=== PATIENT | female | born 1945 | race Caucasian/White ===

== ENCOUNTER 2019-07-14 08:00 | Outpatient (RCR) | payer BC, SELFPAY | END 2019-07-22 10:00 | disposition home or self-care (01) | LOC: PT.CARL 08:00 | PROVIDERS: Visit Provider Orthopaedic Surgery | DX: M25.561 Pain in right knee (principal); Z96.651 Presence of right artificial knee joint | CPT/HCPCS: 97010; 97014; 97110; 97112; 97116; 97140; 97163; G0283 ==

== ENCOUNTER → 2022-04-26 23:41 | Outpatient (CLI) | payer BC, SELFPAY ==
[2022-04-26 23:58] LABS: Hemoglobin A1C 5.6 % (4.0-6.0)
== END ==
PROVIDERS: PCP Family Medicine; Visit Provider Family Medicine
DX: R73.9 Hyperglycemia, unspecified (principal)
CPT/HCPCS: 83036

== ENCOUNTER 2023-01-21 17:55 | Emergency (ER) | payer OTHER, BC, SELFPAY ==
[2023-01-21] VITALS (7 sets, daily range): BP systolic 158–172; BP diastolic 74–108; PULSE 70–82; RESP 14–20; TEMP 36.7–36.8; O2SAT 94–98; BMI 24.2
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
--- NOTE | 2023-01-21 18:06 | PC.NURSE ---
Pt necklace given to pt daughter in law. Daughter in law placed necklace in the back of wallet in zipper pocket.
--- NOTE | 2023-01-21 18:07 | PC.NURSE ---
Dr. Oviedo at [facility] for pt eval
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
[2023-01-21 18:33] LABS: Chloride 92 mmol/L (98-107)
[2023-01-21 18:34] LABS: Sodium 129 mmol/L (136-145)
[2023-01-21 18:36] LABS: Alanine Aminotransferase 34 U/L (12-78); Aspartate Amino Transferase 47 U/L (14-36); Blood Urea Nitrogen 22 mg/dl (7-17); Creatinine Clearance Estimated 38 mL/min (50-200); Estimated Glomerular Filt Rate 40 ml/min (>60); GFR (African American) 48 ML/MIN (>60)
[2023-01-21 18:37] LABS: Albumin Level 4.5 g/dl (3.5-5.0); Albumin/Globulin Ratio 1.6 (1.1-1.8); Alkaline Phosphatase 49 U/L (38-126); Bilirubin,Total 0.4 mg/dl (0.2-1.3); Calcium 8.9 mg/dl (8.4-10.2); Carbon Dioxide 29 mmol/L (22.0-30.0); Globulin 2.8 g/dL (1.3-3.2); Glucose 136 mg/dl (74-100); Total Protein,Serum 7.3 g/dl (6.3-8.2)
[2023-01-21 18:42] LABS: Activated Partial Thrombo Time 27.2 seconds (22.8-30.6); INR 0.93 (0.9-1.1); Prothrombin Time 10.1 seconds (10.1-12.5)
--- NOTE | 2023-01-21 19:50 | PC.NURSE ---
Assisted to bedside commode.
[2023-01-21 20:15] LABS: Troponin I < 0.01 ng/ml (0.00-0.034)
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
[2023-01-21 20:43] LABS: Basophils % 0.3 % (0.1-2.0); Eosinophils # 0.3 K/mm3 (0.0-0.4); Eosinophils % 3.4 % (0.1-12.0); Hematocrit 40.2 % (37.0-47.0); Hemoglobin 14.2 g/dL (12.2-16.2); Lymphocytes # 3.1 K/mm3 (0.7-4.5); Lymphocytes % 31.9 % (10-50); Mean Corpuscular HGB Conc 35.4 g/dL (31.8-35.4); Mean Corpuscular Hemoglobin 31.3 pg (27.0-31.2); Mean Corpuscular Volume 88.5 fl (81-99); Mean Platelet Volume 8.8 fl (7.4-10.4); Monocytes # 0.7 K/mm3 (0.1-1.0); Monocytes % 7.2 % (1.7-9.3); Neutrophils # 5.5 K/mm3 (1.8-7.8); Neutrophils % 57.4 % (37.0-80.0); Platelet Count 274 K/mm3 (142-424); Red Blood Count 4.54 M/mm3 (4.20-5.40); Red Cell Distribution Width 13.5 % (11.5-17.5); White Blood Count 9.6 K/mm3 (4.8-10.8)
== END 2023-01-21 21:11 | disposition home or self-care (01) ==
PROVIDERS: Emergency Provider Emergency Medicine; PCP Family Medicine
DX: S22.080A Wedge compression fracture of T11-T12 vertebra, initial encounter for closed fracture (principal); E87.6 Hypokalemia; E87.1 Hypo-osmolality and hyponatremia; S16.1XXA Strain of muscle, fascia and tendon at neck level, initial encounter; I10 Essential (primary) hypertension; E78.5 Hyperlipidemia, unspecified; M19.09 Primary osteoarthritis, other specified site; V49.40XA Driver injured in collision with unspecified motor vehicles in traffic accident, initial encounter; Y92.410 Unspecified street and highway as the place of occurrence of the external cause
CPT/HCPCS: 70450; 70496; 70498; 71275; 72125; 72128; 72131; 74174; 80053; 84484; 85025; 85610; 85730; 99285; Q9967

== ENCOUNTER → 2023-01-30 08:01 | Outpatient (CLI) | payer BC, SELFPAY ==
[2023-01-30 16:35] LABS: Basophils % 0.2 % (0.1-2.0); Eosinophils # 0.1 K/mm3 (0.0-0.4); Eosinophils % 1.3 % (0.1-12.0); Hematocrit 39.5 % (37.0-47.0); Hemoglobin 13.7 g/dL (12.2-16.2); Lymphocytes # 1.4 K/mm3 (0.7-4.5); Lymphocytes % 15.8 % (10-50); Mean Corpuscular HGB Conc 34.7 g/dL (31.8-35.4); Mean Corpuscular Hemoglobin 30.2 pg (27.0-31.2); Mean Platelet Volume 8.6 fl (7.4-10.4); Monocytes # 0.5 K/mm3 (0.1-1.0); Monocytes % 5.5 % (1.7-9.3); Neutrophils # 6.7 K/mm3 (1.8-7.8); Neutrophils % 77.3 % (37.0-80.0); Platelet Count 362 K/mm3 (142-424); Red Blood Count 4.55 M/mm3 (4.20-5.40); Red Cell Distribution Width 13.2 % (11.5-17.5); White Blood Count 8.7 K/mm3 (4.8-10.8)
[2023-01-30 16:38] LABS: Alanine Aminotransferase 31 U/L (12-78); Albumin Level 4.1 g/dl (3.5-5.0); Albumin/Globulin Ratio 1.6 (1.1-1.8); Alkaline Phosphatase 62 U/L (38-126); Anion Gap 12.5 mEq/L (5-15); Aspartate Amino Transferase 35 U/L (14-36); Bilirubin,Total 0.5 mg/dl (0.2-1.3); Blood Urea Nitrogen 10 mg/dl (7-17); Calcium 9.3 mg/dl (8.4-10.2); Carbon Dioxide 30 mmol/L (22.0-30.0); Chloride 87 mmol/L (98-107); Estimated Glomerular Filt Rate 81 ml/min (>60); GFR (African American) 98 ML/MIN (>60); Globulin 2.6 g/dL (1.3-3.2); Glucose 143 mg/dl (74-100); Potassium 3.5 mmoL/L (3.5-5.1); Sodium 126 mmol/L (136-145); Total Protein,Serum 6.7 g/dl (6.3-8.2)
== END ==
PROVIDERS: PCP Nurse Practitioner Family; Visit Provider Nurse Practitioner Family
DX: R94.4 Abnormal results of kidney function studies (principal)
CPT/HCPCS: 80053; 85025

== ENCOUNTER 2023-08-20 10:27 | Outpatient (CLI) | payer BC, SELFPAY ==
[2023-08-20 16:42] LABS: Basophils % 0.4 % (0.1-2.0); Eosinophils # 0.1 K/mm3 (0.0-0.4); Eosinophils % 2.1 % (0.1-12.0); Hematocrit 41.1 % (37.0-47.0); Hemoglobin 13.5 g/dL (12.2-16.2); Lymphocytes # 1.5 K/mm3 (0.7-4.5); Lymphocytes % 25.8 % (10-50); Mean Corpuscular HGB Conc 32.8 g/dL (31.8-35.4); Mean Corpuscular Hemoglobin 29.7 pg (27.0-31.2); Mean Corpuscular Volume 90.8 fl (81-99); Mean Platelet Volume 9.3 fl (7.4-10.4); Monocytes # 0.5 K/mm3 (0.1-1.0); Monocytes % 7.9 % (1.7-9.3); Neutrophils # 3.8 K/mm3 (1.8-7.8); Neutrophils % 63.7 % (37.0-80.0); Platelet Count 264 K/mm3 (142-424); Red Blood Count 4.53 M/mm3 (4.20-5.40); Red Cell Distribution Width 13.6 % (11.5-17.5); White Blood Count 5.9 K/mm3 (4.8-10.8)
[2023-08-20 16:53] LABS: Alanine Aminotransferase 25 U/L (12-78); Albumin Level 3.9 g/dl (3.5-5.0); Albumin/Globulin Ratio 1.4 (1.1-1.8); Alkaline Phosphatase 59 U/L (38-126); Anion Gap 12.2 mEq/L (5-15); Aspartate Amino Transferase 31 U/L (14-36); Bilirubin,Total 0.9 mg/dl (0.2-1.3); Blood Urea Nitrogen 13 mg/dl (7-17); Calcium 9.2 mg/dl (8.4-10.2); Carbon Dioxide 30 mmol/L (22.0-30.0); Chloride 92 mmol/L (98-107); Chol/HDL Ratio 3.3 (1-3.5); Cholesterol 170 mg/dl (140-200); Estimated Glomerular Filt Rate 69 ml/min (>60); GFR (African American) 84 ML/MIN (>60); Globulin 2.7 g/dL (1.3-3.2); Glucose 93 mg/dl (74-100); HDL Cholesterol 52 mg/dl (40-60); Potassium 3.2 mmoL/L (3.5-5.1); Sodium 131 mmol/L (136-145); Total Protein,Serum 6.6 g/dl (6.3-8.2); Triglycerides 91 mg/dl (30-150); VLDL Cholesterol 18 mg/dL (0-40)
[2023-08-20 17:03] LABS: Direct LDL Cholesterol 85.37 mg/dL (100-129)
[2023-08-20 17:21] LABS: Thyroid Stimulating Hormone 0.18 uIU/mL (0.465-4.68)
[2023-08-20 17:40] LABS: Vitamin B12 730 pg/mL (239-931)
[2023-08-20 19:23] LABS: Hemoglobin A1C 5.5 % (4.0-6.0)
[2023-08-21 12:14] LABS: Free Thyroxine Index 3.2 ug/dL (5.93-13.13); T4 (Thyroxine) 8.6 ug/dl (5.53-11.0); Triiodothryronine (T3) Uptake 37 % (23.5-40.5)
[2023-08-21 12:28] LABS: Thyroid Stimulating Hormone 0.18 uIU/mL (0.465-4.68)
== END 2023-08-20 23:59 | disposition home or self-care (01) ==
LOC: LAB.DROPOF 08-22 10:28
PROVIDERS: PCP Nurse Practitioner Family; Visit Provider Nurse Practitioner Family
DX: I10 Essential (primary) hypertension (principal); E78.5 Hyperlipidemia, unspecified; E53.8 Deficiency of other specified B group vitamins; E04.1 Nontoxic single thyroid nodule; Z68.24 Body mass index [BMI] 24.0-24.9, adult
CPT/HCPCS: 80053; 80061; 82607; 83036; 84436; 84443; 84479; 85025

== ENCOUNTER 2024-03-05 09:20 | Outpatient (CLI) | payer BC, SELFPAY ==
[2024-03-05 17:08] LABS: Mean Corpuscular HGB Conc 33.3 g/dL (31.8-35.4); Mean Corpuscular Hemoglobin 29.7 pg (27.0-31.2); Red Blood Count 4.72 M/mm3 (4.20-5.40); Red Cell Distribution Width 12.8 % (11.5-17.5); White Blood Count 7.3 K/mm3 (4.8-10.8)
[2024-03-05 17:09] LABS: Basophils % 0.3 % (0.1-2.0); Eosinophils # 0.2 K/mm3 (0.0-0.4); Eosinophils % 2.6 % (0.1-12.0); Lymphocytes # 2.5 K/mm3 (0.7-4.5); Lymphocytes % 33.7 % (10-50); Monocytes # 0.8 K/mm3 (0.1-1.0); Monocytes % 10.5 % (1.7-9.3); Neutrophils # 3.9 K/mm3 (1.8-7.8); Neutrophils % 52.6 % (37.0-80.0); Platelet Count 286 K/mm3 (142-424)
[2024-03-05 17:35] LABS: Alanine Aminotransferase 23 U/L (12-78); Alkaline Phosphatase 44 U/L (38-126); Aspartate Amino Transferase 31 U/L (14-36); Bilirubin,Total 0.7 mg/dl (0.2-1.3); Blood Urea Nitrogen 16 mg/dl (7-17); Calcium 9.2 mg/dl (8.4-10.2); Chloride 97 mmol/L (98-107); Chol/HDL Ratio 3.2 (1-3.5); Cholesterol 158 mg/dl (140-200); Estimated Glomerular Filt Rate 69 ml/min (>60); GFR (African American) 84 ML/MIN (>60); Glucose 100 mg/dl (74-100); HDL Cholesterol 50 mg/dl (40-60); Potassium 3.8 mmoL/L (3.5-5.1); Sodium 135 mmol/L (136-145); Total Protein,Serum 6.5 g/dl (6.3-8.2); Triglycerides 78 mg/dl (30-150); VLDL Cholesterol 16 mg/dL (0-40)
[2024-03-05 17:45] LABS: Direct LDL Cholesterol 93.64 mg/dL (100-129)
[2024-03-05 18:01] LABS: Albumin Level 4.1 g/dl (3.5-5.0); Albumin/Globulin Ratio 1.7 (1.1-1.8); Anion Gap 11.8 mEq/L (5-15); Carbon Dioxide 30 mmol/L (22.0-30.0); Globulin 2.4 g/dL (1.3-3.2)
[2024-03-05 22:12] LABS: HIV Combo NEGATIVE (Negative)
[2024-03-07 08:15] LABS: HCV Ab Non Reactive (Non Reactive)
== END 2024-03-05 23:59 | disposition home or self-care (01) ==
LOC: LAB.DROPOF 03-06 12:09
PROVIDERS: PCP Family Medicine; Visit Provider Family Medicine
DX: E78.5 Hyperlipidemia, unspecified (principal); I10 Essential (primary) hypertension; Z11.59 Encounter for screening for other viral diseases; Z11.4 Encounter for screening for human immunodeficiency virus [HIV]
CPT/HCPCS: 80053; 80061; 85025; 86803; 87389

== ENCOUNTER 2024-07-23 12:40 | Inpatient (IN) | payer MEDICARE, BC, SELFPAY ==
[2024-07-23] VITALS (15 sets, daily range): BP systolic 106–168; BP diastolic 58–88; PULSE 68–81; RESP 12–20; TEMP 36.7–36.8; O2SAT 93–98; BMI 24.2
--- OUTSIDE RECORDS SUMMARY | 2024-07-23 12:50 | XMS_ITS | Data Portability ---
Author Organization [facility] Address [address] [place] [address] Assessment No assessment recorded. Plan of Treatment Reminders Order Date Submit Date Provider Last Modified By Organization Details Last Modified Time Details Appointments None recorded. Lab CBC w/ auto diff 2021 [facility]AN[facility], [address], [place], [address], 07:07:48 CMP, serum or plasma 2021 [email or web address] [facility], [address], [place], [address], 10:17:20 TSH, ultra-sens itive, serum 2021 jkiskaden [facility], [address], [place], [address], 10:16:59 HbA1c (hemoglobi n A1c), blood 2021 [email or web address] [facility], [address], [place], [address], 2 10:16:36 lipid panel, serum 2021 [facility]AN[facility], [address], [place], [address], 07:07:50 vitamin D, 25-hydroxy , total, serum 2021 [facility], [address], [address], [place], [address], 10:16:16 urinalysis , dipstick 2021 julia Not available 14:09:38 culture, urine 2021 [facility], [address], [address], [place], [address], 07:07:53 Referral None recorded. Procedures None recorded. Surgeries None recorded. Imaging None recorded. Medication Orders lansoprazo le 30 mg capsule,de layed release 2021 [employer], [address] [place] [address], [id number], 09:31:08 pravastati n 80 mg tablet 2021 [employer], [address] [place] [address], [id number], 09:31:09 lisinopril 20 mg-hydroch lorothiazi de 25 mg tablet 2021 [employer], [address] [place] [address], [id number], 09:31:08 tolterodin e ER 4 mg capsule,ex tended release 24 hr 2021 [employer], [address] [place] [address], [id number], 09:31:08 Patient TargetsNo targets recorded. Patient InstructionsNo instructions recorded. Reason for Referral None Reported. Results Created Date Observation Date Name Description Value Unit Range Abnormal Flag Note LastModifiedBy Organization Detail LastModifiedTime 02/09/20 22 02/09/2022 CBC WITH DIFFE RENTI AL/PL ATELE T WBC 6.3 x10e3 /uL 3.4-10 .8 Not Available [facility] ([facility]) [address] [facility], [place], [address], 02/10/2022 07:07:47 02/09/20 22 02/09/2022 CBC WITH DIFFE RENTI AL/PL ATELE T RBC 4.81 x10e6 /uL 3.77-5 .28 Not Available [facility] ([facility]) [address] [facility], [place], [address], 02/10/2022 07:07:47 02/09/20 22 02/09/2022 CBC WITH DIFFE RENTI AL/PL ATELE T hemoglobin 14.1 g/dL 11.1-1 5.9 Not Available [facility] ([facility]) [address] [place], [address], 02/10/2022 07:07:47 02/09/20 22 02/09/2022 CBC WITH DIFFE RENTI AL/PL ATELE T hematocrit 42.0 % 34.0-4 6.6 Not Available [facility] ([facility]) [address] [place], [address], 02/10/2022 07:07:47 02/09/20 22 02/09/2022 CBC WITH DIFFE RENTI AL/PL ATELE T MCV 87 fL 79-97 Not Available [facility] ([facility]) [address] [place], [address], 02/10/2022 07:07:47 02/09/20 22 02/09/2022 CBC WITH DIFFE RENTI AL/PL ATELE T MCH 29.3 pg 26.6-3 3.0 Not Available [facility] ([facility]) [address] [place], [address], 02/10/2022 07:07:47 02/09/20 22 02/09/2022 CBC WITH DIFFE RENTI AL/PL ATELE T MCHC 33.6 g/dL 31.5-3 5.7 Not Available [facility] ([facility]) [address] [facility], [place], [address], 02/10/2022 07:07:47 02/09/20 22 02/09/2022 CBC WITH DIFFE RENTI AL/PL ATELE T RDW 12.2 % 11.7-1 5.4 Not Available [facility] ([facility]) [address] [facility], [place], [address], 02/10/2022 07:07:47 02/09/20 22 02/09/2022 CBC WITH DIFFE RENTI AL/PL ATELE T platelets 269 x10e3 /uL 150-45 0 Not Available [facility] ([facility]) [address] [facility], [place], [address], 02/10/2022 07:07:47 02/09/20 22 02/09/2022 CBC WITH DIFFE RENTI AL/PL ATELE T neutrophils 54 % not estab. Not Available [facility] ([facility]) [address] [facility], [place], [address], 02/10/2022 07:07:47 02/09/20 22 02/09/2022 CBC WITH DIFFE RENTI AL/PL ATELE T lymphs 33 % not estab. Not Available [facility] ([facility]) [address] [facility], [place], [address], 02/10/2022 07:07:47 02/09/20 22 02/09/2022 CBC WITH DIFFE RENTI AL/PL ATELE T monocytes 11 % not estab. Not Available [facility] ([facility]) [address] [facility], [place], [address], 02/10/2022 07:07:47 02/09/20 22 02/09/2022 CBC WITH DIFFE RENTI AL/PL ATELE T eos 2 % not estab. Not Available [facility] ([facility]) [address] [place], [address], 02/10/2022 07:07:47 02/09/20 22 02/09/2022 CBC WITH DIFFE RENTI AL/PL ATELE T basos 0 % not estab. Not Available [facility] ([facility]) [address] [place], [address], 02/10/2022 07:07:47 02/09/20 22 02/09/2022 CBC WITH DIFFE RENTI AL/PL ATELE T immature cells [employer] Not Available [facility] ([facility]) [address] [place], [address], 02/10/2022 07:07:47 02/09/20 22 02/09/2022 CBC WITH DIFFE RENTI AL/PL ATELE T neutrophils (absolute) 3.4 x10e3 /uL 1.4-7. 0 Not Available [facility] ([facility]) [address] [place], [address], 02/10/2022 07:07:47 02/09/20 22 02/09/2022 CBC WITH DIFFE RENTI AL/PL ATELE T lymphs (absolute) 2.1 x10e3 /uL 0.7-3. 1 Not Available [facility] ([facility]) [address] [place], [address], 02/10/2022 07:07:47 02/09/20 22 02/09/2022 CBC WITH DIFFE RENTI AL/PL ATELE T monocytes(ab solute) 0.7 x10e3 /uL 0.1-0. 9 Not Available [facility] ([facility]) [address] [place], [address], 02/10/2022 07:07:47 02/09/20 22 02/09/2022 CBC WITH DIFFE RENTI AL/PL ATELE T eos (absolute) 0.1 x10e3 /uL 0.0-0. 4 Not Available [facility] ([facility]) [address] [facility], [place], [address], 02/10/2022 07:07:47 02/09/20 22 02/09/2022 CBC WITH DIFFE RENTI AL/PL ATELE T baso (absolute) 0.0 x10e3 /uL 0.0-0. 2 Not Available [facility] ([facility]) [address] [facility], [place], [address], 02/10/2022 07:07:47 02/09/20 22 02/09/2022 CBC WITH DIFFE RENTI AL/PL ATELE T immature granulocytes 0 % not estab. Not Available [facility] ([facility]) [address] [facility], [place], [address], 02/10/2022 07:07:47 02/09/20 22 02/09/2022 CBC WITH DIFFE RENTI AL/PL ATELE T immature grans (abs) 0.0 x10e3 /uL 0.0-0. 1 Not Available [facility] ([facility]) [address] [facility], [place], [address], 02/10/2022 07:07:47 02/09/20 22 02/09/2022 CBC WITH DIFFE RENTI AL/PL ATELE T NRBC [employer] Not Available [facility] ([facility]) [address] [facility], [place], [address], 02/10/2022 07:07:47 02/09/20 22 02/09/2022 CBC WITH DIFFE RENTI AL/PL ATELE T hematology comments: [employer] Not Available [facility] ([facility]) [address] [facility], [place], [address], 02/10/2022 07:07:47 02/09/20 22 02/09/2022 COMP. METAB OLIC PANEL (14) glucose 89 mg/dL 70-99 Not Available [facility] ([facility]) [address] [facility] [place], [address], 02/10/2022 07:07:49 02/09/20 22 02/09/2022 COMP. METAB OLIC PANEL (14) BUN 15 mg/dL 8-27 Not Available [facility] ([facility]) [address] [facility] [place], [address], 02/10/2022 07:07:49 02/09/20 22 02/09/2022 COMP. METAB OLIC PANEL (14) creatinine 0.94 mg/dL 0.57-1 .00 Not Available [facility] ([facility]) [address] [facility] [place], [address], 02/10/2022 07:07:49 02/09/20 22 02/09/2022 COMP. METAB OLIC PANEL (14) eGFR 62 mL/mi n/1.7 3 >59 Not Available [facility] ([facility]) [address] [facility], [place], [address], 02/10/2022 07:07:49 02/09/20 22 02/09/2022 COMP. METAB OLIC PANEL (14) BUN/creatini ne ratio 16 12-28 Not Available [facility] ([facility]) [address] [facility] [place], [address], 02/10/2022 07:07:49 02/09/20 22 02/09/2022 COMP. METAB OLIC PANEL (14) sodium 133 mmol/ L 134-14 4 below low normal Not Available [facility] ([facility]) [address] [facility] [place], [address], 02/10/2022 07:07:49 02/09/20 22 02/09/2022 COMP. METAB OLIC PANEL (14) potassium 3.4 mmol/ L 3.5-5. 2 below low normal Not Available [facility] ([facility]) [address] [facility] [place], [address], 02/10/2022 07:07:49 02/09/20 22 02/09/2022 COMP. METAB OLIC PANEL (14) chloride 95 mmol/ L 96-106 below low normal Not Available [facility] ([facility]) [address] [facility], [place], [address], 02/10/2022 07:07:49 02/09/20 22 02/09/2022 COMP. METAB OLIC PANEL (14) carbon dioxide, total 27 mmol/ L 20-29 Not Available [facility] ([facility]) [address] [facility] [place], [address], 02/10/2022 07:07:49 02/09/20 22 02/09/2022 COMP. METAB OLIC PANEL (14) calcium 9.2 mg/dL 8.7-10 .3 Not Available [facility] ([facility]) [address] [facility] [place], [address], 02/10/2022 07:07:49 02/09/20 22 02/09/2022 COMP. METAB OLIC PANEL (14) protein, total 6.7 g/dL 6.0-8. 5 Not Available [facility] ([facility]) [address] [facility] [place], [address], 02/10/2022 07:07:49 02/09/20 22 02/09/2022 COMP. METAB OLIC PANEL (14) albumin 4.3 g/dL 3.7-4. 7 Not Available [facility] ([facility]) [address] [facility] [place], [address], 02/10/2022 07:07:49 02/09/20 22 02/09/2022 COMP. METAB OLIC PANEL (14) globulin, total 2.4 g/dL 1.5-4. 5 Not Available [facility] ([facility]) [address] [facility] [place], [address], 02/10/2022 07:07:49 02/09/20 02/09/2022 COMP. METAB OLIC PANEL (14) A/G ratio 1.8 1.2-2. 2 Not Available [facility] ([facility]) [address] [place], [address], 02/10/2022 07:07:49 02/09/20 22 02/09/2022 COMP. METAB OLIC PANEL (14) bilirubin, total 0.9 mg/dL 0.0-1. 2 Not Available [facility] ([facility]) [address] [place], [address], 02/10/2022 07:07:49 02/09/20 22 02/09/2022 COMP. METAB OLIC PANEL (14) alkaline phosphatase 41 IU/L 44-121 below low normal Not Available [facility] ([facility]) [address] [place], [address], 02/10/2022 07:07:49 02/09/20 22 02/09/2022 COMP. METAB OLIC PANEL (14) AST (SGOT) 17 IU/L 0-40 Not Available [facility] ([facility]) [address] [place], [address], 02/10/2022 07:07:49 02/09/20 22 02/09/2022 COMP. METAB OLIC PANEL (14) ALT (SGPT) 17 IU/L 0-32 Not Available [facility] ([facility]) [address] [place], [address], 02/10/2022 07:07:49 02/09/20 22 02/09/2022 LIPID PANEL WITH LDL/H DL RATIO cholesterol, total 169 mg/dL 100-19 9 Not Available [facility] ([facility]) [address] [place], [address], 02/10/2022 07:07:50 02/09/20 22 02/09/2022 LIPID PANEL WITH LDL/H DL RATIO triglyceride s 133 mg/dL 0-149 Not Available [facility] ([facility]) [address] [facility], [place], [address], 02/10/2022 07:07:50 02/09/20 22 02/09/2022 LIPID PANEL WITH LDL/H DL RATIO HDL cholesterol 46 mg/dL >39 Not Available [facility]) [address] [facility], [place], [address], 02/10/2022 07:07:50 02/09/20 22 02/09/2022 LIPID PANEL WITH LDL/H DL RATIO VLDL cholesterol michelle 24 mg/dL 5-40 Not Available [facility] ([facility]) [address] [facility], [place], [address], 02/10/2022 07:07:50 02/09/20 22 02/09/2022 LIPID PANEL WITH LDL/H DL RATIO LDL chol calc (nih) 99 mg/dL 0-99 Not Available [facility] ([facility]) [address] [facility], [place], [address], 02/10/2022 07:07:50 02/09/20 22 02/09/2022 LIPID PANEL WITH LDL/H DL RATIO comment: [employer] Not Available [facility] ([facility]) [address] [place], [address], 02/10/2022 07:07:50 02/09/20 22 02/09/2022 LIPID PANEL WITH LDL/H DL RATIO LDL/HDL ratio 2.2 ratio 0.0-3. 2 LDL/H DL Ratio Men Women 1/2 Avg.R isk 1.0 1.5 Avg.R isk 3.6 3.2 2X Avg.R isk 6.2 5.0 3X Avg.R isk 8.0 6.1 Not Available [facility] ([facility]) [address] [facility], [place], [address], 02/10/2022 07:07:50 02/09/20 22 02/09/2022 HEMOG LOBIN A1C hemoglobin A1C 5.7 % 4.8-5. 6 above high normal Predi abete s: 5.7 - 6.4 Diabe eliana: >6.4 Glyce joyce contr ol for adult s with diabe eliana: <7.0 Not Available [facility] ([facility]) [address] [facility], [place], [address], 02/10/2022 07:07:51 02/09/20 22 02/09/2022 TSH TSH 0.314 uIU/m L 0.450- 4.500 below low normal Not Available [facility] ([facility]) [address] [facility], [place], [address], 02/10/2022 07:07:51 02/09/20 22 02/09/2022 VITAM IN D, 25-HY DROXY vitamin D, 25-hydroxy 49.9 NG/mL 30.0-1 00.0 Vitam in D defic iency has been defin ed by the Insti tute of Medic ine and an Endoc rine Socie ty pract ice guide line as a level of serum 25-OH vitam in D less than 20 ng/mL (1,2) . The Endoc rine Socie ty went on to furth er defin e vitam in D insuf ficie ncy as a level betwe en 21 and 29 ng/mL (2). 1. IOM (Inst itute of Medic ine). 2009. Dieta ry refer ence cathy es for calci um and D. Sarah butler [place]: [facility] . 2. Marianna meng MF, Tu morales [place], [place] off-F errar i ROBIN, et al. Evalu ation , treat ment, and preve ntion of vitam in D defic iency : an Endoc rine Socie ty clini michelle pract ice guide line. JCEM. 2010; 96(7) :1911 -30. Not Available [facility] ([facility]) [address] [facility], [place], [address], 02/10/2022 07:07:52 02/09/20 22 02/10/2022 URINE CULTU RE,CO MPREH ENSIV E urine culture,comp rehensive FINAL REPORT Not Available [facility] ([facility]) [address] [facility], [place], [address], 02/10/2022 07:07:53 02/09/20 22 02/10/2022 URINE CULTU RE,CO MPREH ENSIV E result 1 COMMEN T Mixed uroge nital je 25,00 0-50, 000 colon y formi ng units per mL Not Available [facility] ([facility]) [address] [facility], [place], [address], 02/10/2022 07:07:53 02/09/20 22 02/08/2022 urina lysis , dipst ick Leukocytes (reference range) modera te Not Available [address], [address], 02/08/2022 09:50:49 02/09/20 22 02/08/2022 urina lysis , dipst ick Nitrite (reference range:) negati ve Not Available [address], [address], 02/08/2022 09:50:49 02/09/20 22 02/08/2022 urina lysis , dipst ick Urobilinogen (reference range) 0.2 Not Available [address], [address], 02/08/2022 09:50:49 02/09/20 22 02/08/2022 urina lysis , dipst ick Protein (reference range) negati ve Not Available [address], [address], 02/08/2022 09:50:49 02/09/20 22 02/08/2022 urina lysis , dipst ick pH (reference range 5-8.5) 6.0 Not Available [address], [address], 02/08/2022 09:50:49 02/09/20 22 02/08/2022 urina lysis , dipst ick Blood (reference range:) non-He molyze d: Trace Not Available [address], [address], 02/08/2022 09:50:49 02/09/20 22 02/08/2022 urina lysis , dipst ick Specific [place] (reference range) 1.020 Not Available [address], [address], 02/08/2022 09:50:49 02/09/20 22 02/08/2022 urina lysis , dipst ick Ketone (reference range) negati ve Not Available [address], [address], 02/08/2022 09:50:49 02/09/20 22 02/08/2022 urina lysis , dipst ick Bilirubin (reference range) negati ve Not Available [address], [address], 02/08/2022 09:50:49 02/09/20 22 02/08/2022 urina lysis , dipst ick Glucose (reference range) negati ve Not Available [address], [address], 02/08/2022 09:50:49 02/09/20 22 02/08/2022 urina lysis , dipst ick Color (reference range: yellow-brown ) Yellow Not Available [address], [address], 02/08/2022 09:50:49 Result Notes None recorded. Problems Name Problem SNOMED Code Status Onset Date Resolution Date Notes Provider Name and Address Organization Details Recorded Time Hyperlipidemia 24298436 Active 2021 Amna wang, [place] - [facility] [place] & [place] 2 07:38:53 Essential hypertension 63852367 Active 2021 Amna Giljaya null, [place] - [facility] [place] [facility] [place] 2 07:39:00 Gastroesophage al reflux disease 314777172 Active 2021 Amna Giljaya null, [place] - [facility] [place] [facility] [place] 2 07:39:07 Osteoarthritis 481559234 Active 2021 Amna Bundy null, [place] - [facility] [place] 2 07:39:29 Osteopenia 191991451 Active 2021 Amna Giljaya null, [place] - [facility] [place] [facility] [place] 2 07:39:38 Anxiety 23131136 Active 2021 Amna Bundy null, [place] - [facility] [place] [facility] [place] 2 07:39:47 Depressive disorder 19838053 Active 2021 Amna Bundy null, [place] - [facility] [place] [facility] [place] 2 07:39:56 Problem Notes None recorded. Procedures Surgical History Date Name Laterality Status Provider Name and Address Organization Details Recorded Time 05/18/19 20 arthroplasty of knee completed Amna Giljaya [place] - [facility] [place] [facility] [place] 02/08/2022 07:42:58 05/18/19 13 Carpal tunnel surgery completed Amna Gregor [place] - [facility] [place] [facility] [place] 02/08/2022 07:42:16 Cataract Surgery completed Amna Giljaya [place] - [facility] [place] [facility] [place] 02/08/2022 07:41:47 Tubal Ligation completed Amna Gregor [place] - [facility] [place] [facility] [place] 02/08/2022 07:41:59 Imaging Results None recorded. Procedure Notes None recorded. Medical Equipment None Reported. Allergies Allergen ID Allergen Name Allergen Category Reaction Reaction Severity Criticality Documentation Date Start Date Code Code System Note Provider Name and Address Organization Details Recorded Time 81939 lidocaine medicatio n Not available Not available Not available 02/08/2022 6387 RxNorm [place] Molina [facility] & [place] 2 07:38:29 42200 procaine hydrochlo ride medicatio n Not available Not available Not available 02/08/2022 84293 8 RxNorm [place] Molina [facility] & [place] 2 07:38:38 Medications Name Sig Start Date Stop Date Status Note LastModified by Organization Details LastModified Time tolterodine ER 4 mg capsule,extend ed release 24 hr TAKE 1 CAPSULE 1 TIME EACH DAY active Not Available Not Available No t Available pravastatin 80 mg tablet TAKE 1 TABLET 1 TIME EACH DAY AT BEDTIME active Not Available Not Available No t Available Arlene 180 mg tablet Take 1 tablet every day by oral route. active Not Available Not Available No t Available lansoprazole 30 mg capsule,delaye d release TAKE 1 CAPSULE 1 TIME EACH DAY active Not Available Not Available No t Available vitamin E 400 unit tablet Take 1 tablet every day by oral route. active Not Available Not Available No t Available lisinopril 20 mg-hydrochloro thiazide 25 mg tablet TAKE 1 TABLET 1 TIME EACH DAY active Not Available Not Available No t Available fluticasone propionate 50 mcg/actuation nasal spray,suspensi on SPRAY 1-2 TIMES IN EACH NOSTRIL AT BEDTIME active Not Available Not Available No t Available Calcium 600 one tablet everyday active Not Available Not Available No t Available Glucosamine-Ch ondroitin 3X Triple Strength 750 mg-600 mg tablet Take 1 tablet every day by oral route. active Not Available Not Available No t Available Vitals Date Recorded Body height Body mass index (BMI) Body weight Body temperature Oxygen saturation Oxygen saturation in Arterial blood by Pulse oximetry Heart rate Systolic blood pressure Diastolic blood pressure Provider Name and Address Organization Details Last Updated DateTime 2 165.1 cm 26.6 kg/m2 40230.7 8 g 97.5 [degF] 98 % 98 % 75 /min 167 mm[Hg] 83 mm[Hg] Amna SOLIS [facility] & [place] 09:03:53 Social History Question Answer Notes LastModified by Organizat ion Details LastModified Time Tobacco Smoking Status Never Smoker Amna Bundy kathleen, [place] - [facility] & [place] 02/08/2022 09:06:11 What Is Your Level Of Alcohol Consumption? None Information not available 02/08/2022 What Is Your Level Of Caffeine Consumption? Occasional Information not available 02/08/2022 What Was The Date Of Your Most Recent Tobacco Screening? 02/08/2022 Information not available 02/08/2022 Do You Use Any Illicit Or Recreational Drugs? No Information not available 02/08/2022 Do You Or Have You Ever Used Any Other Forms Of Tobacco Or Nicotine? No Information not available 02/08/2022 Sex: Unknown Functional Status None recorded. Mental Status None recorded. Family History Relationship Description Onset Age of this Age Resolved Age Notes LastModified by Organization Details LastModified Time Mother Dementia deceas ed [email or web address] Not available 02/08/2022 07:40:27 Father of unknown cause [email or web address] Not available 2021 07:40:40 Sister Malignant tumor of pancreas deceas ed [email or web address] Not available 02/08/2022 07:41:06 Son Essential hypertension [email or web address] Not available 07:41:26 Medical History Condition Response Anxiety Disorder Y Arthritis Y Reflux/GERD Y Hypertension Y High Cholesterol Y Gynecological HistoryNo gynecological history recorded. Obstetrics History GPAL:G 0 P 0 0 0 0 Immunizations Vaccine Type Date Status Note Provider Nam e and Address Organization Details Recorded Time Pneumococcal conjugate PCV 13 6 completed MELITON GARCIA NP [address] [place], [address], [facility] - [facility] & [place] 02/08/2022 09:12:29 pneumococcal polysaccharide PPV23 0 yuliya GARCIA NP [address] [place], [address], [place] - [facility] & [place] 02/08/2022 09:12:29 pneumococcal polysaccharide PPV23 5 completed MELITON GARCIA NP [address] [place] [address], [address], [place] - [facility] [place] [facility] [place] 02/08/2022 09:12:29 Td (adult) 4 completed MELITON GARCIA NP [address] [place] [address], [place], [address], [place] - [facility] [place] [facility] [place] 02/08/2022 09:12:29 COVID-19, mRNA, LNP-S, PF, 100 mcg/0.5mL dose or 50 mcg/0.25mL dose 1 completed MELITON GARCIA NP [address] [place] [address], [address] [place] [address], [place] - [facility] - [place] [facility] [place] 02/08/2022 09:12:29 Influenza, split virus, quadrivalent, preservative 0 completed MELITON GARCIA NP [address] [place] [address], [address] [place] [address], [place] - [facility] - [place] [facility] [place] 02/08/2022 09:12:29 Influenza, adjuvanted, trivalent, PF 9 completed MELITON GARCIA NP [address] [place] [address], [address] [place] [address], [place] - [facility] & [place] 02/08/2022 09:12:29 COVID-19, mRNA, LNP-S, PF, 100 mcg/0.5mL dose or 50 mcg/0.25mL dose 1 completed MELITON GARCIA NP [address] [place] [address], [address] [place] [address], [place] - [facility] - [place] [facility] [place] 02/08/2022 09:12:29 Influenza, high-dose, trivalent, PF 1 completed MELITON GARCIA NP [address] [place] [address], [address] [place] [address], [place] - [facility] - [place] [facility] [place] 02/08/2022 09:12:29 pneumococcal polysaccharide PPV23 2 completed MELITON GARCIA NP [address] [place] [address], [place] - [facility] & [place] 02/08/2022 13:02:58 Influenza, high-dose, quadrivalent, PF 2 completed MELITON GARCIA NP [address], [place], [address], [facility] & [place] 02/08/2022 13:02:58 Past Encounters Encounter ID Performer Location Encounter Start Date Encounter Closed Date Diagnosis/Indication Diagnosis SNOMED-CT Code Diagnosis ICD10 Code Diagnosis Note [id number] MELITON GARCIA NP [id number] [address] [place] [address] 02/08/2022 08:43:35 02/08/2022 09:33:10 Adult health examination [id number] Z00.00 declines any preventati ve screenings discussed preventati ve caredental and vision screenings healthy lifestyle including diet and exercise Acute cystitis [id number] N30.00 asymptomat icsend for culture Essential hypertension [id number] I10 educated on goal of less than 130/90advi sed low sodium diet, healthy lifestyle including exercise as ablecontin ue current medication regimenER if any symptoms such as chest pain, shortness of breath Gastroesop hageal reflux disease [id number] K21.9 Avoid spicy foods, carbonated beverages, lying down 30 minutes to 1 hour after eatingEat smaller portion sizesTake medication s as prescribed Weight management Hyperlipidemia [id number] E78.5 Patient with known hyperlipid emia. Patient continues on {{statin* fibrate ni acin bile acid sequestran t}}. Lifestyle modificati ons discussed including weight loss, aerobic exercise at least 30 min/day at least 5 days per week, and a diet rich in fruit and vegetables . Goal LDL: {{<100mg/d L, <70mg/dL*} }. Will continue to follow lipid panel q6-12 months. Vitamin D deficiency [id number] E55.9 Overactive urinary bladder [id number] N32.81 Administra tion of pneumococcal vaccine [id number] Z23 Administra tion of influenza vaccine [id number] Z23 Health Concerns Section Related Observation LastModified by Organization Detai ls LastModified Time None Recorded Concern Status LastModified by Organization Details LastModified Time None Recorded Advance Directives Directive None Recorded Payers Insurance Date Sequence Insurance Name Policy Number Policy Chiu Covered Member ID Chiu Member ID Guarantor Name 05/13/2022 1 [id number] [employer] - [employer] [id number] Imani Mcdonald [id number] Imani Mcdonald Notes Date Note Type Note Provider Name and Address Organization Details Recorded Time 02/08/2022 text/html Vision screening : glasses, UTDDental screening: denturesAny falls, fractures surgeries: deniesSpecialist: [facility] SterlingColonoscopy: declinesFamily hx of colon, prostate cancer?: deniesAnxiety/Depres nia screening: deniesMammogram: denies/declines Taking all medications as prescribed but didnt take her blood pressure medication this AMOveractive bladder controlled MELITON GARCIA NP [address] [place] [address], [phone] [place] 02/08/2022 13:04:16 OBGyn Episode No OBEpisode recorded.
--- OUTSIDE RECORDS SUMMARY | 2024-07-23 12:50 | XMS_ITS | Continuity of Care Document ---
Author Name [facility] Organization [facility] Care Team Providers Care [employer] Name Role Phone [facility] Unavailable Unavailable Social History Combined list of available smoking, tobacco, and other social history from Department of Defense and Veterans Affairs facilities. Social History Type Response Date Comment Sourc e This section is an empty social history section. DoD
--- NOTE | 2024-07-23 13:06 | ECG_ITS ---
APPROVED REPORT Exam: Resting ECG HR:69 bpm ECG Measurements Heart Rate 69 AXES DC 145 P -9 QRSd 114 QRS 40 QT 411 T 40 QTc 431 Conclusion SINUS RHYTHM PROBABLE ANTEROLATERAL MYOCARDIAL INFARCTION , PROBABLY OLD [35 ms Q WAVE IN I/aVL/V3-V6] No STEMI Electronically signed by : ASHLEY BLACKBURN, 07/23/2024 14:53:54
[2024-07-23] MEDS: PROMETHAZINE HCL 25MG/ML 1ML VIAL 12.5 MG IV (13:07)
[2024-07-23] MEDS: SODIUM CHLORIDE 0.9% 25ML BAG 25 ML IV (13:07)
[2024-07-23] MEDS: LACTATED RINGERS 1000ML 1,000 ML 999 ML IV ×2 (13:08→13:54)
--- NOTE | 2024-07-23 13:09 | HMH.EDGENADL ---
Discharge Plan Disposition Patient Disposition: Admitted Condition: Fair Clinical Impressions Clinical Impression: Hypokalemia, Hyponatremia, Hypocalcemia, Malnutrition, Nausea & vomiting, Hypophosphatemia Discharge ED Provider: Joanne Muhammad General Adult HPI General Chief complaint: Nausea/Vomiting/Diarrhea Stated complaint: dehydration Time Seen by Provider: 07/23/24 12:41 Mode of Arrival: EMS Source of Information: Patient and EMS Description of Symptoms (Recalled from ER Triage Doc. by RN): pt was recently dx with uti and given batrim 3-4 days ago then began getting nauseated, was switched to macrobid one day ago and has taken one dose, began vomiting yesterday and is still vomting today, denies any abd pain, fever or dizziness History of Present Illness HPI narrative: This patient is an 79-year-old female with a history of hypertension, hyperlipidemia presenting to the emergency department for evaluation with concern for nausea and vomiting. Patient states that she was seen recently for preop clearance for a knee surgery, and was incidentally found to have a urinary tract infection on lab evaluation. She notes that 3 to 4 days ago, she started on Bactrim and started having issues with severe nausea and vomiting. She states that she was then changed to Macrobid yesterday, but the nausea and vomiting have been persistent. She is not been able to tolerate oral intake of even water. She denies any abdominal pain. No fevers, cough, congestion, chest pain, shortness of breath, changes bowel movements, dysuria, urinary frequency. She states that she was asymptomatic until starting the antibiotics. Related Data Home Medications ?Medication ?Instructions ?Recorded ?Confirmed antiarthritic combination no.2 900 900 mg PO DAILY 04/26/22 06/30/24 mg tablet (glucosamine-chondroitin) calcium carbonate (Calcium 600) 600 mg PO DAILY 04/26/22 06/30/24 cyanocobalamin (vitamin B-12) 500 500 mcg PO DAILY 04/26/22 06/30/24 mcg tablet fexofenadine 180 mg tablet 180 mg PO DAILY 04/26/22 06/30/24 (Arlene Allergy) vitamin E (dl, acetate) 180 mg 180 mg PO DAILY 04/26/22 06/30/24 (400 unit) capsule Previous Rx's ?Medication ?Instructions ?Recorded fluticasone propionate 50 1 spray intranasal DAILY 30 days 03/05/24 mcg/actuation nasal #16 grams spray,suspension (Flonase Allergy Relief) lansoprazole 30 mg capsule,delayed 30 mg PO DAILY 90 days #90 caps 03/05/24 release lisinopril 20 1 tab PO DAILY HTN 90 days #90 tabs 03/05/24 mg-hydrochlorothiazide 25 mg tablet pravastatin 80 mg tablet 80 mg PO DAILY HLD 90 days #90 tabs 03/05/24 sertraline 25 mg tablet (Zoloft) 25 mg PO DAILY 90 days #90 tabs 03/05/24 tolterodine 4 mg capsule,extended 4 mg PO DAILY 90 days #90 caps 03/05/24 release 24 hr potassium chloride 15 mEq 15 meq PO DAILY low potassium #20 06/30/24 tablet,extended release tabs amoxicillin 500 mg tablet 500 mg PO TID #12 tabs 07/15/24 sulfamethoxazole 800 1 tab PO BID 10 days #20 tabs 07/18/24 mg-trimethoprim 160 mg tablet (Bactrim DS) nitrofurantoin 100 mg PO Q12H 10 days #20 caps 07/22/24 monohydrate/macrocrystals 100 mg capsule (Macrobid) ondansetron 4 mg disintegrating 4 mg PO Q8H PRN nausea and 07/22/24 tablet vomiting #20 tabs Allergies Allergy/AdvReac Type Severity Reaction Status Date / Time No Known Allergies Allergy Verified 06/30/24 08:46 [facility] Disclaimer: The information contained in this section may have been updated after the patient was seen, as this information can be updated by other users. Medical History Hyperglycemia Arthritis Hyperlipidemia Hypertension Surgical History History of surgical removal of lesion H/O tubal ligation Family History Mother Coronary artery disease Heart attack Grandmother Diabetes Social History Smoking Status: Never smoker alcohol intake: never substance use type: denies use current occupational status: retired Travel in the last 8 weeks?: None household members: none housing: house Have you lived/traveled outside [place] in past 30 days?: No Contact w/someone who lives/traveled outside US past 30 days?: No Exposure to someone with infectious disease in past 14 days?: No Do you have a fever (greater than 100.4 F or 38 C)?: No Have you tested positive for COVID-19?: No Exposed to someone with COVID-19 in past 14 days?: No Do you have a sore throat?: No Do you have a cough?: No Do you have any weakness?: No Do you have any diarrhea?: No Are you experiencing any unusual bleeding?: No Do you have any muscle aches/pain?: No Do you have any abdominal pain?: No Are you experiencing loss of taste or smell?: No Other Medical History Have you received the Pneumonia Vaccine: Yes ROS Obtained: Yes All systems reviewed & no additional complaints except as documented Physical Exam General General appearance: alert and in no apparent distress Head Head exam: atraumatic and normocephalic Eye Eye exam: Present normal appearance, PERRL and EOMI ENT ENT exam: Present normal exam, normal oropharynx, mucous membranes moist and normal external ear exam Neck Neck exam: Present normal inspection, full ROM and trachea midline; Absent tenderness Chest Chest inspection: Present normal inspection and symmetric chest wall rise; Absent tenderness Respiratory Respiratory exam: Present normal lung sounds bilaterally; Absent respiratory distress, wheezes, stridor or accessory muscle use Cardiovascular Cardiovascular exam: Present regular rate and normal rhythm Abdominal Exam Abdominal exam: Present soft; Absent distention, tenderness or guarding Extremities Exam Extremities exam: Present normal inspection, full ROM and normal capillary refill; Absent tenderness or edema Back Exam Back exam: Present normal inspection and full ROM; Absent tenderness Neurological Exam Neurological exam: Present alert, oriented X3, CN II-XII intact and normal gait; Absent motor sensory deficit Psychiatric Psychiatric exam: Present normal affect and normal mood Skin Skin exam: Present warm and dry Medical Decision Making Medical Records Medical records reviewed: Yes I reviewed the patient's medical records. Screening: Per USPSTF and CDC recommendations, given the prevalence of disease in our region, it is our hospital?s policy to screen for HIV and viral Hepatitis for all patients aged 18 and over and those with ongoing risk factors. Wali Inquiry Pt receiving controlled substance: No Vital Signs: 07/23/24 12:44 07/23/24 12:51 05/07/25 13:30 Temperature 98.2 F Temperature Source Oral Pulse Rate 71 73 Pulse Rate [Left Radial] 71 Respiratory Rate 14 14 16 Blood Pressure 163/82 H 168/86 H Blood Pressure [Right Arm] 163/82 H Blood Pressure Mean Blood Pressure Mean [Right Arm] 109 02 Sat by Pulse Oximetry 95 93 L 95 Oxygen Delivery Method Room Air Room Air Room Air 07/23/24 14:00 07/23/24 14:30 Temperature Temperature Source Pulse Rate 68 68 Pulse Rate [Left Radial] Respiratory Rate 15 14 Blood Pressure 144/80 H 157/86 H Blood Pressure [Right Arm] Blood Pressure Mean 101 Blood Pressure Mean [Right Arm] 02 Sat by Pulse Oximetry 97 97 Oxygen Delivery Method Room Air Lab Data Lab results reviewed: Yes I reviewed the patient's lab results. Lab Results 07/23/24 13:05: WBC 6.3, RBC 3.75 L, Hgb 11.2 L, Hct 31.4 L, MCV 83.7, MCH 29.9, MCHC 35.7 H, RDW 12.2, Plt Count 197, MPV 9.0, Neut % (Auto) 79.8, Lymph % (Auto) 13.3, [place] % (Auto) 6.3, Eos % (Auto) 0.2, Baso % (Auto) 0.2, Neut # (Auto) 5.1, Lymph # (Auto) 0.8, [place] # (Auto) 0.4, Eos # (Auto) 0.0, Baso # (Auto) 0.0, VBG pH 7.34, VBG pCO2 34.7 L, VBG pO2 43.5 H, VBG HCO3 18.3 L, VBG Total CO2 19.4 L, VBG O2 Saturation 78.5 H, VBG Base Excess -7.4 L, VBG Lactic Acid 1.1, Sodium 124 L, Potassium 2.7 L*, Chloride 101, Carbon Dioxide 19 L, Anion Gap 6.7, BUN 11, Creatinine 0.60, Estimated Creat Clear 48, Estimated GFR 96, Est GFR ( Amer) 116, Glucose 99, Calcium 6.3 L, Phosphorus 2.3 L, Magnesium 1.0 L, Total Bilirubin 0.9, AST 21, ALT 19, Alkaline Phosphatase 41, Troponin I < 0.01, Total Protein 5.0 L, Albumin 2.8 L, Globulin 2.2, Albumin/Globulin Ratio 1.3, Lipase 39 07/23/24 13:05 07/23/24 13:05 Orders (Tests/Meds): ED MEDICATIONS Generic Name Dose Route Start Last Admin Trade Name Freq PRN Reason Stop Dose Admin Potassium Chloride/Water 100 mls @ 100 mls/hr 07/23/24 13:45 07/23/24 13:44 Potassium Chloride 10meq/100ml Ivpb IV 07/23/24 16:44 100 mls/hr Q1H DARELL Administration Lactated Ringer's 1,000 mls @ 999 mls/hr 07/23/24 13:52 07/23/24 13:54 Lactated Ringer's 1000 Ml Bag IV 07/23/24 14:52 999 mls/hr .Q1H1M ONE Administration Calcium Gluconate/Sodium Chloride 1 gm in 50 mls @ 50 mls/hr 07/23/24 13:53 07/23/24 14:07 Calcium Gluconate 1,000mg/50ml Nacl Premix IV 07/23/24 14:52 50 mls/hr ONCE ONE Administration Discontinued Medications Generic Name Dose Route Start Last Admin Trade Name Freq PRN Reason Stop Dose Admin Lactated Ringer's 1,000 mls @ 999 mls/hr 07/23/24 12:55 07/23/24 13:08 Lactated Ringer's 1000 Ml Bag IV 07/23/24 13:55 999 mls/hr .Q1H1M ONE Administration Magnesium Sulfate 2 gm in 50 mls @ 50 mls/hr 07/23/24 13:39 07/23/24 13:43 Magnesium Sulfate 2gm/50ml Premix IV 07/23/24 14:38 50 mls/hr ONCE ONE Administration Promethazine HCl 12.5 mg 07/23/24 12:55 07/23/24 13:07 Promethazine Hcl 25mg/Ml 1ml Vial IV 07/23/24 12:56 12.5 mg ONCE ONE Administration Sodium Chloride 25 ml 07/23/24 12:55 07/23/24 13:07 Sodium Chloride 0.9% 25ml Bag IV 07/23/24 12:56 25 ml ONCE ONE Administration ORDERS Category Date Time Status Complete Blood Count Auto Diff Stat Lab 07/23/24 13:05 Completed Comprehensive Metabolic Panel Stat Lab 07/23/24 13:05 Completed Lipase Stat Lab 07/23/24 13:05 Completed MAG [Magnesium] Stat Lab 07/23/24 13:05 Completed PHOS [Phosphorous] Stat Lab 07/23/24 13:05 Completed Trop I [Troponin I] Stat Lab 07/23/24 13:05 Completed Troponin I Q3H Lab 07/23/24 16:15 Ordered Troponin I Q3H Lab 07/23/24 19:15 Ordered UA [Urinalysis and Microscopic] Stat Lab 07/23/24 12:48 Ordered VBG [Venous Blood Gas] Stat RT 07/23/24 13:05 Completed ECG Data Tracing #1: I reviewed this ECG and interpreted as documented below: Normal sinus rhythm with a ventricular rate of 69 bpm. Q waves present in leads II, III, and aVF. No acute ST changes concerning for STEMI. Normal intervals ECG initial impression date: 07/23/24 ECG initial impression time: 13:08 Medical Decision Narrative: In summary, this patient is a 79-year-old female presenting to the Emergency Department for evaluation of nausea, vomiting. Differential diagnoses considered include but are not limited to gastroenteritis, colitis, cystitis, pyelonephritis, medication adverse reaction, electrolyte derangements, YESICA. Ruling out the most morbid conditions drove assessment. It should be noted patient's history includes hypertension, hyperlipidemia which may or may not be at goal therapy. This complicates all aspects of care by increasing patient's risk for morbidity. On exam, the patient is lying in bed in no acute distress. Abdominal exam is benign. Vitals reassuring cardiac telemetry. workup included CBC, CMP, lipase, magnesium, phosphorus, VBG, urinalysis, troponin, EKG. She was given a bolus of IV fluids as well as IV Phenergan. On reassessment, the patient is resting comfortably with improvement in symptoms and reassuring vital signs and cardiac telemetry. CBC is reassuring with no significant leukocytosis or anemia, chemistry demonstrates hyponatremia with a sodium of 124, hypokalemia, hypocalcemia, hypophosphatemia, hypomagnesemia. She has not yet been able to provide urinalysis. IV potassium, magnesium, and calcium repletion were ordered as well as IV fluids. Patient was monitored on cardiac telemetry while receiving electrolyte repletion and developed no significant cardiac dysrhythmias. Given her significant electrolyte derangements as well as her protein malnutrition in the setting of hypoalbuminemia, I feel that she would benefit from admission for continued monitoring and repletion. I had an interactive discussion with the hospitalist who admitted the patient in stable condition. Critical Care Critical Care Time Critical Care Time: Yes Attestation: On 07/23/24, the high probability of a clinically significant, sudden or life threatening deterioration of the following system(s) required my full and direct attention, intervention and personal management. The time I documented below is in addition to time spent performing reported procedures but includes the following listed in this critical care notation. Total Time Total Critical Care Time: 35
[2024-07-23 13:14] LABS: Basophils % 0.2 % (0.1-2.0); Eosinophils % 0.2 % (0.1-12.0); Hematocrit 31.4 % (37.0-47.0); Hemoglobin 11.2 g/dL (12.2-16.2); Immature Granulocytes # 0.01 10^3uL; Immature Granulocytes % 0.2 %; Lymphocytes # 0.8 K/mm3 (0.7-4.5); Lymphocytes % 13.3 % (10-50); Mean Corpuscular HGB Conc 35.7 g/dL (31.8-35.4); Mean Corpuscular Hemoglobin 29.9 pg (27.0-31.2); Mean Corpuscular Volume 83.7 fl (81-99); Monocytes # 0.4 K/mm3 (0.1-1.0); Monocytes % 6.3 % (1.7-9.3); Neutrophils # 5.1 K/mm3 (1.8-7.8); Neutrophils % 79.8 % (37.0-80.0); Nucleated Red Blood Cells # 0 10^3/uL; Nucleated Red Blood Cells % 0 %; Platelet Count 197 K/mm3 (142-424); Red Blood Count 3.75 M/mm3 (4.20-5.40); Red Cell Distribution Width 12.2 % (11.5-17.5); Red Cell Distribution Width-SD 37.6 fL; White Blood Count 6.3 K/mm3 (4.8-10.8)
[2024-07-23 13:19] LABS: Lactate Venous 1.1 mmol/L (0.4-2.0); VBG Base Excess -7.4 mmol/L (-2.4-2.3); VBG HCO3 18.3 mmol/L (23-30); VBG Oxygen Saturation 78.5 % (50-70); VBG PCO2 34.7 mmol/L (35-51); VBG PH 7.34 mmol/L (7.31-7.41); VBG PO2 43.5 mmol/L (28-40); VBG Total CO2 19.4 mmol/L (23-27)
[2024-07-23 13:20] LABS: Albumin Level 2.8 g/dl (3.5-5.0); Chloride 101 mmol/L (98-107); Sodium 124 mmol/L (136-145)
[2024-07-23 13:22] LABS: Blood Urea Nitrogen 11 mg/dl (7-17); Creatinine Clearance Estimated 48 mL/min (50-200); Estimated Glomerular Filt Rate 96 ml/min (>60); GFR (African American) 116 ML/MIN (>60)
[2024-07-23 13:23] LABS: Alanine Aminotransferase 19 U/L (12-78); Albumin/Globulin Ratio 1.3 (1.1-1.8); Alkaline Phosphatase 41 U/L (38-126); Anion Gap 6.7 mEq/L (5-15); Aspartate Amino Transferase 21 U/L (14-36); Bilirubin,Total 0.9 mg/dl (0.2-1.3); Calcium 6.3 mg/dl (8.4-10.2); Carbon Dioxide 19 mmol/L (22.0-30.0); Globulin 2.2 g/dL (1.3-3.2); Glucose 99 mg/dl (74-100); Lipase 39 U/L (23-300)
[2024-07-23 13:36] LABS: Potassium 2.7 mmoL/L (3.5-5.1)
--- NOTE | 2024-07-23 13:36 | PC.NURSE ---
CRITICAL K+ 2.7 AND MAG 1.0. PT NAME AND R/V. DR BLACKBURN NOTIFIED
[2024-07-23] MEDS: MAGNESIUM SULFATE IN WATER 2 GM/50 ML PIGGYBACK IV ×2 (13:43→18:45)
[2024-07-23] MEDS: KCl 10mEq/100ml 100 ML 100 MEQ IV ×3 (13:44→16:19)
[2024-07-23 13:52] LABS: Phosphorous 2.3 mg/dl (2.5-4.5)
[2024-07-23] MEDS: CALCIUM GLUC IN NACL, ISO-OSM 1 GM/50 ML BAG IV (14:07)
[2024-07-23 14:10] LABS: Troponin I < 0.01 ng/ml (0.00-0.034)
--- NOTE | 2024-07-23 14:34 | PC.NURSE ---
spoke with [place] sup for bed assignment
--- NOTE | 2024-07-23 14:35 | PC.NURSE ---
FLIGHT KITCHEN MANAGER NOTIFIED OF ADMISSION
--- NOTE | 2024-07-23 15:17 | PC.NURSE ---
pt voided 500 out
[2024-07-23 15:20] LABS: Microscopic, Urine URINE MICROSCOPIC (MICROSCOPIC)
[2024-07-23 15:22] LABS: Appearance,Urine CLEAR (Clear); Bilirubin,Urine Negative (Negative); Blood, Urine Negative (Negative); Color,Urine YELLOW (Yellow); Glucose,Urine (UA) Negative (Negative); Ketones,Urine 1+ (Negative); Leukocyte Esterase,Urine Negative (Negative); Nitrate,Urine POSITIVE (Negative); PH,Urine 6.5 (5.0-8.5); Protein,Urine Negative (Negative); Urobilinogen,Urine 0.2 EU/dl (0.2)
[2024-07-23 15:55] LABS: Bacteria,Urine 4+ /lpf
[2024-07-23 17:02] LABS: Troponin I < 0.01 ng/ml (0.00-0.034)
--- NOTE | 2024-07-23 17:57 | EXP.HP ---
History of Present Illness *Admission Date: 07/23/24 *Reason for visit:: Nausea/vomiting *History of present illness: Imani Mcdonald is a 79-year-old female with a medical history significant for osteoarthritis, hypertension, GERD who presents with intractable nausea/vomiting after being started on Bactrim on 07/18/2024 for UTI. Patient states she was going for a preoperative appointment for left TKR and was incidentally found to have a abnormal UA. Patient states she was asymptomatic at that time. A day after starting Bactrim, patient began experiencing nausea with vomiting that has been intractable until today. Workup in the ED significant for potassium 2.7, calcium 6.3, phosphorus 2.3, magnesium 1.0. UA also suggestive of UTI. Case discussed with ED provider decision was made to admit patient from for severe electrolyte abnormalities, and/vomiting. [facility] Disclaimer: The information contained in this section may have been updated after the patient was seen, as this information can be updated by other users. Medical History (Updated 07/23/24 @ 16:02 by Christen Morin RN) GERD (gastroesophageal reflux disease) Hyperglycemia Arthritis Hyperlipidemia Hypertension Surgical History (Updated 07/23/24 @ 16:02 by Christen Morin RN) History of knee replacement History of surgical removal of lesion H/O tubal ligation Family History Mother Coronary artery disease Heart attack Grandmother Diabetes Social History (Updated 07/23/24 @ 16:02 by Christen Morin RN) Smoking Status: Never smoker alcohol intake: never substance use type: denies use current occupational status: retired Travel in the last 8 weeks?: None household members: none housing: house Have you lived/traveled outside [place] in past 30 days?: No Contact w/someone who lives/traveled outside US past 30 days?: No Exposure to someone with infectious disease in past 14 days?: No Do you have a fever (greater than 100.4 F or 38 C)?: No Have you tested positive for COVID-19?: No Exposed to someone with COVID-19 in past 14 days?: No Do you have a sore throat?: No Do you have a cough?: No Do you have any weakness?: No Are you experiencing any nausea/vomitting?: Yes Do you have any diarrhea?: No Are you experiencing any unusual bleeding?: No Do you have any muscle aches/pain?: No Do you have any abdominal pain?: No Are you experiencing loss of taste or smell?: No Other Medical History Have you received the Flu Vaccine for this season: Yes Have you received the Pneumonia Vaccine: Yes Meds Home Medications and Allergies Home Medications ?Medication ?Instructions ?Recorded ?Confirmed ?Type antiarthritic combination no.2 900 900 mg PO DAILY 04/26/22 06/30/24 History mg tablet (glucosamine-chondroitin) calcium carbonate (Calcium 600) 600 mg PO DAILY 04/26/22 06/30/24 History cyanocobalamin (vitamin B-12) 500 500 mcg PO DAILY 04/26/22 06/30/24 History mcg tablet fexofenadine 180 mg tablet 180 mg PO DAILY 04/26/22 06/30/24 History (Arlene Allergy) vitamin E (dl, acetate) 180 mg 180 mg PO DAILY 04/26/22 06/30/24 History (400 unit) capsule fluticasone propionate 50 1 spray intranasal DAILY 30 days 03/05/24 07/23/24 Rx mcg/actuation nasal #16 grams spray,suspension (Flonase Allergy Relief) lansoprazole 30 mg capsule,delayed 30 mg PO DAILY 90 days #90 caps 03/05/24 07/23/24 Rx release lisinopril 20 1 tab PO DAILY HTN 90 days #90 tabs 03/05/24 07/23/24 Rx mg-hydrochlorothiazide 25 mg tablet pravastatin 80 mg tablet 80 mg PO DAILY HLD 90 days #90 tabs 03/05/24 07/23/24 Rx sertraline 25 mg tablet (Zoloft) 25 mg PO DAILY 90 days #90 tabs 03/05/24 07/23/24 Rx tolterodine 4 mg capsule,extended 4 mg PO DAILY 90 days #90 caps 03/05/24 07/23/24 Rx release 24 hr potassium chloride 15 mEq 15 meq PO DAILY low potassium #20 06/30/24 07/23/24 Rx tablet,extended release tabs amoxicillin 500 mg tablet 500 mg PO TID #12 tabs 07/15/24 Rx nitrofurantoin 100 mg PO Q12H 10 days #20 caps 07/22/24 07/23/24 Rx monohydrate/macrocrystals 100 mg capsule (Macrobid) ondansetron 4 mg disintegrating 4 mg PO Q8H PRN nausea and 07/22/24 07/23/24 Rx tablet vomiting #20 tabs New Prescriptions to Start Prescriptions: Allergies Allergy/AdvReac Type Severity Reaction Status Date / Time sulfamethoxazole (From AdvReac Mild Vomiting Verified 07/23/24 15:56 Bactrim) trimethoprim (From Bactrim) AdvReac Mild Vomiting Verified 07/23/24 15:56 Exam Data for Last 24 hours Vital signs and Labs for Last 24 Hours: Temp Pulse Resp BP Pulse Ox O2 Del Method 98.2 F 74 15 106/88 L 96 Room Air 07/23/24 15:02 07/23/24 15:50 07/23/24 15:50 07/23/24 15:50 07/23/24 15:50 07/23/24 15:50 Laboratory Results - last 24 hr 07/23/24 13:05: WBC 6.3, RBC 3.75 L, Hgb 11.2 L, Hct 31.4 L, MCV 83.7, MCH 29.9, MCHC 35.7 H, RDW 12.2, Plt Count 197, MPV 9.0, Neut % (Auto) 79.8, Lymph % (Auto) 13.3, [place] % (Auto) 6.3, Eos % (Auto) 0.2, Baso % (Auto) 0.2, Neut # (Auto) 5.1, Lymph # (Auto) 0.8, [place] # (Auto) 0.4, Eos # (Auto) 0.0, Baso # (Auto) 0.0, VBG pH 7.34, VBG pCO2 34.7 L, VBG pO2 43.5 H, VBG HCO3 18.3 L, VBG Total CO2 19.4 L, VBG O2 Saturation 78.5 H, VBG Base Excess -7.4 L, VBG Lactic Acid 1.1, Sodium 124 L, Potassium 2.7 L*, Chloride 101, Carbon Dioxide 19 L, Anion Gap 6.7, BUN 11, Creatinine 0.60, Estimated Creat Clear 48, Estimated GFR 96, Est GFR ( Amer) 116, Glucose 99, Calcium 6.3 L, Phosphorus 2.3 L, Magnesium 1.0 L, Total Bilirubin 0.9, AST 21, ALT 19, Alkaline Phosphatase 41, Troponin I < 0.01, Total Protein 5.0 L, Albumin 2.8 L, Globulin 2.2, Albumin/Globulin Ratio 1.3, Lipase 39 07/23/24 15:15: Urine Color Yellow, Urine Appearance Clear, Urine pH 6.5, Ur Specific [place] 1.010, Urine Protein Negative, Urine Glucose (UA) Negative, Urine Ketones 1+, Urine Blood Negative, Urine Nitrate Positive A, Urine Bilirubin Negative, Urine Urobilinogen 0.2, Ur Leukocyte Esterase Negative, Urine RBC 5-10, Urine WBC 5-10, Ur Squamous Epith Cells 5-10, Urine Bacteria 4+ 07/23/24 16:10: Troponin I < 0.01 I & O for Last 24 hours: Intake & Output 07/20/24 07/21/24 07/22/24 07/23/24 23:59 23:59 23:59 23:59 Weight 68.039 kg Constitutional Constitutional: no acute distress *Routine HEENT Exam Head: Present normocephalic Eye: Present EOMI and PERRL ENT: Present mucous membranes moist *Routine Neck Exam Neck: Present supple; Absent lymphadenopathy *Routine Respiratory Exam Respiratory: Present CTA bilaterally *Routine Cardiovascular Exam Cardiovascular: Present RRR *Routine Abdominal Exam Abdominal: Present soft and normoactive bowel sounds; Absent tenderness *Routine Rectal Exam Rectal:: deferred *Routine Genitalia Exam Genitalia:: deferred *Routine Extremities Exam Extremities: Absent cyanosis, clubbing or edema *Routine Skin Exam Skin: Present warm; Absent rash *Routine Neurological Exam Neurological: Present alert and oriented X3 Assessment and Plan *Assessment and plan (1) Hyponatremia: Status: Acute Category: Medical Code(s): E87.1 - Hypo-osmolality and hyponatremia Plan Imani Mcdonald is a 79-year-old female with a medical history significant for osteoarthritis, hypertension, GERD who presents with intractable nausea/vomiting after being started on Bactrim on 07/18/2024 for UTI. Patient states she was going for a preoperative appointment for left TKR and was incidentally found to have a abnormal UA. Patient states she was asymptomatic at that time. A day after starting Bactrim, patient began experiencing nausea with vomiting that has been intractable until today. Workup in the ED significant for potassium 2.7, calcium 6.3, phosphorus 2.3, magnesium 1.0. UA also suggestive of UTI. Case discussed with ED provider decision was made to admit patient from for severe electrolyte abnormalities, and/vomiting. #Nausea/vomiting #Hyponatremia #Hypokalemia #Hypomagnesemia #Hypophosphatemia #Hypocalcemia ? Initial potassium 2.7, calcium 6.3, phosphorus 2.3, magnesium 1.0, sodium 124. ? Will continue replating with IV. ? Follow-up BMP at 6 PM. ? Max sodium correction 6 to 8 mEq/day. ? Renal function normal, creatinine 0.6, GFR 96. ? Continuous cardiac telemetry. ? Follow-up morning CMP. ? Zofran as needed for nausea/vomiting. ? Will avoid Bactrim. #UTI ? UA grossly abnormal. Given hematuria, will treat for UTI though asymptomatic. ? IV ceftriaxone day 03/23. #Hypertension ? Blood pressure normal at this time. Reconcile once appropriate. #GERD ? Continue home PPI. #Anxiety/depression ? Continue home sertraline once reconciled. Full code DVT prophylaxis: Lovenox 40 mg
[2024-07-23 18:11] LABS: Albumin Level 4.4 g/dl (3.5-5.0); Chloride 89 mmol/L (98-107); Potassium 4.4 mmoL/L (3.5-5.1); Sodium 119 mmol/L (136-145)
[2024-07-23 18:14] LABS: Alanine Aminotransferase 34 U/L (12-78); Albumin/Globulin Ratio 1.8 (1.1-1.8); Alkaline Phosphatase 54 U/L (38-126); Anion Gap 11.4 mEq/L (5-15); Aspartate Amino Transferase 38 U/L (14-36); Bilirubin,Total 1.2 mg/dl (0.2-1.3); Blood Urea Nitrogen 11 mg/dl (7-17); Calcium 9.1 mg/dl (8.4-10.2); Carbon Dioxide 23 mmol/L (22.0-30.0); Creatinine Clearance Estimated 48 mL/min (50-200); Estimated Glomerular Filt Rate 81 ml/min (>60); GFR (African American) 97 ML/MIN (>60); Globulin 2.4 g/dL (1.3-3.2); Glucose 105 mg/dl (74-100); Total Protein,Serum 6.8 g/dl (6.3-8.2)
[2024-07-23 20:15] LABS: Troponin I < 0.01 ng/ml (0.00-0.034)
[2024-07-23] MEDS: CEFTRIAXONE 1 GM 1 GM in 0.9 % SODIUM CHLORIDE 50 ML IV (20:23)
[2024-07-23] MEDS: SODIUM CHLORIDE 3 % 500 ML 50 ML IV (20:55)
[2024-07-23] MEDS: PANTOPRAZOLE 40MG TABLET 40 MG PO (22:04)
[2024-07-24] VITALS: BP 147/59; PULSE 65; PULSE 70; RESP 20; TEMP 36.6; O2SAT 95
[2024-07-24 00:30] VITALS: BP 136/73; PULSE 65; RESP 20; O2SAT 95
[2024-07-24 01:00] VITALS: BP 131/62; PULSE 62; RESP 20; O2SAT 96
[2024-07-24] MEDS: POTASSIUM PHOS IN 0.9 % NACL 15 MMOL/250 ML PIGGYBACK 62.5 MMOL IV (01:01)
[2024-07-24 01:48] LABS: Blood Urea Nitrogen 13 mg/dl (7-17); Carbon Dioxide 24 mmol/L (22.0-30.0); Chloride 99 mmol/L (98-107); Creatinine Clearance Estimated 48 mL/min (50-200); Estimated Glomerular Filt Rate 69 ml/min (>60); GFR (African American) 84 ML/MIN (>60); Glucose 76 mg/dl (74-100); Sodium 126 mmol/L (136-145)
[2024-07-24] MEDS: DEXTROSE 5% IN WATER 250ML 250 ML IV (02:39)
[2024-07-24 04:00] VITALS: BP 132/71; PULSE 60; PULSE 71; RESP 14; TEMP 36.7; O2SAT 96; BMI 26.2
--- NOTE | 2024-07-24 05:40 | PC.NURSE ---
Pt. was admitted yesterday with hypokalemia and hyponatremia. Pt. is alert and orientated x 4. Pt. is on room air. overnight, Pt. recieved 3% NS via IV, cardiac monitors in place and BP was monitored. Pt. monitored frequently for any mental status changes or any changes in condition. . Pt. tolerated the 3% well. Pt. received Potassium Phosphate IV and tolerated well. Pt's sodium corrected but was higher than expected. Pt. recieved a D5W bolus of 250 ml. Tolerated that well. Pt. did not sleep much this shift. vital monitored frequently. @nd IV was started for the D5W bolus. Pt. up to bathroom several times with assist x 1 due to IV pole. No c/o pain . Personal items and call horne in reach.
[2024-07-24 06:12] LABS: Basophils % 0.1 % (0.1-2.0); Eosinophils % 0.3 % (0.1-12.0); Hematocrit 36.7 % (37.0-47.0); Immature Granulocytes # 0.02 10^3uL; Immature Granulocytes % 0.3 %; Lymphocytes # 1.8 K/mm3 (0.7-4.5); Lymphocytes % 23.8 % (10-50); Mean Corpuscular HGB Conc 34.9 g/dL (31.8-35.4); Mean Corpuscular Hemoglobin 29.7 pg (27.0-31.2); Mean Corpuscular Volume 85.2 fl (81-99); Monocytes % 12.7 % (1.7-9.3); Neutrophils # 4.8 K/mm3 (1.8-7.8); Neutrophils % 62.8 % (37.0-80.0); Nucleated Red Blood Cells # 0 10^3/uL; Nucleated Red Blood Cells % 0 %; Platelet Count 234 K/mm3 (142-424); Red Blood Count 4.31 M/mm3 (4.20-5.40); Red Cell Distribution Width 12.4 % (11.5-17.5); Red Cell Distribution Width-SD 38.7 fL; White Blood Count 7.6 K/mm3 (4.8-10.8)
[2024-07-24 06:22] LABS: Hemoglobin 12.6 g/dL (12.2-16.2)
[2024-07-24 06:29] LABS: Alanine Aminotransferase 28 U/L (12-78); Albumin Level 3.8 g/dl (3.5-5.0); Anion Gap 8.2 mEq/L (5-15); Aspartate Amino Transferase 45 U/L (14-36); Blood Urea Nitrogen 11 mg/dl (7-17); Calcium 8.8 mg/dl (8.4-10.2); Carbon Dioxide 21 mmol/L (22.0-30.0); Chloride 101 mmol/L (98-107); Creatinine Clearance Estimated 52 mL/min (50-200); Estimated Glomerular Filt Rate 81 ml/min (>60); GFR (African American) 97 ML/MIN (>60); Globulin 2.3 g/dL (1.3-3.2); Glucose 90 mg/dl (74-100); Magnesium 2.2 mg/dl (1.6-2.3); Potassium 4.2 mmoL/L (3.5-5.1); Sodium 126 mmol/L (136-145); Total Protein,Serum 6.1 g/dl (6.3-8.2)
[2024-07-24 06:30] LABS: Albumin/Globulin Ratio 1.7 (1.1-1.8); Alkaline Phosphatase 51 U/L (38-126)
[2024-07-24 08:00] VITALS: BP 128/62; PULSE 73; PULSE 81; RESP 17; TEMP 36.4; O2SAT 96
[2024-07-24] MEDS: ENOXAPARIN 40MG/0.4ML SYRINGE 40 MG SUBCUT (08:06)
[2024-07-24] MEDS: SODIUM CHLORIDE 1,000MG TABLET 1000 MG PO ×2 (09:53→11:56)
[2024-07-24 12:00] VITALS: BP 140/60; PULSE 80; RESP 16; TEMP 36.6; O2SAT 96
[2024-07-24 13:14] LABS: Thyroid Stimulating Hormone 0.13 uIU/mL (0.465-4.68)
--- NOTE | 2024-07-24 13:49 | P.DS_ITS ---
General Admission date:: 07/23/24 HPI HPI HPI: Imani Mcdonald is a 79-year-old female with a medical history significant for osteoarthritis, hypertension, GERD who presents with intractable nausea/vomiting after being started on Bactrim on 07/18/2024 for UTI. Patient states she was going for a preoperative appointment for left TKR and was incidentally found to have a abnormal UA. Patient states she was asymptomatic at that time. A day after starting Bactrim, patient began experiencing nausea with vomiting that has been intractable until today. Workup in the ED significant for potassium 2.7, calcium 6.3, phosphorus 2.3, magnesium 1.0. UA also suggestive of UTI. Case discussed with ED provider decision was made to admit patient from for severe electrolyte abnormalities, and/vomiting. Hospital Course Hospital Course Hospital Course: Imani Mcdonald is a 79-year-old female with a medical history significant for osteoarthritis, hypertension, GERD who presents with intractable nausea/vomiting after being started on Bactrim on 07/18/2024 for UTI. Patient states she was going for a preoperative appointment for left TKR and was incidentally found to have a abnormal UA. Patient states she was asymptomatic at that time. A day after starting Bactrim, patient began experiencing nausea with vomiting that has been intractable until today. Workup in the ED significant for potassium 2.7, calcium 6.3, phosphorus 2.3, magnesium 1.0. UA also suggestive of UTI. Case discussed with ED provider decision was made to admit patient from for severe electrolyte abnormalities, and/vomiting. #Nausea/vomiting #Hyponatremia #Hypokalemia #Hypomagnesemia #Hypophosphatemia #Hypocalcemia ? Initial potassium 2.7, calcium 6.3, phosphorus 2.3, magnesium 1.0, sodium 124. Repleted with IV and antiemetics for nausea/vomiting. ? Patient currently tolerating p.o. intake without any issues. Ambulating independently. Sodium corrected to 129. #UTI ? UA grossly abnormal. Given hematuria, will treat for UTI though asymptomatic. ? Treated with IV ceftriaxone, discharged with cefdinir for 3 more days. #Hypertension ? Discontinued home hydrochlorothiazide due to hyponatremia, continue home lisinopril. #GERD ? Continue home PPI. #Anxiety/depression ? Continue home sertraline. Total time spent on discharge: 32 minutes on chart review, counseling, documentation, and direct care with patient. Exam Data for Last 24 hours Vital signs and Labs for Last 24 Hours: Temp Pulse Resp BP Pulse Ox O2 Del Method 97.9 F 80 16 140/60 96 Room Air 07/24/24 12:00 07/24/24 12:00 07/24/24 12:00 07/24/24 12:00 07/24/24 12:00 07/24/24 12:12 Laboratory Results - last 24 hr 07/23/24 13:05: Phosphorus 2.3 L, Troponin I < 0.01 07/23/24 15:15: Urine Color Yellow, Urine Appearance Clear, Urine pH 6.5, Ur Specific [place] 1.010, Urine Protein Negative, Urine Glucose (UA) Negative, Urine Ketones 1+, Urine Blood Negative, Urine Nitrate Positive A, Urine Bilirubin Negative, Urine Urobilinogen 0.2, Ur Leukocyte Esterase Negative, Urine RBC 5-10, Urine WBC 5-10, Ur Squamous Epith Cells 5-10, Urine Bacteria 4+ 07/23/24 16:10: Troponin I < 0.01 07/23/24 17:58: Sodium 119 L, Potassium 4.4 D, Chloride 89 L, Carbon Dioxide 23, Anion Gap 11.4, BUN 11, Creatinine 0.70, Estimated Creat Clear 48, Estimated GFR 81, Est GFR ( Amer) 97, Glucose 105 H, Calcium 9.1, Total Bilirubin 1.2, AST 38 H D, ALT 34 D, Alkaline Phosphatase 54, Total Protein 6.8 D, Albumin 4.4 D, Globulin 2.4, Albumin/Globulin Ratio 1.8 07/23/24 19:40: Troponin I < 0.01 07/23/24 21:00: Urine Sodium 25.0 L 07/24/24 01:14: Sodium 126 L, Potassium 4.0, Chloride 99, Carbon Dioxide 24, Anion Gap 7.0, BUN 13, Creatinine 0.80, Estimated Creat Clear 48, Estimated GFR 69, Est GFR ( Amer) 84, Glucose 76 D, Calcium 8.0 L 07/24/24 05:51: WBC 7.6, RBC 4.31, Hgb 12.6 D, Hct 36.7 L, MCV 85.2, MCH 29.7, MCHC 34.9, RDW 12.4, Plt Count 234, MPV 9.0, Neut % (Auto) 62.8, Lymph % (Auto) 23.8, [place] % (Auto) 12.7 H, Eos % (Auto) 0.3, Baso % (Auto) 0.1, Neut # (Auto) 4.8, Lymph # (Auto) 1.8, [place] # (Auto) 1.0, Eos # (Auto) 0.0, Baso # (Auto) 0.0, Sodium 126 L, Potassium 4.2, Chloride 101, Carbon Dioxide 21 L, Anion Gap 8.2, BUN 11, Creatinine 0.70, Estimated Creat Clear 52, Estimated GFR 81, Est GFR ( Amer) 97, Glucose 90, Calcium 8.8, Magnesium 2.2 D, Total Bilirubin 1.0, AST 45 H, ALT 28, Alkaline Phosphatase 51, Total Protein 6.1 L, Albumin 3.8 D, Globulin 2.3, Albumin/Globulin Ratio 1.7 07/24/24 05:57: TSH 0.13 L, Free T4 1.30 I & O for Last 24 hours: Intake & Output 07/21/24 07/22/24 07/23/24 07/24/24 23:59 23:59 23:59 23:59 Intake Total 570 / 2220 2280 / 2280 Output Total 300 / 300 500 / 500 Balance 270 / 1920 1780 / 1780 Weight 68.039 kg 73.89 kg Constitutional Constitutional: no acute distress *Routine HEENT Exam Head: Present normocephalic Eye: Present EOMI and PERRL ENT: Present mucous membranes moist *Routine Neck Exam Neck: Present supple; Absent lymphadenopathy *Routine Respiratory Exam Respiratory: Present CTA bilaterally *Routine Cardiovascular Exam Cardiovascular: Present RRR *Routine Abdominal Exam Abdominal: Present soft and normoactive bowel sounds; Absent tenderness *Routine Extremities Exam Extremities: Absent cyanosis, clubbing or edema *Routine Skin Exam Skin: Present warm; Absent rash *Routine Neurological Exam Neurological: Present alert and oriented X3 Results Data Completed and Pending Labs on day of discharge: Labs from last 24 hours 07/24/24 07/24/24 07/24/24 05:57 05:51 01:14 WBC 7.6 RBC 4.31 Hgb 12.6 D Hct 36.7 L MCV 85.2 MCH 29.7 MCHC 34.9 RDW 12.4 Plt Count 234 MPV 9.0 Neut % (Auto) 62.8 Lymph % (Auto) 23.8 [place] % (Auto) 12.7 H Eos % (Auto) 0.3 Baso % (Auto) 0.1 Neut # (Auto) 4.8 Lymph # (Auto) 1.8 [place] # (Auto) 1.0 Eos # (Auto) 0.0 Baso # (Auto) 0.0 Sodium 126 L 126 L Potassium 4.2 4.0 Chloride 101 99 Carbon Dioxide 21 L 24 Anion Gap 8.2 7.0 BUN 11 13 Creatinine 0.70 0.80 Estimated Creat Clear 52 48 Estimated GFR 81 69 Est GFR ( Amer) 97 84 Glucose 90 76 D Calcium 8.8 8.0 L Phosphorus Magnesium 2.2 D Total Bilirubin 1.0 AST 45 H ALT 28 Alkaline Phosphatase 51 Troponin I Total Protein 6.1 L Albumin 3.8 D Globulin 2.3 Albumin/Globulin Ratio 1.7 TSH 0.13 L Free T4 1.30 Urine Color Urine Appearance Urine pH Ur Specific [place] Urine Protein Urine Glucose (UA) Urine Ketones Urine Blood Urine Nitrate Urine Bilirubin Urine Urobilinogen Ur Leukocyte Esterase Urine RBC Urine WBC Ur Squamous Epith Cells Urine Bacteria Urine Sodium 07/23/24 07/23/24 07/23/24 21:00 19:40 17:58 WBC RBC Hgb Hct MCV MCH MCHC RDW Plt Count MPV Neut % (Auto) Lymph % (Auto) [place] % (Auto) Eos % (Auto) Baso % (Auto) Neut # (Auto) Lymph # (Auto) [place] # (Auto) Eos # (Auto) Baso # (Auto) Sodium 119 L Potassium 4.4 D Chloride 89 L Carbon Dioxide 23 Anion Gap 11.4 BUN 11 Creatinine 0.70 Estimated Creat Clear 48 Estimated GFR 81 Est GFR ( Amer) 97 Glucose 105 H Calcium 9.1 Phosphorus Magnesium Total Bilirubin 1.2 AST 38 H D ALT 34 D Alkaline Phosphatase 54 Troponin I < 0.01 Total Protein 6.8 D Albumin 4.4 D Globulin 2.4 Albumin/Globulin Ratio 1.8 TSH Free T4 Urine Color Urine Appearance Urine pH Ur Specific [place] Urine Protein Urine Glucose (UA) Urine Ketones Urine Blood Urine Nitrate Urine Bilirubin Urine Urobilinogen Ur Leukocyte Esterase Urine RBC Urine WBC Ur Squamous Epith Cells Urine Bacteria Urine Sodium 25.0 L 07/23/24 07/23/24 07/23/24 16:10 15:15 13:05 WBC RBC Hgb Hct MCV MCH MCHC RDW Plt Count MPV Neut % (Auto) Lymph % (Auto) [place] % (Auto) Eos % (Auto) Baso % (Auto) Neut # (Auto) Lymph # (Auto) [place] # (Auto) Eos # (Auto) Baso # (Auto) Sodium Potassium Chloride Carbon Dioxide Anion Gap BUN Creatinine Estimated Creat Clear Estimated GFR Est GFR ( Amer) Glucose Calcium Phosphorus 2.3 L Magnesium Total Bilirubin AST ALT Alkaline Phosphatase Troponin I < 0.01 < 0.01 Total Protein Albumin Globulin Albumin/Globulin Ratio TSH Free T4 Urine Color Yellow Urine Appearance Clear Urine pH 6.5 Ur Specific [place] 1.010 Urine Protein Negative Urine Glucose (UA) Negative Urine Ketones 1+ Urine Blood Negative Urine Nitrate Positive A Urine Bilirubin Negative Urine Urobilinogen 0.2 Ur Leukocyte Esterase Negative Urine RBC 5-10 Urine WBC 5-10 Ur Squamous Epith Cells 5-10 Urine Bacteria 4+ Urine Sodium DS: Diagnosis Discharge Diagnosis (1) Hyponatremia: Status: Acute Code(s): E87.1 - Hypo-osmolality and hyponatremia Meds Home Medications and Allergies Home Medications ?Medication ?Instructions ?Recorded ?Confirmed ?Type antiarthritic combination no.2 900 900 mg PO DAILY 04/26/22 07/23/24 History mg tablet (glucosamine-chondroitin) calcium carbonate (Calcium 600) 600 mg PO DAILY 04/26/22 07/23/24 History fexofenadine 180 mg tablet 180 mg PO DAILY 04/26/22 07/23/24 History (Arlene Allergy) vitamin E (dl, acetate) 180 mg 180 mg PO DAILY 04/26/22 07/23/24 History (400 unit) capsule lansoprazole 30 mg capsule,delayed 30 mg PO DAILY 90 days #90 caps 03/05/24 07/23/24 Rx release sertraline 25 mg tablet (Zoloft) 25 mg PO DAILY 90 days #90 tabs 03/05/24 07/23/24 Rx tolterodine 4 mg capsule,extended 4 mg PO DAILY 90 days #90 caps 03/05/24 07/23/24 Rx release 24 hr potassium chloride 15 mEq 15 meq PO DAILY low potassium #20 06/30/24 06/30/24 Rx tablet,extended release tabs ondansetron 4 mg disintegrating 4 mg PO Q8H PRN nausea and 07/22/24 07/23/24 Rx tablet vomiting #20 tabs cefdinir 300 mg capsule 300 mg PO BID 3 days #6 caps 07/24/24 Rx fluticasone propionate 50 1 spray intranasal DAILYP PRN 07/24/24 07/24/24 History mcg/actuation nasal Allergy Symptoms spray,suspension (Flonase Allergy Relief) lisinopril 30 mg tablet 30 mg PO DAILY #30 tabs 07/24/24 Rx nitrofurantoin 100 mg PO BID 07/24/24 07/24/24 History monohydrate/macrocrystals 100 mg capsule (Macrobid) pravastatin 80 mg tablet 80 mg PO DAILY 07/24/24 07/23/24 History New Prescriptions to Start Prescriptions: August Torresinopril August White Allergies Allergy/AdvReac Type Severity Reaction Status Date / Time sulfamethoxazole (From AdvReac Mild Vomiting Verified 07/23/24 15:56 Bactrim) trimethoprim (From Bactrim) AdvReac Mild Vomiting Verified 07/23/24 15:56 Discharge Plan Disposition Patient Disposition: Home, Self-Care Condition: Fair Discharge Order Discharge Orders: Discharge Order (Routine); Ordered 07/24/24 Ordered By: August White Follow up Plan Follow up with: Provider,Referral, [Primary Care Provider] - 07/28/24 Prescriptions/Medication Reconciliation: New lisinopril 30 mg tablet 30 mg PO DAILY Qty: 30 0RF cefdinir 300 mg capsule 300 mg PO BID 3 Days Qty: 6 0RF Continued fexofenadine [Arlene Allergy] 180 mg tablet 180 mg PO DAILY glucosamine-chondroitin 900 mg tablet 900 mg PO DAILY vitamin E (dl, acetate) 180 mg (400 unit) capsule 180 mg PO DAILY calcium carbonate [Calcium 600] 600 mg calcium (1,500 mg) tablet 600 mg PO DAILY potassium chloride 15 mEq tablet extended release 15 meq PO DAILY Qty: 20 0RF tolterodine 4 mg capsule,extended release 24hr 4 mg PO DAILY 90 Days Qty: 90 0RF sertraline [Zoloft] 25 mg tablet 25 mg PO DAILY 90 Days Qty: 90 0RF lansoprazole 30 mg capsule,delayed release(DR/EC) 30 mg PO DAILY 90 Days Qty: 90 0RF ondansetron 4 mg tablet,disintegrating 4 mg PO Q8H PRN (Reason: nausea and vomiting) Qty: 20 0RF pravastatin 80 mg tablet 80 mg PO DAILY fluticasone propionate [Flonase Allergy Relief] 50 mcg/actuation spray,suspension 1 spray intranasal DAILYP PRN (Reason: Allergy Symptoms) Rx Instructions: administer into each nostril nitrofurantoin monohyd/m-cryst [Macrobid] 100 mg capsule 100 mg PO BID Rx Instructions: must administer with a meal/food Discontinued lisinopril-hydrochlorothiazide 20-25 mg tablet 1 tab PO DAILY Problem Reconciliation Problems Reviewed?: Yes Patient Discharge Instructions Additional Instructions: I discontinued your hydrochlorothiazide as it can cause low sodium in your blood. Please follow-up with your PCP within 1 week for repeat blood work to check your sodium levels. Patient Instructions: DI for Hypokalemia, DI for Hyponatremia, DI for Nausea -- Adult, DI for Vomiting -- Adult Print Language: [place] Providers Primary Care Provider: Provider,Referral Admit Provider: August White Attending Provider: August White
[2024-07-24 14:28] LABS: Anion Gap 8.4 mEq/L (5-15); Blood Urea Nitrogen 12 mg/dl (7-17); Calcium 8.8 mg/dl (8.4-10.2); Carbon Dioxide 24 mmol/L (22.0-30.0); Chloride 101 mmol/L (98-107); Creatinine Clearance Estimated 52 mL/min (50-200); Estimated Glomerular Filt Rate 69 ml/min (>60); GFR (African American) 84 ML/MIN (>60); Glucose 116 mg/dl (74-100); Potassium 4.4 mmoL/L (3.5-5.1); Sodium 129 mmol/L (136-145)
--- NOTE | 2024-07-25 10:28 | SW/DCPLANNER ---
Spoke with patient on the phone. Patient stated that she is doing well. Patient stated that she is aware of her upcoming appointments. Patient stated that she was able to get her medicine picked up. Patient statedt that she has no concerns or questions at this time. Christos España
== END 2024-07-24 15:55 | disposition home or self-care (01) | DRG 641 ==
LOC: ER 14:04 → 2ND 14:41
PROVIDERS: Nurse Practitioner Family; Admitting Provider Student in an Organized Health Care Education/Training Program; Emergency Provider Emergency Medicine; Visit Provider Student in an Organized Health Care Education/Training Program
DX: E87.1 Hypo-osmolality and hyponatremia (principal); N39.0 Urinary tract infection, site not specified; K21.9 Gastro-esophageal reflux disease without esophagitis; I10 Essential (primary) hypertension; E78.5 Hyperlipidemia, unspecified; E87.6 Hypokalemia; Z96.651 Presence of right artificial knee joint; E83.42 Hypomagnesemia; E83.51 Hypocalcemia; E83.39 Other disorders of phosphorus metabolism; Z88.1 Allergy status to other antibiotic agents; Z88.2 Allergy status to sulfonamides; M19.90 Unspecified osteoarthritis, unspecified site; F41.8 Other specified anxiety disorders
CPT/HCPCS: 36415; 80048; 80053; 81001; 82803; 83690; 83735; 84100; 84439; 84443; 84484; 84540; 85025; 87086; 87088; 87186; 93005; 99291; J0696; J1650; J2550; J3475; J3480; J7060; J7120

== ENCOUNTER 2024-07-30 09:25 | Outpatient (CLI) | payer BC, SELFPAY ==
[2024-07-30 16:44] LABS: Basophils % 0.3 % (0.1-2.0); Eosinophils # 0.1 Kmm3 (0.0-0.4); Eosinophils % 2.3 % (0.1-12.0); Hemoglobin 12.9 g/dL (12.2-16.2); Immature Granulocytes # 0.02 10^3uL; Immature Granulocytes % 0.3 %; Lymphocytes # 1.7 K/mm3 (0.7-4.5); Lymphocytes % 28.6 % (10-50); Mean Corpuscular HGB Conc 33.1 g/dL (31.8-35.4); Mean Corpuscular Hemoglobin 29.2 pg (27.0-31.2); Mean Corpuscular Volume 88.2 fl (81-99); Mean Platelet Volume 8.9 fl (7.4-10.4); Monocytes # 0.5 K/mm3 (0.1-1.0); Monocytes % 8.5 % (1.7-9.3); Neutrophils # 3.6 K/mm3 (1.8-7.8); Nucleated Red Blood Cells # 0 10^3/uL; Nucleated Red Blood Cells % 0 %; Platelet Count 291 K/mm3 (142-424); Red Blood Count 4.42 M/mm3 (4.20-5.40); Red Cell Distribution Width 12.9 % (11.5-17.5); Red Cell Distribution Width-SD 41.9 fL
[2024-07-30 19:51] LABS: Chloride 103 mmol/L (98-107); Potassium 4.4 mmoL/L (3.5-5.1); Sodium 133 mmol/L (136-145)
[2024-07-30 19:54] LABS: Anion Gap 10.4 mEq/L (5-15); Blood Urea Nitrogen 11 mg/dl (7-17); Calcium 9.1 mg/dl (8.4-10.2); Carbon Dioxide 24 mmol/L (22.0-30.0); Estimated Glomerular Filt Rate 81 ml/min (>60); GFR (African American) 97 ML/MIN (>60); Glucose 87 mg/dl (74-100)
--- OUTSIDE RECORDS SUMMARY | 2024-08-01 11:47 | XMS_ITS | Data Portability ---
Author Organization [facility] Address [address] [place] [address] Assessment No assessment recorded. Plan of Treatment Reminders Order Date Submit Date Provider Last Modified By Organization Details Last Modified Time Details Appointments None recorded. Lab CBC w/ auto diff 2021 [facility]ANDRO [facility], [address], [place], [address], 07:07:48 CMP, serum or plasma 2021 [email or web address] [facility], [address], [place], [address], 10:17:20 TSH, ultra-sens itive, serum 2021 [email or web address] [facility], [address], [place], [address], 10:16:59 HbA1c (hemoglobi n A1c), blood 2021 [email or web address] [facility], [address], [place], [address], 2 10:16:36 lipid panel, serum 2021 [facility]ANDR[facility], [address], [place], [address], 07:07:50 vitamin D, 25-hydroxy , total, serum 2021 [facility], [address], [address], [place], [address], 10:16:16 urinalysis , dipstick 2021 julia Not available 14:09:38 culture, urine 2021 [facility]ANDRO [facility], [address], [address], [place], [address], 07:07:53 Referral None recorded. Procedures None recorded. Surgeries None recorded. Imaging None recorded. Medication Orders lansoprazo le 30 mg capsule,de layed release 2021 [facility], [address] [place] [address], [id number], 09:31:08 pravastati n 80 mg tablet 2021 [facility], [address] [place] [address], [id number], 09:31:09 lisinopril 20 mg-hydroch lorothiazi de 25 mg tablet 2021 [facility], [address] [place] [address], [id number], 09:31:08 tolterodin e ER 4 mg capsule,ex tended release 24 hr 2021 [facility], [address] [place] [address], [id number], 09:31:08 Patient TargetsNo targets recorded. Patient InstructionsNo instructions recorded. Reason for Referral None Reported. Results Created Date Observation Date Name Description Value Unit Range Abnormal Flag Note LastModifiedBy Organization Detail LastModifiedTime 02/09/20 22 02/09/2022 CBC WITH DIFFE RENTI AL/PL ATELE T WBC 6.3 x10e3 /uL 3.4-10 .8 Not Available [facility] ([facility]) [address] [facility], [place], [address], 02/10/2022 07:07:47 02/09/20 22 02/09/2022 CBC WITH DIFFE RENTI AL/PL ATELE T RBC 4.81 x10e6 /uL 3.77-5 .28 Not Available [facility] ([facility]) [address] [facility], [place], [address], 02/10/2022 07:07:47 02/09/20 22 02/09/2022 CBC WITH DIFFE RENTI AL/PL ATELE T hemoglobin 14.1 g/dL 11.1-1 5.9 Not Available [facility] ([facility]) [address] [place], [address], 02/10/2022 07:07:47 02/09/20 22 02/09/2022 CBC WITH DIFFE RENTI AL/PL ATELE T hematocrit 42.0 % 34.0-4 6.6 Not Available [facility] ([facility]) [address] [place], [address], 02/10/2022 07:07:47 02/09/20 22 02/09/2022 CBC WITH DIFFE RENTI AL/PL ATELE T MCV 87 fL 79-97 Not Available [facility] ([facility]) [address] [place], [address], 02/10/2022 07:07:47 02/09/20 22 02/09/2022 CBC WITH DIFFE RENTI AL/PL ATELE T MCH 29.3 pg 26.6-3 3.0 Not Available [facility] ([facility]) [address] [place], [address], 02/10/2022 07:07:47 02/09/20 22 02/09/2022 CBC WITH DIFFE RENTI AL/PL ATELE T MCHC 33.6 g/dL 31.5-3 5.7 Not Available [facility] ([facility]) [address] [facility], [place], [address], 02/10/2022 07:07:47 02/09/20 22 02/09/2022 CBC WITH DIFFE RENTI AL/PL ATELE T RDW 12.2 % 11.7-1 5.4 Not Available [facility] ([facility]) [address] [facility], [place], [address], 02/10/2022 07:07:47 02/09/20 22 02/09/2022 CBC WITH DIFFE RENTI AL/PL ATELE T platelets 269 x10e3 /uL 150-45 0 Not Available [facility] ([facility]) [address] [facility], [place], [address], 02/10/2022 07:07:47 02/09/20 22 02/09/2022 CBC WITH DIFFE RENTI AL/PL ATELE T neutrophils 54 % not estab. Not Available [facility] ([facility]) [address] [facility], [place], [address], 02/10/2022 07:07:47 02/09/20 22 02/09/2022 CBC WITH DIFFE RENTI AL/PL ATELE T lymphs 33 % not estab. Not Available [facility] ([facility]) [address] [facility], [place], [address], 02/10/2022 07:07:47 02/09/20 22 02/09/2022 CBC WITH DIFFE RENTI AL/PL ATELE T monocytes 11 % not estab. Not Available [facility] ([facility]) [address] [facility], [place], [address], 02/10/2022 07:07:47 02/09/20 22 02/09/2022 CBC WITH DIFFE RENTI AL/PL ATELE T eos 2 % not estab. Not Available [facility] ([facility]) [address] [place], [address], 02/10/2022 07:07:47 02/09/20 22 02/09/2022 CBC WITH DIFFE RENTI AL/PL ATELE T basos 0 % not estab. Not Available [facility] ([facility]) [address] [place], [address], 02/10/2022 07:07:47 02/09/20 22 02/09/2022 CBC WITH DIFFE RENTI AL/PL ATELE T immature cells [employer] Not Available [facility] ([facility]) [address] [place], [address], 02/10/2022 07:07:47 02/09/20 22 02/09/2022 CBC WITH DIFFE RENTI AL/PL ATELE T neutrophils (absolute) 3.4 x10e3 /uL 1.4-7. 0 Not Available [facility] ([facility]) [address] [place], [address], 02/10/2022 07:07:47 02/09/20 22 02/09/2022 CBC WITH DIFFE RENTI AL/PL ATELE T lymphs (absolute) 2.1 x10e3 /uL 0.7-3. 1 Not Available [facility] ([facility]) [address] [place], [address], 02/10/2022 07:07:47 02/09/20 22 02/09/2022 CBC WITH DIFFE RENTI AL/PL ATELE T monocytes(ab solute) 0.7 x10e3 /uL 0.1-0. 9 Not Available [facility] ([facility]) [address] [place], [address], 02/10/2022 07:07:47 02/09/20 22 02/09/2022 CBC WITH DIFFE RENTI AL/PL ATELE T eos (absolute) 0.1 x10e3 /uL 0.0-0. 4 Not Available [facility] ([facility]) [address] [facility], [place], [address], 02/10/2022 07:07:47 02/09/20 22 02/09/2022 CBC WITH DIFFE RENTI AL/PL ATELE T baso (absolute) 0.0 x10e3 /uL 0.0-0. 2 Not Available [facility] ([facility]) [address] [facility], [place], [address], 02/10/2022 07:07:47 02/09/20 22 02/09/2022 CBC WITH DIFFE RENTI AL/PL ATELE T immature granulocytes 0 % not estab. Not Available [facility] ([facility]) [address] [facility], [place], [address], 02/10/2022 07:07:47 02/09/20 22 02/09/2022 CBC WITH DIFFE RENTI AL/PL ATELE T immature grans (abs) 0.0 x10e3 /uL 0.0-0. 1 Not Available [facility] ([facility]) [address] [facility], [place], [address], 02/10/2022 07:07:47 02/09/20 22 02/09/2022 CBC WITH DIFFE RENTI AL/PL ATELE T NRBC [employer] Not Available [facility] ([facility]) [address] [facility], [place], [address], 02/10/2022 07:07:47 02/09/20 22 02/09/2022 CBC WITH DIFFE RENTI AL/PL ATELE T hematology comments: [employer] Not Available [facility] ([facility]) [address] [facility], [place], [address], 02/10/2022 07:07:47 02/09/20 22 02/09/2022 COMP. METAB OLIC PANEL (14) glucose 89 mg/dL 70-99 Not Available [facility] ([facility]) [address] [facility] [place], [address], 02/10/2022 07:07:49 02/09/20 22 02/09/2022 COMP. METAB OLIC PANEL (14) BUN 15 mg/dL 8-27 Not Available [facility] ([facility]) [address] [facility] [place], [address], 02/10/2022 07:07:49 02/09/20 22 02/09/2022 COMP. METAB OLIC PANEL (14) creatinine 0.94 mg/dL 0.57-1 .00 Not Available [facility] ([facility]) [address] [facility] [place], [address], 02/10/2022 07:07:49 02/09/20 22 02/09/2022 COMP. METAB OLIC PANEL (14) eGFR 62 mL/mi n/1.7 3 >59 Not Available [facility] ([facility]) [address] [facility], [place], [address], 02/10/2022 07:07:49 02/09/20 22 02/09/2022 COMP. METAB OLIC PANEL (14) BUN/creatini ne ratio 16 12-28 Not Available [facility] ([facility]) [address] [facility] [place], [address], 02/10/2022 07:07:49 02/09/20 22 02/09/2022 COMP. METAB OLIC PANEL (14) sodium 133 mmol/ L 134-14 4 below low normal Not Available [facility] ([facility]) [address] [facility] [place], [address], 02/10/2022 07:07:49 02/09/20 22 02/09/2022 COMP. METAB OLIC PANEL (14) potassium 3.4 mmol/ L 3.5-5. 2 below low normal Not Available [facility] ([facility]) [address] [facility] [place], [address], 02/10/2022 07:07:49 02/09/20 22 02/09/2022 COMP. METAB OLIC PANEL (14) chloride 95 mmol/ L 96-106 below low normal Not Available [facility] ([facility]) [address] [facility], [place], [address], 02/10/2022 07:07:49 02/09/20 22 02/09/2022 COMP. METAB OLIC PANEL (14) carbon dioxide, total 27 mmol/ L 20-29 Not Available [facility] ([facility]) [address] [facility] [place], [address], 02/10/2022 07:07:49 02/09/20 22 02/09/2022 COMP. METAB OLIC PANEL (14) calcium 9.2 mg/dL 8.7-10 .3 Not Available [facility] ([facility]) [address] [facility] [place], [address], 02/10/2022 07:07:49 02/09/20 22 02/09/2022 COMP. METAB OLIC PANEL (14) protein, total 6.7 g/dL 6.0-8. 5 Not Available [facility] ([facility]) [address] [facility] [place], [address], 02/10/2022 07:07:49 02/09/20 22 02/09/2022 COMP. METAB OLIC PANEL (14) albumin 4.3 g/dL 3.7-4. 7 Not Available [facility] ([facility]) [address] [facility] [place], [address], 02/10/2022 07:07:49 02/09/20 22 02/09/2022 COMP. METAB OLIC PANEL (14) globulin, total 2.4 g/dL 1.5-4. 5 Not Available [facility] ([facility]) [address] [facility] [place], [address], 02/10/2022 07:07:49 02/09/20 02/09/2022 COMP. METAB OLIC PANEL (14) A/G ratio 1.8 1.2-2. 2 Not Available [facility] ([facility]) [address] [place], [address], 02/10/2022 07:07:49 02/09/20 22 02/09/2022 COMP. METAB OLIC PANEL (14) bilirubin, total 0.9 mg/dL 0.0-1. 2 Not Available [facility] ([facility]) [address] [place], [address], 02/10/2022 07:07:49 02/09/20 22 02/09/2022 COMP. METAB OLIC PANEL (14) alkaline phosphatase 41 IU/L 44-121 below low normal Not Available [facility] ([facility]) [address] [place], [address], 02/10/2022 07:07:49 02/09/20 22 02/09/2022 COMP. METAB OLIC PANEL (14) AST (SGOT) 17 IU/L 0-40 Not Available [facility] ([facility]) [address] [place], [address], 02/10/2022 07:07:49 02/09/20 22 02/09/2022 COMP. METAB OLIC PANEL (14) ALT (SGPT) 17 IU/L 0-32 Not Available [facility] ([facility]) [address] [place], [address], 02/10/2022 07:07:49 02/09/20 22 02/09/2022 LIPID PANEL WITH LDL/H DL RATIO cholesterol, total 169 mg/dL 100-19 9 Not Available [facility] ([facility]) [address] [place], [address], 02/10/2022 07:07:50 02/09/20 22 02/09/2022 LIPID PANEL WITH LDL/H DL RATIO triglyceride s 133 mg/dL 0-149 Not Available [facility] ([facility]) [address] [facility], [place], [address], 02/10/2022 07:07:50 02/09/20 22 02/09/2022 LIPID PANEL WITH LDL/H DL RATIO HDL cholesterol 46 mg/dL >39 Not Available [facility] ([facility]) [address] [facility], [place], [address], 02/10/2022 07:07:50 02/09/20 22 02/09/2022 LIPID PANEL WITH LDL/H DL RATIO VLDL cholesterol michelle 24 mg/dL 5-40 Not Available [facility] ([facility]) [address] [facility], [place], [address], 02/10/2022 07:07:50 02/09/20 22 02/09/2022 LIPID PANEL WITH LDL/H DL RATIO LDL chol calc (nih) 99 mg/dL 0-99 Not Available [facility] ([facility]) [address] [facility], [place], [address], 02/10/2022 07:07:50 02/09/20 22 02/09/2022 LIPID PANEL WITH LDL/H DL RATIO comment: [employer] Not Available [facility] ([facility]) [address] [place], [address], 02/10/2022 07:07:50 02/09/20 22 02/09/2022 LIPID PANEL WITH LDL/H DL RATIO LDL/HDL ratio 2.2 ratio 0.0-3. 2 LDL/H DL Ratio Men Women 1/2 Avg.R isk 1.0 1.5 Avg.R isk 3.6 3.2 2X Avg.R isk 6.2 5.0 3X Avg.R isk 8.0 6.1 Not Available [facility] ([facility]) [address] [facility], [place], [address], 02/10/2022 07:07:50 02/09/20 22 02/09/2022 HEMOG LOBIN A1C hemoglobin A1C 5.7 % 4.8-5. 6 above high normal Predi abete s: 5.7 - 6.4 Diabe eliana: >6.4 Glyce joyce contr ol for adult s with diabe eliana: <7.0 Not Available [facility] ([facility]) [address] [facility], [place], [address], 02/10/2022 07:07:51 02/09/20 22 02/09/2022 TSH TSH 0.314 uIU/m L 0.450- 4.500 below low normal Not Available [facility] ([facility]) [address] [facility], [place], [address], 02/10/2022 07:07:51 02/09/20 22 02/09/2022 VITAM IN [...] um and D. Sarah butler [place]: [facility] Press . 2. Marianna meng MF, Tu morales [place], Paloma off-F errar i ROBIN, et al. Evalu ation , treat ment, and preve ntion of vitam in D defic iency : an Endoc rine Socie ty clini michelle pract ice guide line. JCEM. 2010; 96(7) :1911 -30. Not Available [facility] ([facility]) [address] [facility], [place], [address], 02/10/2022 07:07:52 02/09/20 22 02/10/2022 URINE CULTU RE,CO MPREH ENSIV E urine culture,comp rehensive FINAL REPORT Not Available [facility] ([facility]) [address] [facility], [place], [address], 02/10/2022 07:07:53 02/09/20 22 02/10/2022 URINE CULTU RE,CO MPREH ENSIV E result 1 COMMEN T Mixed uroge nital je 25,00 0-50, 000 colon y formi ng units per mL Not Available [facility] ([facility]) [address] [facility], [place], [address], 02/10/2022 07:07:53 02/09/20 22 02/08/2022 urina lysis , dipst ick Leukocytes (reference range) modera te Not Available [address], [address], 02/08/2022 09:50:49 02/09/20 22 02/08/2022 urina lysis , dipst ick Nitrite (reference range:) negati ve Not Available [address], [address], 02/08/2022 09:50:49 02/09/20 22 02/08/2022 urina lysis , dipst ick Urobilinogen (reference range) 0.2 Not Available [address], [address], 02/08/2022 09:50:49 02/09/20 22 02/08/2022 urina lysis , dipst ick Protein (reference range) negati ve Not Available [address], [address], 02/08/2022 09:50:49 02/09/20 22 02/08/2022 urina lysis , dipst ick pH (reference range 5-8.5) 6.0 Not Available [address], [address], 02/08/2022 09:50:49 02/09/20 22 02/08/2022 urina lysis , dipst ick Blood (reference range:) non-He molyze d: Trace Not Available [address], [address], 02/08/2022 09:50:49 02/09/20 22 02/08/2022 urina lysis , dipst ick Specific [place] (reference range) 1.020 Not Available [address], [address], 02/08/2022 09:50:49 02/09/20 22 02/08/2022 urina lysis , dipst ick Ketone (reference range) negati ve Not Available [address], [address], 02/08/2022 09:50:49 02/09/20 22 02/08/2022 urina lysis , dipst ick Bilirubin (reference range) negati ve Not Available [address], [address], 02/08/2022 09:50:49 02/09/20 22 02/08/2022 urina lysis , dipst ick Glucose (reference range) negati ve Not Available [address], [address], 02/08/2022 09:50:49 02/09/20 22 02/08/2022 urina lysis , dipst ick Color (reference range: yellow-brown ) Yellow Not Available [address], [address], 02/08/2022 09:50:49 Result Notes None recorded. Problems Name Problem SNOMED Code Status Onset Date Resolution Date Notes Provider Name and Address Organization Details Recorded Time Hyperlipidemia 77569354 Active 2021 Amna wang, [place] [facility] [place] & [place] 2 07:38:53 Essential hypertension 66606626 Active 2021 Amna Giljaya null, [place] - [facility] [place] [facility] [place] 2 07:39:00 Gastroesophage al reflux disease 161922998 Active 2021 Amna Giljaya null, [place] [facility] [place] 2 07:39:07 Osteoarthritis 586689078 Active 2021 Amna Bundy null, [place] [facility] [place] 2 07:39:29 Osteopenia 957933615 Active 2021 Amna Giljaya null, [place] - [facility] [place] & [place] 2 07:39:38 Anxiety 58013108 Active 2021 Amna Bundy null, [place] - [facility] [place] [facility] [place] 2 07:39:47 Depressive disorder 64612617 Active 2021 Amna Bundy null, [place] - [facility] [place] [facility] [place] 2 07:39:56 Problem Notes None recorded. Procedures Surgical History Date Name Laterality Status Provider Name and Address Organization Details Recorded Time 05/18/19 20 arthroplasty of knee completed Amna Giljaya [place] [facility] [place] [facility] [place] 02/08/2022 07:42:58 05/18/19 13 Carpal tunnel surgery completed Amna Gregor [place] [facility] [place] [facility] [place] 02/08/2022 07:42:16 Cataract Surgery completed Amna Giljaya [place] [facility] [place] & [place] 02/08/2022 07:41:47 Tubal Ligation completed Amna Gregor [place] [facility] [place] [facility] [place] 02/08/2022 07:41:59 Imaging Results None recorded. Procedure Notes None recorded. Medical Equipment None Reported. Allergies Allergen ID Allergen Name Allergen Category Reaction Reaction Severity Criticality Documentation Date Start Date Code Code System Note Provider Name and Address Organization Details Recorded Time 55787 lidocaine medicatio n Not available Not available Not available 02/08/2022 6387 RxNorm [place] Molina [facility] & [place] 2 07:38:29 71215 procaine hydrochlo ride medicatio n Not available Not available Not available 02/08/2022 41891 8 RxNorm [place] Molina [facility] & [place] 2 07:38:38 Medications Name Sig Start Date [...] Updated DateTime 2 165.1 cm 26.6 kg/m2 79105.7 8 g 97.5 [degF] 98 % 98 % 75 /min 167 mm[Hg] 83 mm[Hg] Amna SOLIS [facility] & [place] 09:03:53 Social History Question Answer Notes LastModified by Organizat ion Details LastModified Time Tobacco Smoking Status Never Smoker Amna Bundy kathleen, [place] - [facility] & [place] 02/08/2022 09:06:11 What Is Your Level Of Caffeine Consumption? Occasional Information not available 02/08/2022 What Was The Date Of Your Most Recent Tobacco Screening? 02/08/2022 Information not available 02/08/2022 Sex: Unknown Functional Status Question Answer Note LastModified by Organizat ion Details LastModified Time Do you use any illicit or recreational drugs? No Information not available 02/08/2022 Do you or have you ever used any other forms of tobacco or nicotine? No Information not available 02/08/2022 What is your level of alcohol consumption? None Information not available 02/08/2022 Mental Status None recorded. Family History Relationship [...] Condition Response Anxiety Disorder Y Arthritis Y High Cholesterol Y Reflux/GERD Y Hypertension Y Gynecological HistoryNo gynecological history recorded. Obstetrics History GPAL:G 0 P 0 0 0 0 Immunizations Vaccine Type Date Status Note Provider Nam e and Address Organization Details Recorded Time Pneumococcal conjugate PCV 13 6 completed MELITON GARCIA NP [address] [place], [address], [place] [facility] & [place] 02/08/2022 09:12:29 pneumococcal polysaccharide PPV23 0 completed MELITON GARCIA NP [address] [place], [address], [place] [facility] & [place] 02/08/2022 09:12:29 pneumococcal polysaccharide PPV23 5 completed MELITON GARCIA NP [address] [facility], [place], [place], [address] [place] [address], [place] [facility] & [place] 02/08/2022 09:12:29 Td (adult) 4 completed MELITON GARCIA NP [address] [place] [address], [place], [place], [address] [place] [address], [place] [facility] & [place] 02/08/2022 09:12:29 COVID-19, mRNA, LNP-S, PF, 100 mcg/0.5mL dose or 50 mcg/0.25mL dose 1 completed MELITON GARCIA NP [address] [place] [address], [address] [place] [address], [place] [facility] & [place] 02/08/2022 09:12:29 Influenza, split virus, quadrivalent, preservative 0 completed MELITON GARCIA NP [address] [place] [address], [address] [place] [address], [place] [facility] & [place] 02/08/2022 09:12:29 Influenza, adjuvanted, trivalent, PF 9 completed MELITON GARCIA NP [address] [place] [address], [address] [place] [address], [place] [facility] & [place] 02/08/2022 09:12:29 COVID-19, mRNA, LNP-S, PF, 100 mcg/0.5mL dose or 50 mcg/0.25mL dose 1 completed MELITON GARCIA NP [address] [place] [address], [address] [place] [address], [place] [facility] & [place] 02/08/2022 09:12:29 Influenza, high-dose, trivalent, PF 1 completed MELITON GARCIA NP [address] [place] [address], [place] [facility] & [place] 02/08/2022 09:12:29 pneumococcal polysaccharide PPV23 2 completed MELITON GARCIA NP [address] [place] [address], [place] [facility] & [place] 02/08/2022 13:02:58 Influenza, high-dose, quadrivalent, PF 2 completed MELITON GARCIA NP [address] [facility], [place], [address], [place] [facility] [place] & [place] 02/08/2022 13:02:58 Past Encounters Encounter ID Performer Location Encounter Start Date Encounter Closed Date Diagnosis/Indication Diagnosis SNOMED-CT Code Diagnosis ICD10 Code Diagnosis Note [id number] MELITON GARCIA NP [email or web address] [address] [address] 02/08/2022 08:43:35 02/08/2022 09:33:10 Adult health examination 547015244 Z00.00 declines any preventati ve screenings discussed preventati ve caredental and vision screenings healthy lifestyle including diet and exercise Acute cystitis 52528927 N30.00 asymptomat icsend for culture Essential hypertension 30369311 I10 educated on goal of less than 130/90advi sed low sodium diet, healthy lifestyle including exercise as ablecontin ue current medication regimenER if any symptoms such as chest pain, shortness of breath Gastroesop hageal reflux disease 336428788 K21.9 Avoid spicy foods, carbonated beverages, lying down 30 minutes to 1 hour after eatingEat smaller portion sizesTake medication s as prescribed Weight management Hyperlipidemia 99276775 E78.5 Patient with known hyperlipid emia. Patient continues on {{statin* fibrate ni acin bile acid sequestran t}}. Lifestyle modificati ons discussed including weight loss, aerobic exercise at least 30 min/day at least 5 days per week, and a diet rich in fruit and vegetables . Goal LDL: {{<100mg/d L, <70mg/dL*} }. Will continue to follow lipid panel q6-12 months. Vitamin D deficiency 347 80944 E55.9 Overactive urinary bladder 129921916 N32.81 Administra tion of pneumococcal vaccine 77828596 Z23 Administra tion of influenza vaccine 78261474 Z23 Health Concerns Section Related Observation LastModified by Organization Detai ls LastModified Time None Recorded Concern Status LastModified by Organization Details LastModified Time None Recorded Advance Directives Directive None Recorded Payers Insurance Date Sequence Insurance Name Policy Number Policy Chiu Covered Member ID Chiu Member ID Guarantor Name 05/13/2022 1 [place] PROGRAM [address] Imani Mcdonald [id number] Imani Mcdonald Notes Date Note Type Note Provider Name and Address Organization Details Recorded Time 02/08/2022 text/html Vision screening : glasses, UTDDental screening: denturesAny falls, fractures surgeries: deniesSpecialist: [facility] littleColonoscopy: declinesFamily hx of colon, prostate cancer?: deniesAnxiety/Depres nia screening: deniesMammogram: denies/declines Taking all medications as prescribed but didnt take her blood pressure medication this AMOveractive bladder controlled MELITON GARCIA NP [address] [place] [address], [id number] & [place] 02/08/2022 13:04:16 OBGyn Episode No OBEpisode recorded.
--- OUTSIDE RECORDS SUMMARY | 2024-08-01 11:47 | XMS_ITS | Continuity of Care Document ---
Author Name [facility] Organization [facility] Care Team Providers Care Parliamentary Counsel Name Role Phone [facility] Unavailable Unavailable Social History Combined list of available smoking, tobacco, and other social history from [facility] and [facility] facilities. Social History Type Response Date Comment Sourc e This section is an empty social history section. [facility]
== END 2024-07-30 23:59 | disposition home or self-care (01) ==
LOC: LAB.DROPOF 08-01 11:46
PROVIDERS: PCP Family Medicine; Visit Provider Family Medicine
DX: N39.0 Urinary tract infection, site not specified (principal); B96.20 Unspecified Escherichia coli [E. coli] as the cause of diseases classified elsewhere
CPT/HCPCS: 80048; 85025; 87086; 87088; 87186

== ENCOUNTER 2024-08-06 13:30 | Outpatient (CLI) | payer BC, SELFPAY ==
--- OUTSIDE RECORDS SUMMARY | 2024-08-06 23:07 | XMS_ITS | Data Portability ---
Author Organization [facility] Address [address] [place] [address] Assessment No assessment recorded. Plan of Treatment Reminders Order Date Submit Date Provider Last Modified By Organization Details Last Modified Time Details Appointments None recorded. Lab CBC w/ auto diff 2021 LEANDRO [facility], [address], [place], [address], 07:07:48 CMP, serum or plasma 2021 [email or web address] [facility], [address], [place], [address], 10:17:20 TSH, ultra-sens itive, serum 2021 jkiskaden [facility], [address], [place], [address], 10:16:59 HbA1c (hemoglobi n A1c), blood 2021 [email or web address] [facility], [address], [place], [address], 2 10:16:36 lipid panel, serum 2021 LEANDRO [facility], [address], [place], [address], 07:07:50 vitamin D, 25-hydroxy , total, serum 2021 [facility], [address], [address], [place], [address], 10:16:16 urinalysis , dipstick 2021 julia Not available 14:09:38 culture, urine 2021 LEANDRO [facility], [address], [address], [place], [address], 07:07:53 Referral None recorded. Procedures None recorded. Surgeries None recorded. Imaging None recorded. Medication Orders lansoprazo le 30 mg capsule,de layed release 2021 [facility], [address] [place] [address], [id number], 09:31:08 pravastati n 80 mg tablet 2021 [facility], [address] [place] [address], [id number], 09:31:09 lisinopril 20 mg-hydroch lorothiazi de 25 mg tablet 2021 [facility], [address] [place] [address], [id number], 09:31:08 tolterodin e ER 4 mg capsule,ex tended release 24 hr 2021 [facility], [address] [place] [address], [id number], 09:31:08 Patient TargetsNo targets recorded. Patient InstructionsNo instructions recorded. Reason for Referral None Reported. Results Created Date Observation Date Name Description Value Unit Range Abnormal Flag Note LastModifiedBy Organization Detail LastModifiedTime 02/09/20 22 02/09/2022 CBC WITH DIFFE RENTI AL/PL ATELE T WBC 6.3 x10e3 /uL 3.4-10 .8 Not Available [facility] ([facility]) [address] [facility], [place], [address], 02/10/2022 07:07:47 02/09/20 22 02/09/2022 CBC WITH DIFFE RENTI AL/PL ATELE T RBC 4.81 x10e6 /uL 3.77-5 .28 Not Available [facility] ([facility]) [address] [facility], [place], [address], 02/10/2022 07:07:47 02/09/20 22 02/09/2022 CBC WITH DIFFE RENTI AL/PL ATELE T hemoglobin 14.1 g/dL 11.1-1 5.9 Not Available [facility] ([facility]) [address] [place], [address], 02/10/2022 07:07:47 02/09/20 22 02/09/2022 CBC WITH DIFFE RENTI AL/PL ATELE T hematocrit 42.0 % 34.0-4 6.6 Not Available [facility] ([facility]) [address] [place], [address], 02/10/2022 07:07:47 02/09/20 22 02/09/2022 CBC WITH DIFFE RENTI AL/PL ATELE T MCV 87 fL 79-97 Not Available [facility] ([facility]) [address] [place], [address], 02/10/2022 07:07:47 02/09/20 22 02/09/2022 CBC WITH DIFFE RENTI AL/PL ATELE T MCH 29.3 pg 26.6-3 3.0 Not Available [facility] ([facility]) [address] [place], [address], 02/10/2022 07:07:47 02/09/20 22 02/09/2022 CBC WITH DIFFE RENTI AL/PL ATELE T MCHC 33.6 g/dL 31.5-3 5.7 Not Available [facility] ([facility]) [address] [facility], [place], [address], 02/10/2022 07:07:47 02/09/20 22 02/09/2022 CBC WITH DIFFE RENTI AL/PL ATELE T RDW 12.2 % 11.7-1 5.4 Not Available [facility] ([facility]) [address] [facility], [place], [address], 02/10/2022 07:07:47 02/09/20 22 02/09/2022 CBC WITH DIFFE RENTI AL/PL ATELE T platelets 269 x10e3 /uL 150-45 0 Not Available [facility] ([facility]) [address] [facility], [place], [address], 02/10/2022 07:07:47 02/09/20 22 02/09/2022 CBC WITH DIFFE RENTI AL/PL ATELE T neutrophils 54 % not estab. Not Available [facility] ([facility]) [address] [facility], [place], [address], 02/10/2022 07:07:47 02/09/20 22 02/09/2022 CBC WITH DIFFE RENTI AL/PL ATELE T lymphs 33 % not estab. Not Available [facility] ([facility]) [address] [facility], [place], [address], 02/10/2022 07:07:47 02/09/20 22 02/09/2022 CBC WITH DIFFE RENTI AL/PL ATELE T monocytes 11 % not estab. Not Available [facility] ([facility]) [address] [facility], [place], [address], 02/10/2022 07:07:47 02/09/20 22 02/09/2022 CBC WITH DIFFE RENTI AL/PL ATELE T eos 2 % not estab. Not Available [facility] ([facility]) [address] [place], [address], 02/10/2022 07:07:47 02/09/20 22 02/09/2022 CBC WITH DIFFE RENTI AL/PL ATELE T basos 0 % not estab. Not Available [facility] ([facility]) [address] [place], [address], 02/10/2022 07:07:47 02/09/20 22 02/09/2022 CBC WITH DIFFE RENTI AL/PL ATELE T immature cells SHIPPER AND RECEIVING Not Available [facility] ([facility]) [address] [place], [address], 02/10/2022 07:07:47 02/09/20 22 02/09/2022 CBC WITH DIFFE RENTI AL/PL ATELE T neutrophils (absolute) 3.4 x10e3 /uL 1.4-7. 0 Not Available [facility] ([facility]) [address] [place], [address], 02/10/2022 07:07:47 02/09/20 22 02/09/2022 CBC WITH DIFFE RENTI AL/PL ATELE T lymphs (absolute) 2.1 x10e3 /uL 0.7-3. 1 Not Available [facility] ([facility]) [address] [place], [address], 02/10/2022 07:07:47 02/09/20 22 02/09/2022 CBC WITH DIFFE RENTI AL/PL ATELE T monocytes(ab solute) 0.7 x10e3 /uL 0.1-0. 9 Not Available [facility] ([facility]) [address] [place], [address], 02/10/2022 07:07:47 02/09/20 22 02/09/2022 CBC WITH DIFFE RENTI AL/PL ATELE T eos (absolute) 0.1 x10e3 /uL 0.0-0. 4 Not Available [facility] ([facility]) [address] [facility], [place], [address], 02/10/2022 07:07:47 02/09/20 22 02/09/2022 CBC WITH DIFFE RENTI AL/PL ATELE T baso (absolute) 0.0 x10e3 /uL 0.0-0. 2 Not Available [facility] ([facility]) [address] [facility], [place], [address], 02/10/2022 07:07:47 02/09/20 22 02/09/2022 CBC WITH DIFFE RENTI AL/PL ATELE T immature granulocytes 0 % not estab. Not Available [facility] ([facility]) [address] [facility], [place], [address], 02/10/2022 07:07:47 02/09/20 22 02/09/2022 CBC WITH DIFFE RENTI AL/PL ATELE T immature grans (abs) 0.0 x10e3 /uL 0.0-0. 1 Not Available [facility] ([facility]) [address] [facility], [place], [address], 02/10/2022 07:07:47 02/09/20 22 02/09/2022 CBC WITH DIFFE RENTI AL/PL ATELE T NRBC SHIPPER AND RECEIVING Not Available [facility] ([facility]) [address] [facility], [place], [address], 02/10/2022 07:07:47 02/09/20 22 02/09/2022 CBC WITH DIFFE RENTI AL/PL ATELE T hematology comments: SHIPPER AND RECEIVING Not Available [facility] ([facility]) [address] [facility], [place], [address], 02/10/2022 07:07:47 02/09/20 22 02/09/2022 COMP. METAB OLIC PANEL (14) glucose 89 mg/dL 70-99 Not Available [facility] ([facility]) [address] [facility] [place], [address], 02/10/2022 07:07:49 02/09/20 22 02/09/2022 COMP. METAB OLIC PANEL (14) BUN 15 mg/dL 8-27 Not Available [facility] ([facility]) [address] [facility] [place], [address], 02/10/2022 07:07:49 02/09/20 22 02/09/2022 COMP. METAB OLIC PANEL (14) creatinine 0.94 mg/dL 0.57-1 .00 Not Available [facility] ([facility]) [address] [facility] [place], [address], 02/10/2022 07:07:49 02/09/20 22 02/09/2022 COMP. METAB OLIC PANEL (14) eGFR 62 mL/mi n/1.7 3 >59 Not Available [facility] ([facility]) [address] [facility], [place], [address], 02/10/2022 07:07:49 02/09/20 22 02/09/2022 COMP. METAB OLIC PANEL (14) BUN/creatini ne ratio 16 12-28 Not Available [facility] ([facility]) [address] [facility] [place], [address], 02/10/2022 07:07:49 02/09/20 22 02/09/2022 COMP. METAB OLIC PANEL (14) sodium 133 mmol/ L 134-14 4 below low normal Not Available [facility] ([facility]) [address] [facility] [place], [address], 02/10/2022 07:07:49 02/09/20 22 02/09/2022 COMP. METAB OLIC PANEL (14) potassium 3.4 mmol/ L 3.5-5. 2 below low normal Not Available [facility] ([facility]) [address] [facility] [place], [address], 02/10/2022 07:07:49 02/09/20 22 02/09/2022 COMP. METAB OLIC PANEL (14) chloride 95 mmol/ L 96-106 below low normal Not Available [facility] ([facility]) [address] [facility], [place], [address], 02/10/2022 07:07:49 02/09/20 22 02/09/2022 COMP. METAB OLIC PANEL (14) carbon dioxide, total 27 mmol/ L 20-29 Not Available [facility] ([facility]) [address] [facility] [place], [address], 02/10/2022 07:07:49 02/09/20 22 02/09/2022 COMP. METAB OLIC PANEL (14) calcium 9.2 mg/dL 8.7-10 .3 Not Available [facility] ([facility]) [address] [facility] [place], [address], 02/10/2022 07:07:49 02/09/20 22 02/09/2022 COMP. METAB OLIC PANEL (14) protein, total 6.7 g/dL 6.0-8. 5 Not Available [facility] ([facility]) [address] [facility] [place], [address], 02/10/2022 07:07:49 02/09/20 22 02/09/2022 COMP. METAB OLIC PANEL (14) albumin 4.3 g/dL 3.7-4. 7 Not Available [facility] ([facility]) [address] [facility] [place], [address], 02/10/2022 07:07:49 02/09/20 22 02/09/2022 COMP. METAB OLIC PANEL (14) globulin, total 2.4 g/dL 1.5-4. 5 Not Available [facility] ([facility]) [address] [facility] [place], [address], 02/10/2022 07:07:49 02/09/20 02/09/2022 COMP. METAB OLIC PANEL (14) A/G ratio 1.8 1.2-2. 2 Not Available [facility] ([facility]) [address] [place], [address], 02/10/2022 07:07:49 02/09/20 22 02/09/2022 COMP. METAB OLIC PANEL (14) bilirubin, total 0.9 mg/dL 0.0-1. 2 Not Available [facility] ([facility]) [address] [place], [address], 02/10/2022 07:07:49 02/09/20 22 02/09/2022 COMP. METAB OLIC PANEL (14) alkaline phosphatase 41 IU/L 44-121 below low normal Not Available [facility] ([facility]) [address] [place], [address], 02/10/2022 07:07:49 02/09/20 22 02/09/2022 COMP. METAB OLIC PANEL (14) AST (SGOT) 17 IU/L 0-40 Not Available [facility] ([facility]) [address] [place], [address], 02/10/2022 07:07:49 02/09/20 22 02/09/2022 COMP. METAB OLIC PANEL (14) ALT (SGPT) 17 IU/L 0-32 Not Available [facility] ([facility]) [address] [place], [address], 02/10/2022 07:07:49 02/09/20 22 02/09/2022 LIPID PANEL WITH LDL/H DL RATIO cholesterol, total 169 mg/dL 100-19 9 Not Available [facility] ([facility]) [address] [place], [address], 02/10/2022 07:07:50 02/09/20 22 02/09/2022 LIPID PANEL WITH LDL/H DL RATIO triglyceride s 133 mg/dL 0-149 Not Available [facility] ([facility]) [address] [facility], [place], [address], 02/10/2022 07:07:50 02/09/20 22 02/09/2022 LIPID PANEL WITH LDL/H DL RATIO HDL cholesterol 46 mg/dL >39 Not Available [facility] ([facility]) [address] [facility], [place], [address], 02/10/2022 07:07:50 02/09/20 22 02/09/2022 LIPID PANEL WITH LDL/H DL RATIO VLDL cholesterol michelle 24 mg/dL 5-40 Not Available [facility] ([facility]) [address] [facility], [place], [address], 02/10/2022 07:07:50 02/09/20 22 02/09/2022 LIPID PANEL WITH LDL/H DL RATIO LDL chol calc (nih) 99 mg/dL 0-99 Not Available [facility] ([facility]) [address] [facility], [place], [address], 02/10/2022 07:07:50 02/09/20 22 02/09/2022 LIPID PANEL WITH LDL/H DL RATIO comment: SHIPPER AND RECEIVING Not Available [facility] ([facility]) [address] [place], [address], 02/10/2022 07:07:50 02/09/20 22 02/09/2022 LIPID PANEL WITH LDL/H DL RATIO LDL/HDL ratio 2.2 ratio 0.0-3. 2 LDL/H DL Ratio Men Women 1/2 Avg.R isk 1.0 1.5 Avg.R isk 3.6 3.2 2X Avg.R isk 6.2 5.0 3X Avg.R isk 8.0 6.1 Not Available [facility] ([facility]) [address] [facility], [place], [address], 02/10/2022 07:07:50 02/09/20 22 02/09/2022 HEMOG LOBIN A1C hemoglobin A1C 5.7 % 4.8-5. 6 above high normal Predi abete s: 5.7 - 6.4 Diabe eliana: >6.4 Glyce joyce contr ol for adult s with diabe eliana: <7.0 Not Available [facility] ([facility]) [address] [facility], [place], [address], 02/10/2022 07:07:51 02/09/20 22 02/09/2022 TSH TSH 0.314 uIU/m L 0.450- 4.500 below low normal Not Available [facility] ([facility]) [address] [facility], [place], [address], 02/10/2022 07:07:51 02/09/20 22 02/09/2022 VITAM IN [...] um and D. Sarah butler [place]: The [facility] Press . 2. Marianna meng MF, Tu morales [place], Paloma off-F errar i ROBIN, et al. Evalu ation , treat ment, and preve ntion of vitam in D defic iency : an Endoc rine Socie ty clini michelle pract ice guide line. JCEM. 2010; 96(7) :1911 -30. Not Available [facility] ([facility]) [address] [facility], [place], [address], 02/10/2022 07:07:52 02/09/20 22 02/10/2022 URINE CULTU RE,CO MPREH ENSIV E urine culture,comp rehensive FINAL REPORT Not Available [facility] ([facility]) [address] [facility], [place], [address], 02/10/2022 07:07:53 02/09/20 22 02/10/2022 URINE CULTU RE,CO MPREH ENSIV E result 1 COMMEN T Mixed uroge nital je 25,00 0-50, 000 colon y formi ng units per mL Not Available [facility] ([facility]) [address] [facility], [place], [address], 02/10/2022 07:07:53 02/09/20 22 02/08/2022 urina lysis , dipst ick Leukocytes (reference range) modera te Not Available [address], [address], 02/08/2022 09:50:49 02/09/20 22 02/08/2022 urina lysis , dipst ick Nitrite (reference range:) negati ve Not Available [address], [address], 02/08/2022 09:50:49 02/09/20 22 02/08/2022 urina lysis , dipst ick Urobilinogen (reference range) 0.2 Not Available [address], [address], 02/08/2022 09:50:49 02/09/20 22 02/08/2022 urina lysis , dipst ick Protein (reference range) negati ve Not Available [address], [address], 02/08/2022 09:50:49 02/09/20 22 02/08/2022 urina lysis , dipst ick pH (reference range 5-8.5) 6.0 Not Available [address], [address], 02/08/2022 09:50:49 02/09/20 22 02/08/2022 urina lysis , dipst ick Blood (reference range:) non-He molyze d: Trace Not Available [address], [address], 02/08/2022 09:50:49 02/09/20 22 02/08/2022 urina lysis , dipst ick Specific Irwin (reference range) 1.020 Not Available [address], [address], 02/08/2022 09:50:49 02/09/20 22 02/08/2022 urina lysis , dipst ick Ketone (reference range) negati ve Not Available [address], [address], 02/08/2022 09:50:49 02/09/20 22 02/08/2022 urina lysis , dipst ick Bilirubin (reference range) negati ve Not Available [address], [address], 02/08/2022 09:50:49 02/09/20 22 02/08/2022 urina lysis , dipst ick Glucose (reference range) negati ve Not Available [address], [address], 02/08/2022 09:50:49 02/09/20 22 02/08/2022 urina lysis , dipst ick Color (reference range: yellow-brown ) Yellow Not Available [address], [address], 02/08/2022 09:50:49 Result Notes None recorded. Problems Name Problem SNOMED Code Status Onset Date Resolution Date Notes Provider Name and Address Organization Details Recorded Time Hyperlipidemia 59856311 Active 2021 Amna wang, [place] [facility] [place] [facility] [place] 2 07:38:53 Essential hypertension 02372289 Active 2021 Amna Giljaya null, [place] - [facility] [place] [facility] [place] 2 07:39:00 Gastroesophage al reflux disease 903465331 Active 2021 Amna Giljaya null, [place] [facility] [place] [facility] [place] 2 07:39:07 Osteoarthritis 036835586 Active 2021 Amna Bundy null, [place] [facility] [place] 2 07:39:29 Osteopenia 002343879 Active 2021 Amna Giljaya null, [place] - [facility] [place] & [place] 2 07:39:38 Anxiety 95519241 Active 2021 Amna Bundy null, [place] - [facility] [place] [facility] [place] 2 07:39:47 Depressive disorder 47619054 Active 2021 Amna Bundy null, [place] - [facility] [place] [facility] [place] 2 07:39:56 Problem Notes None recorded. Procedures Surgical History Date Name Laterality Status Provider Name and Address Organization Details Recorded Time 05/18/19 20 arthroplasty of knee completed Amna Giljaya [place] [facility] [place] [facility] [place] 02/08/2022 07:42:58 05/18/19 13 Carpal tunnel surgery completed Amna Gregor [place] - [facility] [place] [facility] [place] 02/08/2022 07:42:16 Cataract Surgery completed Amna Giljaya [place] [facility] [place] [facility] [place] 02/08/2022 07:41:47 Tubal Ligation completed Amna Gregor [place] - [facility] [place] [facility] [place] 02/08/2022 07:41:59 Imaging Results None recorded. Procedure Notes None recorded. Medical Equipment None Reported. Allergies Allergen ID Allergen Name Allergen Category Reaction Reaction Severity Criticality Documentation Date Start Date Code Code System Note Provider Name and Address Organization Details Recorded Time 18892 lidocaine medicatio n Not available Not available Not available 02/08/2022 6387 RxNorm [place] Molina [facility] [place] 2 07:38:29 32871 procaine hydrochlo ride medicatio n Not available Not available Not available 02/08/2022 60894 8 RxNorm [place] Molina [facility] [place] 2 07:38:38 Medications Name Sig Start Date [...] Updated DateTime 2 165.1 cm 26.6 kg/m2 33204.7 8 g 97.5 [degF] 98 % 98 % 75 /min 167 mm[Hg] 83 mm[Hg] Amna SOLIS [facility] [place] 09:03:53 Social History Question Answer Notes LastModified by Organizat ion Details LastModified Time Tobacco Smoking Status Never Smoker Amna Bundy kathleen, [place] - [place] [facility] [place] 02/08/2022 09:06:11 What Is Your Level Of [...] Anxiety Disorder Y Arthritis Y Reflux/GERD Y High Cholesterol Y Hypertension Y Gynecological HistoryNo gynecological history recorded. Obstetrics History GPAL:G 0 P 0 0 0 0 Immunizations Vaccine Type Date Status Note Provider Nam e and Address Organization Details Recorded Time Pneumococcal conjugate PCV 13 6 completed MELITON GARCIA NP [address] [place], [address], [place] [facility] [place] 02/08/2022 09:12:29 pneumococcal polysaccharide PPV23 0 completed MELITON GARCIA NP [address] [place], [address], [place] [facility] [place] 02/08/2022 09:12:29 pneumococcal polysaccharide PPV23 5 completed MELITON GARCIA NP [address] [facility], [place], [place], [address] [place] [address], [place] [facility] [place] 02/08/2022 09:12:29 Td (adult) 4 completed MELITON GARCIA NP [address] [place] [address], [place], [place], [address] [place] [address], [place] [facility] [place] 02/08/2022 09:12:29 COVID-19, mRNA, LNP-S, PF, 100 mcg/0.5mL dose or 50 mcg/0.25mL dose 1 completed MELITON GARCIA NP [address] [place] [address], [address] [place] [address], [place] [facility] [place] 02/08/2022 09:12:29 Influenza, split virus, quadrivalent, preservative 0 completed MELITON GARCIA NP [address] [place] [address], [address] [place] [address], [place] [facility] [place] 02/08/2022 09:12:29 Influenza, adjuvanted, trivalent, PF 9 completed MELITON GARCIA NP [address] [place] [address], [address] [place] [address], [place] [facility] [place] 02/08/2022 09:12:29 COVID-19, mRNA, LNP-S, PF, 100 mcg/0.5mL dose or 50 mcg/0.25mL dose 1 completed MELITON GARCIA NP [address] [place] [address], [address] [place] [address], [place] [facility] [place] 02/08/2022 09:12:29 Influenza, high-dose, trivalent, PF 1 completed MELITON GARCIA NP [address] [place] [address], [place] [facility] [place] 02/08/2022 09:12:29 pneumococcal polysaccharide PPV23 2 completed MELITON GARCIA NP [address] [place] [address], [place] [facility] [place] 02/08/2022 13:02:58 Influenza, high-dose, quadrivalent, PF 2 completed MELITON GARCIA NP [address] [facility] [place], [place], [address], [place] [facility] [place] [facility] [place] 02/08/2022 13:02:58 Past Encounters Encounter ID Performer Location Encounter Start Date Encounter Closed Date Diagnosis/Indication Diagnosis SNOMED-CT Code Diagnosis ICD10 Code Diagnosis Note [id number] MELITON GARCIA NP [id number] [address] [address] 02/08/2022 08:43:35 02/08/2022 09:33:10 Adult health examination 448786537 Z00.00 declines any preventati ve screenings discussed preventati ve caredental and vision screenings healthy lifestyle including diet and exercise Acute cystitis 15691478 N30.00 asymptomat icsend for culture Essential hypertension 67262888 I10 educated on goal of less than 130/90advi sed low sodium diet, healthy lifestyle including exercise as ablecontin ue current medication regimenER if any symptoms such as chest pain, shortness of breath Gastroesop hageal reflux disease 830249047 K21.9 Avoid spicy foods, carbonated beverages, lying down 30 minutes to 1 hour after eatingEat smaller portion sizesTake medication s as prescribed Weight management Hyperlipidemia 29689560 E78.5 Patient with known hyperlipid emia. Patient continues on {{statin* fibrate ni acin bile acid sequestran t}}. Lifestyle modificati ons discussed including weight loss, aerobic exercise at least 30 min/day at least 5 days per week, and a diet rich in fruit and vegetables . Goal LDL: {{<100mg/d L, <70mg/dL*} }. Will continue to follow lipid panel q6-12 months. Vitamin D deficiency 347 08758 E55.9 Overactive urinary bladder 687838283 N32.81 Administra tion of pneumococcal vaccine 95546448 Z23 Administra tion of influenza vaccine 07708620 Z23 Health Concerns Section Related Observation LastModified by Organization Detai ls LastModified Time None Recorded Concern Status LastModified by Organization Details LastModified Time None Recorded Advance Directives Directive None Recorded Payers Insurance Date Sequence Insurance Name Policy Number Policy Chiu Covered Member ID Chiu Member ID Guarantor Name 05/13/2022 1 [place] [place] [employer] [id number] Imani Mcdonald [id number] Imani Mcdonald Notes Date Note Type Note Provider Name and Address Organization Details Recorded Time 02/08/2022 text/html Vision screening : glasses, UTDDental screening: denturesAny falls, fractures surgeries: deniesSpecialist: [facility] littleColonoscopy: declinesFamily hx of colon, prostate cancer?: deniesAnxiety/Depres nia screening: deniesMammogram: denies/declines Taking all medications as prescribed but didnt take her blood pressure medication this AMOveractive bladder controlled MELITON GARCIA NP [address] [place] [address], [id number] [place] 02/08/2022 13:04:16 OBGyn Episode No OBEpisode recorded.
--- OUTSIDE RECORDS SUMMARY | 2024-08-06 23:07 | XMS_ITS | Continuity of Care Document ---
Author Name [facility] Organization [facility] Care Team Providers Care Marketing Information Coordinator Name Role Phone [facility] Unavailable Unavailable Social History Combined list of available smoking, tobacco, and other social history from Department of Defense and Veterans Affairs facilities. Social History Type Response Date Comment Sourc e This section is an empty social history section. [facility]
== END 2024-08-06 23:59 | disposition home or self-care (01) ==
LOC: LAB.DROPOF 23:04
PROVIDERS: PCP Family Medicine; Visit Provider Family Medicine
DX: N39.0 Urinary tract infection, site not specified (principal)
CPT/HCPCS: 87086

== ENCOUNTER 2024-08-29 17:22 | Outpatient (CLI) | payer BC, SELFPAY ==
--- OUTSIDE RECORDS SUMMARY | 2024-07-07 09:51 | XMS_ITS | Encounter Summary ---
Author Organization [employer] Address [address] [place] [address] Care Team Providers Care Cook Camp Name Role Phone Kyrie Li Primary Care Provider [phone] Reason for Referral * CAT Scan (Routine) - Closed Specialty Diagnoses / Procedures Referred By Lisha ribeiro Referred To Contact Radiology Diagnoses Primary osteoarthritis of left knee Procedures CT lower extremity without IV contrast left Jose F Yao MD [address] [place] [address] Phone: tel: fax: [facility] [address] [place] [phone] Phone: tel: fax: Referral ID Status Reason Start Date Expiration Date V isits Requested Visits Authorized [id number] Closed Continuity of Care 05/27/2024 05/27/2025 1 1 Reason for Visit * CAT Scan (Routine) - Closed Specialty Diagnoses / Procedures Referred By Lisha ribeiro Referred To Contact Radiology Diagnoses Primary osteoarthritis of left knee Procedures CT lower extremity without IV contrast left Jose F Yao MD [address] [place] [address] Phone: tel: fax: [facility] [address] [place] [phone] Phone: tel: fax: Referral ID Status Reason Start Date Expiration Date V isits Requested Visits Authorized [id number] Closed Continuity of Care 05/27/2024 05/27/2025 1 1 Encounter Details Date Type Department Care Team (Late st Contact Info) Description 07/07/2024 9:51 AM EDT - 07/07/2024 11:59 PM EDT Hospital Encounter [facility] [address] [place] [phone] Jose F Yao MD [address] [place] [address] Primary osteoarthritis of left knee Discharge Disposition: Home or Self Care Social History Tobacco Use Types Packs/Day Years Used Date Smoking Tobacco: Never Smokeless Tobacco: Never Alcohol Use Standard Drinks/Week Comments Never 0 (1 standard drink = 0.6 oz pur e alcohol) Comments Unknown Sex and Gender Information Value Date Recorded Sex Assigned at Not on file Legal Sex Female 5:16 PM CDT Gender Identity Not on file Sexual Orientation Not on file documented as of this encounter Medications at Time of Discharge calcium carbonate-vitamin D3 (Calcium 600 + D,3,) 600 mg-10 mcg (400 unit) tab one tablet everyday fexofenadine (Arlene Allergy) 180 MG tablet Take 1 tablet every day by oral route. fluticasone propionate (FLONASE) 50 mcg/actuation nasal spray SPRAY 1-2 TIMES IN EACH NOSTRIL AT BEDTIME glucosamine storm 2KCl-chondroit 750-600 mg tab Take 1 tablet every day by oral route. lansoprazole (PREVACID) 30 MG capsule TAKE 1 CAPSULE 1 TIME EACH DAY lisinopriL-hydroC HLOROthiazide (ZESTORETIC, PRINZIDE) 20-25 mg per tablet TAKE 1 TABLET 1 TIME EACH DAY potassium chloride (KLOR-CON) 10 MEQ tablet Take 1 tablet (10 mEq total) by mouth daily 1.5 TABS. pravastatin (PRAVACHOL) 80 MG tablet Take by mouth. sertraline (ZOLOFT) 25 MG tablet Take 1 tablet (25 mg total) by mouth daily. 06/10/2024 tolterodine (Detrol LA) 4 MG 24 hr capsule Take by mouth. vitamin E acid succinate (vitamin E succinate) 268 mg (400 unit) tab Take 1 tablet every day by oral route. documented as of this encounter Plan of Treatment Upcoming Encounters Date Type Department Care Team (Late st Contact Info) Description 09/11/2024 11:45 AM EDT Hospital Encounter [facility] [address] [place] [phone] Jose F Yao MD [address] [place] [address] 09/11/2024 11:45 AM EDT - 09/11/2024 2:10 PM EDT Surgery [facility] [address] [place] [phone] Jose F Yao MD [address] [place] [address] ARTHROPLASTY, KNEE, ROBOT-ASSISTED 09/23/2024 10:00 AM EDT Office Visit [facility] Orthopedics - [address] [phone] Jose F Yao MD [address] [place] [address] Scheduled Procedures Name Priority Associated Diagnoses Date/Ti me ARTHROPLASTY, KNEE, ROBOT-ASSISTED Primary osteoarthritis of left knee 09/11/2024 11:45 AM EDT documented as of this encounter Procedures Procedure Name Priority Date/Time Associated Diagnosis Comments CT LOWER EXTREMITY WITHOUT IV CONTRAST LEFT Routine 07/07/2024 9:55 AM EDT Primary osteoarthritis of left knee documented in this encounter Results * CT lower extremity without IV contrast left (07/07/2024 9:55 AM EDT) Anatomical Region Laterality Modality Lower Extremity, Hip, Femur, Leg, Knee, Ankle, Foot Computed Tomography (CT) 07/07/2024 10:1 3 AM EDT Impressions 07/07/2024 10:20 AM EDT Degenerative joint disease. Images reviewed, interpreted, and dictated by Mirela Osorio MD Narrative 07/07/2024 10:[address] SCAN LEFT LOWER EXTREMITY 07/07/2024 9:51 AM HISTORY: Knee osteoarthritis. Abundio protocol. COMPARISON: None. PROCEDURE: Axial images were obtained through the lower extremity by computed tomography. Sagittal and coronal reconstruction images were performed. This study was performed with techniques to keep radiation doses as low as reasonably achievable, (ALARA). Individualized dose reduction techniques using automated exposure control or adjustment of mA and/or kV according to the patient size were employed. FINDINGS: There is no fracture. There is a joint effusion. There is significant degenerative change. A Og's cyst is noted. Loose bodies are noted in the Og's cyst, large in size. Procedure Note Marjorie Osorio MD - 07/07/2024 CT SCAN LEFT LOWER EXTREMITY 07/07/2024 9:51 AM HISTORY: Knee osteoarthritis. Abundio protocol. COMPARISON: None. PROCEDURE: Axial images were obtained through the lower extremity by computed tomography. Sagittal and coronal reconstruction images were performed. This study was performed with techniques to keep radiation doses as low as reasonably achievable, (ALARA). Individualized dose reduction techniques using automated exposure control or adjustment of mA and/or kV according to the patient size were employed. FINDINGS: There is no fracture. There is a joint effusion. There is significant degenerative change. A Og's cyst is noted. Loose bodies are noted in the Og's cyst, large in size. IMPRESSION: Degenerative joint disease. Images reviewed, interpreted, and dictated by Mirela Osorio MD Jose F Yao MD IMG CT ORDERABLES Final Result documented in this encounter Visit Diagnoses Diagnosis Primary osteoarthritis of left knee Primary osteoarthritis of left knee documented in this encounter Care Teams Cook Camp Relationship Specialty Start Date End Date Kyrie Li [address] [place] [phone] PCP - General 06/23/24 documented as of this encounter
--- OUTSIDE RECORDS SUMMARY | 2024-07-18 16:00 | XMS_ITS | Encounter Summary ---
Author Organization [employer] Address [address] [place] [address] Care Team Providers Care Cat Cracker Operator Name Role Phone Kyrie Li Primary Care Provider [phone] Encounter Details Date Type Department Care Team (Late Contact Info) Description 07/18/2024 4:00 PM EDT Lab Patient Walk-In [facility] [address] [place] [phone] Jose F Yao MD [address] [place] [phone] Degenerative arthritis of left knee Social History [...] Department Care Team (Late Contact Info) Description 09/11/2024 11:45 AM EDT Hospital Encounter [facility] Operating Room [address] [place] [phone] Jose F Yao MD [address] [place] [phone] 09/11/2024 11:45 AM EDT - 09/11/2024 2:10 PM EDT Surgery [facility] Operating Room [address] [place] [phone] Jose F Yao MD [address] [place] [address] ARTHROPLASTY, KNEE, ROBOT-ASSISTED 09/23/2024 10:00 AM EDT Office Visit [facility] Orthopedics - [address] [phone] Jose F Yao MD [address] [place] [address] Scheduled Procedures Name Priority Associated Diagnoses Date/Ti [...] Color, UA Straw 07/18/2024 2:13 PM EDT [facility] Clarity, UA Hazy 07/18/2024 2:13 PM EDT [facility] Specific [place], UA 1.015 1.002 - 1.030 07/18/2024 2:13 PM EDT [facility] pH, UA 6.5 5.0 - 9.0 07/18/2024 2:13 PM EDT [facility] Leukocytes, UA Trace(A) Negative 07/18/2024 2:13 PM EDT [facility] Nitrite, UA Positive(A) Negative 07/18/2024 2:13 PM EDT [facility] Protein, UA Negative Negative 07/18/2024 2:13 PM EDT [facility] Glucose, UA Negative Negative 07/18/2024 2:13 PM EDT [facility] Ketones, UA Negative Negative 07/18/2024 2:13 PM EDT [facility] Urobilinogen, UA 0.2 mg/dL Normal 07/18/2024 2:13 PM EDT [facility] Bilirubin, UA Negative Negative 07/18/2024 2:13 PM EDT [facility] Blood, UA Negative Negative 07/18/2024 2:13 PM EDT [facility] WBC, UA 5-10(A) None Seen, Occasional , 0-5 /HPF 07/18/2024 2:13 PM EDT [facility] Bacteria, UA 4+(A) None Seen 07/18/2024 2:13 PM EDT [facility] Epithelial Cells, UA 5-10(A) None Seen, Rare /HPF 07/18/2024 2:13 PM EDT [facility] Specimen Source Urine, Straight Catheter 07/18/2024 2:13 PM EDT [facility] Urine URINE SPECIMEN OBTAINED VIA STRAIGHT CATHETER / Unknown 07/18/2024 1:45 PM EDT 07/18/2024 1:56 PM EDT us Jose F Tex Yao MD URINE ORDERABLES Final Result [facility] [address] [place] [address] documented in this encounter Visit Diagnoses Diagnosis Degenerative arthritis of left knee Osteoarthrosis, unspecified whether generalized or localized, lower leg Primary osteoarthritis of left knee documented in this encounter Care Teams Cat Cracker Operator Relationship Specialty Start [place] [phone] PCP - General 06/23/24 documented as of this encounter
--- OUTSIDE RECORDS SUMMARY | 2024-07-25 11:18 | XMS_ITS | Encounter Summary ---
Author Organization [employer] Address [address] [place] [address] Care Team Providers Care Truck Car And Bus Cleaner Name Role Phone Kyrie Li Primary Care Provider [phone] Encounter Details Date Type Department Care Team (Latest Contact Info) Description 07/25/2024 11:18 AM EDT - 07/25/2024 11:59 PM EDT Hospital Encounter [facility] Preadmissions Testing [address] [place] [phone] Discharge Disposition: Home or Self Care Social [...] Description 09/11/2024 11:45 AM EDT Hospital Encounter [facility] Operating Room [address] [place] [phone] Jose F Yao MD [address] [place] [phone] 09/11/2024 11:45 AM EDT - 09/11/2024 2:10 PM EDT Surgery [facility] Operating Room [address] [place] [phone] Jose F Yao MD [address] [place] [phone] ARTHROPLASTY, KNEE, ROBOT-ASSISTED 09/23/2024 10:00 AM EDT Office Visit [facility] Orthopedics - [address] [phone] Jose F Yao MD [address] [place] [phone] Scheduled Procedures Name Priority Associated Diagnoses Date/Ti id ARTHROPLASTY, KNEE, ROBOT-ASSISTED Primary osteoarthritis of left knee 09/11/2024 11:45 AM EDT documented as of this encounter Procedures Procedure Name Priority Date/Time Associated Diagnosis Comments URINALYSIS W/ MICROSCOPIC Routine 07/25/2024 11:41 AM EDT documented in this encounter Results * (ABNORMAL) Urinalysis w/Microscopic (07/25/2024 11:41 AM EDT) Color, UA Light Yellow 07/25/2024 12:05 PM EDT [facility] Clarity, UA Clear 07/25/2024 12:05 PM EDT [facility] Specific [place] Way, UA 1.015 1.002 - 1.030 07/25/2024 12:05 PM EDT [facility] pH, UA 6.0 5.0 - 9.0 07/25/2024 12:05 PM EDT [facility] Leukocytes, UA Negative Negative 07/25/2024 12:05 PM EDT [facility] Nitrite, UA Negative Negative 07/25[facility]24 [facility] Protein, UA Negative Negative 07/25/2024 12:05 PM EDT [facility] Glucose, UA Negative Negative 07/25/2024 12:05 PM EDT [facility] Ketones, UA Negative Negative 07/25/2024 12:05 PM EDT [facility] Urobilinogen, UA 0.2 mg/dL Normal 07/25/2024 12:[facility] Bilirubin, UA Negative Negative 07/25/2024 12:[facility] Blood, UA Negative Negative 07/25/2024 12:05 PM EDT [facility] RBC, UA Occasional(A) None Seen, Rare /HPF 07/25/2024 12:05 PM EDT [facility] WBC, UA Occasional None Seen, Occasional , 0-5 /HPF 07/25/2024 12:[facility] Bacteria, UA Trace(A) None Seen 07/25/2024 12:05 PM EDT [facility] Mucus Trace Trace 07/25/2024 12:05 PM EDT [facility] Epithelial Cells, UA 0-5(A) None Seen, Rare /HPF 07/25/2024 12:05 PM EDT [facility] Specimen Source Urine, Straight Catheter 07/25/2024 12:05 PM EDT [facility] Urine URINE SPECIMEN OBTAINED VIA STRAIGHT CATHETER / Unknown 07/25/2024 11:41 AM EDT 07/25/2024 11:46 AM EDT us Jose F Tex Yao MD URINE ORDERABLES Final Result [facility] [address] [phone] documented in this encounter Visit Diagnoses Not on filedocumented in this encounter Care Teams Truck Car And Bus Cleaner Relationship Specialty [place] [phone] PCP - General 06/23/24 documented as of this encounter
--- OUTSIDE RECORDS SUMMARY | 2024-08-29 08:30 | XMS_ITS | Continuity of Care Document ---
Author Name [facility] Organization [facility] Care Team Providers Care Supervisor Steffen House Name Role Phone [facility] Unavailable Unavailable Social History Combined list of available smoking, tobacco, and other social history from Department of Defense and Veterans Affairs facilities. Social History Type Response Date Comment Sourc e This section is an empty social history section. DoD
[2024-08-29 17:24] LABS: Microscopic, Urine URINE MICROSCOPIC (MICROSCOPIC)
--- OUTSIDE RECORDS SUMMARY | 2024-08-29 17:24 | XMS_ITS | Encounter Summary ---
Author Organization [employer] Address [address] [place] [address] Care Team Providers Care Solar Photovoltaic Installer Name Role Phone Kyrie Li Primary Care Provider [phone] Reason for Referral * Diagnostic Lab (Routine) - New Request Specialty Diagnoses / Procedures Referred By Lisha t Referred To Contact Diagnoses Pre-op exam Procedures Urinalysis, Reflex Microscopic and Culture If Indicated Jose F Yao MD [address] [place] [address] Phone: tel: fax: Referral ID Status Reason Start Date Expiration Date V isits Requested Visits Authorized [id number] New Request 08/28/2024 08/28/2025 1 1 Encounter Details Date Type Department Care Team (Late st Contact Info) Description 08/19/2024 Orders Only [facility] Orthopedics - [address] [phone] Jose F Yao MD [address] [place] [id number] Pre-op exam (Primary Dx) Social History Tobacco Use Types Packs/Day Years [...] on file documented as of this encounter Progress Notes * Krystle Molina - 08/19/2024 11:08 AM EDT Pre-op documented in this encounter Plan of Treatment Upcoming Encounters Date Type Department Care Team (Late st Contact Info) Description 09/11/2024 11:45 AM EDT Hospital Encounter [facility] Operating Room [address] [place] [phone] Jose F Yao MD [address] [place] [address] 09/11/2024 11:45 AM EDT - 09/11/2024 2:10 PM EDT Surgery [facility] Operating Room [address] [place] [phone] Jose F Yao MD [address] [place] [address] ARTHROPLASTY, KNEE, ROBOT-ASSISTED 09/23/2024 10:00 AM EDT Office Visit [facility] Orthopedics - [address] [phone] Jose F Yao MD [address] [place] [address] Scheduled Orders Name Type Priority Associated Diagnoses Orde r Schedule Urinalysis, Reflex Microscopic and Culture If Indicated Lab Routine Pre-op exam Expected: 08/28/2024, Expires: 08/19/2025 Scheduled Procedures Name Priority Associated Diagnoses Date/Ti me ARTHROPLASTY, KNEE, ROBOT-ASSISTED Primary osteoarthritis of left knee 09/11/2024 11:45 AM EDT documented as of this encounter Visit Diagnoses Diagnosis Pre-op exam- Primary Primary osteoarthritis of left knee documented in this encounter Care Teams Solar Photovoltaic Installer Relationship Specialty Start Date End Date Kyrie Li [address] [place] [phone] PCP - General 06/23/24 documented as of this encounter
--- OUTSIDE RECORDS SUMMARY | 2024-08-29 17:24 | XMS_ITS | Referral Summary ---
Author Organization [employer] Address [address] [place] [address] Care Team Providers Care Visual Associate Name Role Phone Kyrie Li Primary Care Provider [phone] Encounters Date Type Department Care Team Description 08/19/2024 Orders Only [facility] Orthopedics [address] [phone] Jose F Yao MD Pre-op exam (Primary Dx) 07/25/2024 Travel 07/25/2024 11:18 AM EDT - 07/25/2024 11:59 PM EDT Hospital Encounter [facility] Preadmissions Testing [address] [place] [address] Discharge Disposition: Home or Self Care 07/23/2024 Surgery Prep [facility] Orthopedics - [address] [place] [phone] Katelynn Jacinto PA-C Primary osteoarthritis of left knee (Primary Dx) 07/21/2024 Orders Only [facility] Orthopedics [address] [phone] Jose F Yao MD Pre-op testing (Primary Dx) 07/18/2024 Travel 07/18/2024 4:00 PM EDT Lab Patient Walk-In [facility] Lab [address] [place] [phone] Joes F Yao MD Degenerative arthritis of left knee 07/18/2024 Outside Orders [facility] Admitting [address] [phone] Jose F Yao MD Degenerative arthritis of left knee (Primary Dx) 07/17/2024 Surgery Prep [facility] Orthopedics - [address] [place] [address] Katelynn Jacinto PA-C Primary osteoarthritis of left knee (Primary Dx) 07/11/2024 Travel 07/07/2024 9:51 AM EDT - 07/07/2024 11:59 PM EDT Hospital Encounter [facility] CT Imaging [address] [phone] Jose F Yao MD Primary osteoarthritis of left knee Discharge Disposition: Home or Self Care 06/23/2024 Travel 06/23/2024 9:56 AM EDT Hospital Encounter [facility] Respiratory Care [address] [place] [address] Jose F Yao MD Pre-op testing Discharge Disposition: Home or Self Care 06/23/2024 9:57 AM EDT - 06/23/2024 11:59 PM EDT Hospital Encounter [facility] Diagnostic Imaging [address] [phone] Jose F Yao MD Pre-op testing Discharge Disposition: Home or Self Care 06/23/2024 11:30 AM EDT Lab Patient Walk-In [facility] Lab [address] [phone] Jose F Yao MD Pre-op testing from Last 3 Months Allergies No known active allergies Medications tolterodine (Detrol LA) 4 MG 24 hr capsule Take by mouth. Active lansoprazole (PREVACID) 30 MG capsule TAKE 1 CAPSULE 1 TIME EACH DAY Active lisinopriL-hydr oCHLOROthiazide (ZESTORETIC, PRINZIDE) 20-25 mg per tablet TAKE 1 TABLET 1 TIME EACH DAY Active pravastatin (PRAVACHOL) 80 MG tablet Take by mouth. Active fexofenadine (Arlene Allergy) 180 MG tablet Take 1 tablet every day by oral route. Active fluticasone propionate (FLONASE) 50 mcg/actuation nasal spray SPRAY 1-2 TIMES IN EACH NOSTRIL AT BEDTIME Active glucosamine storm 2KCl-chondroit 750-600 mg tab Take 1 tablet every day by oral route. Active vitamin E acid succinate (vitamin E succinate) 268 mg (400 unit) tab Take 1 tablet every day by oral route. Active calcium carbonate-vitam in D3 (Calcium 600 + D,3,) 600 mg-10 mcg (400 unit) tab one tablet everyday Active sertraline (ZOLOFT) 25 MG tablet Take 1 tablet (25 mg total) by mouth daily. 06/10/2024 Active potassium chloride (KLOR-CON) 10 MEQ tablet Take 1 tablet (10 mEq total) by mouth daily 1.5 TABS. Active Active Problems Problem Noted Date Diagnosed Date Osteoarthritis of left knee 05/27/2024 Social History Tobacco Use Types Packs/Day Years Used Date Smoking Tobacco: Never Smokeless Tobacco: Never Tobacco Cessation:Counseling Given: Not Answered Alcohol Use Standard Drinks/Week Comments Never 0 (1 standard drink = 0.6 oz pur e alcohol) Comments Unknown Sex and Gender Information Value Date Recorded Sex Assigned at Not on file Legal Sex Female 5:16 PM CDT Gender Identity Not on file Sexual Orientation Not on file Last Filed Vital Signs Vital Sign Reading Time Taken Comments Blood Pressure 169/91 05/27/2024 9:13 AM EDT Pulse 72 05/27/2024 9:13 AM EDT Temperature - - Respiratory Rate - - Oxygen Saturation - - Inhaled Oxygen Concentration - - Weight 68.9 kg (152 lb) 07/02/2024 11:00 AM EDT Height 167.6 cm (5' 6 ) 05/27/2024 9:12 AM EDT Body Mass Index 24.53 05/27/2024 9:12 AM EDT Plan of Treatment Upcoming Encounters Date Type Department Care Team (Late st Contact Info) Description 09/11/2024 11:45 AM EDT Hospital Encounter [facility] Operating Room [address] [place] [address] Jose F Yao MD [address] [place] [address] 09/11/2024 11:45 AM EDT - 09/11/2024 2:10 PM EDT Surgery [facility] Operating Room [address] [place] [phone] Jose F Yao MD [address] [place] [address] ARTHROPLASTY, KNEE, ROBOT-ASSISTED 09/23/2024 10:00 AM EDT Office Visit [facility] Orthopedics - [address] [phone] Jose F Yao MD [address] [place] [address] Scheduled Procedures Name Priority Associated Diagnoses Date/Ti me ARTHROPLASTY, KNEE, ROBOT-ASSISTED Primary osteoarthritis of left knee 09/11/2024 11:45 AM EDT Procedures Procedure Name Priority Date/Time Associated Diagnosis Comments URINALYSIS W/ MICROSCOPIC Routine 07/25/2024 11:41 AM EDT URINALYSIS W/ MICROSCOPIC Routine 07/18/2024 1:45 PM EDT Degenerative arthritis of left knee URINALYSIS MICROSCOPIC Routine 07/11/2024 10:00 AM EDT Pre-op testing URINALYSIS, REFLEX MICROSCOPIC AND CULTURE IF INDICATED Routine 07/11/2024 10:00 AM EDT Pre-op testing URINE CULTURE Routine 07/11/2024 10:00 AM EDT Pre-op testing CT LOWER EXTREMITY WITHOUT IV CONTRAST LEFT Routine 07/07/2024 9:55 AM EDT Primary osteoarthritis of left knee [id number] 12-LEAD Routine 06/23/2024 10:25 AM EDT Pre-op testing XR CHEST PA AND LATERAL Routine 06/23/2024 10:11 AM EDT Pre-op testing COMPREHENSIVE METABOLIC PANEL Routine 06/23/2024 10:05 AM EDT Pre-op testing CBC W/ AUTO DIFF Routine 06/23/2024 10:0 5 AM EDT Pre-op testing MRSA SCREEN Routine 06/23/2024 10:05 AM EDT Pre-op testing from Last 3 Months Results * (ABNORMAL) Urinalysis w/Microscopic (07/25/2024 11:41 AM EDT) Only the most recent of2 resultswithin the time period is included. Color, UA Light Yellow 07/25/2024 12:05 PM EDT [facility] Clarity, UA Clear 07/25/2024 12:05 PM EDT [facility] Specific [place], UA 1.015 1.002 - 1.030 07/25/2024 12:05 PM EDT [facility] pH, UA 6.0 5.0 - 9.0 07/25/2024 12:05 PM EDT [facility] Leukocytes, UA Negative Negative 07/25/2024 12:05 PM EDT [facility] Nitrite, UA Negative Negative 07/25/2024 12:05 PM EDT [facility] Protein, UA Negative Negative 07/25/2024 12:05 PM EDT [facility] Glucose, UA Negative Negative 07/25/2024 12:05 PM EDT [facility] Ketones, UA Negative Negative 07/25/2024 12:05 PM EDT [facility] Urobilinogen, UA 0.2 mg/dL Normal 07/25/2024 12:05 PM EDT [facility] Bilirubin, UA Negative Negative 07/25/2024 12:05 PM EDT [facility] Blood, UA Negative Negative 07/25/2024 12:05 PM EDT [facility] RBC, UA Occasional(A) None Seen, Rare /HPF 07/25/2024 12:05 PM EDT [facility] WBC, UA Occasional None Seen, Occasional , 0-5 /HPF 07/25/2024 12:05 PM EDT [facility] Bacteria, UA Trace(A) None Seen 07/25/2024 12:05 PM EDT [facility] Mucus Trace Trace 07/25/2024 12:05 PM EDT [facility] Epithelial Cells, UA 0-5(A) None Seen, Rare /HPF 07/25/2024 12:05 PM EDT [facility] Specimen Source Urine, Straight Catheter 07/25/2024 12:05 PM EDT [facility] Urine URINE SPECIMEN OBTAINED VIA STRAIGHT CATHETER / Unknown 07/25/2024 11:41 AM EDT 07/25/2024 11:46 AM EDT Jose F S Maximilian BENJAMIN URINE ORDERABLES Final Result [facility] [address] [place] [address] * (ABNORMAL) Urinalysis, Reflex Microscopic and Culture If Indicated (07/11/2024 10:00 AM EDT) Color, UA Light Yellow 07/11/2024 10:47 AM EDT [facility] Clarity, UA Hazy 07/11/2024 10:47 AM EDT [facility] Specific [place], UA 1.010 1.002 - 1.030 07/11/2024 10:47 AM EDT [facility] pH, UA 6.5 5.0 - 9.0 07/11/2024 10:47 AM EDT [facility] Leukocytes, UA 1+(A) Negative 07/11/2024 10:47 AM EDT [facility] Nitrite, UA Negative Negative 07/11/2024 10:47 AM EDT [facility] Protein, UA Negative Negative 07/11/2024 10:47 AM EDT [facility] Glucose, UA Negative Negative 07/11/2024 10:47 AM EDT [facility] Ketones, UA Negative Negative 07/11/2024 10:47 AM EDT [facility] Bilirubin, UA Negative Negative 07/11/2024 10:47 AM EDT [facility] Blood, UA Negative Negative 07/11/2024 10:47 AM EDT [facility] Urobilinogen, UA 0.2 mg/dL Normal 07/11/2024 10:47 AM EDT [facility] Specimen Source Urine, Clean Catch 07/11/2024 10:47 AM EDT [facility] Urine URINE SPECIMEN COLLECTION, CLEAN CATCH / Unknown 07/11/2024 10:00 AM EDT 07/11/2024 10:18 AM EDT us Jose F Yao MD URINE ORDERABLES Final Result [facility] [address] [place] [address] * (ABNORMAL) Urinalysis Microscopic Only (07/11/2024 10:00 AM EDT) WBC, UA 10-20(A) None Seen, Occasional , 0-5 /HPF 07/11/2024 10:47 AM EDT [facility] RBC, UA Occasiona l(A) None Seen, Rare /HPF 07/11/2024 10:47 AM EDT [facility] Bacteria, UA 2+(A) None Seen 07/11/2024 10:47 AM EDT [facility] SQUAMOUS EPITHELIAL 5-10(A) None Seen, Rare /HPF 07/11/2024 10:47 AM EDT [facility] Urine URINE SPECIMEN COLLECTION, CLEAN CATCH / Unknown 07/11/2024 10:00 AM EDT 07/11/2024 10:18 AM EDT us Jose F Yao MD URINE ORDERABLES Final Result [facility] [address] [place] [address], [facility] [phone] * (ABNORMAL) Urine Culture (07/11/2024 10:00 AM EDT) Result >100,000 CFU Escherichia coli(A) 07/13/2024 9:18 AM EDT [facility] Urine URINE SPECIMEN COLLECTION, CLEAN CATCH / Unknown 07/11/2024 10:00 AM EDT 07/11/2024 10:47 AM EDT Narrative Organism Antibiotic Method Susceptibility Escherichia coli Amikacin <=16: Susceptible Escherichia coli Amoxicillin + Clavulanate <=8/4: Susceptible Escherichia coli Ampicillin <=8: Susceptible Escherichia coli Ampicillin + Sulbactam <=4/2: Susceptible Escherichia coli Aztreonam <=4: Susceptible Escherichia coli Cefazolin <=2: Susceptible Escherichia coli Cefepime <=2: Susceptible Escherichia coli Cefotaxime <=2: Susceptible Escherichia coli Cefoxitin <=8: Susceptible Escherichia coli Ceftazidime <=1: Susceptible Escherichia coli Ceftriaxone <=1: Susceptible Escherichia coli Cefuroxime 8: Susceptible Escherichia coli Ciprofloxacin <=0.25: Susceptible Escherichia coli Ertapenem <=0.5: Susceptible Escherichia coli Gentamicin <=2: Susceptible Escherichia coli Imipenem <=1: Susceptible Escherichia coli Levofloxacin <=0.5: Susceptible Escherichia coli Meropenem <=1: Susceptible Escherichia coli Minocycline <=4: Susceptible Escherichia coli Nitrofurantoin <=32: Susceptible Escherichia coli Piperacillin + Tazobactam <=8: Susceptible Escherichia coli Tetracycline <=4: Susceptible Escherichia coli Tigecycline <=2: Susceptible Escherichia coli Tobramycin <=2: Susceptible Escherichia coli Trimethoprim + Sulfamethoxazole <=0.5/9.5: Susceptible Jose F Yao MD MICROBIOLOGY - GENERAL ORDERAB LES Final Result [facility] [address] [place] [address], [facility] [phone] * CT lower extremity without IV contrast [...] Yao MD IMG CT ORDERABLES Final Result * ECG 12 lead (06/23/2024 10:25 AM EDT) VENTRICULAR RATE EKG/MIN 66 BPM GE MUSE ATRIAL RATE (MCT) 66 BPM GE MUSE [place] Interval 166 ms GE MUSE QRS-INTERVAL (MSEC) 98 ms GE MUSE QT Interval 402 ms GE MUSE QTC Interval 421 ms GE MUSE P [place] 55 degrees GE MUSE R AXIS (MCT) 61 degrees GE MUSE T Wave [place] 57 degrees GE MUSE [place] Diagnosis Normal sinus rhythm with sinus arrhythmia Normal ECG Confirmed by Severo OHARA RICHARD ([id number]) on 06/23/2024 4:20:50 PM GE MUSE 06/23/2024 10:2 5 AM EDT 06/23/2024 4:20 PM EDT us Jose F Tex Yao MD ECG ORDERABLES Final Result GE MUSE * X-ray chest PA and lateral (06/23/2024 10:11 AM EDT) Anatomical Region Laterality Modality Chest X-Ray 06/23/2024 11:1 0 AM EDT Impressions 06/23/2024 11:19 AM EDT Hyperinflation of the lungs otherwise no acute cardiopulmonary process. Images reviewed, interpreted, and dictated by Dr. Mirela Osorio. Transcribed by Macrina Mosqueda PA-C. Narrative 06/23/2024 11:19 AM EDT TWO-VIEW CHEST 06/23/2024 9:59 AM HISTORY: Preoperative pulmonary clearance for knee surgery. COMPARISON: April 2019. FINDINGS: The cardiac silhouette is normal in size. The mediastinal and hilar contours are unremarkable. The lungs are hyperinflated. There is no pneumothorax. The visualized osseous structures demonstrate no acute abnormalities. Procedure Note Marjorie Osorio MD - 06/23/2024 TWO-VIEW CHEST 06/23/2024 9:59 AM HISTORY: Preoperative pulmonary clearance for knee surgery. COMPARISON: April 2019. FINDINGS: The cardiac silhouette is normal in size. The mediastinal and hilar contours are unremarkable. The lungs are hyperinflated. There is no pneumothorax. The visualized osseous structures demonstrate no acute abnormalities. IMPRESSION: Hyperinflation of the lungs otherwise no acute cardiopulmonary process. Images reviewed, interpreted, and dictated by Dr. Mirela Osorio. Transcribed by Macrina Mosqueda PA-C. Jose F Tex Yao MD IMG DIAGNOSTIC IMAGING ORDERAB LES Final Result * (ABNORMAL) CBC with automated diff (06/23/2024 10:05 AM EDT) WBC 8.1 4.8 - 10.8 K/ L 06/23/2024 10:35 AM EDT [facility] RBC 4.94 3.50 - 5.20 M/ L 06/23/2024 10:35 AM EDT [facility] Hemoglobin 14.1 11.7 - 15.8 GM/DL 06/23/2024 10:35 AM EDT [facility] Hematocrit 42.6 35.0 - 47.0 % 06/23/2024 10:35 AM EDT [facility] MCV 86 81 - 101 fL 06/23/2024 10:35 AM EDT [facility] MCH 28.5 27.0 - 34.0 pg 06/23/2024 10:35 AM EDT [facility] MCHC 33.1 32.0 - 36.0 GM/DL 06/23/2024 10:35 AM EDT [facility] RDW 12.8 11.5 - 14.5 % 06/23/2024 10:35 AM EDT [facility] Platelets 259 150 - 400 K/CU MM 06/23/2024 10:35 AM EDT [facility] MPV 9.3(L) 9.4 - 12.4 fL 06/23/2024 10:35 AM EDT [facility] Nucleated Red Blood Cell 0.0 0 - 0.2 % 06/23/2024 10:35 AM EDT [facility] % Neutros 62 37 - 80 % 06/23/2024 10:35 AM EDT [facility] % Lymphs 26 10 - 50 % 06/23/2024 10:35 AM EDT [facility] % Monos 9 5 - 13 % 06/23/2024 10:35 AM EDT [facility] % Eos 3 0 - 7 % 06/23/2024 10:35 AM EDT [facility] % Baso 1 0 - 3 % 06/23/2024 10:35 AM EDT [facility] NRBC Absolute <0.01 0 - 0.012 K/ul 06/23/2024 10:35 AM EDT [facility] # Neutros 5.02 2.00 - 6.90 K/ L 06/23/2024 10:35 AM EDT [facility] # Lymphs 2.09 0.60 - 3.40 K/ L 06/23/2024 10:35 AM EDT [facility] # Monos 0.76 0.00 - 0.90 K/ L 06/23/2024 10:35 AM EDT [facility] # Eos 0.20 0.00 - 0.70 K/ L 06/23/2024 10:35 AM EDT [facility] # Baso 0.04 0.00 - 0.20 K/ L 06/23/2024 10:35 AM EDT [facility] Immature Granulocytes-Re lative 0.40 % 06/23/2024 10:35 AM EDT [facility] # IG 0.03(H) 0.00 - 0.00 K/uL 06/23/2024 10:35 AM EDT [facility] Blood Venipuncture / Unknown 06/23/2024 10:05 AM EDT 06/23/2024 10:26 AM EDT Narrative [facility] - 06/23/2024 10:35 AM EDT When CBC w/ Auto Diff is ordered the lab will add a Manual Differential as a quality check at no additional charge if: Lymphocytes greater than seventy five percent with normal or increased WBC Monocytes greater than Fifteen percent Basophil greater than four percent Bands >10% or several immature myeloids are seen on scan Blast? Flag noted Atypical Lymph flag noted us Jose F Tex Yao MD LAB BLOOD ORDERABLES Final Res ult [facility] [address] [place] [address] [phone] * MRSA Screen (06/23/2024 10:05 AM EDT) MRSA by PCR [facility] MRSA Not Detected by PCR MRSA Not Detected by PCR DEVICE ID9 06/23/2024 4:31 PM EDT [facility] Nasal BOTH ANTERIOR NARES / Unknown 06/23/2024 10:05 AM EDT 06/23/2024 10:26 AM EDT us Jose F Tex Yao MD MICROBIOLOGY - GENERAL ORDERAB LES Final Result [facility] [address] [place] [address] * (ABNORMAL) Comprehensive metabolic panel (06/23/2024 10:05 AM EDT) Pathologist [facility] Sodium 134(L) 136 - 145 meq/L 06/23/2024 10:55 AM EDT [facility] Potassium 3.2(L) 3.5 - 5.1 meq/L 06/23/2024 10:55 AM EDT [facility] Chloride 98 98 - 107 meq/L 06/23/2024 10:55 AM EDT [facility] CO2 32 21 - 32 meq/L 06/23/2024 10:55 AM EDT [facility] Calcium 8.9 8.5 - 10.1 mg/dL 06/23/2024 10:55 AM EDT [facility] Glucose 85 70 - 99 mg/dL 06/23/2024 10:55 AM EDT [facility] BUN 15 7 - 18 mg/dL 06/23/2024 10:55 AM EDT [facility] Creatinine 0.75 0.55 - 1.10 mg/dL 06/23/2024 10:55 AM EDT [facility] BUN/Creatinine 20 06/23/2024 10:55 AM EDT [facility] Albumin 3.7 3.4 - 5.0 g/dL 06/23/2024 10:55 AM EDT [facility] Alkaline Phosphatase 63 46 - 116 U/L 06/23/2024 10:55 AM EDT [facility] ALT 26 12 - 78 U/L 06/23/2024 10:55 AM EDT [facility] AST 18 15 - 37 U/L 06/23/2024 10:55 AM EDT [facility] Total Bilirubin 0.6 0.2 - 1.0 mg/dL 06/23/2024 10:55 AM EDT [facility] Protein, Total 7.2 6.4 - 8.2 gm/dL 06/23/2024 10:55 AM EDT [facility] Anion Gap 7(L) 11 - 22 06/23/2024 10:55 AM EDT [facility] A/G Ratio 1.1 06/23/2024 10:55 AM EDT [facility] Globulin 3.5 g/dL 06/23/2024 10:55 AM EDT [facility] Osmolality Calc 268.3 mOsm/kg 10:55 AM EDT [facility] eGFR (mL/min/1.73m2) >60 >=60 mL/min/1.7 3m2 06/23/2024 10:55 AM EDT [facility] Comment:ESTIMATED GFR IS NOT ACCURATE CREATININE CLEARANCE IN PREDICTING GLOMERULAR FILTRATION RATE. ESTIMATED GFR IS NOT APPLICABLE FOR DIALYSIS PATIENTS. Blood Venipuncture / Unknown 06/23/2024 10:05 AM EDT 06/23/2024 10:26 AM EDT us Jose F Tex Yao MD LAB BLOOD ORDERABLES Final Res ult [facility] [address] [place], [place] [address] [phone] from Last 3 Months Insurance BLUE CROSS/BLUE SHIELD Care Teams Visual Associate Relationship Specialty Start Date End Date Kyrie Li [address] [place] [phone] PCP - General 06/23/24
--- OUTSIDE RECORDS SUMMARY | 2024-08-29 17:25 | XMS_ITS | Encounter Summary ---
Author Organization [facility] [employer] Address [address] [place] [address] Care Team Providers Care Casing Man Name Role Phone Kyrie Li Primary Care Provider [phone] Encounter Details Date Type Department Care Team (Latest Contact Info) Description 07/18/2024 Travel Social History Tobacco Use Types Packs/Day Years [...] Description 09/11/2024 11:45 AM EDT Hospital Encounter [facility] Operating Room [address] [place] [phone] Jose F Yao MD [address] [place] [address] 09/11/2024 11:45 AM EDT - 09/11/2024 2:10 PM EDT Surgery [facility] Operating Room [address] [place] [phone] Jose F Yao MD [address] [place] [address] ARTHROPLASTY, KNEE, ROBOT-ASSISTED 09/23/2024 10:00 AM EDT Office Visit [facility] Orthopedics - [address] [phone] Jose F Yao MD [address] [place] [address] Scheduled Procedures Name Priority Associated Diagnoses Date/Ti me ARTHROPLASTY, KNEE, ROBOT-ASSISTED Primary osteoarthritis of left knee 09/11/2024 11:45 AM EDT documented as of this encounter Visit Diagnoses Not on filedocumented in this encounter Care Teams Casing Man Relationship Specialty Start Date End Date Kyrie Li [address] [place] [address] PCP - General 06/23/24 documented as of this encounter
--- OUTSIDE RECORDS SUMMARY | 2024-08-29 17:25 | XMS_ITS | Encounter Summary ---
Author Organization [facility] [employer] Address [address] [place] [address] Care Team Providers Care Locomotive Switch Operator Name Role Phone Kyrie Li Primary Care Provider [phone] Encounter Details Date Type Department Care Team (Latest Contact Info) Description 07/25/2024 Travel Social History Tobacco Use Types Packs/Day [...] Description 09/11/2024 11:45 AM EDT Hospital Encounter [facility] Operating Room [address] [place] [phone] Jose F Yao MD [address] [place] [phone] 09/11/2024 11:45 AM EDT - 09/11/2024 2:10 PM EDT Surgery [facility] Operating Room [address] [place] [phone] Jose F Yao MD [address] [place] [address] ARTHROPLASTY, KNEE, ROBOT-ASSISTED 09/23/2024 10:00 AM EDT Office Visit [facility] Orthopedics - [address] [phone] Jose F Yao MD [address] [place] [address] Scheduled Procedures Name Priority Associated Diagnoses Date/Ti me ARTHROPLASTY, KNEE, ROBOT-ASSISTED Primary osteoarthritis of left knee 09/11/2024 11:45 AM EDT documented as of this encounter Visit Diagnoses Not on filedocumented in this encounter Care Teams Locomotive Switch Operator Relationship Specialty Start Date End Date Kyrie Li [address] [place] [address] PCP - General 06/23/24 documented as of this encounter
--- OUTSIDE RECORDS SUMMARY | 2024-08-29 17:25 | XMS_ITS | Encounter Summary ---
Author Organization [employer] Address [address] [place] [address] Care Team Providers Care Laundry Presser Name Role Phone Luis Daniel Li Primary Care Provider [phone] Encounter Details Date Type Department Care Team (Late st Contact Info) Description 07/17/2024 Surgery Prep [facility] Orthopedics - [address] [place] [address] Katelynn Jacinto PA-C [address] [place] [phone] Primary osteoarthritis of left knee (Primary Dx) Social History Tobacco Use Types [...] on file documented as of this encounter H&P Notes * Katelynn Jacinto PA-C - 07/17/2024 10:54 AM EDT NAME: Imani Mcdonald CSN: [id number] : 1945 PCP: LUIS DANIEL LI REASON FOR VISIT Left knee pain HPI Imani Mcdonald is a 79 y.o. female. New patient presents for left knee pain. Patient presents ambulatory with no assistance. Patient rates pain today as 9/10. Patient states pain is lateral to patella and across to medial to patella with no radiation and no known injury or cause. Patient states she has been diagnosed with arthritis. Patient states pain in left knee has been increasing since summer of 2023. Patient had been doing yard work all summer. Patient denies any past surgery or trauma of left knee, however she had the right knee replaced by Dr. Guevara around 2019. Patient describes pain as sharp and is constant when walking. Patient states pain is increased by overuse and twisting. Patient states Ibuprofen is the only thing she has found that decreases pain. Patient states she has tried bracing and states she had an injection once, which was most likely cortisone but she is not sure. CURRENT MEDICATIONS Current Outpatient Medications Medication Instructions calcium carbonate-vitamin D3 (Calcium 600 + D,3,) [...] TAKE 1 CAPSULE 1 TIME EACH DAY lisinopriL-hydroCHLOROthiazide (ZESTORETIC, PRINZIDE) 20-25 mg per tablet TAKE 1 TABLET 1 TIME EACHDAY potassium chloride (KLOR-CON) 10 MEQ tablet 10 mEq, Daily pravastatin (PRAVACHOL) 80 MG tablet Take by mouth. sertraline (ZOLOFT) 25 mg, Daily tolterodine (Detrol LA) 4 MG 24 hr capsule Take by mouth. vitamin E acid succinate (vitamin E succinate) 268 mg (400 unit) tab Take 1 tablet every day by oral route. ALLERGIES No Known Allergies PAST MEDICAL/SURGICAL HISTORY Past Medical History: Diagnosis Date Arthritis Hyperlipidemia Ocular migraine HISTORY OF Seasonal allergies Urinary incontinence Past Surgical History: Procedure Laterality Date CARPAL TUNNEL RELEASE Bilateral CATARACT EXTRACTION Bilateral CYSTECTOMY KNOT OFF OF NECK REPLACEMENT TOTAL KNEE Right SOCIAL HISTORY Social History Tobacco Use Smoking status: Never Smokeless tobacco: Never Substance Use Topics Alcohol use: Never Drug use: Never FAMILY HISTORY Family History Problem Relation Name Age of Onset Arthritis Other Hyperlipidemia Other REVIEW OF SYSTEMS General: No recent fever or chills, no recent weight loss or weight gain, no insomnia HEENT: No change in vision, no glasses/contacts, no hearing loss, no tinnitus, no vertigo, no congestion/sinus issues CVS: No chest pain, no palpitations, no edema, no varicose veins Resp: No dyspnea, no wheezing, no cough, no hemoptysis GI: No dysphagia, no nausea, no vomiting, no heart burn, no constipation, no diarrhea : No dysuria, no hematuria, no nocturia, no history of chronic UTI Musculoskeletal: See HPI Derm: No rash, no abrasions, no skin discoloration, no history or MRSA Neuro: See HPI Endo: No cold/heat intolerance Heme: No abnormal bruising or bleeding Psych: No depression, no anxiety, no fatigue, no mood swings. Scribe Attestation: IBrenda CMA acted as a scribe and transcribed components of the currentencounter under the direction of the Attending Provider. I have not been involved in providing any clinical treatments or patient care. Electronically Signed, Brenda Barrera CMA OBJECTIVE There were no vitals filed for this visit. Physical Exam Vitals reviewed. Constitutional: Appearance: Normal appearance. HENT: Head: Normocephalic and atraumatic. Skin: General: Skin is warm and dry. Capillary Refill: Capillary refill takes less than 2 seconds. Findings: No bruising or erythema. Neurological: Mental Status: alert and oriented to person, place, and time. Gait: Gait abnormal. Psychiatric: Mood and Affect: Mood normal. Behavior: Behavior normal. Ortho Exam Left Knee Exam Appearance: + swelling, no warmth, no erythema, no ecchymosis, +valgus deformity Tenderness to palpation: + Medial joint line, -Lateral joint line, - Patellofemoral joint, -MCL, -LCL, -Posterior, - Quad Tendon, - Patellar Tendon, -Hamstring, - Gastrocnemius ROM: 120 degrees of flexion, lacks several degrees of extension, + crepitus Strength: 4/5 quad strength Testing: -Marcos, -Sherley, -Posterior drawer, -Varus & -Valgus stress Neurovascular: NVI, -Homans Skin: Normal appearance with no discoloration or wounds Gait: Abnormal IMAGING/OUTSIDE REPORTS X-Rays were performed and interpreted today in office of left knee, 2 views weight bearing revealing: CT lower extremity without IV contrast left Narrative: CT SCAN LEFT LOWER EXTREMITY 07/07/2024 9:51 AM HISTORY: Knee osteoarthritis. Natasha protocol. COMPARISON: None. PROCEDURE: Axial images were [...] in the Og's cyst, large in size. Impression: Degenerative joint disease. Images reviewed, interpreted, and dictated by Mirela Osorio MD ASSESSMENT Problem List Items Addressed This Visit None I discussed with patient in depth the options for treatment of osteoarthritis of the knee. Treatment options that include gentle, low-impact exercise, weight loss, physical therapy to promote quadriceps strengthening, the use of NSAIDs, intra-articular steroid injections, viscosupplementation, and genicular nerve blocks were all discussed. I also discussed that if all conservative measures fail to provide satisfactory relief of symptoms, we can discuss surgical options to include arthroplasty of the knee. PLAN No follow-ups on file. Rest Ice Follow up after post-operatively/procedure, as scheduled Return to clinic sooner if new or worse symptoms occur Watch for s/s of infection, contact office if seen CT left knee NATASHA ordered. In basket sent to [employer] for approval Surgical Procedure scheduled today in office: Left Total Knee Arthroplasty w/ NATASHA Special Surgical Procedure Needs: Knee Surgery: Pre-fabricated hinged knee brace needed post surgery Diagnosis Discussion: Knee Osteoarthritis: I discussed with patient in depth the options for treatment of osteoarthritis of the knee. Treatment options that include gentle, low-impact exercise, weight loss, physical therapy to promote quadriceps strengthening, the use of NSAIDs, intra-articular steroid injections, viscosupplementation, and genicular nerve blocks were all discussed. I also discussed that if all conservative measures fail to provide satisfactory relief of symptoms, we can discusssurgical options to include arthroplasty of the knee. Surgical Risk Discussion: Lower Extremity Total Joint Surgical Risk: The risks and benefits of the planned surgery were discussed in depth with the patient. I discussed potential complications including inherent risk of anesthesia, infection, neurovascular damage, DVT, and rare but real potential loss of limb or life were all reviewed. Patient voices understanding and seems to understand to my satisfaction and wishes to proceed with surgery. I gave them no guarantees in regards to outcomes of this surgery. This patient has pain related to the affected joint. This has caused limitations in activities of daily living in terms of sleep disturbance. They are experiencing a fear of falling related to the affected joint. NSAIDs, physical therapy, intra-articular injections, attempts for weight loss have failed to resolve symptoms. Physical examination findings correlate with subjective complaints. Imaging studies also correlate with subjective complaints. This patient is an appropriate candidate for total joint arthroplasty. Patient has tried and failed:Activity Modification NSAIDs Analgesics Discussed increased risk of developing a deep venous thrombosis (DVT). Discussed signs and symptomsof a DVT, as well as a pulmonary embolus (PE). Discussed ways to reduce this risk including anti-coagulants which patient will be placed on postoperatively, elevating extremity at rest, and motion ofupper/lower extremity throughout the day to include, but not limited to, hand/ankle pumps. Patient to notify my office if signs or symptoms develop consistent with a DVT or PE. Instructed patient to go to ED if unavailable to reach our office and developing signs of shortness of breath or severe calf pains. Patient verbalizes understanding Narcotic Education/Discussions: CATALINA performed and reviewed Patient Treats with Pain Management: No Major Surgery: We will prescribe opioids after major surgery for 14 days or less with no refills. Patient education using written material provided to patient: Education, guidance, and counseling about medication: Discussed - Schedule II controlled substance(s) will be prescribed according to your orthopedic care and medical necessity. Schedule II controlled substance(s) are only required for a certain amount of time. Every effort on our part will be usedto switch you over to non-narcotic pain medications as soon as your pain level permits. Our office, your pharmacy, and your insurance company will closely monitor your prescription refills for excessive abuse or regional intermodal truck driver use. If necessary, you will be referred to mobile paint specialist. We will monitor your use of scheduled drugs through the CATALINA program. In addition, we will follow the monitoring procedures required by the [facility]. The side effects of Schedule II controlled substance(s) / narcotic medications can include GI upset, constipation, drowsiness, dizziness, impaired judgement, itching, rash, and risk of overdose. Narcotic pain medication has high potential for addiction and abuse if not taken properly. You must follow the dosage prescribed to decrease your riskof dependency and / or abuse. Our goal is to decrease you dosage to avoid withdrawal symptoms. Our goal is to have you off of narcotic pain medication as soon as possible. Opioid treatment agreement signed written consent obtained to prescribe controlled substances. Discussed the risks and benefits of the use of controlled substances with patient, including the risk oftolerance and drug dependence. Patient understands these terms Preoperative Education/Discussion Regarding Modifiable Risk Factors Smoking: Patient is a current Non-smoker There is no height or weight on file to calculate BMI. Body Mass Index:Patient's current BMI =< 35 Diabetic: Patient is not Diabetic Kellgren-Caleb score: Kellgren-Caleb Score Grade 4 - large osteophytes, marked narrowing of joint space, severe sclerosis and definite deformity of bone contour The patient has been scheduled for a total knee arthroplasty and has been recommended a [place] NATASHA implant to allow for increased accuracy of implant placement and precision in total knee balancing. As such, the patient will require a CT scan for pre-op planning. This technology allows the surgeon to utilize a 3D reconstruction of the patient's anatomy intra-operatively to allow for more accurate tensioning of the ligaments around the knee joint. The NATASHA robot allows the surgeon to make precise alterations in the positioning of the joint replacement implants. It allows customization of thejoint replacement to correct deformities with more precision measurements of the tibial and femoral cuts, and less damage to the soft tissues. The surgeon is able to execute their surgical plans withmore accuracy. Scribe Attestation: IBerta RTR acted as a scribe and transcribed components of the current encounter under the direction of the Attending Provider. I have not been involved in providing any clinical treatments or patient care. Electronically Signed, COREEN Lema PA-C scribing for Jose F Yao MD I, Jose F Yao MD, have read and agree with the documentation that has been completed regarding this visit. By signing this record, I attest that the documentation was completed in my physical presence and is an accurate record of the encounter. Electronically Signed, Jose F Yao MD 07/17/2024 10:55 AM ADRIANT Ann Fatima: Elenita STOREY / IRMA is undergoing an EHR transition as of this date of service. There may be a delay in uploading older paper and EHR chart data to this new system. The above encounter has been documented to the best of the provider's working knowledge of the EHR in conjunction with medical information provided by the patient (and/or the patient's family member). Cosigned by Jose F Yao MD at 07/18/2024 4:10 PM EDT documented in this encounter Plan of Treatment Upcoming Encounters Date Type Department Care Team (Late st Contact Info) Description 09/11/2024 11:45 AM EDT Hospital Encounter [facility] Operating Room [address] [place] [phone] Jose F Yao MD [address] [place] [address] 09/11/2024 11:45 AM EDT - 09/11/2024 2:10 PM EDT Surgery [facility] Operating Room [address] [place] [phone] Jose F Yao MD [address] [place] [address] ARTHROPLASTY, KNEE, ROBOT-ASSISTED 09/23/2024 10:00 AM EDT Office Visit [facility] Orthopedics - [address] [phone] Jose F Yao MD [address] [place] [address] Scheduled Procedures Name Priority Associated Diagnoses Date/Ti vt ARTHROPLASTY, KNEE, ROBOT-ASSISTED Primary osteoarthritis of left knee 09/11/2024 11:45 AM EDT documented as of this encounter Visit Diagnoses Diagnosis Primary osteoarthritis of left knee- Primary Primary osteoarthritis of left knee documented in this encounter Care Teams Laundry Presser Relationship Specialty Start Date End Date Luis Daniel Li [address] [place] [address] PCP - General 06/23/24 documented as of this encounter
--- OUTSIDE RECORDS SUMMARY | 2024-08-29 17:25 | XMS_ITS | Encounter Summary ---
Author Organization [facility] [employer] Address [address] [place] [address] Care Team Providers Care Concrete Stone Fabricator Name Role Phone Kyrie Li Primary Care Provider [phone] Encounter Details Date Type Department Care Team (Latest Contact Info) Description 07/11/2024 Travel Social History Tobacco Use Types Packs/Day [...] 11:45 AM EDT Hospital Encounter [facility] Operating Room [address] [place] [phone] Jose F Yao MD [address] [place] [address] 09/11/2024 11:45 AM EDT - 09/11/2024 2:10 PM EDT Surgery [facility] Operating Room [address] [place] [phone] Jose F Yao MD [address] [place] [address] ARTHROPLASTY, KNEE, ROBOT-ASSISTED 09/23/2024 10:00 AM EDT Office Visit [facility] Orthopedics - [address] [phone] Jose F Yao MD [address] [place] [address] Scheduled Procedures Name Priority Associated Diagnoses Date/Ti me ARTHROPLASTY, KNEE, ROBOT-ASSISTED Primary osteoarthritis of left knee 09/11/2024 11:45 AM EDT documented as of this encounter Visit Diagnoses Not on filedocumented in this encounter Care Teams Concrete Stone Fabricator Relationship Specialty Start Date End Date Kyrie Li [address] [place] [address] PCP - General 06/23/24 documented as of this encounter
--- OUTSIDE RECORDS SUMMARY | 2024-08-29 17:25 | XMS_ITS | Clinical Summary ---
Author Organization [employer] Address [address] [place] [address] Care Team Providers Care I O Psychologist Name Role Phone Kyrie Li Primary Care Provider [phone] Allergies No known active allergies Medications tolterodine [...] Diagnosed Date Osteoarthritis of left knee 05/27/2024 Encounters Date Type Department Care Team Description 08/19/2024 Orders Only [facility] Orthopedics [address] [phone] Jose F Yao MD Pre-op exam (Primary Dx) 07/25/2024 11:18 AM EDT - 07/25/2024 11:59 PM EDT Hospital Encounter [facility] Preadmissions Testing [address] [place] [address] Discharge Disposition: Home or Self Care 07/25/2024 Travel 07/23/2024 Surgery Prep [facility] Orthopedics - [address] [place] [address] Katelynn Jacinto PA-C Primary osteoarthritis of left knee (Primary Dx) 07/21/2024 Orders Only [address] [phone] Jose F Yao MD Pre-op testing (Primary Dx) 07/18/2024 4:00 PM EDT Lab Patient Walk-In [facility] [address] [place] [address] Jose F Yao MD Degenerative arthritis of left knee 07/18/2024 Travel 07/18/2024 Outside Orders [facility] Admitting [address] [place] [address] Jose F Yao MD Degenerative arthritis of left knee (Primary Dx) 07/17/2024 Surgery Prep [facility] Orthopedics [facility] [address] [place] [address] Katelynn Jacinto PA-C Primary osteoarthritis of left knee (Primary Dx) 07/11/2024 Travel 07/07/2024 9:51 AM EDT - 07/07/2024 11:59 PM EDT Hospital Encounter [facility] CT Imaging [address] [place] [address] Jose F Yao MD Primary osteoarthritis of left knee Discharge Disposition: Home or Self Care 06/23/2024 11:30 AM EDT Lab Patient Walk-In [facility] [address] [place] [phone] Jose F Yao MD Pre-op testing 06/23/2024 9:57 AM EDT - 06/23/2024 11:59 PM EDT Hospital Encounter [facility] Diagnostic Imaging [address] [place] [phone] Jose F Yao MD Pre-op testing Discharge Disposition: Home or Self Care 06/23/2024 9:56 AM EDT Hospital Encounter [facility] Respiratory Care [address] [place] [phone] Jose F Yao MD Pre-op testing Discharge Disposition: Home or Self Care 06/23/2024 Travel from Last 3 Months Family History Medical History Relation Name Comments Arthritis Other Hyperlipidemia Other Relation Name Status Comments Other Social History Tobacco Use Types Packs/Day Years [...] Description 09/11/2024 11:45 AM EDT Hospital Encounter [facility] Operating Room [address] [place] [phone] Jose F Yao MD [address] [place] [address] 09/11/2024 11:45 AM EDT - 09/11/2024 2:10 PM EDT Surgery [facility] Operating Room [address] [place] [phone] Jose F Yao MD [address] [place] [address] ARTHROPLASTY, KNEE, ROBOT-ASSISTED 09/23/2024 10:00 AM EDT Office Visit [employer] [facility] Orthopedics - [address] [phone] Jose F Yao MD [address] [place] [address] Scheduled Procedures Name Priority Associated Diagnoses Date/Ti me ARTHROPLASTY, KNEE, ROBOT-ASSISTED Primary osteoarthritis of left knee 09/11/2024 11:45 AM EDT Health Maintenance Due Date Last Done Comments DXA SCAN 1945 Depression Screening (12+) 1956 Shingles Vaccine (Zoster) (1 of 2) 1994 Respiratory Syncytial Virus (RSV) Adult or (1 - 1-dose 75+ series) 06/27/2019 DTAP/TDAP/TD VACCINES (2 - T d or Tdap) 09/27/2023 09/26/2013 COVID-19 VACCINE (3 - 2023-2 5 season) 2023 12/23/2020, 11/25/2020 Falls Risk Screening 03/19/2024 Influenza Vaccine (Season Ended) 2024 02/08/2022, 01/31/2021, 12/24/2018 Tobacco Cessation Counseling and Screening (12+) 07/02/2025 07/02/2024 Pneumococcal 50+ years Completed , 10/13/2015, 09/29/2014, Additional history exists Procedures Procedure Name Priority Date/Time Associated Diagnosis [...] UA Light Yellow 07/25/2024 12:05 PM EDT [facility] Clarity, UA Clear 07/25/2024 12:05 PM EDT [facility] Specific [place], UA 1.015 1.002 - 1.030 07/25/2024 12:05 PM EDT [facility] pH, UA 6.0 5.0 - 9.0 07/25/2024 12:05 PM EDT [facility] Leukocytes, UA Negative Negative 07/25/2024 12:05 PM EDT [facility] Nitrite, UA Negative Negative 07/25/2024 12:05 PM EDT [facility] Protein, UA Negative Negative 07/25/2024 12:05 PM EDT [facility] Glucose, UA Negative Negative 07/25/2024 12:05 PM EDT [facility] Ketones, UA Negative Negative 07/25/2024 12:05 PM EDT [facility] Urobilinogen, UA 0.2 mg/dL Normal 07/25/2024 12:05 PM EDT [facility] Bilirubin, UA Negative Negative 07/25/2024 12:05 PM EDT [facility] Blood, UA Negative Negative 07/25/2024 12:05 PM EDT [facility] RBC, UA Occasional(A) None Seen, Rare /HPF 07/25/2024 12:05 PM EDT [facility] WBC, UA Occasional None Seen, Occasional , 0-5 /HPF 07/25/2024 12:05 PM EDT [facility] Bacteria, UA Trace(A) None Seen 07/25/2024 12:05 PM EDT [facility] Mucus Trace Trace 07/25/2024 12:05 PM EDT [facility] Epithelial Cells, UA 0-5(A) None Seen, Rare /HPF 07/25/2024 12:05 PM EDT [facility] Specimen Source Urine, Straight Catheter 07/25/2024 12:05 PM EDT [facility] Urine URINE SPECIMEN OBTAINED VIA STRAIGHT CATHETER / Unknown 07/25/2024 11:41 AM EDT 07/25/2024 11:46 AM EDT us Jose F Tex Yao MD URINE ORDERABLES Final Result [facility] [address] [place] [address], [facility] [phone] * (ABNORMAL) Urinalysis, Reflex Microscopic and Culture If Indicated (07/11/2024 10:00 AM EDT) Color, UA Light Yellow 07/11/2024 10:47 AM EDT [facility] Clarity, UA Hazy 07/11/2024 10:47 AM EDT [facility] Specific [place], UA 1.010 1.002 - 1.030 07/11/2024 10:47 AM EDT [facility] pH, UA 6.5 5.0 - 9.0 07/11/2024 10:47 AM EDT [facility] Leukocytes, UA 1+(A) Negative 07/11/2024 10:47 AM EDT [facility] Nitrite, UA Negative Negative 07/11/2024 10:47 AM EDT [facility] Protein, UA Negative Negative 07/11/2024 10:47 AM EDT [facility] Glucose, UA Negative Negative 07/11/2024 10:47 AM EDT [facility] Ketones, UA Negative Negative 07/11/2024 10:47 AM EDT [facility] Bilirubin, UA Negative Negative 07/11/2024 10:47 AM EDT [facility] Blood, UA Negative Negative 07/11/2024 10:47 AM EDT [facility] Urobilinogen, UA 0.2 mg/dL Normal 07/11/2024 10:47 AM EDT [facility] Specimen Source Urine, Clean Catch 07/11/2024 10:47 AM EDT [facility] Urine URINE SPECIMEN COLLECTION, CLEAN CATCH / Unknown 07/11/2024 10:00 AM EDT 07/11/2024 10:18 AM EDT us Jose F Tex Yao MD URINE ORDERABLES Final Result [facility] [address] [phone] * (ABNORMAL) Urinalysis Microscopic Only (07/11/2024 10:00 AM EDT) WBC, UA 10-20(A) None Seen, Occasional , 0-5 /HPF 07/11/2024 10:47 AM EDT [facility] RBC, UA Occasiona l(A) None Seen, Rare /HPF 07/11/2024 10:47 AM EDT [facility] Bacteria, UA 2+(A) None Seen 07/11/2024 10:47 AM EDT [facility] SQUAMOUS EPITHELIAL 5-10(A) None Seen, Rare /HPF 07/11/2024 10:47 AM EDT [facility] Urine URINE SPECIMEN COLLECTION, CLEAN CATCH / Unknown 07/11/2024 10:00 AM EDT 07/11/2024 10:18 AM EDT us Jose F Tex Yao MD URINE ORDERABLES Final Result [facility] [address] [place] [address] * (ABNORMAL) Urine Culture (07/11/2024 10:00 AM EDT) Result >100,000 CFU Escherichia coli(A) 07/13/2024 9:18 AM EDT [facility] Urine URINE SPECIMEN COLLECTION, CLEAN CATCH [...] Escherichia coli Trimethoprim + Sulfamethoxazole <=0.5/9.5: Susceptible us Jose F Tex Yao MD MICROBIOLOGY - GENERAL ORDERAB LES Final Result Performing Organization Address City/State/[facility] Co de Phone Number [facility] [address] [phone] * CT lower extremity without IV contrast [...] ATRIAL RATE (MCT) 66 BPM GE MUSE [place] Interval 166 ms GE MUSE QRS-INTERVAL (MSEC) 98 ms GE MUSE QT Interval 402 ms GE MUSE QTC Interval 421 ms GE MUSE P [place] 55 degrees GE MUSE R AXIS (MCT) 61 degrees GE MUSE T Wave [place] 57 degrees GE MUSE [place] Diagnosis Normal sinus rhythm with sinus arrhythmia Normal ECG Confirmed by Severo OHARA, JAZLYN ([id number]) on 06/23/2024 4:20:50 PM GE MUSE 06/23/2024 10:2 5 AM EDT 06/23/2024 4:20 PM EDT Jose F Yao MD ECG ORDERABLES Final Result GE [...] Mirela Osorio. Transcribed by Macrina Mosqueda PA-C. us Jose F S Maximilian BENJAMIN IMG DIAGNOSTIC IMAGING ORDERAB LES Final Result * (ABNORMAL) CBC with automated diff (06/23/2024 10:05 AM EDT) WBC 8.1 4.8 - 10.8 K/ L 06/23/2024 10:35 AM EDT [facility] RBC 4.94 3.50 - 5.20 M/ L 06/23/2024 10:35 AM EDT [facility] Hemoglobin 14.1 11.7 - 15.8 GM/DL 06/23/2024 10:35 AM EDT [facility] Hematocrit 42.6 35.0 - 47.0 % 06/23/2024 10:35 AM EDT [facility] MCV 86 81 - 101 fL 06/23/2024 10:35 AM EDT [facility] MCH 28.5 27.0 - 34.0 pg 06/23/2024 10:35 AM EDT [facility] MCHC 33.1 32.0 - 36.0 GM/DL 06/23/2024 10:35 AM EDT [facility] RDW 12.8 11.5 - 14.5 % 06/23/2024 10:35 AM EDT [facility] Platelets 259 150 - 400 K/CU MM 06/23/2024 10:35 AM EDT [facility] MPV 9.3(L) 9.4 - 12.4 fL 06/23/2024 10:35 AM EDT [facility] Nucleated Red Blood Cell 0.0 0 - 0.2 % 06/23/2024 10:35 AM EDT [facility] % Neutros 62 37 - 80 % 06/23/2024 10:35 AM EDT [facility] % Lymphs 26 10 - 50 % 06/23/2024 10:35 AM EDT [facility] % Monos 9 5 - 13 % 06/23/2024 10:35 AM EDT [facility] % Eos 3 0 - 7 % 06/23/2024 10:35 AM EDT [facility] % Baso 1 0 - 3 % 06/23/2024 10:35 AM EDT [facility] NRBC Absolute <0.01 0 - 0.012 K/ul 06/23/2024 10:35 AM EDT [facility] # Neutros 5.02 2.00 - 6.90 K/ L 06/23/2024 10:35 AM EDT [facility] # Lymphs 2.09 0.60 - 3.40 K/ L 06/23/2024 10:35 AM EDT [facility] # Monos 0.76 0.00 - 0.90 K/ L 06/23/2024 10:35 AM EDT [facility] # Eos 0.20 0.00 - 0.70 K/ L 06/23/2024 10:35 AM EDT [facility] # Baso 0.04 0.00 - 0.20 K/ L 06/23/2024 10:35 AM EDT [facility] Immature Granulocytes-Re lative 0.40 % 06/23/2024 10:35 AM EDT [facility] # IG 0.03(H) 0.00 - 0.00 K/uL 06/23/2024 10:35 AM EDT [facility] Blood Venipuncture / Unknown 06/23/2024 10:05 AM EDT 06/23/2024 10:26 AM EDT Narrative [facility] - 06/23/2024 10:35 AM EDT [...] Blast? Flag noted Atypical Lymph flag noted Jose F Yao MD LAB BLOOD ORDERABLES Final Res ult Performing Organization Address City/[facility]/ZIP Co de Phone Number [facility] [address] [phone] * MRSA Screen (06/23/2024 10:05 AM EDT) Pathologist [facility] MRSA by PCR [facility] MRSA Not Detected by PCR MRSA Not Detected by PCR DEVICE ID9 06/23/2024 4:31 PM EDT [facility] Nasal BOTH ANTERIOR NARES / Unknown 06/23/2024 10:05 AM EDT 06/23/2024 10:26 AM EDT Jose F Yao MD MICROBIOLOGY - GENERAL ORDERAB LES Final Result [facility] [address] [place], [place] [address] [phone] * (ABNORMAL) Comprehensive metabolic panel (06/23/2024 10:05 AM EDT) Sodium 134(L) 136 - 145 meq/L 06/23/2024 10:55 AM EDT [facility] Potassium 3.2(L) 3.5 - 5.1 meq/L 06/23/2024 10:[facility] Chloride 98 98 - 107 meq/L 06/23/2024 10:55 AM EDT [facility] CO2 32 21 - 32 meq/L 06/23/2024 10:55 AM [facility] Calcium 8.9 8.5 - 10.1 mg/dL 06/23/2024 10:55 [facility] Glucose 85 70 - 99 mg/dL 06/23/2024 10:55 AM EDT [facility] BUN 15 7 - 18 mg/dL 06/23/2024 10:55 AM [facility] Creatinine 0.75 0.55 - 1.10 mg/dL 06/23/2024 10:55 AM [facility] BUN/Creatinine 20 06/23/2024 10:55 AM [facility] Albumin 3.7 3.4 - 5.0 g/dL 06/23/2024 10:55 AM [facility] Alkaline Phosphatase 63 46 - 116 U/L 06/23/2024 10:55 AM [facility] ALT 26 12 - 78 U/L 06/23/2024 10:55 AM [facility] AST 18 15 - 37 U/L 06/23/2024 10:55 AM [facility] Total Bilirubin 0.6 0.2 - 1.0 mg/dL 06/23/2024 10:55 AM T [facility] Protein, Total 7.2 6.4 - 8.2 gm/dL 06/23/2024 10:55 AM [facility] Anion Gap 7(L) 11 - 22 06/23/2024 10:55 AM [facility] A/G Ratio 1.1 06/23/2024 10:55 AM [facility] Globulin 3.5 g/dL 06/23/2024 10:55 AM [facility] Osmolality Calc 268.3 mOsm/kg 10:55 AM [facility] eGFR (mL/min/1.73m2) >60 >=60 mL/min/1.7 3m2 06/23/2024 10:55 AM EDT [facility] Comment:ESTIMATED GFR IS NOT ACCURATE CREATININE CLEARANCE IN PREDICTING GLOMERULAR FILTRATION RATE. ESTIMATED GFR IS NOT APPLICABLE FOR DIALYSIS PATIENTS. Blood Venipuncture / Unknown 06/23/2024 10:05 AM EDT 06/23/2024 10:26 AM EDT us Jose F S Maximilian BENJAMIN LAB BLOOD ORDERABLES Final Res ult [facility] [address] [place] [id number], [facility] [phone] from Last 3 Months Insurance BLUE CROSS/BLUE SHIELD Care Teams I O Psychologist Relationship Specialty [place] [address] PCP - General 06/23/24
--- OUTSIDE RECORDS SUMMARY | 2024-08-29 17:25 | XMS_ITS | Encounter Summary ---
Author Organization [employer] Address [address] [place] [address] Care Team Providers Care Linotypist Name Role Phone Kyrie Li Primary Care Provider [phone] Encounter Details Date Type Department Care Team (Late st Contact Info) Description 07/18/2024 Outside Orders [facility] Admitting [address] [place] [phone] Jose F Yao MD [address] [place] [address] Degenerative arthritis of left knee (Primary Dx) Social History [...] Description 09/11/2024 11:45 AM EDT Hospital Encounter [facility] Operating Room [address] [place] [phone] Jose F Yao MD [address] [place] [address] 09/11/2024 11:45 AM EDT - 09/11/2024 2:10 PM EDT Surgery [facility] Operating Room [address] [place] [address] Jose F Yao MD [address] [place] [address] ARTHROPLASTY, KNEE, ROBOT-ASSISTED 09/23/2024 10:00 AM EDT Office Visit [facility] Orthopedics - [address] [phone] Jose F Yao MD [address] [place] [address] Scheduled Procedures Name Priority Associated Diagnoses Date/Ti me ARTHROPLASTY, KNEE, ROBOT-ASSISTED Primary osteoarthritis of left knee 09/11/2024 11:45 AM EDT documented as of this encounter Results * (ABNORMAL) Urinalysis w/Microscopic (07/18/2024 1:45 PM EDT) Color, UA Straw 07/18/2024 2:13 PM EDT [facility] Clarity, UA Hazy 07/18/2024 2:13 PM EDT [facility] Specific [place], UA 1.015 1.002 - 1.030 07/18/2024 2:13 PM EDT [facility] pH, UA 6.5 5.0 - 9.0 07/18/2024 2:13 PM EDT [facility] Leukocytes, UA Trace(A) Negative 07/18/2024 2:13 PM EDT [facility] Nitrite, UA Positive(A) Negative 07/18/2024 2:13 PM EDT [facility] Protein, UA Negative Negative 07/18/2024 2:13 PM EDT [facility] Glucose, UA Negative Negative 07/18/2024 2:13 PM EDT [facility] Ketones, UA Negative Negative 07/18/2024 2:13 PM EDT [facility] Urobilinogen, UA 0.2 mg/dL Normal 07/18/2024 2:13 PM EDT [facility] Bilirubin, UA Negative Negative 07/18/2024 2:13 PM EDT [facility] Blood, UA Negative Negative 07/18/2024 2:13 PM EDT [facility] WBC, UA 5-10(A) None Seen, Occasional , 0-5 /HPF 07/18/2024 2:13 PM EDT [facility] Bacteria, UA 4+(A) None Seen 07/18/2024 2:13 PM EDT [facility] Epithelial Cells, UA 5-10(A) None Seen, Rare /HPF 07/18/2024 2:13 PM EDT [facility] Specimen Source Urine, Straight Catheter 07/18/2024 2:13 PM EDT [facility] Urine URINE SPECIMEN OBTAINED VIA STRAIGHT CATHETER / Unknown 07/18/2024 1:45 PM EDT 07/18/2024 1:56 PM EDT us Jose F S Maximilian BENJAMIN URINE ORDERABLES Final Result [facility] [address] [place] [address] documented in this encounter Visit Diagnoses Diagnosis Degenerative arthritis of left knee- Primary Osteoarthrosis, unspecified whether generalized or localized, lower leg Primary osteoarthritis of left knee documented in this encounter Care Teams Linotypist Relationship Specialty [place] [address] PCP - General 06/23/24 documented as of this encounter
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
--- OUTSIDE RECORDS SUMMARY | 2024-08-29 17:25 | XMS_ITS | Encounter Summary ---
Author Organization [employer] Address [address] [place] [address] Care Team Providers Care Cyanide Case Hardener Name Role Phone Kyrie Li Primary Care Provider [phone] Encounter Details Date Type Department Care Team (Late st Contact Info) Description 07/21/2024 Orders Only [facility] Orthopedics - [address] [phone] Jose F Yao MD [address] [place] [address] Pre-op testing (Primary Dx) Social History Tobacco Use Types [...] Description 09/11/2024 11:45 AM EDT Hospital Encounter [facility] Operating Room [address] [place] [phone] Jose F Yao MD [address] [place] [address] 09/11/2024 11:45 AM EDT - 09/11/2024 2:10 PM EDT Surgery [facility] Operating Room [address] [place] [address] Jose F Yao MD [address] [place] [address] ARTHROPLASTY, KNEE, ROBOT-ASSISTED 09/23/2024 10:00 AM EDT Office Visit [facility] Orthopedics - [address] [phone] Jose F Yao MD [address] [place] [address] Scheduled Procedures Name Priority Associated Diagnoses Date/Ti me ARTHROPLASTY, KNEE, ROBOT-ASSISTED Primary osteoarthritis of left knee 09/11/2024 11:45 AM EDT documented as of this encounter Visit Diagnoses Diagnosis Pre-op testing- Primary Unspecified pre-operative examination Primary osteoarthritis of left knee documented in this encounter Care Teams Cyanide Case Hardener Relationship Specialty Start Date End Date Kyrie Li [address] [place] [address] PCP - General 06/23/24 documented as of this encounter
[2024-08-29 17:47] LABS: Alanine Aminotransferase 18 U/L (12-78); Albumin Level 4.1 g/dl (3.5-5.0); Albumin/Globulin Ratio 1.7 (1.1-1.8); Alkaline Phosphatase 58 U/L (38-126); Anion Gap 7.9 mEq/L (5-15); Aspartate Amino Transferase 31 U/L (14-36); Bilirubin,Total 0.8 mg/dl (0.2-1.3); Blood Urea Nitrogen 11 mg/dl (7-17); Calcium 10.3 mg/dl (8.4-10.2); Carbon Dioxide 30 mmol/L (22.0-30.0); Chloride 90 mmol/L (98-107); Estimated Glomerular Filt Rate 69 ml/min (>60); GFR (African American) 84 ML/MIN (>60); Globulin 2.4 g/dL (1.3-3.2); Glucose 94 mg/dl (74-100); Potassium 3.9 mmoL/L (3.5-5.1); Sodium 124 mmol/L (136-145); Total Protein,Serum 6.5 g/dl (6.3-8.2)
[2024-08-29 18:00] LABS: Appearance,Urine CLEAR (Clear); Bilirubin,Urine Negative (Negative); Blood, Urine Negative (Negative); Color,Urine YELLOW (Yellow); Glucose,Urine (UA) Negative (Negative); Ketones,Urine Negative (Negative); Leukocyte Esterase,Urine 1+ (Negative); Nitrate,Urine Negative (Negative); PH,Urine 6.5 (5.0-8.5); Protein,Urine Negative (Negative); Urobilinogen,Urine 0.2 EU/dl (0.2)
[2024-08-29 18:37] LABS: Amorphous Sediment,Urine Trace /lpf; Bacteria,Urine 2+ /lpf
== END 2024-08-29 23:59 | disposition home or self-care (01) ==
LOC: LAB.DROPOF 17:22
PROVIDERS: PCP Orthopaedic Surgery; Visit Provider Orthopaedic Surgery
DX: Z01.818 Encounter for other preprocedural examination (principal)
CPT/HCPCS: 80053; 81001; 87086

== ENCOUNTER 2024-09-15 14:44 | Outpatient (CLI) | payer BC, SELFPAY ==
--- OUTSIDE RECORDS SUMMARY | 2024-07-18 16:00 | XMS_ITS | Encounter Summary ---
Author Organization [employer] ([place], [place], [place], [place]) Address [address] [place] [address] Care Team Providers Care National Flatbed Truck Driver Name Role Phone Kyrie Li Primary Care Provider [phone] Encounter Details Date Type Department Care Team (Late Contact Info) Description 07/18/2024 4:00 PM EDT Lab Patient Walk-In [facility] [address] [place] [phone] Jose F Yao MD [address] [place] [phone] Degenerative arthritis of left knee Social History Tobacco Use Types Packs/Day Years [...] on file documented as of this encounter Plan of Treatment Upcoming Encounters Date Type Department Care Team (Late Contact Info) Description 09/23/2024 10:00 AM EDT Office Visit [facility] Orthopedics - [address] [phone] Jose F Yao MD [address] [place] [phone] (work) documented as of this encounter Procedures Procedure Name Priority Date/Time Associated Diagnosis Comments URINALYSIS W/ MICROSCOPIC Routine 07/18/2024 1:45 PM EDT Degenerative arthritis of left knee documented in this encounter Results * (ABNORMAL) Urinalysis w/Microscopic (07/18/2024 1:45 PM EDT) Color, UA Straw 07/18/2024 2:13 PM EDT [facility] Clarity, UA Hazy 07/18/2024 2:13 PM EDT [facility] Specific [place], UA 1.015 1.002 - 1.030 07/18/2024 2:13 PM EDT [facility] pH, UA 6.5 5.0 - 9.0 07/18/2024 2:13 PM EDT [facility] Leukocytes, UA Trace(A) Negative 07/18/2024 2:13 PM EDT [facility] Nitrite, UA Positive(A) Negative 07/18/2024 2:13 PM EDT [facility] Protein, UA Negative Negative 07/18/2024 2:13 PM EDT [facility] Glucose, UA Negative Negative 07/18/2024 2:13 PM EDT [facility] Ketones, UA Negative Negative 07/18/2024 2:13 PM EDT [facility] Urobilinogen, UA 0.2 mg/dL Normal 07/18/2024 2:13 PM EDT [facility] Bilirubin, UA Negative Negative 07/18/2024 2:13 PM EDT [facility] Blood, UA Negative Negative 07/18/2024 2:13 PM EDT [facility] WBC, UA 5-10(A) None Seen, Occasional , 0-5 /HPF 07/18/2024 2:13 PM EDT [facility] Bacteria, UA 4+(A) None Seen 07/18/2024 2:13 PM EDT [facility] Epithelial Cells, UA 5-10(A) None Seen, Rare /HPF 07/18/2024 2:13 PM EDT [facility] Specimen Source Urine, Straight Catheter 07/18/2024 2:13 PM EDT [facility] Urine URINE SPECIMEN OBTAINED VIA STRAIGHT CATHETER / Unknown 07/18/2024 1:45 PM EDT 07/18/2024 1:56 PM EDT Jose F Tex Yao MD URINE ORDERABLES Final Result [facility] [address] [phone] documented in this encounter Visit Diagnoses Diagnosis Degenerative arthritis of left knee Osteoarthrosis, unspecified whether generalized or localized, lower leg documented in this encounter Care Teams National Flatbed Truck Driver Relationship Specialty Start Date End Date Kyrie Li [address] [place] [phone] PCP - General 06/23/24 documented as of this encounter
--- OUTSIDE RECORDS SUMMARY | 2024-07-25 11:18 | XMS_ITS | Encounter Summary ---
Author Organization [employer] ([place], [place], [place], [place]) Address [address] [place] [address] Care Team Providers Care Primer And Powder Canning Leader Name Role Phone Kyrie Li Primary Care Provider [phone] Encounter Details Date Type Department Care Team (Latest Contact Info) Description 07/25/2024 11:18 AM EDT - 07/25/2024 11:59 PM EDT Hospital Encounter [facility] Preadmissions Testing [address] [place] [phone] Discharge Disposition: Home or Self Care Social [...] encounter Medications at Time of Discharge calcium carbonate-vitami n D3 (Calcium 600 + D,3,) 600 mg-10 mcg (400 unit) tab one tablet everyday fexofenadine (Arlene Allergy) 180 MG tablet Take 1 tablet every day by oral route. fluticasone propionate (FLONASE) 50 mcg/actuation nasal spray Administer 1 spray into each nostril as needed for allergies. glucosamine storm 2KCl-chondroit 750-600 mg tab Take 1 tablet every day by oral route. lansoprazole (PREVACID) 30 MG capsule TAKE 1 CAPSULE 1 TIME EACH DAY pravastatin (PRAVACHOL) 80 MG tablet Take 1 tablet (80 mg total) by mouth daily. sertraline (ZOLOFT) 25 MG tablet Take 1 tablet (25 mg total) by mouth daily. 06/10/2024 tolterodine (Detrol LA) 4 MG 24 hr capsule Take 1 capsule (4 mg total) by mouth daily. vitamin E acid succinate (vitamin E succinate) 268 mg (400 unit) tab Take 1 tablet every day by oral route. lisinopriL-hydro CHLOROthiazide (ZESTORETIC, PRINZIDE) 20-25 mg per tablet TAKE 1 TABLET 1 TIME EACH DAY potassium chloride (KLOR-CON) 10 MEQ tablet Take 1 tablet (10 mEq total) by mouth daily 1.5 TABS. 5 documented as of this encounter Plan of Treatment Upcoming Encounters Date Type Department Care Team (Late st Contact Info) Description 09/23/2024 10:00 AM EDT Office Visit [facility] Orthopedics - [address] [phone] Jose F Yao MD [address] [place] [phone] documented as of this encounter Procedures Procedure Name Priority Date/Time Associated Diagnosis Comments URINALYSIS W/ MICROSCOPIC Routine 07/25/2024 11:41 AM EDT documented in this encounter Results * (ABNORMAL) Urinalysis w/Microscopic (07/25/2024 11:41 AM EDT) Color, UA Light Yellow 07/25/2024 12:05 PM EDT [facility] Clarity, UA Clear 07/25/2024 12:05 PM EDT [facility] Specific [place], UA 1.015 1.002 - 1.030 07/25/2024 12:05 PM EDT [facility] pH, UA 6.0 5.0 - 9.0 07/25/2024 12:05 PM EDT [facility] Leukocytes, UA Negative Negative 07/25/2024 12:05 PM EDT [facility] Nitrite, UA Negative Negative 07/25/2024 12:05 PM EDT [facility] Protein, UA Negative Negative 07/25/2024 12:05 PM EDT [facility] Glucose, UA Negative Negative 07/25/2024 12:05 PM EDT [facility] Ketones, UA Negative Negative 07/25/2024 12:05 PM EDT [facility] Urobilinogen, UA 0.2 mg/dL Normal 07/25/2024 12:05 PM EDT [facility] Bilirubin, UA Negative Negative 07/25/2024 12:05 PM EDT [facility] Blood, UA Negative Negative 07/25/2024 12:05 PM EDT [facility] RBC, UA Occasional(A) None Seen, Rare /HPF 07/25/2024 12:05 PM EDT [facility] WBC, UA Occasional None Seen, Occasional , 0-5 /HPF 07/25/2024 12:05 PM EDT [facility] Bacteria, UA Trace(A) None Seen 07/25/2024 12:05 PM EDT [facility] Mucus Trace Trace 07/25/2024 12:05 PM EDT [facility] Epithelial Cells, UA 0-5(A) None Seen, Rare /HPF 07/25/2024 12:05 PM EDT [facility] Specimen Source Urine, Straight Catheter 07/25/2024 12:05 PM EDT [facility] Urine URINE SPECIMEN OBTAINED VIA STRAIGHT CATHETER / Unknown 07/25/2024 11:41 AM EDT 07/25/2024 11:46 AM EDT us Jose F Tex Yao MD URINE ORDERABLES Final Result [facility] [address] [place] [address] documented in this encounter Visit Diagnoses Not on filedocumented in this encounter Care Teams Primer And Powder Canning Leader Relationship Specialty Start Date End Date Kyrie Li [address] [place] [phone] PCP - General 06/23/24 documented as of this encounter
--- OUTSIDE RECORDS SUMMARY | 2024-09-11 06:52 | XMS_ITS | Encounter Summary ---
Author Organization [facility] ([place], [place], [place], [place]) Address [address] [place] [address] Care Team Providers Care Pillowcase Turner Name Role Phone Guillermo Kyrie Primary Care Provider [phone] Reason for Referral * Consultation (Routine) - New Request Specialty Diagnoses / Procedures Referred By Lisha ribeiro Referred To Contact Home Health Services Diagnoses Status post left knee replacement Katelynn Jacinto PA-C [address] [place] [address] Phone: tel: fax: [facility] [address] [place] [address], [place] [address] Phone: tel: Referral ID Status Reason Start Date Expiration Date Visits Requested Visits Authorized [id number] New Request Specialty Services Required 09/12/2024 09/12/2025 1 1 Reason for Visit * Auth/Cert (Routine) Specialty Diagnoses / Procedures Referred By Lisha ribeiro Referred To Contact Diagnoses Primary osteoarthritis of left knee Osteoarthritis of left knee Procedures GA ARTHRP KNE CONDYLE&PLATU MEDIAL&LAT COMPARTMENTS ARTHROPLASTY, KNEE, ROBOT-ASSISTED Jose F Yao MD [address] [place] [address] Phone: tel: fax: Referral ID Status Reason Start Date Expiration Date Visits Re quested Visits Authorized [id number] 08/15/2024 1 1 Encounter Details Date Type Department Care Team (Late st Contact Info) Description 09/11/2024 6:52 AM EDT - 09/13/2024 11:30 AM EDT Hospital Encounter [facility] 2 Critical Care Unit [address] [place] [id number] Jose F Yao MD [address] [place] [address] Mike Manjarrez APRN [facility] [place] [address] Milka Larson NP [address] [facility] [address] [place], [place] [id number] Zabrina Snyder DO [address] [facility] [address] [place], [place] [id number] Status post left knee replacement with ABUNDIO 09/11/24 (Primary Dx); Primary osteoarthritis of left knee Discharge Disposition: Home or Self Care Social History Tobacco Use Types Packs/Day Years Used Date Smoking Tobacco: Never Smokeless Tobacco: Never Alcohol Use Standard Drinks/Week Comments Never 0 (1 standard drink = 0.6 oz pur e alcohol) Utilities Answer Date Recorded In the past 12 months, has t he [employer], gas, oil, or water [employer] threatened to shut off services in your home? No 09/11/2024 Interpersonal Safety Answer Date Record ed How often does anyone, yaritza tong family and friends, physically hurt you? Never 09/11/2024 How often does anyone, yaritza tong family and friends, insult or talk down to you? Never 09/11/2024 How often does anyone, yaritza tong family and friends, threaten you with harm? Never 09/11/2024 How often does anyone, yaritza tong family and friends, scream or curse at you? Never 09/11/2024 Housing Stability Answer Date Recorded What is your living situation today? I have a [facility] place to live 09/11/[address] you li ve. Do you have problems with any of the following? None of the above 09/11/2024 Food Insecurity Answer Date Recorded Within the past 12 months, y ou worried that your food would run out before you got money to buy more. Never true 09/11/2024 Within the past 12 months, t he food you bought just didn't last and you didn't have money to get more. Never true 09/11/2024 Transportation Needs Answer Date Record ed In the past 12 months, has l ack of reliable transportation kept you from medical appointments, meetings, work or from getting things needed for daily living? No 09/11/2024 Financial Resource Strain Answer Date R ecorded How hard is it for you to pa y for the very basics like food, housing, medical care, and heating? Would you say it is: Not hard at all 09/11/2024 Employment Answer Date Recorded Do you want help finding or keeping work or a job? I do not need or want help 09/11/2024 Family and Community Support Answer David e Recorded If for any reason you need h elp with day-to-day activities such as bathing, preparing meals, shopping, managing finances, etc., do you get the help you need? I don't need any help 09/11/2024 Feeling Lonely or Isolated 0 09/11 Educational Attainment Answer Date Michael rded Do you speak a language other than Moldovan at [facility]? No 09/11/2024 Do you want help with school or training? For example, starting or completing job training or getting a high school diploma, GED or equivalent. No 09/11/2024 Physical Activity Answer Date Recorded Number of minutes of exercise per week 0 09/11/2024 Self Management Answer Date Recorded Because of a physical, menta l, or emotional condition, do you have serious difficulty concentrating, remembering, or making decisions? (5 years or older) No 09/11/2024 Because of a physical, menta l, or emotional condition, do you have difficulty doing errands alone such as visiting a doctor's office or shopping? (15 years or older) No 09/11/2024 Substance Use Answer Date Recorded How many times in the past y ear have you used prescription drugs for non-medical reasons? Never 09/11/2024 How many times in the past year have you used il legal drugs? Never 09/11/2024 Mental Health Answer Date Recorded Calculation of above two rows 0 Comments No Sex and Gender Information Value Date Recorded Sex Assigned at Not on file Legal Sex Female 5:16 PM CDT Gender Identity Not on file Sexual Orientation Not on file documented as of this encounter Last Filed Vital Signs Vital Sign Reading Time Taken Comments Blood Pressure 129/58 09/13/2024 9:13 AM EDT Pulse 78 09/13/2024 9:13 AM EDT Temperature 36.7 C (98 F) 09/13/2024 7:13 AM EDT Respiratory Rate 30 09/13/2024 9:13 AM EDT Oxygen Saturation 93% 09/13/2024 9:13 AM EDT Inhaled Oxygen Concentration 21% 09/12/2024 8 :17 PM EDT Weight 76.9 kg (169 lb 8 oz) 09/11/2024 10:00 PM EDT Height 167.6 cm (5' 6 ) 09/11/2024 7:15 AM EDT Body Mass Index 27.36 09/11/2024 7:15 AM EDT documented in this encounter Discharge Summaries * Milka Larson NP - 09/13/2024 10:29 AM EDT Images from the original note were not included. Patient Name: Imani Mcdonald : 1945 Date of Admission: 09/11/2024 Date of Discharge: No discharge date for patient encounter. Primary Care Physician: KYRIE LI Consultations: Discharge Diagnoses: Status post left knee replacement Pneumonia Reason for Admission: Left knee arthroscopy Hospital Course: Admitted from home with OA of left knee that was not controlled with outpatient management and elected to be surgically repaired. After being placed on the floor for overnight observation noted to not maintain her sats off of 2 liters n/c which patient does not use at home. Initial imaging obtainedin recovery room due to 'possible aspiration' after drinking fluids before coming to the floor for overnight observation with negative imaging obtained. Imaging repeated after loose cough with drinking her pepsi and inability to wean off oxygen for discharge and son demanding to know how long his mother would be on oxygen: patient took a sip of her pepsi and had a notable coughing spell: repeat exam revealed likely aspiration. Imaging revealed bilat lower lobe pneumonia. Pt keep overnight on atb. Therapy with unasyn, IS ordered and pt able to wean off oxygen this am and demanded to go home. Discussion with pt on recommendation to remain in the hospital overnight to ensure she does not need oxygen with increased activity she will do at home; however declined and will go home on a 5 day cour se of augmentin with close PCP follow up. While inpt. Seen by speech therapy and eating/drinking recommendations provided: thin liquids and regular consistency to food with small bites and chin tucking encouraged for improved swallowing. Will follow surgeons activity and dressing care instructions;along with pain management for post surgical knee pain. Studies Performed: Reading Physician Reading Date Result Priority He Sloan MD [phone] 09/12/2024 Narrative & Impression PORTABLE CHEST HISTORY: Hypoxia, right lower lobe concerning for aspiration. COMPARISON: 22 hours prior. FINDINGS: The heart is normal in size. There is mediastinal widening attributed to tortuous aorta. There are increased markings in the bilateral lung bases suspicious for developing pneumonia. There is no significant effusion. There is no pneumothorax. IMPRESSION: New bilateral pulmonary opacities favor pneumonia. Procedure: Left knee HISTORY: Arthroplasty FINDINGS: 2 views reveal a total knee replacement in normal anatomic alignment. No fractures are present. No hardware complications are identified. IMPRESSION: Normal-appearing knee arthroplasty. Exam Ended: 09/11/24 10:59 EDT Last Resulted: 09/11/24 11:20 EDT Portable chest HISTORY: Possible aspiration FINDINGS: Comparison date June 23, 2024. There is mild stable scar of the left lung base. Heart and pulmonary vessels appear within normal limits. Lung manzanares are clear of acute infiltrates or effusions. IMPRESSION: No acute process. Exam Ended: 09/11/24 10:59 EDT Last Resulted: 09/11/24 11:37 EDT Procedures Performed: Left knee arthroplasty 09/11/2024 DATE OF PROCEDURE: 09/11/2024 PREOPERATIVE DIAGNOSIS: Left knee advanced osteoarthritis with valgus and flexion contracture. POSTOPERATIVE DIAGNOSIS: Left knee advanced osteoarthritis with valgus and flexion contracture. PROCEDURE PERFORMED: Left total knee arthroplasty using [employer] robotic assistance ([employer] Triathlon System using cementless technology with cruciate-retaining size 4 femur, size 4 tibia, 11 mm deep-dish highly cross-linked X3 polyethylene insert, and 29 mm asymmetric cementless patella). ASSISTANTS: 1. Katelynn Jacinto PA-C. 2. Kaylee Pardo CFA. 3. Nicole Zamora LPN. ANESTHESIA: Spinal with general added later due to possible aspiration. ESTIMATED BLOOD LOSS: Approximately 150 mL. DRAINS: None. COMPLICATIONS: Possible aspiration during the procedure, but the patient remained stable throughout. Anesthesia placed an endotracheal tube and was able to suction out some green fluid, possibly bile. Chest x-ray will be ordered postoperatively. OPERATIVE INDICATIONS: Imani is a really pleasant 79-year-old female, who had previously undergone successful right total knee replacement and now presented for elective treatment of her left knee. She stated that she was really sensitive to the oxycodone postoperatively and she wished to have just a milder pain medication. She had failed conservative treatment and wished to undergo replacement. Prior to surgery, risks, benefits, and alternatives were discussed with the patient and informed consent was obtained. DESCRIPTION OF PROCEDURE: I saw Imani in the preoperative holding area and marked her left knee. All questions were answered. She received prophylactic antibiotics, preoperative Decadron and tranexamic acid. She underwent an adductor canal block. Once in the operating room, a spinal anesthetic was induced, which was effective and seemed to be quite good. She was given IV sedation through Diprivan drip and we proceeded with a standard prep and drape to the left lower extremity. We paused for an appropriate time-out. We then exsanguinated the leg and elevated our tourniquet to 250 mmHg. Total tourniquet time was approximately 35 minutes. I used a standard midline incision with a medial parapatellar arthrotomy. We everted the patella and hyperflexed the knee. There was severe osteophytes noted, which we removed. We attached the trackers on the tibia and femur for the [employer] system along with the [employer] checkpoints. We then proceeded with systematic registration. This would align with our preoperative CT scan. We went through recording, lower [place] alignment, corrected alignment, and then gap balancing. We were able to adjust her components to get good balance in flexion and extension. We then brought in the [employer] robotic arm. We had removed both menisci and the anterior cruciate ligament. On this side, I elected to try to save the PCL first and if not convert to a PS knee. We used the [employer] robotic arm to make our tibial cut and then all of our femoral cuts. This allowed us to place our components in place. We aligned our tibial plate with the [employer] green guide and then pinned it. We broached, which confirmed excellent bone quality. We elected to go cementless just like we did on her opposite knee. On the femur, size 4 fit well as to the tibia size 4. We inserted an 11 mm insert, which now gave us full extension rather than the 10-degree flexion contracture that she had preoperatively. We also reduced her valgus from 4 degrees down to 1 degree. Kinematics seemed excellent. We had stable flexion to about 150 degrees. The patella cut freehand with the precision saw. This sized to a size 29. We drilled the 3-peg holes and placed the final implant. We now removed the trial femur and tibia and thoroughly washed and dried the bony surfaces. Final components were impacted and fit well and were well seated. We inserted the 11 mm insert. We recorded our final data and then removed trackers and checkpoints. Our tourniquet was released at 35 minutes. We used electrocautery for hemostasis. The patient received a second dose of tranexamic acid. At this point, we became aware that the patient had been converted to endotracheal intubation, but she had remained stable throughout the entire procedure. Saturations were 99% with a blood pressure of 105/53. After standard wash with vancomycin solution, I applied a periarticular ropivacaine cocktail. We then proceeded with standard closure and dressings. The patient was transferred to the recovery room in stable condition. She tolerated the procedure well. We will consult Medical to assess for a possible aspiration. I was planning on keeping her overnight regardless. /[id number] Discharge Medications: Your medication list START taking these medications Instructions Comments Quantity Refills acetaminophen 500 MG tablet Commonly known as: Tylenol Extra Strength Take 2 tablets (1,000 mg total) by mouth every 8 (eight) hours for 10 days. 60 tablet 0 amoxicillin-clavulanate 500-125 mg per tablet Commonly known as: AUGMENTIN Take 1 tablet by mouth 2 (two) times daily for 5 days. 10 tablet 0 aspirin 81 MG EC tablet Take 1 tablet (81 mg total) by mouth 2 (two) times daily for 30 days. 60 tablet 0 docusate sodium 100 MG capsule Commonly known as: Colace Take 1 capsule (100 mg total) by mouth 2 (two) times daily for 10 days. 20 capsule 0 HYDROcodone-acetaminophen 5-325 mg per tablet Commonly known as: NORCO Take 1 tablet by mouth every 6 (six) hours as needed for pain (for post surgical pain only) for up to 7 days. Max Daily Amount: 4 tablets 28 tablet 0 meloxicam 15 MG tablet Commonly known as: MOBIC Take 1 tablet (15 mg total) by mouth daily for 30 doses. 30 tablet 0 traMADoL 50 mg tablet Commonly known as: Ultram Take 1 tablet (50 mg total) by mouth every 8 (eight) hours as needed for pain (for mild to moderatepost operative pain) for up to 7 days. Max Daily Amount: 150 mg 21 tablet 0 CONTINUE taking these medications Instructions Comments Quantity Refills Arlene Allergy 180 MG tablet Generic drug: fexofenadine Take 1 tablet every day by oral route. 0 Calcium 600 + D(3) 600 mg-10 mcg (400 unit) Tab Generic drug: calcium carbonate-vitamin D3 one tablet everyday 0 Detrol LA 4 MG 24 hr capsule Generic drug: tolterodine Take 1 capsule (4 mg total) by mouth daily. 0 fluticasone propionate 50 mcg/actuation nasal spray Commonly known as: FLONASE Administer 1 spray into each nostril as needed for allergies. 0 glucosamine storm 2KCl-chondroit 750-600 mg Tab Take 1 tablet every day by oral route. 0 lansoprazole 30 MG capsule Commonly known as: PREVACID TAKE 1 CAPSULE 1 TIME EACH DAY 0 lisinopriL 30 MG tablet Commonly known as: ZESTRIL Take 1 tablet (30 mg total) by mouth daily. 0 potassium chloride 10 MEQ tablet Commonly known as: KLOR-CON Take 1 tablet (10 mEq total) by mouth daily 1.5 TABS. 30 tablet 0 pravastatin 80 MG tablet Commonly known as: PRAVACHOL Take 1 tablet (80 mg total) by mouth daily. 0 sertraline 25 MG tablet Commonly known as: ZOLOFT Take 1 tablet (25 mg total) by mouth daily. 0 vitamin E succinate 268 mg (400 unit) Tab Take 1 tablet every day by oral route. 0 STOP taking these medications ibuprofen 200 MG tablet Commonly known as: LEI Where to Get Your Medications [facility] [address] [facility] [address] [facility] [place] [id number] acetaminophen 500 MG tablet amoxicillin-clavulanate 500-125 mg per tablet aspirin 81 MG EC tablet docusate sodium 100 MG capsule HYDROcodone-acetaminophen 5-325 mg per tablet meloxicam 15 MG tablet potassium chloride 10 MEQ tablet traMADoL 50 mg tablet Physical Exam Constitutional: General: She is not in acute distress. Appearance: Normal appearance. She is not ill-appearing, toxic-appearing or diaphoretic. Comments: Sitting up in bedside chair on room air in no distress. Appropriately dressed and appropriately conversational. HENT: Head: Normocephalic and atraumatic. Right Ear: External ear normal. Left Ear: External ear normal. Nose: Nose normal. Mouth/Throat: Mouth: Mucous membranes are moist. Eyes: Extraocular Movements: Extraocular movements intact. Conjunctiva/sclera: Conjunctivae normal. Pupils: Pupils are equal, round, and reactive to light. Cardiovascular: Rate and Rhythm: Normal rate and regular rhythm. Heart sounds: Normal heart sounds. Pulmonary: Effort: Pulmonary effort is normal. Breath sounds: Normal breath sounds. No wheezing or rales. Abdominal: General: Bowel sounds are normal. Palpations: Abdomen is soft. Tenderness: There is no abdominal tenderness. There is no guarding. Musculoskeletal: Cervical back: Normal range of motion. Right lower leg: No edema. Left lower leg: No edema. Skin: General: Skin is warm and dry. Capillary Refill: Capillary refill takes less than 2 seconds. Comments: Left knee dressing C/D/I Neurological: General: No focal deficit present. Mental Status: She is alert and oriented to person, place, and time. Mental status is at baseline. Psychiatric: Mood and Affect: Mood normal. Behavior: Behavior normal. Thought Content: Thought content normal. Discharge Instructions Discharge Diet:per home diet Discharge Activity:per surgeon instructions Discharge Follow UP: Contact information for follow-up [employer] [facility] [phone] Next Steps: Call Instructions: [employer] will call you to start plan of care. If you do not hear from them in 1-2 days, please call them. KYRIE LI Relationship: PCP - [address] [phone] Next Steps: Follow up in 1 week(s) Time Spent: : 42 minutes on creation of safe d/c plan, discussion with pt on the plan, answering questions and documentation. Electronically signed by Milka Larson NP, 09/13/24, 10:30 AM EDT documented in this encounter Discharge Instructions * Discharge Instructions* Milka Larson NP - 09/11/2024 7:17 AM EDT Follow up with surgeon as instructed: wound care and activity per instructions provided Augmentin is an antibiotic for your pneumonia: take as prescribed: if diarrhea occurs > 4 times per day: go to the ER: as antibiotics take out the bad 'bacteria' they also take out the good 'gut' bacteria: so taking an over the counter probiotic while on the antibiotic is recommended. Sedative Medications given during the procedure can slow your reaction time and coordination for many hours. Please follow these instructions: - DO NOT conduct important business or sign legal documents on the date of the procedure. - DO NOT resume normal activities until directed by your surgeon - DO NOT drive a car or operate any machinery or power tools until directed by your surgeon - DO NOT drink alcohol or take nerve or sleeping medication. These will add to the effects of the sedation. - Regular diet after you tolerate liquids unless instructed otherwise by the physician. - Someone needs to be available to assist you during your recovery -Weight bearing as tolerated with walker -No driving until instructed by physician or while taking pain medications -Wear sharyn hose, take 2nd sharyn hose with you to follow up appointment -You may shower on post op day 3, NO soaking or scrubbing. -Dr. Yao-Wrap Silverlon (bandage directly over the incision) in Saran Wrap before each shower to help the dressing continue to be waterproof. After each shower remove the Saran Wrap. Do not applylotions, creams or solutions to operative site. -Use Polar Care (Ice machine) continuously for 48 hours then use three times a day for 20-30 minutes, remember to place towel/pillow case between skin and polar pad to prevent hypothermia -Zero knee three times a day for 30 minutes each -If you receive a CPM use it twice a day for 2 hours each, 0-60 degrees advancing 5 degrees daily and as tolerated. Bring the CPM back to the Orthopedic office at the second follow up appointment after surger. -Take stool softeners as needed while taking pain medication to prevent constipation CALL PHYSICIAN IF ANY OF THE FOLLOWING OCCUR: -Fever of 101 degrees or greater -Redness, swelling, or pus drainage from site -Severe pain -Discoloration of the surgical limb. documented in this encounter Medications at Time of Discharge [...] 1 tablet every day by oral route. acetaminophen (Tylenol Extra Strength) 500 MG tablet Take 2 tablets (1,000 mg total) by mouth every 8 (eight) hours for 10 days. 60 tablet 09/12/2024 5 amoxicillin-clav ulanate (AUGMENTIN) 500-125 mg per tabletIndication s:bacterial pneumonia Take 1 tablet by mouth 2 (two) times daily for 5 days. 10 tablet 09/13/2024 5 aspirin 81 MG EC tablet Take 1 tablet (81 mg total) by mouth 2 (two) times daily for 30 days. 60 tablet 09/13/2024 5 docusate sodium (Colace) 100 MG capsule Take 1 capsule (100 mg total) by mouth 2 (two) times daily for 10 days. 20 capsule 09/12/2024 HYDROcodone-acet aminophen (NORCO) 5-325 mg per tablet Take 1 tablet by mouth every 6 (six) hours as needed for pain (for post surgical pain only) for up to 7 days. Max Daily Amount: 4 tablets 28 tablet 09/12/2024 5 lisinopriL (ZESTRIL) 30 MG tablet Take 1 tablet (30 mg total) by mouth daily. meloxicam (MOBIC) 15 MG tablet Take 1 tablet (15 mg total) by mouth daily for 30 doses. 30 tablet 09/12/2024 5 potassium chloride (KLOR-CON) 10 MEQ tablet Take 1 tablet (10 mEq total) by mouth daily 1.5 TABS. 30 tablet 09/13/2024 traMADoL (Ultram) 50 mg tablet Take 1 tablet (50 mg total) by mouth every 8 (eight) hours as needed for pain (for mild to moderate post operative pain) for up to 7 days. Max Daily Amount: 150 mg 21 tablet 09/12/2024 5 documented as of this encounter Progress Notes * Norma Lee RN - 09/13/2024 11:30 AM EDT Pt discharged out of facility with patient belongings and medical devices (CPM, polar care, knee brace, and zero-knee). IV d/c. Tip intact. Ramses well. Bleeding controlled. PT assisted out of facility via wheelchair to PO home with family * HUGO Matamoros/Kassy - 09/13/2024 9:29 AM EDTSummary: OT note Images from the original note were not included. Inpatient Occupational Therapy Treatment Note Patient Name: Imani Mcdonald Date of : 1945 Date of Treatment: 09/13/24 Start Time: 834 Stop Time: 852 Session Duration: 10 minutes This patient is a 79 y.o. female admitted on 09/11/2024 with Primary osteoarthritis of left knee [M17.12] Acute respiratory failure (HCC) [J96.00]. Past Medical History: Diagnosis Date Arthritis Hyperlipidemia Ocular migraine HISTORY OF Seasonal allergies Urinary incontinence Past Surgical History: Procedure Laterality Date CARPAL TUNNEL RELEASE Bilateral CATARACT EXTRACTION Bilateral CYSTECTOMY KNOT OFF OF NECK MAKOPLASTY,KNEE Left 09/11/2024 Procedure: ARTHROPLASTY, KNEE, ROBOT-ASSISTED; Surgeon: Jose F Yao MD; Location: [facility]; Service: Orthopedic Surgery; Laterality: Left; REPLACEMENT TOTAL KNEE Right General Visit type: Treatment Approved by: Nursing Patient disposition upon entry: Patient verified by name, Sitting in bedside chair, Feet elevated, Nursing aware/notified Co-treated by: PT Assisted by: paint prep technician Precautions Weightbearing status: Weight bearing as tolerated (WBAT), Left lower extremity Precautions: Fall risk Isolation precautions: Standard LDA/Brace/Protective equipment: Lines, drains, and airways: blood pressure cuff, peripheral IV, pulse oximeter , telemetry Brace/protective equipment: polar care Subjective Subjective: Pt agreeable Pain Complains of no pain at rest but up to 9/10 when up and walking. Cognition Cognition: Overall cognitive status: Patient is awake and alert, attending to directions appropriately, demonstrating good problem solving skills, and aware of any deficits or impairments, if present. Objective Vitals Vital signs stable throughout, no adverse reaction during activity Bed Mobility Sit to supine: Contact guard assistance Transfers Sit to stand:Contact guard, 1 person assist, Gait belt used, Rolling walker used Stand to sit:Contact guard, 1 person assist, Gait belt used, Rolling walker used Functional mobility:Contact guard, 1 person assist, Gait belt used, Rolling walker used ADLs Patient educated on TKA packet including dressing and bathing strategies for increased safety in the home. Patient verbalized understanding. Balance Static sitting balance:Good: Patient able to maintain balance without handheld support; limited postural sway Dynamic sitting balance:Good: Patient accepts moderate challenge; able to maintain balance while picking object off the floor Static standing balance:Fair: Patient able to maintain balance with handheld support, may require occasional minimal assistance Dynamic standing balance:Fair: Patient accepts minimal challenge; able to maintain balance while turning head/trunk Activity Tolerance Patient limited with activity/intervention due to pain and deconditioning Comment: Patient ambulated ~150 feet this date Therapeutic Exercise Patient educated on LB exercises. See PT note for details. Treatment Patient participated in bed mobility, activity tolerance, transfer training, and education on safety with TKA packet. Patient verbalized understanding. See above for details. Assessment Assessment Patient demonstrated improved performance during this treatment session. Patient continues to present with decreased endurance, decreased balance. These deficits currently impact the patient's ability to perform ADLs and functional mobility, putting them at an increased risk for increased falls, further decreased strength. Patient will benefit from continued OT services to address the aforementioned functional deficits. Plan Recommendations Discharge recommendations: Discharge home/prior living situation. Patient would benefit from continued therapy services. DME recommendations: Patient has no adaptive/DME needs for discharge at this time. Treatment Plan: Continue OT POC OT Frequency/Duration: 5x/week for 14 days Goals Progressing - Upper body dressing: donning and doffing upper body dressing clothing with setup. Progressing - Lower body dressing: donning and doffing lower body clothing with minimal assistance. Met - Toileting: toileting with minimal assistance. Met - Bed mobility: sit to supine, supine to sit with standby assist. Met - Functional transfers: ambulatory transfer with minimal assistance and RW . Other goal 1: Pt will be ed on and verbalize understanding of energy conservation/work simplification techniques, home safety, car transfers, adaptive equipment, and lower body dressing techniques toincrease independence with ADLs at home Target Date: 09/15/2024 Goals were discussed with patient Progress towards goals: progressing Education Patient educated on ADLs, exercises, functional mobility, TKA precautions, educational materials provided , home exercise program and following, they were able to verbalize understanding, return demonstration. Interdisciplinary Communication Following treatment, therapist communicated with nursing regarding patient's performance during therapy session. Patient Disposition Upon Leaving Patient Disposition: Supine in bed, All needs met and within reach, Call light/pull cord in reach, Feet elevated, Nursing aware/notified If this patient discharges prior to next therapy session, this note serves as the patient's discharge summary. Electronically signed by VERONICA Matamoros - 09/13/2024 - 9:29 AM EDT * Marzenalilian Cleveland, PT - 09/13/2024 9:14 AM EDT Images from the original note were not included. Inpatient Physical Therapy Treatment Patient Name: Imani Mcdonald Date of : 1945 Date of Treatment: 09/13/24 Start Time 834 Stop Time 852 Session Duration 18 minutes General Visit Type: Treatment Approved by: Nurse Green Patient Disposition Upon Entry: Patient in bedside chair, Call Light/Pull Cord in reach, All needs met and within reach, Nursing aware/notified, Feet elevated, Yellow non-slip socks donned Patient Verified By: Name Co-treated by: OT Assisted by: paint prep technician Precautions Weight-Bearing Status: Weight Bearing As Tolerated (WBAT), LLE Precautions: Fall risk Isolation Precautions: Standard Lines, tubes, drains, airway: blood pressure cuff, peripheral IV, pulse oximeter , telemetry Subjective Subjective: Patient agreeable to physical therapy treatment. Pain Yes; patient reported pain was alright at rest and a 9/10 when standing. Cognition Overall cognitive status: Patient is awake and alert, attending to directions appropriately, demonstrating good problem solving skills, and aware of any deficits or impairments, if present. Arousal/Alertness: Appropriate response to stimuli Following commands: Follows all commands and directions without difficulty Safety Judgment: Good awareness of safety precautions Objective Vitals Start of session: SpO2 97% on RA, BP 111/55, HR 93 End of session: SpO2 95-97% on RA, HR 88-103 Functional Mobility Bed Mobility: Sit to Supine: contact guard assist, 1-person assist Transfers Sit to Stand: contact guard assist, 1-person assist, gait belt used, rolling walker used Stand to Sit: contact guard assist, 1-person assist, gait belt used, rolling walker used Gait Gait Assistance: contact guard assist, 1-person assist Assistive Device: Gait Belt, Rolling walker Distance: 150' Gait speed: Decreased Stair Management NT - pt has a ramp into her home Wheelchair Mobility Not assessed, patient ambulatory. AM-PAC Basic Mobility Inpatient Short Form How much difficulty does the patient currently have: Turning over in bed (including adjusting bedclothes, sheets, and blankets)? (3) A little (can do the activity without assistive devices or help from another person, but requires A LITTLE more time and effort) Sitting down on and standing up from a chair with arms (e.g., wheelchair, bedside commode, etc.)? (1) Total/Unable (not able to do the activity or can only perform the activity using assistive devices or requires assistance from another person, including supervision or cueing for safety) Moving from lying on back to sitting on side of bed? (3) A little (can do the activity without assistive devices or help from another person, but requires A LITTLE more time and effort) How much help from another person does the patient currently need: Moving to and from a bed to a chair (including a wheelchair)? (3) A little (Minimal/Contact guard/Supervision/Setup) Need to walk in hospital room? (3) A little (Minimal/Contact guard/Supervision/Setup) Climbing 3-5 steps with a railing? (1) Total/Unable (Total assist/dependent) Score Raw score=14 t-Scale score=38.10 Standard error=2.95 CMS 0-100%=61.29% MDC=4.72 A raw score of >= 16 is significantly associated with increased odds of discharge to home in addition to consideration made for the patient's cognition and social determinants of health. Balance Sitting balance SBA, standing balance CGA Activity Tolerance Patient limited with activity/intervention due to pain, fatigue, and weakness Treatment Gait Training Pt educated on HEP and zero knee foam, verbalized and demonstrated understanding Assessment Patient demonstrated the ability to transition sit<>stand and sit>supine with CGA as well as ambulate 150 feet with the use of a rolling walker and CGA for safety. Patient's SpO2 ranged amtc12-81% on room air throughout the session. Per nursing and patient, she is expected to discharge this date. Patient was educated regarding HEP and zero knee foam; she verbalized and demonstrated an un derstanding while denying additional questions/concerns. Patient will benefit from continued skilled PT services in the acute setting to further improve strength, endurance, and functional mobility. Problems: Decreased functional mobility, Decreased gait tolerance, Decreased strength, Decreased activity tolerance, Impaired standing balance, Restricted ROM, Pain , Edema Rehab potential: Good for stated goals Plan Treatment Plan: Therapeutic Exercise, Therapeutic Activity, Gait Training, Neuromuscular Re-education, Transfer Training, Balance Training, Stair Training, Strengthening, Home Exercise Program, ROM, Wheelchair Management/Mobility Training, Pain Management, Patient/Family/Caregiver Education, DME Rec ommendations, Co-Treat with OT PT Frequency/Duration: 1-2x/day for 2 weeks Recommendations Discharge recommendations: Discharge home/prior living situation. Patient would benefit from continued therapy services. (Anticipate) DME recommendations: Patient has no DME/adaptive equipment discharge needs at this time. Goals Supine to/from sit: Pt will complete supine<>sit Karly Sit to/from stand: Pt will complete sit<>stand using RW SBA Gait: Pt will ambulate 150' using RW SBA Other Goal #1: Pt will be independent with HEP Target Date: 09/25/2024 Goals were discussed with patient and family Education Patient educated on safety, use of call button, role of physical therapy, HEP packet, ambulation, ROM/positioning, need for assistance, and risk for falls and following, they were able to verbalize and demonstrate understanding. No further questions or concerns stated. Patient Disposition Upon Leaving Supine in bed, Call Light/Pull Cord in reach, All needs met and within reach, Nursing aware/notified, HOB >30 degrees, Yellow non-slip socks donned If this patient discharges prior to next therapy session, this note serves as the patient's discharge summary. Electronically signed by Marzena Cleveland, PT - 09/13/24 - 9:32 AM EDT * Kaye Valdez, PT - 09/12/2024 11:06 AM EDT Images from the original note were not included. Inpatient Physical Therapy Treatment Patient Name: Imani Mcdonald Date of : 1945 Date of Treatment: 09/12/24 Start Time 0946 Stop Time 1013 Session Duration 27 minutes Start Time 1620 Stop Time 1635 Session Duration 15 minutes Total time: 42 minutes General Visit Type: Treatments Approved By: Nurse Vargas Patient Disposition Upon Entry: Supine in bed first session, In bedside chair second session, Call Light/Pull Cord in reach, All needs met and within reach, Nursing aware/notified, HOB >30 degrees, SCDs on, Sharyn thompson on Patient Verified By: Name and Date of Cotreated with: OT first session Assisted by: paint prep technician first session Precautions Weight-Bearing Status: Weight Bearing As Tolerated (WBAT), L LE Precautions: Fall risk Isolation Precautions: Standard Lines, tubes, drains, airway: peripheral IV, nasal cannula, pulse oximeter, telemetry, blood pressure cuff Subjective Subjective: Patient agreeable to physical therapy treatments. Pain Pt reported no pain each session. RN notified. Cognition Alert, mildly impulsive Objective Vitals Vitals: 09/12/24 1335 09/12/24 1435 09/12/24 1535 09/12/24 1600 BP: 93/55 112/58 (!) 152/65 (!) 153/68 Pulse: 72 69 67 67 Resp: 15 12 10 14 Temp: TempSrc: SpO2: 94% 93% 93% 95% Weight: Height: First session, SpO2 89% and above on 2L during activity with RN and TIE CARRIER notified BP 101/57 sitting EOB pre-ambulation, 117/56 in chair end of session Second session, SpO2 87% on RA end of ambulation with RN notified. SpO2 96% on RA end of session. Functional Mobility Bed Mobility Supine to Sit: standby assist, 1-person assist, HOB elevated (x1 repetition first session) Sit to Supine: minimal assist, 1-person assist, HOB elevated (x1 repetition second session) Transfers Sit to Stand: minimal assist, 1-person assist, gait belt used, rolling walker (x2 repetitions each session) Stand to Sit: minimal assist, 1-person assist, gait belt used, rolling walker (x2 repetitions each session) Gait First session, pt ambulated 150' using RW with CGA-Bartolo for steadying. SpO2 89- 91% on 2L with activity. Second session, pt ambulated 150' using RW with CGA-Bartolo for steadying. Stair Management NT - pt has a ramp into her home Wheelchair Mobility Not assessed, patient ambulatory. AM-PAC Basic Mobility Inpatient Short Form How much difficulty does the patient currently have: Turning over in bed (including adjusting bedclothes, sheets, and blankets)? (3) A little (can do the activity without assistive devices or help from another person, but requires A LITTLE more time and effort) Sitting down on and standing up from a chair with arms (e.g., wheelchair, bedside commode, etc.)? (1) Total/Unable Moving from lying on back to sitting on side of bed? (3) A little How much help from another person does the patient currently need: Moving to and from a bed to a chair (including a wheelchair)? (3) A little Need to walk in hospital room? (3) A little Climbing 3-5 steps with a railing? (1) Total/Unable Score Raw score=14 MDC=4.72 A raw score of >= 16 is significantly associated with increased odds of discharge to home in addition to consideration made for the patient's cognition and social determinants of health. Balance Sitting balance SBA, Standing balance CGA-Bartolo RW Activity Tolerance Patient limited with activity/intervention due to weakness, decreased oxygen saturation Treatment Gait training Second session: 1 set x 10 repetitions L LE ankle pumps, quad sets, short arc quads, long arc quads, heel slides, straight leg raises Pt educated on zero knee foam, verbalizing and demonstrating understanding Assessment Each session, the patient was able to stand and ambulate 150 feet using a walker with minimal assist. SpO2 89-91% on 2L with activity first session with RN and TIE CARRIER notified. Exercises completed secondsession and zero knee placed with RN notified and aware. She will continue to benefit from skilled PT to improve her strength and independence with functional mobility. Problems: Decreased functional mobility, Decreased gait tolerance, Decreased strength, Decreased activity tolerance, Impaired standing balance, Impaired dynamic balance, Gait impairment, Restricted ROM, Pain , Sensory deficits Rehab potential: Good for stated goals Plan Treatment Plan: Therapeutic Exercise, Therapeutic Activity, Gait Training, Neuromuscular Re-education, Transfer Training, Balance Training, Stair Training, Strengthening, Home Exercise Program, ROM, Wheelchair Management/Mobility Training, Pain Management, Patient/Family/Caregiver Education, DME Rec ommendations, Co-Treat with OT PT Frequency/Duration: 1-2x/day for 2 weeks Recommendations Discharge recommendations: Discharge home/prior living situation. Patient would benefit from continued therapy services. (Anticipate) DME recommendations: Patient has no DME/adaptive equipment discharge needs at this time. Goals Supine to/from sit: Pt will complete supine<>sit Karly Sit to/from stand: Pt will complete sit<>stand using RW SBA Gait: Pt will ambulate 150' using RW SBA Other Goal #1: Pt will be independent with HEP Target Date: 09/25/2024 Goals were discussed with patient and family Education Patient/Visitors educated on safety, use of call button, role of physical therapy, plan of care, therapeutic exercise, HEP packet, ambulation, transfers, bed mobility, ROM/positioning, stair negotiation, home safety, need for assistance and risk for falls and following, they were able to verbalize u nderstanding. No further questions or concerns stated. Patient Disposition Upon Leaving In bedside chair with chair alarm on and B LE elevated first session, Supine with HOB >30 and bed alarm on second session, Call Light/Pull Cord in reach, All needs met and within reach, Nursing aware/notified, HOB >30 degrees, Sharyn hose on, SCDs on second session If this patient discharges prior to next therapy session, this note serves as the patient's discharge summary. Electronically signed by Kaye Valdez, PT - 09/12/24 - 11:06 AM EDT * Hilary Bryant, OTR - 09/12/2024 10:52 AM EDT Images from the original note were not included. Inpatient Occupational Therapy Treatment Note Patient Name: Imani Mcdonald Date of : 1945 Date of Treatment: 09/12/24 Start Time: 0948 Stop Time: 1012 Session Duration: 24 minutes This patient is a 79 y.o. female admitted on 09/11/2024 with Primary osteoarthritis of left knee [M17.12] Acute respiratory failure (HCC) [J96.00]. Past Medical History: Diagnosis Date Arthritis Hyperlipidemia Ocular migraine HISTORY OF Seasonal allergies Urinary incontinence Past Surgical History: Procedure Laterality Date CARPAL TUNNEL RELEASE Bilateral CATARACT EXTRACTION Bilateral CYSTECTOMY KNOT OFF OF NECK MAKOPLASTY,KNEE Left 09/11/2024 Procedure: ARTHROPLASTY, KNEE, ROBOT-ASSISTED; Surgeon: Jose F Yao MD; Location: [facility]; Service: Orthopedic Surgery; Laterality: Left; REPLACEMENT TOTAL KNEE Right General Visit type: Treatment Approved by: Nursing Patient disposition upon entry: Patient verified by name, Patient verified by date of , Supinein bed, Son at bedside, All needs met and within reach, Call light/pull cord in reach, Bed alarm applied, Head of bed >30 degrees, Nursing aware/notified Co-treated by: PT Assisted by: Cake Icer And Packer Precautions Weightbearing status: Weight bearing as tolerated (WBAT), Left lower extremity Precautions: Fall risk Isolation precautions: Standard LDA/Brace/Protective equipment: Lines, drains, and airways: blood pressure cuff, nasal cannula, peripheral IV, pulse oximeter , telemetry Brace/protective equipment: Knee immobilizer Subjective Subjective: Pt agreeable Son present Pain No-patient reports 0/10 pain Cognition Patient is alert and cooperative; appears to be hard of hearing, able to follow directions appropriately yet is mildly impulsive at times. Objective Vitals BP sitting edge of bed pre activity: 101/57; BP sitting in bedside chair post activity: 117/56. SPO2 decreasing to 89% on 2L nasal cannula when ambulating and increasing to 96% on 2L when seated in bedside chair, RN notified. Bed Mobility Supine to sit: Standby assist Transfers Sit to stand:Minimal assistance, 1 person assist, Gait belt used, Rolling walker used Stand to sit:Minimal assistance, 1 person assist, Gait belt used, Rolling walker used Functional mobility:Minimal assistance, 1 person assist, Gait belt used, Rolling walker used, to ambulate ~150 feet in the hallway with wheelchair follow for safety Toilet transfer:Minimal assistance, 1 person assist, Gait belt used, Rolling walker used, Bedside commode used ADLs Upper body dressing:Minimal Assistance Lower body dressing:Moderate Assistance, Maximal Assistance Toileting:Standby Assist Balance Static sitting balance:Good: Patient able to maintain balance without handheld support; limited postural sway Dynamic sitting balance:Good: Patient accepts moderate challenge; able to maintain balance while picking object off the floor Static standing balance:Good: Patient able to maintain balance without handheld support; limited postural sway Dynamic standing balance:Fair: Patient accepts minimal challenge; able to maintain balance while turning head/trunk Activity Tolerance Patient limited with activity/intervention due to weakness Treatment Patient participated in bed mobility, functional/ADL transfers, mobility and ADLs this date. See above for more details. Assessment Assessment Patient tolerated session well and demonstrated improved performance during this treatment session.Patient appears to be mildly impulsive when ambulating ~150 feet in the hallway and required verbalcues for safety. Patient required minimal to maximal assistance for upper and lower body dressing and standby assistance for toileting in seated position. Patient continues to present with decreased s trength, decreased endurance, decreased balance, decreased safety awareness. These deficits currently impact the patient's ability to perform ADLs and functional mobility, putting them at an increased risk for increased falls, further decreased strength. Patient will benefit from continued OT services to address the aforementioned functional deficits. Plan Recommendations Discharge recommendations: Discharge home/prior living situation. Patient would benefit from continued therapy services., Patient would benefit from 1-2 hours of multidisciplinary therapy per day upon discharge from acute care setting to assist with returning to prior level of functioning. DME recommendations: Has needed eq Treatment Plan: ADL training, DME recommendations , Functional mobility/transfer training, Patient/family/caregiver education OT Frequency/Duration: Daily x 5 days Goals Progressing - Upper body dressing: donning and doffing upper body dressing clothing with setup. Progressing - Lower body dressing: donning and doffing lower body clothing with minimal assistance. Met - Toileting: toileting with minimal assistance. Met - Bed mobility: sit to supine, supine to sit with standby assist. Met - Functional transfers: ambulatory transfer with minimal assistance and RW . Other goal 1: Pt will be ed on and verbalize understanding of energy conservation/work simplification techniques, home safety, car transfers, adaptive equipment, and lower body dressing techniques toincrease independence with ADLs at home Target Date: 09/15/2024 Goals were discussed with patient Progress towards goals: progressing Education Patient/Visitors educated on safety, use of call light, patient's plan of care, ADLs, functional mobility and following, they were able to verbalize understanding. Interdisciplinary Communication Following treatment, therapist communicated with nursing regarding patient's performance during therapy session, patient's level of assistance with transfers for nursing mobility, SpO2 and BP readings during the session . Patient Disposition Upon Leaving Patient Disposition: Sitting in bedside chair, Visitor/family present, All needs met and within reach, Call light/pull cord in reach, Chair alarm applied, Feet elevated, Nursing aware/notified If this patient discharges prior to next therapy session, this note serves as the patient's discharge summary. Electronically signed by HUGO Sandhu - 09/12/2024 - 10:52 AM EDT * Britta Finney - 09/12/2024 10:50 AM EDTSummary: Bedside Swallow results: IDDSI regular diet with thin liquids; meds as tolerated Images from the original note were not included. [facility] Speech Language Pathology: Clinical Swallow Evaluation Initial evaluation Therapy Diagnosis: No overt oral or pharyngeal dysphagia patterns Recommendations: IDDSI Regular Consistency and Thin liquids Patient Name: Imani Mcdonald Age: 79 y.o. Today: 09/12/2024 Time In: 10:30 Time Out: 10:50 (Chart Review, collaboration with RN and clinical reasoning/decision making time required for completion of evaluation = 10 minutes). Total time: 30 minutes CPT: 51023, no charge For patient safety the patients name and date of were verified prior to the exam. History Patient Active Problem List Diagnosis Hyperlipidemia Ocular migraine Seasonal allergies Urinary incontinence Status post left knee replacement with ABUNDIO 09/11/24 Acute respiratory failure (HCC) Past Medical History: Diagnosis Date Arthritis Hyperlipidemia Ocular migraine HISTORY OF Seasonal allergies Urinary incontinence Past Surgical History: Procedure Laterality Date CARPAL TUNNEL RELEASE Bilateral CATARACT EXTRACTION Bilateral CYSTECTOMY KNOT OFF OF NECK MAKOPLASTY,KNEE Left 09/11/2024 Procedure: ARTHROPLASTY, KNEE, ROBOT-ASSISTED; Surgeon: Jose F Yao MD; Location: [facility]; Service: Orthopedic Surgery; Laterality: Left; REPLACEMENT TOTAL KNEE Right Speech and Dysphagia History: Patient reports no previous swallowing difficulty. Intubation History: Patient had ARTHROPLASTY, KNEE, ROBOT-ASSISTED (Left) on 09/11 Diet prior to admission: Regular Diet Current diet: NPO Except: Sips with meds Subjective Mental status: Alert , Oriented x3, Cooperative, and Follows commands Pain: 0 via 0-10 verbal report Patient's son preset at bedside for evaluation. Objective The procedure was discussed with the patient and the patient agreed to the exam Respiratory Status: nasal cannula Dentition : Dentures Oral hygiene: WFL Oral Motor Structure and Function Labial: normal bilaterally Buccal: normal bilaterally Lingual: normal bilaterally Velar: WFL Mandibular: WFL Secretion Management:: functional Vocal Quality: adequate Cough: - Volitional: strong - Reflexive: Did not observe Oral Care Completed: no Oral Feeding Trials: Positioning: upright at 90' Feeding assistance: minimal assistance Consistencies Administered: ice chips, thin, puree/pudding, and solids Oral Stage: appeared normal Pharyngeal Stage: appeared normal Assessment Summary: Imani Mcdonald is a 79 y.o. female with PMH as noted below presents with severe left knee osteoarthritis poorly controlled with conservative outpatient treatment who underwent elective left knee arthroplasty today. She received spinal anesthesia and not general anesthesia. Intraoperative patient apparently began to have frequent hacking cough and resulted into vomiting of bilious emesis. Apparently there was concern of aspiration thus ET tube inserted and minimal whitish secretions suctioned. She was then recovered in PACU. She is seen and evaluated at bedside by me in [facility]. Family is at bedside. She was on 4 L nasal cannula and saturating on cardiac bedside monitor 94-95%. She denies any complaints aside from being sleepy and thirsty. She denies shortness of breath, focal weaknessor chest pain. Discussed with Dr. Castillo and recommended that patient be observed overnight and orthopedic surgeon Dr. Yao is in agreement. Patient will be admitted observation status to hospital medicine. Bedside swallow evaluation completed this morning. Patient tolerated ice chips and thin liquids (via spoon and straw) without overt s/s of aspiration. She also tolerated puree consistency and regularsolids (cracker) without any difficulties. No signs/symptoms present of aspiration or change in vocal quality with any trials administered. However, aspiration cannot be ruled out at bedside. Patientand Patient???s son in agreement with diet recommendations. No further ST services warranted at this time. The safest, least restrictive diet recommendation is an IDDSI regular diet with thin liquids. Meds as tolerated. Prognosis: Good Patient Education: results and recommendation of the exam, diet consistency recommendations, aspiration and its possible outcomes including aspiration pneumonia/pneumonitis, The patient and/or familyverbalized understanding the results and recommendations Results and recommendations of this evaluation were communicated to RN/MD Plan Therapy Frequency: Treatment is not indicated at this time Follow up Imaging: Not indicated at this time [facility] Recommendation at Discharge: No further [employer] services warranted at this time. If this patient discharges prior to the next therapy session, or if this is an evaluation only, this note serves as the patient's discharge summary. Electronically signed by Britta Finney - 09/12/2024 - 10:51 AM EDT 09/12/2024 10:51 AM Speech Language Pathologist * Milka Larson NP - 09/12/2024 10:12 AM EDT Images from the original note were not included. Hospitalist Progress Note Name: Imani Mcdonald Room: : 1945 Age: 79 y.o. DAMIEN Munoz Admission Date: 09/11/2024 6:52 AM Length of Stay: 0 Admission Status: Observation Code Status: Full Code Subjective Seen at 0725 on 09/12/24 Assumed care from Favian AMOS after careful review of H and P, labs and imaging. Pt evaluated and examined at bedside with son and RN present. In depth discussion on need of oxygen. Exam findings concern for possible BLL pneumonia: procal and imaging ordered. Return to room after xray revealed bilat.Lower lobe pneumonia. Discussion with pt and son on need to be NPO and have a swallow study with STthis am. No trouble speaking, home trouble with eating/drinking or past issues with choking reported. Ordered unasyn this am. Will remain in hospital for IV atb tx. And wean oxygen as indicated. IS as instructed. Objective Review of Systems Constitutional: Negative. HENT: Negative. Eyes: Negative. Respiratory: Positive for cough and shortness of breath. Cardiovascular: Negative. Gastrointestinal: Negative. Genitourinary: Negative. Musculoskeletal: Positive for joint pain. Skin: Negative. Neurological: Negative. Endo/Heme/Allergies: Negative. Psychiatric/Behavioral: Negative. Vital Signs ranges for last 24 hours: Temp: [96.6 ??F (35.9 ??C)-97.9 ??F (36.6 ??C)] 97.9 ??F (36.6 ??C) Pulse: [63-80] 69 Resp: [8-36] 18 BP: (90-155)/(50-80) 90/52 FiO2 (%): [28 %] 28 % Intake/Output: Intake/Output 09/11/24 0700 - 09/12/24 0659 [id number] Total Intake (ml) 1450 490.8 1987. 3929.3 Output (ml) -- -- -- -- Net (ml) 1450 490.8 1987. 3929.3 Last Weight 70.9 kg (156 lb 6.4 oz) 76.9 kg (169 lb 8 oz) -- -- Physical Exam Constitutional: General: She is not in acute distress. Appearance: Normal appearance. She is not ill-appearing, toxic-appearing or diaphoretic. HENT: Head: Normocephalic and atraumatic. Right Ear: External ear normal. Left Ear: External ear normal. Nose: Nose normal. Mouth/Throat: Mouth: Mucous membranes are moist. Eyes: Extraocular Movements: Extraocular movements intact. Conjunctiva/sclera: Conjunctivae normal. Pupils: Pupils are equal, round, and reactive to light. Cardiovascular: Rate and Rhythm: Normal rate and regular rhythm. Heart sounds: Normal heart sounds. Pulmonary: Effort: Pulmonary effort is normal. Comments: Clear upper air exchange with coarse sounds in bilat. Lower lobes. No conversational dyspnea. 2 liters n/c worn. Abdominal: General: Bowel sounds are normal. Palpations: Abdomen is soft. Tenderness: There is no abdominal tenderness. There is no guarding. Musculoskeletal: Cervical back: Normal range of motion. Skin: General: Skin is warm and dry. Capillary Refill: Capillary refill takes less than 2 seconds. Comments: Left knee with C/D/I dressing Neurological: General: No focal deficit present. Mental Status: She is alert and oriented to person, place, and time. Mental status is at baseline. Psychiatric: Mood and Affect: Mood normal. Behavior: Behavior normal. Thought Content: Thought content normal. Judgment: Judgment normal. Laboratory Data, Radiologic Data Recent Labs Lab(s) Units 09/12/24 0430 WBC K/??L 19.2* HGB GM/DL 11.2* HCT % 33.4* PLT K/CU MM 183 Recent Labs Lab(s) Units 09/12/24 0429 NA meq/L 138 K meq/L 3.8 CL meq/L 103 CO2 meq/L 26 BUN mg/dL 20* CREATININE mg/dL 1.15* CALCIUM mg/dL 8.1* GLUCOSE mg/dL 143* No results for input(s): INR , PTT in the last 72 hours. Radiology Results (last 3 days) Procedure Component Value Units Date/Time XR chest AP portable [[id number]] Collected: 09/12/24 0934 Order Status: Completed Updated: 09/12/2437 Narrative: PORTABLE CHEST HISTORY: Hypoxia, right lower lobe concerning for aspiration. COMPARISON: 22 hours prior. FINDINGS: The heart is normal in size. There is mediastinal widening attributed to tortuous aorta. There are increased markings in the bilateral lung bases suspicious for developing pneumonia. There is no significant effusion. There is no pneumothorax. Impression: New bilateral pulmonary opacities favor pneumonia. Images reviewed, interpreted, and dictated by Dr. He Sloan. Transcribed by [facility] XR chest AP portable [[id number]] Collected: 09/11/24 1137 Order Status: Completed Updated: 09/11/24 114 Narrative: Portable chest HISTORY: Possible aspiration FINDINGS: Comparison date June 23, 2024. There is mild stable scar of the left lung base. Heart and pulmonary vessels appear within normal limits. Lung manzanares are clear of acute infiltrates or effusions. Impression: No acute process. XR knee 1 or 2 views left [[id number]] Collected: 09/11/24 1120 Order Status: Completed Updated: 09/11/24 1123 Narrative: Procedure: Left knee HISTORY: Arthroplasty FINDINGS: 2 views reveal a total knee replacement in normal anatomic alignment. No fractures are present. No hardware complications are identified. Impression: Normal-appearing knee arthroplasty. Echo Results (last 7 days) No results found for the last 168 hours. Microbiology Results (last 7 days) No results found for the last 168 hours. Medications SCHEDULED MEDICATIONS ampicillin-sulbactam 3 g intravenous Q6H DARELL aspirin 81 mg oral BID 81 mg at 09/12/24 0930 ferrous sulfate 325 mg oral Daily 325 mg at 09/11/24 1615 lisinopriL 20 mg oral Daily 20 mg at 09/11/24 1614 And hydroCHLOROthiazide 25 mg oral Daily 25 mg at 09/12/24 0932 meloxicam 7.5 mg oral Q12H 7.5 mg at 09/12/24 0932 pantoprazole 40 mg oral Daily 40 mg at 09/12/24 0932 polyethylene glycol 3350 17 g oral Daily 17 g at 09/12/24 0930 potassium chloride 10 mEq oral Daily 10 mEq at 09/12/24 0932 pravastatin 80 mg oral Every Night 80 mg at 09/11/24 2100 sennosides 17.2 mg oral Every Night 17.2 mg at 09/11/24 2100 sertraline 25 mg oral Daily 25 mg at 09/12/24 0928 trospium 20 mg oral BID 20 mg at 09/12/24 0932 @MEDSPRN@ CONTINUOUS INFUSION Current Facility-Administered Medications Medication Dose Route Frequency Provider Last Rate Last Admin acetaminophen (TYLENOL) tablet 1,000 mg 1,000 mg oral Q8H PRN Jose F Yao MD albuterol 2.5 mg /3 mL (0.083 %) nebulizer solution 2.5 mg 2.5 mg nebulization Q4H PRN Mike Manjarrez APRN 2.5 mg at 09/12/24 0839 ampicillin-sulbactam (UNASYN) 3 g in sodium chloride 0.9 % (NS) MBP 100 mL IVPB 3 g intravenous Q6HSCH Milka Larson NP aspirin EC tablet 81 mg 81 mg oral BID Jose F Yao MD 81 mg at 09/12/24 0930 ferrous sulfate EC tablet 325 mg 325 mg oral Daily Jose F Yao MD 325 mg at 09/11/24 1615 hydrALAZINE (APRESOLINE) injection 5 mg 5 mg intravenous Q6H PRN Mike Manjarrez APRN lisinopriL (ZESTRIL) tablet 20 mg 20 mg oral Daily Mike Manjarrez APRN 20 mg at 09/11/24 1614 And hydroCHLOROthiazide (HYDRODIURIL) tablet 25 mg 25 mg oral Daily Mike Manjarrez APRN 25 mg at09/12/24 0932 HYDROcodone-acetaminophen (NORCO) 7.5-325 mg per tablet 1 tablet 1 tablet oral Q6H PRN Jose F Yao MD HYDROmorphone (DILAUDID) injection 1 mg 1 mg intravenous Q4H PRN Jose F Yao MD hydrOXYzine (ATARAX) tablet 25 mg 25 mg oral Q6H PRN Jose F Yao MD meloxicam (MOBIC) tablet 7.5 mg 7.5 mg oral Q12H Jose F Yao MD 7.5 mg at 09/12/24 0932 naloxone (NARCAN) injection 0.2 mg 0.2 mg intravenous Q2 Min PRN Jose F Yao MD ondansetron (ZOFRAN-ODT) disintegrating tablet 4 mg 4 mg oral Q8H PRN Jose F Yao MD Or ondansetron (ZOFRAN) injection 4 mg 4 mg intravenous Q8H PRN Jose F Yao MD 4 mg at 09/11/24 1513 pantoprazole (PROTONIX) EC tablet 40 mg 40 mg oral Daily Jose F Yao MD 40 mg at 09/12/24 0932 polyethylene glycol (GLYCOLAX) packet 17 g 17 g oral Daily Jose F Yao MD 17 g at 09/12/24 0930 potassium chloride (KLOR-CON) ER tablet 10 mEq 10 mEq oral Daily Mike Manjarrez APRN 10 mEq at 09/12/24 0932 pravastatin (PRAVACHOL) tablet 80 mg 80 mg oral Every Night Mike Manjarrez APRN 80 mg at 09/11/24 2100 promethazine (PHENERGAN) tablet 25 mg 25 mg oral Q6H PRN Jose F Yao MD Or promethazine (PHENERGAN) 12.5 mg in sodium chloride 0.9 % (NS) 50 mL IVPB (Immediate Use Only) 12.5mg intravenous Q6H PRN Jose F Yao MD IVPB Stopped at 09/11/24 1723 sennosides (SENOKOT) tablet 17.2 mg 17.2 mg oral Every Night Jose F Yao MD 17.2 mg at 100 sertraline (ZOLOFT) tablet 25 mg 25 mg oral Daily Mike Manjarrez APRN 25 mg at 09/12/24 0928 sodium chloride 0.9 % infusion 125 mL/hr intravenous Continuous Jose F Yao MD 125 mL/hr at 09/12/24 0717 125 mL/hr at 09/12/24 0717 traMADoL (ULTRAM) tablet 50 mg 50 mg oral Q6H PRN Jose F Yao MD trospium (SANCTURA) tablet 20 mg 20 mg oral BID Mike Manjarrez APRN 20 mg at 09/12/24 0932 ANTIBIOTICS Anti-infectives (From admission, onward) Start Dose/Rate Route Frequency Ordered Stop 09/12/24 1200 ampicillin-sulbactam (UNASYN) 3 g in sodium chloride 0.9 % (NS) MBP 100 mL IVPB 3 g 200 mL/hr over 30 Minutes intravenous Every 6 hours scheduled 09/12/24 1006 Assessment and Plan Principal problem Acute intraoperative hypoxic respiratory failure Acute intraoperative hypoxic respiratory failure: Possible aspiration with bilateral lower lobe pneumonia present. Currently requiring 2 L nasal cannula saturating in the mid to upper 90s. Does not use O2 at baseline. IV unasyn ordered. Procal pending. NPO at this time due to worsening sx with coughing after sipping fluids pending Speech eval this am as discussed with pt and son at bedside. Albuterol nebs as needed. IS as instructed: good effort noted this am. S/p elective left total knee arthroplasty: Postop orthopedic surgery orders noted. Pain control perorthopedic surgery. PT/OT. Monitor for postoperative urinary retention. Hemaglobin stable with no active bleeding Hyperlipidemia: cont home dose of Pravachol 80 mg daily Hypertension: cont home dose of Lisinopril-HCTZ 20-25 mg daily GERD: PPI therapy as ordered Depression: cont. Home dose of Zoloft 25 g daily OAB: cont home dose of Detrol LA 4 mg daily DVT prophylaxis: ASA 81 mg twice daily, SHARYN hose, ambulation with use of walker The patient is moderate risk and is being admitted to [facility] telemetry on an observation status. Anticipate discharge tomorrow * Jailyn Bone RN - 09/12/2024 8:33 AM EDT DME- has rolling walker Therapy- [facility] at home for postop care and to transport home. Patient/family provided with [facility] approved choice list and Patient choice letter along with Quality data link to access Medicare.gov Care Compare website to review potential post-acute providers. Choice provided to patient/family, and patient preferences received and referral(s) submitted to requested providers. Referral(s) submitted to: [facility] * Katelynn Jacinto PA-C - 09/12/2024 8:19 AM EDT Date of Service: 09/12/2024 Name: Imani Mcdonald : 1945 Age: 79 y.o. Assessment/Plan: Status Post left Total Knee Arthroplasty. Post-Operative Day: 1 Discharge Planning home today pending medical clearance PT/OT to ambulate twice prior to discharge Patient will be weight bearing as tolerated: LLE Patient will be discharged to Home with Home Health to include PT/OT Home Health/Outpatient PT to: Evaluate and Treat, Follow TKA protocol to include gait training, increase motion, decrease pain and swelling. Pain medication sent to patient's preferred pharmacy: tramadol 50 mg and hydrocodone DVT Prophylaxis: ASA EC 81mg 1 po BID x 14 days Patient will follow up in office in 10-14 days with xrays Post Op Care Leave dressing intact until post operative follow up in office. May shower on post op day 2, no soaking, no scrubbing of incision/dressing. Wear Sharyn Hose until post-op visit, may remove to shower Use walker until safely able to walk with cane as directed by PT. CPM machine: start 0-60 degrees twice a day 2 hours each, advance 5 degrees daily Zero knee three times daily for 30 minutes each Subjective: Post-Operative Day: 1 s/p left Total Knee Arthroplasty Patient rates their pain as well controlled Systemic or Specific Complaints:No Complaints Patient reports working with PT yesterday and has not yet ambulated Objective: Vital signs in last 24 hours: Temp: [96.6 ??F (35.9 ??C)-97.7 ??F (36.5 ??C)] 97.7 ??F (36.5 ??C) Pulse: [56-80] 69 Resp: [8-36] 18 BP: (90-166)/(50-88) 90/52 FiO2 (%): [28 %] 28 % General: Alert and Oriented x 3, NAD Appearance Swelling present WNL post operatively Wound: Dressing intact no obvious evidence of erythema, no blistering present Motion: ROM of knee intact, decreased, with discomfort, able to dorsiflex and plantarflex foot NV Intact DVT Exam: -Homans with soft non tender calf Data Review CBC: Lab Results Component Value Date WBC 19.2 (H) 09/12/2024 RBC 3.76 09/12/2024 HGB 11.2 (L) 09/12/2024 HCT 33.4 (L) 09/12/2024 PLT 183 09/12/2024 XR chest AP portable Narrative: Portable chest HISTORY: Possible aspiration FINDINGS: Comparison date June 23, 2024. There is mild stable scar of the left lung base. Heart and pulmonary vessels appear within normal limits. Lung manzanares are clear of acute infiltrates or effusions. Impression: No acute process. XR knee 1 or 2 views left Narrative: Procedure: Left knee HISTORY: Arthroplasty FINDINGS: 2 views reveal a total knee replacement in normal anatomic alignment. No fractures are present. No hardware complications are identified. Impression: Normal-appearing knee arthroplasty. Electronically Signed, Katelynn Jacinto PA-C 09/12/24 8:19 AM EDT Cosigned by Jose F Yao MD at 09/12/2024 8:44 AM EDT * Kaye Valdez, PT - 09/11/2024 5:39 PM EDT Images from the original note were not included. Inpatient Physical Therapy Initial Evaluation Patient Name: Imani Mcdonald Date of : 1945 Date of Evaluation: 09/11/24 In Time 1605 Out Time 1634 Session Duration 29 minutes Time spent for nursing collaboration, chart and systems review, and clinical reasoning. 10 minutes Total Time 39 minutes Pt is a 79 y.o. female admitted on 09/11/2024 with Primary osteoarthritis of left knee [M17.12] Acute respiratory failure (HCC) [J96.00]. Past Medical History: Diagnosis Date Arthritis Hyperlipidemia Ocular migraine HISTORY OF Seasonal allergies Urinary incontinence Past Surgical History: Procedure Laterality Date CARPAL TUNNEL RELEASE Bilateral CATARACT EXTRACTION Bilateral CYSTECTOMY KNOT OFF OF NECK MAKOPLASTY,KNEE Left 09/11/2024 Procedure: ARTHROPLASTY, KNEE, ROBOT-ASSISTED; Surgeon: Jose F Yao MD; Location: [facility]; Service: Orthopedic Surgery; Laterality: Left; REPLACEMENT TOTAL KNEE Right General Visit Type: Initial Evaluation Approved By: Nurse Vargas Patient Disposition Upon Entry: Supine in bed, Call Light/Pull Cord in reach, All needs met and within reach, Nursing aware/notified, HOB >30 degrees, SCDs on, Sharyn hose on Patient Verified By: Name and Date of Cotreated with: OT Precautions Weight-Bearing Status: Weight Bearing As Tolerated (WBAT), L LE Precautions: Fall risk Isolation Precautions: Standard Lines, tubes, drains, airway: peripheral IV, nasal cannula, pulse oximeter, telemetry, blood pressure cuff Bracing: knee immobilizer Subjective Subjective: Patient agreeable to physical therapy evaluation and treatment. Pain Pt reported no pain. RN notified. Cognition Very lethargic, able to follow commands with additional time Home Living Pt reports at baseline, she is independent with mobility and ADL's using no device. She has a bedside commode, quad cane, rolling walker, and shower chair at home. She lives alone but her granddaughter will be assisting her at DC in a house with a ramp to enter. No hx of falls. Objective Vitals SpO2 >90% on 2L HR 60s-70s on playground monitor BP 109/64 beginning of session, 129/63 end of session Basic Strength Assessment L LE weakness postop, 3+/5 quad, hamstring strength, 3+/5 DF and PF strength; R LE strength WNL Range of Motion Assessment Decreased L knee ROM postop Sensation Pt reports decreased sensation to L LE postop. No chronic N/T. Coordination Coordination is intact and within normal limits. Functional Mobility Bed Mobility Supine to Sit: minimal assist, 1-person assist, HOB elevated Transfers Sit to Stand: moderate assist, 2-person assist, gait belt used, rolling walker, knee immobilizer Stand to Sit: minimal assist, 2-person assist, gait belt used, rolling walker, knee immobilizer Gait Pt ambulated 3' using RW with Bartolo x 2 for steadying. Knee immobilizer on throughout. Stair Management Pt unable due to weakness, lethargy, N/V Wheelchair Mobility Not assessed, patient ambulatory. AM-PAC Basic Mobility Inpatient Short Form How much difficulty does the patient currently have: Turning over in bed (including adjusting bedclothes, sheets, and blankets)? (3) A little (can do the activity without assistive devices or help from another person, but requires A LITTLE more time and effort) Sitting down on and standing up from a chair with arms (e.g., wheelchair, bedside commode, etc.)? (1) Total/Unable Moving from lying on back to sitting on side of bed? (1) Total/Unable How much help from another person does the patient currently need: Moving to and from a bed to a chair (including a wheelchair)? (3) A little Need to walk in hospital room? (1) Total/Unable Climbing 3-5 steps with a railing? (1) Total/Unable Score Raw score=10 Raw score=10 t-Scale score=32.29 Standard error=3.42 CMS 0-100%=76.75% MDC=4.72 A raw score of >= 16 is significantly associated with increased odds of discharge to home in addition to consideration made for the patient's cognition and social determinants of health. Balance Sitting balance SBA, Standing balance Bartolo RW Activity Tolerance Patient limited with activity/intervention due to weakness, N/V, lethargy Assessment Pt seen today for a mobility evaluation s/p left TKA on 09/11/24. Pt able to stand and ambulate 3 feet using the walker with two person minimal assistance. Ambulation distance limited by nausea/vomiting, lethargy, and weakness postop. Knee immobilizer on throughout. Pt will benefit from skilled PT to improve her strength and independence with functional mobility. Problems: Decreased functional mobility, Decreased gait tolerance, Decreased strength, Decreased activity tolerance, Impaired standing balance, Impaired dynamic balance, Gait impairment, Restricted ROM, Pain , Sensory deficits Rehab potential: Good for stated goals Plan Treatment Plan: Therapeutic Exercise, Therapeutic Activity, Gait Training, Neuromuscular Re-education, Transfer Training, Balance Training, Stair Training, Strengthening, Home Exercise Program, ROM, Wheelchair Management/Mobility Training, Pain Management, Patient/Family/Caregiver Education, DME Rec ommendations, Co-Treat with OT PT Frequency/Duration: 1-2x/day for 2 weeks Recommendations Discharge recommendations: Discharge home/prior living situation. Patient would benefit from continued therapy services. (Anticipate) DME recommendations: Patient has no DME/adaptive equipment discharge needs at this time. Goals Supine to/from sit: Pt will complete supine<>sit Karly Sit to/from stand: Pt will complete sit<>stand using RW SBA Gait: Pt will ambulate 150' using RW SBA Other Goal #1: Pt will be independent with HEP Target Date: 09/25/2024 Goals were discussed with patient and family Education Patient/Visitors educated on safety, use of call button, role of physical therapy, plan of care, therapeutic exercise, HEP packet, ambulation, transfers, bed mobility, ROM/positioning, stair negotiation, home safety, need for assistance and risk for falls and following, they were able to verbalize u nderstanding. No further questions or concerns stated. Patient Disposition Upon Leaving In bedside chair with chair alarm on and B LE elevated, Call Light/Pull Cord in reach, All needs met and within reach, Nursing aware/notified, HOB >30 degrees, Sharyn hose on, SpO2 96% on 2L If this patient discharges prior to next therapy session, this note serves as the patient's discharge summary. * Jena Luis, OTR/L - 09/11/2024 4:35 PM EDT Inpatient Occupational Therapy Initial Evaluation Patient Name: Imani Mcdonald Date of : 1945 Date of Evaluation: 09/11/24 Start Time: 1604 Stop Time: 1630 Session Duration: 26 minutes Total time: 36 minutes spent, including 10 minutes for nursing collaboration, thorough chart and systems review, and clinical reasoning. This patient is a 79 y.o. female admitted on 09/11/2024 with Primary osteoarthritis of left knee [M17.12] Acute respiratory failure (HCC) [J96.00]. Patient had Left TKA on 09/11/2024 Past Medical History: Diagnosis Date Arthritis Hyperlipidemia Ocular migraine HISTORY OF Seasonal allergies Urinary incontinence Past Surgical History: Procedure Laterality Date CARPAL TUNNEL RELEASE Bilateral CATARACT EXTRACTION Bilateral CYSTECTOMY KNOT OFF OF NECK MAKOPLASTY,KNEE Left 09/11/2024 Procedure: ARTHROPLASTY, KNEE, ROBOT-ASSISTED; Surgeon: Jose F Yao MD; Location: [facility] OR; Service: Orthopedic Surgery; Laterality: Left; REPLACEMENT TOTAL KNEE Right General Visit type: Initial Evaluation Approved by: Nursing Patient disposition upon entry: Patient verified by name, Patient verified by date of , Supinein bed, All needs met and within reach, Call light/pull cord in reach, Bed alarm applied, Head of bed >30 degrees, Nursing aware/notified Co-treated by: PT Precautions Weightbearing status: Weight bearing as tolerated (WBAT), Left lower extremity Precautions: Fall risk Isolation precautions: Standard LDA/Brace/Protective equipment: Lines, drains, and airways: blood pressure cuff, nasal cannula, peripheral IV, pulse oximeter , telemetry Brace/protective equipment: Knee immobilizer Subjective Subjective: Pt agreeable Pain No-patient reports 0/10 pain Pt with N.V; nurse notified and gave pt medication Cognition Cognition: Overall cognitive status: Patient is sleepy, easy to awaken, attending to directions appropriately, demonstrating good problem solving skills, and aware of any deficits or impairments, if present. Orientation level: Oriented x4 Following commands: Follows all commands and directions without difficulty Vision/Hearing History Visual/Hearing History: glasses Home Living Lives with: Alone Receives help from: Granddaughter staying with patient and providing 24/7 care Type of home: House Home layout: Ramped entrance , Able to live on main level with bedroom/bathroom access Bathroom layout: Walk in shower Home equipment available: bedside commode, cane, quad, shower chair, walker, rolling Functional Mobility PLOF: Patient reports being complete independent with all functional mobility prior to onset. Activities of Daily Living PLOF: Patient reports being complete independent with all ADL's prior toonset. Falls:0 Objective Vitals Vital signs stable throughout, no adverse reaction during activity Pt on 2L O2 NC throughout Range of Motion Assessment Normal: Patient is able to use bilateral upper extremities for reaching/grasping/holding objects inall planes, including above shoulder level Arthritis in hands Strength Assessment Good: Patient is able to use arms to pull, push, and hold moderate to maximal resistance at shoulder, elbow, and wrist. Coordination/Sensation Coordination: WFL Sensation: Light touch: Left LE decreased secondary to anesthesia; no prior N/T Bed Mobility Supine to sit: Minimal assistance, Head of bed elevated Transfers Sit to stand:Moderate assistance, 2 person assist, Gait belt used, Rolling walker used Stand to sit:Minimal assistance, 2 person assist, Gait belt used, Rolling walker used Functional mobility:Minimal assistance, 2 person assist, Gait belt used, Rolling walker used, standpivot to chair; pt limited by N/V ADLs Feeding:Setup Patient is a feeder: No Grooming:Standby Assist Bathing:KIMBER-Unable to assess Upper body dressing:Minimal Assistance Lower body dressing:Maximal Assistance Toileting:KIMBER-Unable to assess Outcome Measures [facility] Daily Living Functional Assessment How much help from another person does the patient currently need: Putting on and taking off regular lower body clothing? 2 Bathing, including washing, rinsing, and drying? 3 Toileting, including using toilet, bedpan or urinal? 2 Putting on and taking off regular upper body clothing? 3 Taking care of personal grooming such as brushing teeth? 3 Eating meals? 4 Raw Score 17/24 Total Score 50.11% impaired 1=Total/Unable (Total assist/Dependent) 2=A lot (Maximal/Moderate assist) 3=A little (Minimal/Contact guard/Supervision/Setup) 4=None (Modified independent/Independent) Raw Score Approximate Degree of Functional Impairment 6 100% 7 92.44% 8 85.69% 9 79.59% 10 74.70% 11 70.42% 12 66.57% 13 63.03% 14 59.67% 15 56.46% 16 53.32% 17 50.11% 18 46.65% 19 42.80% 20 38.32% 21 32.79% 22 25.80% 23 15.86% 24 0% A raw score of >= 19 is significantly associated with increased odds of discharge to home in addition to consideration made for the patient's cognition and social determinants of health. Balance Static sitting balance:Good: Patient able to maintain balance without handheld support; limited postural sway Dynamic sitting balance:Good: Patient accepts moderate challenge; able to maintain balance while picking object off the floor Static standing balance:Fair: Patient able to maintain balance with handheld support, may require occasional minimal assistance Dynamic standing balance:Fair: Patient accepts minimal challenge; able to maintain balance while turning head/trunk Activity Tolerance Patient limited with activity/intervention due to fatigue, nausea, and weakness Assessment Assessment Pt participated in OT eval and treat s/p Left TKA demonstrating decreased Ind with ADLs and functional mobility. Patient will benefit from skilled OT services to increase overall strength, balance, safety awareness, endurance, and activity tolerance required for increased ind with ADLs and ADL transfers. Problems: difficulty with ADLs, fall risk, impaired endurance, impaired functional mobility, impaired strength Rehab potential: Good for stated goals Plan Recommendations Discharge recommendations: Discharge home/prior living situation. Patient would benefit from continued therapy services., Patient would benefit from 1-2 hours of multidisciplinary therapy per day upon discharge from acute care setting to assist with returning to prior level of functioning. DME recommendations: Has needed eq Treatment Plan: ADL training, DME recommendations , Functional mobility/transfer training, Patient/family/caregiver education OT Frequency/Duration: Daily x 5 days Goals Upper body dressing: donning and doffing upper body dressing clothing with setup. Lower body dressing: donning and doffing lower body clothing with minimal assistance. Toileting: toileting with minimal assistance. Bed mobility: sit to supine, supine to sit with standby assist. Functional transfers: ambulatory transfer with minimal assistance and RW . Other goal 1: Pt will be ed on and verbalize understanding of energy conservation/work simplification techniques, home safety, car transfers, adaptive equipment, and lower body dressing techniques toincrease independence with ADLs at home Target Date: 09/15/2024 Goals were discussed with patient Education Patient educated on safety, use of call light, role of occupational therapy, patient's plan of care, ADLs, functional mobility, and following, they were able to verbalize understanding. Patient Disposition Upon Leaving Patient disposition upon leaving: Sitting in bedside chair, All needs met and within reach, Call light/pull cord in reach, Chair alarm applied, Feet elevated, Nursing aware/notified If this patient discharges prior to next therapy session, this note serves as the patient's discharge summary. Electronically signed by HUGO Powers/Kassy - 09/11/2024 - 4:35 PM EDT documented in this encounter H&P Notes * Mike Manjarrez APRN - 09/11/2024 12:32 PM EDT Images from the original note were not included. History & Physical - Date of Service: 09/11/2024 Name: Imani Mcdonald Room: Periop Pool Rooms/OR : 1945 Age: 79 y.o. @ATTENDING@ KYRIE LI SUBJECTIVE: Chief Complaint / Reason for Visit: Intraoperative hypoxia Source of History: Patient and family Case Discussed With: Dr. Castillo, anesthesiologist Medical Records Reviewed: PCP surgical clearance and orthopedic surgery office notes reviewed HPI: Imani Mcdonald is a 79 y.o. female with PMH as noted below presents with severe left knee osteoarthritis poorly controlled with conservative outpatient treatment who underwent elective left knee arthroplasty today. She received spinal anesthesia and not general anesthesia. Intraoperative patient apparently began to have frequent hacking cough and resulted into vomiting of bilious emesis. Apparently there was concern of aspiration thus ET tube inserted and minimal whitish secretions suctioned. She was then recovered in PACU. She is seen and evaluated at bedside by me in [facility]. Family is at bedside. She was on 4 L nasal cannula and saturating on cardiac bedside monitor 94-95%. She denies any complaints aside from being sleepy and thirsty. She denies shortness of breath, focal weakness or chestpain. Discussed with Dr. Castillo and recommended that patient be observed overnight and orthopedic surgeon Dr. Yao is in agreement. Patient will be admitted observation status to hospital medicine. Review of Systems Constitutional: Negative. HENT: Negative for congestion, nosebleeds, rhinorrhea, sore throat and trouble swallowing. Respiratory: Negative for cough, shortness of breath and wheezing. Cardiovascular: Negative for chest pain, palpitations and leg swelling. Gastrointestinal: Negative for abdominal distention, abdominal pain, diarrhea, nausea and vomiting. Genitourinary: Negative for difficulty urinating, dysuria, flank pain, frequency and urgency. Musculoskeletal: Negative for myalgias, neck pain and neck stiffness. Skin: Negative for color change and rash. Neurological: Negative for dizziness, facial asymmetry, speech difficulty, weakness, light-headedness and headaches. Hematological: Does not bruise/bleed easily. Psychiatric/Behavioral: Negative for confusion and dysphoric mood. HISTORY: Patient Active Problem List Diagnosis Date Noted Status post left knee replacement with ABUNDIO 09/11/24 09/11/2024 Acute respiratory failure (HCC) 09/11/2024 Hyperlipidemia Ocular migraine Seasonal allergies Urinary incontinence Past Surgical History: Procedure Laterality Date CARPAL TUNNEL RELEASE Bilateral CATARACT EXTRACTION Bilateral CYSTECTOMY KNOT OFF OF NECK REPLACEMENT TOTAL KNEE Right Oxycodone Social History Tobacco Use Smoking status: Never Smokeless tobacco: Never Substance Use Topics Alcohol use: Never Family History Problem Relation Name Age of Onset Arthritis Other Hyperlipidemia Other Prior to Encounter Medication List (as reviewed in [facility]) Medications calcium carbonate-vitamin D3 (Calcium 600 + D,3,) 600 mg-10 mcg (400 unit) tab Sig: one tablet everyday fexofenadine (Arlene Allergy) 180 MG tablet Sig: Take 1 tablet every day by oral route. fluticasone propionate (FLONASE) 50 mcg/actuation nasal spray Sig: SPRAY 1-2 TIMES IN EACH NOSTRIL AT BEDTIME glucosamine storm 2KCl-chondroit 750-600 mg tab Sig: Take 1 tablet every day by oral route. lansoprazole (PREVACID) 30 MG capsule Sig: TAKE 1 CAPSULE 1 TIME EACH DAY lisinopriL-hydroCHLOROthiazide (ZESTORETIC, PRINZIDE) 20-25 mg per tablet Sig: TAKE 1 TABLET 1 TIME EACH DAY potassium chloride (KLOR-CON) 10 MEQ tablet Sig: Take 1 tablet (10 mEq total) by mouth daily 1.5 TABS. pravastatin (PRAVACHOL) 80 MG tablet Sig: Take by mouth. sertraline (ZOLOFT) 25 MG tablet Sig: Take 1 tablet (25 mg total) by mouth daily. tolterodine (Detrol LA) 4 MG 24 hr capsule Sig: Take by mouth. vitamin E acid succinate (vitamin E succinate) 268 mg (400 unit) tab Sig: Take 1 tablet every day by oral route. Comments: None OBJECTIVE: Blood pressure 103/59, pulse 74, temperature 97.2 ??F (36.2 ??C), temperature source Temporal Artery, resp. rate 18, height 1.676 m (5' 6 ), weight 70.9 kg (156 lb 6.4 oz), SpO2 95%. Physical Exam Vitals and nursing note reviewed. Constitutional: General: Not in acute distress. Elderly [id number] female Appearance: Normal appearance. Not toxic-appearing. HENT: Head: Normocephalic and atraumatic. Comments: No facial asymmetry Mouth: Mucous membranes are moist. Pharynx: Oropharynx is clear. Eyes: Extraocular Movements: Extraocular movements intact. Conjunctiva/sclera: Conjunctivae normal. Cardiovascular: Rate and Rhythm: Normal rate and regular rhythm. Pulses: Normal pulses. Heart sounds: Normal heart sounds. Pulmonary: Effort: Pulmonary effort is normal. No respiratory difficulty or cough noted. Nasal cannula Breath sounds: Good air movement with scattered upper airway rhonchi.. Abdominal: General: Bowel sounds are normal. There is no distension. Palpations: Abdomen is soft. Tenderness: There is no abdominal tenderness. There is no guarding. Musculoskeletal: General: No swelling. Cervical back: Normal range of motion and neck supple. Right lower leg: No edema. Left lower leg: No edema. Comments: Limited range of motion of left knee due to post-op TKA, left lower extremity with full length postop Carlton wrap dressing and Polar Care, compression stockings, BLE palpable pedal pulses, wiggles toes Skin: General: Skin is warm and dry. Neurological: General: No focal deficit present. Mental Status: Alert and oriented to person, place, and time. Mental status is at baseline. Psychiatric: Mood and Affect: Mood normal. Radiology Results (last 3 days) Procedure Component Value Units Date/Time XR chest AP portable [[id number]] Collected: 09/11/24 1137 Order Status: Completed Updated: 09/11/24 1140 Narrative: Portable chest HISTORY: Possible aspiration FINDINGS: Comparison date June 23, 2024. There is mild stable scar of the left lung base. Heart and pulmonary vessels appear within normal limits. Lung manzanares are clear of acute infiltrates or effusions. Impression: No acute process. XR knee 1 or 2 views left [[id number]] Collected: 09/11/24 1120 Order Status: Completed Updated: 09/11/24 1123 Narrative: Procedure: Left knee HISTORY: Arthroplasty FINDINGS: 2 views reveal a total knee replacement in normal anatomic alignment. No fractures are present. No hardware complications are identified. Impression: Normal-appearing knee arthroplasty. ASSESSMENT & PLAN: UpToDate Search Principal problem Acute intraoperative hypoxic respiratory failure Acute intraoperative hypoxic respiratory failure: Possible aspiration. Currently requiring 2 L nasal cannula saturating mid 90s. Does not use O2 at baseline. Zosyn. Albuterol nebs as needed. S/p elective left total knee arthroplasty: Postop orthopedic surgery orders noted. Pain control perorthopedic surgery. PT/OT. Monitor for postoperative urinary retention. Monitor H&H on a.m. labs for acute blood loss. Hyperlipidemia: Pravachol 80 mg daily Hypertension: Lisinopril-HCTZ 20-25 mg daily GERD: PPI Depression: Zoloft 25 g daily OAB: Detrol LA 4 mg daily DVT prophylaxis: ASA 81 mg twice daily The patient is moderate risk and is being admitted to [facility] telemetry on an observation status. ELOS: Anticipate discharge tomorrow Electronically signed by: Mike Manjarrez APRN, 09/11/2024 at 12:32 PM Cosigned by Zabrina Snyder DO at 09/11/2024 1:02 PM EDT * Jose F Yao MD - 09/11/2024 6:53 AM EDT I have reviewed the above History & Physical and I have examined the patient. No changes have occurred since the above History & Physical. Jose F Yao MD Source Note - Katelynn Jacinto PA-C - 09/04/2024 11:08 AM EDT NAME: Imani Mcdonald CSN: [id number] : 1945 PCP: KYRIE LI REASON FOR VISIT Left knee pain [...] no fatigue, no mood swings. Scribe Attestation: I, Brenda Barrera CMA acted as a scribe and transcribed [...] contact office if seen CT left knee ABUNDIO ordered. In basket sent to [facility] for approval Surgical Procedure scheduled today in office: Left Total Knee Arthroplasty w/ ABUNDIO Special Surgical Procedure Needs: Knee Surgery: Pre-fabricated [...] your prescription refills for excessive abuse or local intermodal truck driver use. If necessary, you will be referred to painter helper. We will monitor your use of scheduled drugs through the [employer] program. In addition, we will follow the monitoring procedures required by the [facility]. The side effects of Schedule II [...] knee arthroplasty and has been recommended a Verna ABUNDIO implant to allow for increased accuracy of implant placement and precision in total knee balancing. As such, the patient will require a CT scan for pre-op planning. This technology allows the surgeon to utilize a 3D reconstruction of the patient's anatomy intra-operatively to allow for more accurate tensioning of the ligaments around the knee joint. The ABUNDIO robot allows the surgeon to make precise [...] scribing for Jose F Yao MD I, Anup S. Chattha, MD, have read and agree with the documentation that has been completed regarding this visit. By signing this record, I attest that the documentation was completed in my physical presence and is an accurate record of the encounter. Electronically Signed, Jose F Yao MD 09/04/2024 11:11 AM ADRIANT Ann Fatima: Elenita Sarabia [facility] is undergoing an EHR transition as of [...] Cosigned by Jose F Yao MD at 09/04/2024 11:47 AM EDT documented in this encounter Procedure Notes * Dee Carroll RN - 09/05/2024 12:21 PM EDT Ortho office informed RN that Dr. Yao wants Cath UA DOS. Order placed. documented in this encounter Consult Notes * Hayley Hampton, MS, RD, LD - 09/12/2024 3:10 PM EDTAssociated Order(s): FS_MODEL_IP IP CONSULT TO DIETITIAN Dietitian Screening Note The patient is a 79 y.o. female presented for elective knee arthroplasty. Present on Admission: Status post left knee replacement (Admitting Diagnoses) Nutrition Evaluation Type: Initial Assessment Reason for Evaluation: consult to add ONS Subjective Comments: 09/12: RD consulted to add ONS. Pt is on 2LNC in ICU s/p L total knee arthroplasty. Currently on regular diet, eating 50% of meals so far. Good appetite documented. Will add Ensures TID. Reviewed labs/meds. No skin breakdown. RD to rescreen in 7-10 days. Past Medical/Surgical History: Past Medical History: Diagnosis Date Arthritis Hyperlipidemia Ocular migraine HISTORY OF Seasonal allergies Urinary incontinence Past Surgical History: Procedure Laterality Date CARPAL TUNNEL RELEASE Bilateral CATARACT EXTRACTION Bilateral CYSTECTOMY KNOT OFF OF NECK MAKOPLASTY,KNEE Left 09/11/2024 Procedure: ARTHROPLASTY, KNEE, ROBOT-ASSISTED; Surgeon: Jose F Yao MD; Location: [facility]; Service: Orthopedic Surgery; Laterality: Left; REPLACEMENT TOTAL KNEE Right Anthropometrics: Height: 167.6 cm (5' 6 ) Weight: 76.9 kg (169 lb 8 oz) Wt hx: Wt Readings from Last 10 Encounters: 09/11/24 76.9 kg (169 lb 8 oz) 05/27/24 68 kg (150 lb) Body mass index is 27.36 kg/m??. Nutrition Monitoring and Goals: -Continue regular diet. RD to add Ensure TID. Goal: >50% of intakes (Goal met) -Obtain wt 2x weekly Goal: avoid involuntary significant wt change Nutrition Risk Level: No Risk Hayley Hampton, , RD, LD documented in this encounter Nursing Notes * Shira Hilton RN - 09/11/2024 10:38 AM EDT Upon finishing surgery, the sharyn hose was applied to the left knee after dressing was placed. Noticed bruising on the medial side of the incision. Provider made aware as well as the PA. documented in this encounter OR Notes * Op Note - Jose F Yao MD - 09/11/2024 10:43 AM EDT DATE OF PROCEDURE: 09/11/2024 PREOPERATIVE DIAGNOSIS: Left knee advanced osteoarthritis with valgus and flexion contracture. POSTOPERATIVE DIAGNOSIS: Left knee advanced osteoarthritis with valgus and flexion contracture. PROCEDURE PERFORMED: Left total knee arthroplasty using Abundio robotic assistance ([employer] Triathlon System using cementless technology with cruciate-retaining size 4 femur, size 4 tibia, 11 mm deep-dish highly cross-linked X3 polyethylene insert, and 29 mm asymmetric cementless patella). ASSISTANTS: 1. Kateylnn Jacinto PA-C. 2. Kaylee Pardo CFA. 3. Nicole Zamora LPN. ANESTHESIA: Spinal with general added later due to possible aspiration. ESTIMATED BLOOD LOSS: Approximately 150 mL. DRAINS: None. COMPLICATIONS: Possible aspiration during the procedure, but the patient remained stable throughout. Anesthesia placed an endotracheal tube and was able to suction out some green fluid, possibly bile. Chest x-ray will be ordered postoperatively. OPERATIVE INDICATIONS: Imani is a really pleasant 79-year-old female, who had previously undergone successful right total knee replacement and now presented for elective treatment of her left knee. She stated that she was really sensitive to the oxycodone postoperatively and she wished to have just a milder pain medication. She had failed conservative treatment and wished to undergo replacement. Prior to surgery, risks, benefits, and alternatives were discussed with the patient and informed consent was obtained. DESCRIPTION OF PROCEDURE: I saw Imani in the preoperative holding area and marked her left knee. All questions were answered. She received prophylactic antibiotics, preoperative Decadron and tranexamic acid. She underwent an adductor canal block. Once in the operating room, a spinal anesthetic was induced, which was effective and seemed to be quite good. She was given IV sedation through Diprivan drip and we proceeded with a standard prep and drape to the left lower extremity. We paused for an appropriate time-out. We then exsanguinated the leg and elevated our tourniquet to 250 mmHg. Total tourniquet time was approximately 35 minutes. I used a standard midline incision with a medial parapatellar arthrotomy. We everted the patella and hyperflexed the knee. There was severe osteophytes noted, which we removed. We attached the trackers on the tibia and femur for the [employer] system along with the [employer] checkpoints. We then proceeded with systematic registration. This would align with our preoperative CT scan. We went through recording, lower [place] alignment, corrected alignment, and then gap balancing. We were able to adjust her components to get good balance in flexion and extension. We then brought in the [employer] robotic arm. We had removed both menisci and the anterior cruciate ligament. On this side, I elected to try to save the PCL first and if not convert to a PS knee. We used the [employer] robotic arm to make our tibial cut and then all of our femoral cuts. This allowed us to place our components in place. We aligned our tibial plate with the [employer] green guide and then pinned it. We broached, which confirmed excellent bone quality. We elected to go cementless just like we did on her opposite knee. On the femur, size 4 fit well as to the tibia size 4. We inserted an 11 mm insert, which now gave us full extension rather than the 10-degree flexion contracture that she had preoperatively. We also reduced her valgus from 4 degrees down to 1 degree. Kinematics seemed excellent. We had stable flexion to about 150 degrees. The patella cut freehand with the precision saw. This sized to a size 29. We drilled the 3-peg holes and placed the final implant. We now removed the trial femur and tibia and thoroughly washed and dried the bony surfaces. Final components were impacted and fit well and were well seated. We inserted the 11 mm insert. We recorded our final data and then removed trackers and checkpoints. Our tourniquet was released at 35 minutes. We used electrocautery for hemostasis. The patient received a second dose of tranexamic acid. At this point, we became aware that the patient had been converted to endotracheal intubation, but she had remained stable throughout the entire procedure. Saturations were 99% with a blood pressure of 105/53. After standard wash with vancomycin solution, I applied a periarticular ropivacaine cocktail. We then proceeded with standard closure and dressings. The patient was transferred to the recovery room in stable condition. She tolerated the procedure well. We will consult Medical to assess for a possible aspiration. I was planning on keeping her overnight regardless. /[id number] Jose F Yao MD ASC/AQ / ASC / AQS /[id number] documented in this encounter Miscellaneous Notes * Plan of Care - Norma Lee RN - 09/13/2024 11:10 AM EDT Problem: Pain Goal: Patient's pain/discomfort is manageable Description: Assess and monitor patient's pain using appropriate pain scale. Collaborate with interdisciplinary team and initiate plan and interventions as ordered. Re-assess patient's pain level after pain management intervention. 09/13/2024 1110 by Norma Lee RN Outcome: Adequate for Discharge 09/13/2024 0800 by Norma Lee RN Outcome: Progressing Problem: Safety Goal: Patient will be injury free during hospitalization Description: Assess and monitor vitals signs, neurological status including level of consciousness and orientation. Assess patient's risk for falls and implement fall prevention plan of care and interventions per hospital policy. Ensure arm band on, uncluttered walking paths in room, adequate room lighting, call light and overbed table within reach, bed in low position, wheels locked, side rails up per policy, and non-skid footwear provided. 09/13/2024 111 by Norma Lee RN Outcome: Adequate for Discharge 09/13/2024 08 by Norma Lee RN Outcome: Progressing Problem: Potential for Developing a Blood Clot Goal: Tissue perfusion is adequate - venous Description: Assess and monitor skin color and temperature, skin integrity, pulses, capillary refill, edema, pain in extremities, Homans' sign, labs (D- dimer), and diagnostic tests (ultrasound, CT scan, VQ scan). Monitor for signs and symptoms of deep vein thrombosis (swelling of calf/thigh, redness, pain, tenderness). Monitor for signs and symptoms of pulmonary embolism (dyspnea, tachypnea, tachycardia). Collaborate with interdisciplinary team and initiate plans and interventions as needed 09/13/20241109 by Norma Lee RN Outcome: Adequate for Discharge 09/13/2024799 by Norma Lee RN Outcome: Progressing Problem: Daily Care Goal: Daily care needs are met Description: Assess and monitor ability to perform self care and identify potential discharge needs. 09/13/20241109 by Norma Lee RN Outcome: Adequate for Discharge 09/13/2024799 by Norma Lee RN Outcome: Progressing Problem: Potential for Infection Goal: Remains infection free Description: Assess and monitor vital signs, skin (color, moisture, integrity, turgor), respiratorystatus, urinary and gastrointestinal status, and labs (WBC, cultures). Administer antibiotics and antipyretics as ordered. Ensure aseptic care of all intravenous lines, invasive tubes/drains and wounds. Monitor for signs and symptoms of infection (redness, warmth, discharge, increased body temperature). Wash hands properly before and after each patient care activity. Follow isolation guidelines per hospital protocol/policy. Collaborate with interdisciplinary team and initiate plan and interventions as ordered. 09/13/20241109 by Norma Lee RN Outcome: Adequate for Discharge 09/13/2024799 by Norma Lee RN Outcome: Progressing Problem: Psychosocial Needs Goal: Demonstrates ability to cope with hospitalization/illness Description: Assess and monitor patients ability to cope with his/her illness. 09/13/2024 111 by Norma Lee RN Outcome: Adequate for Discharge 09/13/2024799 by Norma Lee RN Outcome: Progressing Goal: Collaborate with patient/family/caregiver to identify patient specific goals for this hospitalization 09/13/2024 1110 by Norma Lee RN Outcome: Adequate for Discharge 09/13/2024799 by Norma Lee RN Outcome: Progressing Problem: Anxiety Goal: Anxiety is at manageable level Description: Assess and monitor patient's anxiety level. Monitor for signs and symptoms of anxiety both physical and emotional (heart palpitations, chest pain, shortness of breath, headaches, nausea,feeling jumpy, restlessness, irritable, apprehensive). Collaborate with interdisciplinary team and initiate plan and interventions as ordered. 09/13/2024 111 by Norma Lee RN Outcome: Adequate for Discharge 09/13/2024799 by Norma Lee RN Outcome: Progressing Problem: Inadequate Coping Goal: Demonstrates ability to cope effectively Description: Patient is able to verbalize feelings related to emotional state. 09/13/20241109 by Norma Lee RN Outcome: Adequate for Discharge 09/13/2024799 by Norma Lee RN Outcome: Progressing Goal: Verbalizes adaptive coping mechanisms Description: Able to verbalize adaptive coping mechanisms such as physical activity, distraction, and deep breathing exercises. 09/13/20241109 by Norma Lee RN Outcome: Adequate for Discharge 09/13/2024799 by Norma Lee RN Outcome: Progressing Goal: Verbalizes personal strengths Description: Spend time with the patient using empathy and active listening skills. 09/13/20241109 by Norma Lee RN Outcome: Adequate for Discharge 09/13/2024799 by Norma Lee RN Outcome: Progressing Problem: Progressive Mobility Goal: BMAT Level 1 - With full mechanical lifting assistance: 09/13/20241109 by Norma Lee RN Outcome: Adequate for Discharge 09/13/2024799 by Norma Lee RN Outcome: Progressing Goal: BMAT Level 2 - With 2-person and/or mechanical lifting assistance: 09/13/2024 1110 by Norma Lee RN Outcome: Adequate for Discharge 09/13/2024 08 by Norma Lee RN Outcome: Progressing Goal: BMAT Level 3 - With 1 to 2-person and/or mechanical lifting assistance: 09/13/2024 1110 by Norma Lee RN Outcome: Adequate for Discharge 09/13/2024 08 by Norma Lee RN Outcome: Progressing Goal: BMAT Level 4 - With 1-person assistance or mobility aid as needed (walker, cane, crutches): 09/13/2024 1110 by Norma Lee RN Outcome: Adequate for Discharge 09/13/2024 08 by Norma Lee RN Outcome: Progressing Problem: Discharge Barriers Goal: Patient's discharge needs are met Description: Collaborate with interdisciplinary team and initiate plans and interventions as needed. 09/13/2024 1110 by Norma Lee RN Outcome: Adequate for Discharge 09/13/2024 08 by Norma Lee RN Outcome: Progressing Problem: Compromised Skin Integrity Goal: LTG - Patient will be free from infection 09/13/20241109 by Norma Lee RN Outcome: Adequate for Discharge 09/13/2024 08 by Norma Lee RN Outcome: Progressing Goal: LTG - Patient will maintain/improve skin integrity through proper skin care techniques 09/13/2024 1110 by Norma Lee RN Outcome: Adequate for Discharge 09/13/2024 08 by Norma Lee RN Outcome: Progressing Goal: LTG - Patient will demonstrate appropriate pressure relief techniques 09/13/2024 1110 by Norma Lee RN Outcome: Adequate for Discharge 09/13/2024 08 by Norma Lee RN Outcome: Progressing Goal: LTG - Patient will demonstrate appropriate skin care techniques 09/13/20240 by Norma Lee RN Outcome: Adequate for Discharge 09/13/2024 08 by Norma Lee RN Outcome: Progressing Goal: LTG - Patient will be free from infection 09/13/2024 1110 by Norma Lee RN Outcome: Adequate for Discharge 09/13/2024 08 by Norma Lee RN Outcome: Progressing Goal: STG - Patient demonstrates skin care/treatment/dressing change 09/13/2024 1110 by Norma Lee RN Outcome: Adequate for Discharge 09/13/2024 08 by Norma Lee RN Outcome: Progressing Goal: STG - Patient will maintain good skin integrity 09/13/2024 1110 by Norma Lee RN Outcome: Adequate for Discharge 09/13/2024 08 by Norma Lee RN Outcome: Progressing Goal: STG - Patient exhibits signs of wound healing. 09/13/20241109 by Norma Lee RN Outcome: Adequate for Discharge 09/13/2024 08 by Norma Lee RN Outcome: Progressing Goal: STG - Patient demonstrates pressure reduction techniques 09/13/20240 by Norma Lee RN Outcome: Adequate for Discharge 09/13/2024 08 by Norma Lee RN Outcome: Progressing Goal: STG - Patient demonstrates preventative skin care measures 09/13/20241109 by Norma Lee RN Outcome: Adequate for Discharge 09/13/2024 08 by Norma Lee RN Outcome: Progressing Problem: Knowledge Deficit Goal: Patient/family/caregiver demonstrates understanding of disease process, treatment plan, medications, and discharge instructions Description: Complete learning assessment and assess knowledge base. 09/13/20241109 by Norma Lee RN Outcome: Adequate for Discharge 09/13/2024 08 by Norma Lee RN Outcome: Progressing Problem: Potential for Falls Goal: Patient will remain free of falls Description: Assess and monitor vitals signs, neurological status including level of consciousness and orientation. Reassess fall risk per hospital policy.Ensure arm band on, uncluttered walking paths in room, adequate room lighting, call light and overbed table within reach, bed in low position, wheels locked, side rails up per policy, and non-skid footwear provided. 09/13/2024 111 by Norma Lee RN Outcome: Adequate for Discharge 09/13/2024 0800 by Norma Lee RN Outcome: Progressing * Plan of Care - Norma Lee RN - 09/13/2024 8:00 AM EDT Problem: Pain Goal: Patient's pain/discomfort is manageable Description: Assess and monitor patient's pain using appropriate pain scale. Collaborate with interdisciplinary team and initiate plan and interventions as ordered. Re-assess patient's pain level after pain management intervention. Outcome: Progressing Problem: Safety Goal: Patient will be injury free during hospitalization Description: Assess and monitor vitals signs, neurological status including level of consciousness and orientation. Assess patient's risk for falls and implement fall prevention plan of care and interventions per hospital policy. Ensure arm band on, uncluttered walking paths in room, adequate room lighting, call light and overbed table within reach, bed in low position, wheels locked, side rails up per policy, and non-skid footwear provided. Outcome: Progressing Problem: Potential for Developing a Blood Clot Goal: Tissue perfusion is adequate - venous Description: Assess and monitor skin color and temperature, skin integrity, pulses, capillary refill, edema, pain in extremities, Homans' sign, labs (D- dimer), and diagnostic tests (ultrasound, CT scan, VQ scan). Monitor for signs and symptoms of deep vein thrombosis (swelling of calf/thigh, redness, pain, tenderness). Monitor for signs and symptoms of pulmonary embolism (dyspnea, tachypnea, tachycardia). Collaborate with interdisciplinary team and initiate plans and interventions as needed Outcome: Progressing Problem: Daily Care Goal: Daily care needs are met Description: Assess and monitor ability to perform self care and identify potential discharge needs. Outcome: Progressing Problem: Potential for Infection Goal: Remains infection free Description: Assess and monitor vital signs, skin (color, moisture, integrity, turgor), respiratorystatus, urinary and gastrointestinal status, and labs (WBC, cultures). Administer antibiotics and antipyretics as ordered. Ensure aseptic care of all intravenous lines, invasive tubes/drains and wounds. Monitor for signs and symptoms of infection (redness, warmth, discharge, increased body temperature). Wash hands properly before and after each patient care activity. Follow isolation guidelines per hospital protocol/policy. Collaborate with interdisciplinary team and initiate plan and interventions as ordered. Outcome: Progressing Problem: Psychosocial Needs Goal: Demonstrates ability to cope with hospitalization/illness Description: Assess and monitor patients ability to cope with his/her illness. Outcome: Progressing Goal: Collaborate with patient/family/caregiver to identify patient specific goals for this hospitalization Outcome: Progressing Problem: Anxiety Goal: Anxiety is at manageable level Description: Assess and monitor patient's anxiety level. Monitor for signs and symptoms of anxiety both physical and emotional (heart palpitations, chest pain, shortness of breath, headaches, nausea,feeling jumpy, restlessness, irritable, apprehensive). Collaborate with interdisciplinary team and initiate plan and interventions as ordered. Outcome: Progressing Problem: Inadequate Coping Goal: Demonstrates ability to cope effectively Description: Patient is able to verbalize feelings related to emotional state. Outcome: Progressing Goal: Verbalizes adaptive coping mechanisms Description: Able to verbalize adaptive coping mechanisms such as physical activity, distraction, and deep breathing exercises. Outcome: Progressing Goal: Verbalizes personal strengths Description: Spend time with the patient using empathy and active listening skills. Outcome: Progressing Problem: Progressive Mobility Goal: BMAT Level 1 - With full mechanical lifting assistance: Outcome: Progressing Goal: BMAT Level 2 - With 2-person and/or mechanical lifting assistance: Outcome: Progressing Goal: BMAT Level 3 - With 1 to 2-person and/or mechanical lifting assistance: Outcome: Progressing Goal: BMAT Level 4 - With 1-person assistance or mobility aid as needed (walker, cane, crutches): Outcome: Progressing Problem: Discharge Barriers Goal: Patient's discharge needs are met Description: Collaborate with interdisciplinary team and initiate plans and interventions as needed. Outcome: Progressing Problem: Compromised Skin Integrity Goal: LTG - Patient will be free from infection Outcome: Progressing Goal: LTG - Patient will maintain/improve skin integrity through proper skin care techniques Outcome: Progressing Goal: LTG - Patient will demonstrate appropriate pressure relief techniques Outcome: Progressing Goal: LTG - Patient will demonstrate appropriate skin care techniques Outcome: Progressing Goal: LTG - Patient will be free from infection Outcome: Progressing Goal: STG - Patient demonstrates skin care/treatment/dressing change Outcome: Progressing Goal: STG - Patient will maintain good skin integrity Outcome: Progressing Goal: STG - Patient exhibits signs of wound healing. Outcome: Progressing Goal: STG - Patient demonstrates pressure reduction techniques Outcome: Progressing Goal: STG - Patient demonstrates preventative skin care measures Outcome: Progressing Problem: Knowledge Deficit Goal: Patient/family/caregiver demonstrates understanding of disease process, treatment plan, medications, and discharge instructions Description: Complete learning assessment and assess knowledge base. Outcome: Progressing Problem: Potential for Falls Goal: Patient will remain free of falls Description: Assess and monitor vitals signs, neurological status including level of consciousness and orientation. Reassess fall risk per hospital policy.Ensure arm band on, uncluttered walking paths in room, adequate room lighting, call light and overbed table within reach, bed in low position, wheels locked, side rails up per policy, and non-skid footwear provided. Outcome: Progressing * Plan of Care - Pushpa Naik RN - 09/12/2024 9:32 PM EDT Problem: Pain Goal: Patient's pain/discomfort is manageable Description: Assess and monitor patient's pain using appropriate pain scale. Collaborate with interdisciplinary team and initiate plan and interventions as ordered. Re-assess patient's pain level after pain management intervention. Outcome: Progressing Problem: Safety Goal: Patient will be injury free during hospitalization Description: Assess and monitor vitals signs, neurological status including level of consciousness and orientation. Assess patient's risk for falls and implement fall prevention plan of care and interventions per hospital policy. Ensure arm band on, uncluttered walking paths in room, adequate room lighting, call light and overbed table within reach, bed in low position, wheels locked, side rails up per policy, and non-skid footwear provided. Outcome: Progressing Problem: Potential for Developing a Blood Clot Goal: Tissue perfusion is adequate - venous Description: Assess and monitor skin color and temperature, skin integrity, pulses, capillary refill, edema, pain in extremities, Homans' sign, labs (D- dimer), and diagnostic tests (ultrasound, CT scan, VQ scan). Monitor for signs and symptoms of deep vein thrombosis (swelling of calf/thigh, redness, pain, tenderness). Monitor for signs and symptoms of pulmonary embolism (dyspnea, tachypnea, tachycardia). Collaborate with interdisciplinary team and initiate plans and interventions as needed Outcome: Progressing Problem: Daily Care Goal: Daily care needs are met Description: Assess and monitor ability to perform self care and identify potential discharge needs. Outcome: Progressing * Plan of Care - Sma Diamond RN - 09/12/2024 10:21 AM EDT Problem: Pain Goal: Patient's pain/discomfort is manageable Description: Assess and monitor patient's pain using appropriate pain scale. Collaborate with interdisciplinary team and initiate plan and interventions as ordered. Re-assess patient's pain level after pain management intervention. Outcome: Progressing Problem: Safety Goal: Patient will be injury free during hospitalization Description: Assess and monitor vitals signs, neurological status including level of consciousness and orientation. Assess patient's risk for falls and implement fall prevention plan of care and interventions per hospital policy. Ensure arm band on, uncluttered walking paths in room, adequate room lighting, call light and overbed table within reach, bed in low position, wheels locked, side rails up per policy, and non-skid footwear provided. Outcome: Progressing Problem: Potential for Developing a Blood Clot Goal: Tissue perfusion is adequate - venous Description: Assess and monitor skin color and temperature, skin integrity, pulses, capillary refill, edema, pain in extremities, Homans' sign, labs (D- dimer), and diagnostic tests (ultrasound, CT scan, VQ scan). Monitor for signs and symptoms of deep vein thrombosis (swelling of calf/thigh, redness, pain, tenderness). Monitor for signs and symptoms of pulmonary embolism (dyspnea, tachypnea, tachycardia). Collaborate with interdisciplinary team and initiate plans and interventions as needed Outcome: Progressing Problem: Daily Care Goal: Daily care needs are met Description: Assess and monitor ability to perform self care and identify potential discharge needs. Outcome: Progressing Problem: Potential for Infection Goal: Remains infection free Description: Assess and monitor vital signs, skin (color, moisture, integrity, turgor), respiratorystatus, urinary and gastrointestinal status, and labs (WBC, cultures). Administer antibiotics and antipyretics as ordered. Ensure aseptic care of all intravenous lines, invasive tubes/drains and wounds. Monitor for signs and symptoms of infection (redness, warmth, discharge, increased body temperature). Wash hands properly before and after each patient care activity. Follow isolation guidelines per hospital protocol/policy. Collaborate with interdisciplinary team and initiate plan and interventions as ordered. Outcome: Progressing Problem: Psychosocial Needs Goal: Demonstrates ability to cope with hospitalization/illness Description: Assess and monitor patients ability to cope with his/her illness. Outcome: Progressing Goal: Collaborate with patient/family/caregiver to identify patient specific goals for this hospitalization Outcome: Progressing Problem: Anxiety Goal: Anxiety is at manageable level Description: Assess and monitor patient's anxiety level. Monitor for signs and symptoms of anxiety both physical and emotional (heart palpitations, chest pain, shortness of breath, headaches, nausea,feeling jumpy, restlessness, irritable, apprehensive). Collaborate with interdisciplinary team and initiate plan and interventions as ordered. Outcome: Progressing Problem: Inadequate Coping Goal: Demonstrates ability to cope effectively Description: Patient is able to verbalize feelings related to emotional state. Outcome: Progressing Goal: Verbalizes adaptive coping mechanisms Description: Able to verbalize adaptive coping mechanisms such as physical activity, distraction, and deep breathing exercises. Outcome: Progressing Goal: Verbalizes personal strengths Description: Spend time with the patient using empathy and active listening skills. Outcome: Progressing Problem: Progressive Mobility Goal: BMAT Level 1 - With full mechanical lifting assistance: Outcome: Progressing Goal: BMAT Level 2 - With 2-person and/or mechanical lifting assistance: Outcome: Progressing Goal: BMAT Level 3 - With 1 to 2-person and/or mechanical lifting assistance: Outcome: Progressing Goal: BMAT Level 4 - With 1-person assistance or mobility aid as needed (walker, cane, crutches): Outcome: Progressing Problem: Discharge Barriers Goal: Patient's discharge needs are met Description: Collaborate with interdisciplinary team and initiate plans and interventions as needed. Outcome: Progressing Problem: Compromised Skin Integrity Goal: LTG - Patient will be free from infection Outcome: Progressing Goal: LTG - Patient will maintain/improve skin integrity through proper skin care techniques Outcome: Progressing Goal: LTG - Patient will demonstrate appropriate pressure relief techniques Outcome: Progressing Goal: LTG - Patient will demonstrate appropriate skin care techniques Outcome: Progressing Goal: LTG - Patient will be free from infection Outcome: Progressing Goal: STG - Patient demonstrates skin care/treatment/dressing change Outcome: Progressing Goal: STG - Patient will maintain good skin integrity Outcome: Progressing Goal: STG - Patient exhibits signs of wound healing. Outcome: Progressing Goal: STG - Patient demonstrates pressure reduction techniques Outcome: Progressing Goal: STG - Patient demonstrates preventative skin care measures Outcome: Progressing Problem: Knowledge Deficit Goal: Patient/family/caregiver demonstrates understanding of disease process, treatment plan, medications, and discharge instructions Description: Complete learning assessment and assess knowledge base. Outcome: Progressing Problem: Potential for Falls Goal: Patient will remain free of falls Description: Assess and monitor vitals signs, neurological status including level of consciousness and orientation. Reassess fall risk per hospital policy.Ensure arm band on, uncluttered walking paths in room, adequate room lighting, call light and overbed table within reach, bed in low position, wheels locked, side rails up per policy, and non-skid footwear provided. Outcome: Progressing * Plan of Care - Jay Huang RN - 09/11/2024 7:48 PM EDT Problem: Pain Goal: Patient's pain/discomfort is manageable Description: Assess and monitor patient's pain using appropriate pain scale. Collaborate with interdisciplinary team and initiate plan and interventions as ordered. Re-assess patient's pain level after pain management intervention. Outcome: Progressing Problem: Safety Goal: Patient will be injury free during hospitalization Description: Assess and monitor vitals signs, neurological status including level of consciousness and orientation. Assess patient's risk for falls and implement fall prevention plan of care and interventions per hospital policy. Ensure arm band on, uncluttered walking paths in room, adequate room lighting, call light and overbed table within reach, bed in low position, wheels locked, side rails up per policy, and non-skid footwear provided. Outcome: Progressing Problem: Potential for Developing a Blood Clot Goal: Tissue perfusion is adequate - venous Description: Assess and monitor skin color and temperature, skin integrity, pulses, capillary refill, edema, pain in extremities, Homans' sign, labs (D- dimer), and diagnostic tests (ultrasound, CT scan, VQ scan). Monitor for signs and symptoms of deep vein thrombosis (swelling of calf/thigh, redness, pain, tenderness). Monitor for signs and symptoms of pulmonary embolism (dyspnea, tachypnea, tachycardia). Collaborate with interdisciplinary team and initiate plans and interventions as needed Outcome: Progressing Problem: Daily Care Goal: Daily care needs are met Description: Assess and monitor ability to perform self care and identify potential discharge needs. Outcome: Progressing Problem: Potential for Infection Goal: Remains infection free Description: Assess and monitor vital signs, skin (color, moisture, integrity, turgor), respiratorystatus, urinary and gastrointestinal status, and labs (WBC, cultures). Administer antibiotics and antipyretics as ordered. Ensure aseptic care of all intravenous lines, invasive tubes/drains and wounds. Monitor for signs and symptoms of infection (redness, warmth, discharge, increased body temperature). Wash hands properly before and after each patient care activity. Follow isolation guidelines per hospital protocol/policy. Collaborate with interdisciplinary team and initiate plan and interventions as ordered. Outcome: Progressing Problem: Psychosocial Needs Goal: Demonstrates ability to cope with hospitalization/illness Description: Assess and monitor patients ability to cope with his/her illness. Outcome: Progressing Goal: Collaborate with patient/family/caregiver to identify patient specific goals for this hospitalization Outcome: Progressing Problem: Anxiety Goal: Anxiety is at manageable level Description: Assess and monitor patient's anxiety level. Monitor for signs and symptoms of anxiety both physical and emotional (heart palpitations, chest pain, shortness of breath, headaches, nausea,feeling jumpy, restlessness, irritable, apprehensive). Collaborate with interdisciplinary team and initiate plan and interventions as ordered. Outcome: Progressing Problem: Inadequate Coping Goal: Demonstrates ability to cope effectively Description: Patient is able to verbalize feelings related to emotional state. Outcome: Progressing Goal: Verbalizes adaptive coping mechanisms Description: Able to verbalize adaptive coping mechanisms such as physical activity, distraction, and deep breathing exercises. Outcome: Progressing Goal: Verbalizes personal strengths Description: Spend time with the patient using empathy and active listening skills. Outcome: Progressing Problem: Progressive Mobility Goal: BMAT Level 1 - With full mechanical lifting assistance: Outcome: Progressing Goal: BMAT Level 2 - With 2-person and/or mechanical lifting assistance: Outcome: Progressing Goal: BMAT Level 3 - With 1 to 2-person and/or mechanical lifting assistance: Outcome: Progressing Goal: BMAT Level 4 - With 1-person assistance or mobility aid as needed (walker, cane, crutches): Outcome: Progressing Problem: Discharge Barriers Goal: Patient's discharge needs are met Description: Collaborate with interdisciplinary team and initiate plans and interventions as needed. Outcome: Progressing Problem: Compromised Skin Integrity Goal: LTG - Patient will be free from infection Outcome: Progressing Goal: LTG - Patient will maintain/improve skin integrity through proper skin care techniques Outcome: Progressing Goal: LTG - Patient will demonstrate appropriate pressure relief techniques Outcome: Progressing Goal: LTG - Patient will demonstrate appropriate skin care techniques Outcome: Progressing Goal: LTG - Patient will be free from infection Outcome: Progressing Goal: STG - Patient demonstrates skin care/treatment/dressing change Outcome: Progressing Goal: STG - Patient will maintain good skin integrity Outcome: Progressing Goal: STG - Patient exhibits signs of wound healing. Outcome: Progressing Goal: STG - Patient demonstrates pressure reduction techniques Outcome: Progressing Goal: STG - Patient demonstrates preventative skin care measures Outcome: Progressing * Plan of Care - Sam Diamond RN - 09/11/2024 6:49 PM EDT Problem: Pain Goal: Patient's pain/discomfort is manageable Description: Assess and monitor patient's pain using appropriate pain scale. Collaborate with interdisciplinary team and initiate plan and interventions as ordered. Re-assess patient's pain level after pain management intervention. Outcome: Progressing Problem: Safety Goal: Patient will be injury free during hospitalization Description: Assess and monitor vitals signs, neurological status including level of consciousness and orientation. Assess patient's risk for falls and implement fall prevention plan of care and interventions per hospital policy. Ensure arm band on, uncluttered walking paths in room, adequate room lighting, call light and overbed table within reach, bed in low position, wheels locked, side rails up per policy, and non-skid footwear provided. Outcome: Progressing Problem: Potential for Developing a Blood Clot Goal: Tissue perfusion is adequate - venous Description: Assess and monitor skin color and temperature, skin integrity, pulses, capillary refill, edema, pain in extremities, Homans' sign, labs (D- dimer), and diagnostic tests (ultrasound, CT scan, VQ scan). Monitor for signs and symptoms of deep vein thrombosis (swelling of calf/thigh, redness, pain, tenderness). Monitor for signs and symptoms of pulmonary embolism (dyspnea, tachypnea, tachycardia). Collaborate with interdisciplinary team and initiate plans and interventions as needed Outcome: Progressing Problem: Daily Care Goal: Daily care needs are met Description: Assess and monitor ability to perform self care and identify potential discharge needs. Outcome: Progressing Problem: Potential for Infection Goal: Remains infection free Description: Assess and monitor vital signs, skin (color, moisture, integrity, turgor), respiratorystatus, urinary and gastrointestinal status, and labs (WBC, cultures). Administer antibiotics and antipyretics as ordered. Ensure aseptic care of all intravenous lines, invasive tubes/drains and wounds. Monitor for signs and symptoms of infection (redness, warmth, discharge, increased body temperature). Wash hands properly before and after each patient care activity. Follow isolation guidelines per hospital protocol/policy. Collaborate with interdisciplinary team and initiate plan and interventions as ordered. Outcome: Progressing Problem: Psychosocial Needs Goal: Demonstrates ability to cope with hospitalization/illness Description: Assess and monitor patients ability to cope with his/her illness. Outcome: Progressing Goal: Collaborate with patient/family/caregiver to identify patient specific goals for this hospitalization Outcome: Progressing Problem: Anxiety Goal: Anxiety is at manageable level Description: Assess and monitor patient's anxiety level. Monitor for signs and symptoms of anxiety both physical and emotional (heart palpitations, chest pain, shortness of breath, headaches, nausea,feeling jumpy, restlessness, irritable, apprehensive). Collaborate with interdisciplinary team and initiate plan and interventions as ordered. Outcome: Progressing Problem: Inadequate Coping Goal: Demonstrates ability to cope effectively Description: Patient is able to verbalize feelings related to emotional state. Outcome: Progressing Goal: Verbalizes adaptive coping mechanisms Description: Able to verbalize adaptive coping mechanisms such as physical activity, distraction, and deep breathing exercises. Outcome: Progressing Goal: Verbalizes personal strengths Description: Spend time with the patient using empathy and active listening skills. Outcome: Progressing Problem: Progressive Mobility Goal: BMAT Level 1 - With full mechanical lifting assistance: Outcome: Progressing Goal: BMAT Level 2 - With 2-person and/or mechanical lifting assistance: Outcome: Progressing Goal: BMAT Level 3 - With 1 to 2-person and/or mechanical lifting assistance: Outcome: Progressing Goal: BMAT Level 4 - With 1-person assistance or mobility aid as needed (walker, cane, crutches): Outcome: Progressing Problem: Discharge Barriers Goal: Patient's discharge needs are met Description: Collaborate with interdisciplinary team and initiate plans and interventions as needed. Outcome: Progressing documented in this encounter Plan of Treatment Upcoming Encounters Date Type Department Care Team (Late st Contact Info) Description 09/23/2024 10:00 AM EDT Office Visit [facility] - [address] [id number] Jose F Yao MD [address] [place] [id number] Scheduled Referrals Name Type Priority Associated Diagnoses Orde r Schedule Ambulatory referral to Home Health Outpatient Referral Routine Status post left knee replacement with ABUNDIO 09/11/24 Expected: 09/12/2024, Expires: 09/12/2025 documented as of this encounter Procedures Procedure Name Priority Date/Time Associated Diagnosis Comments CBC W/ AUTO DIFF Routine 09/13/2024 3:44 AM EDT PROCALCITONIN Routine 09/13/2024 3:44 AM EDT MAGNESIUM Routine 09/13/2024 3:44 AM EDT BASIC METABOLIC PANEL Routine 09/13/2024 3:44 AM EDT NOVA GLUCOSE POC Routine 09/13/2024 2:53 AM EDT XR CHEST AP PORTABLE STAT 09/12/2024 9:22 AM EDT CBC W/ AUTO DIFF Routine 09/12/2024 4:30 AM EDT PROCALCITONIN STAT 09/12/2024 4:29 AM EDT BASIC METABOLIC PANEL Routine 09/12/2024 4:29 AM EDT XR CHEST AP PORTABLE Routine 09/11/2024 10:59 AM EDT XR KNEE 1 OR 2 VIEWS LEFT STAT 09/11/2024 10:59 AM EDT [facility] Routine 09/11/2024 9:29 AM EDT Primary osteoarthritis of left knee GA ARTHRP KNE CONDYLE&PLATU MEDIAL&LAT COMPARTMENTS 09/11/2024 8:48 AM EDT Primary osteoarthritis of left knee Case Notes 0700 URINALYSIS, REFLEX MICROSCOPIC AND CULTURE IF INDICATED STAT 09/11/2024 7:11 AM EDT documented in this encounter Results * (ABNORMAL) Magnesium (09/13/2024 3:44 AM EDT) Magnesium 1.6(L) 1.8 - 2.4 mg/dL 09/13/2024 5:13 AM EDT [facility] Blood Venipuncture / Unknown 09/13/2024 3:44 AM EDT 09/13/2024 4:27 AM EDT Marcella Quintanilla CASINO SHIFT MANAGER LAB BLOOD ORDERABLES Final Re sult [facility] [address] [place], [place] [id number] [phone] * (ABNORMAL) Procalcitonin (09/13/2024 3:44 AM EDT) Procalcitonin 2.38(H) <=0.50 ng/mL 09/13/2024 5:39 AM EDT [facility] Comment: Sepsis comment <0.5 Antibiotics Discouraged >0.5 Antibiotics Encouraged *Assessing Sepsis Risk and Severity* >2.0 ng/mL High Risk for Progression to severe sepsis and/or septic shock 0.5-2.0 ng/mL Sepsis should be considered <0.5 ng/mL Low Risk for Progression to Severe and/or septic shock Lower Respiratory Tract Infection (LRT) <0.25 Antibiotics Discouraged >0.25 Antibiotics Encouraged *Procalcitonin results should be interpreted carefully in settings that are known to falsely elevate results such as renal failure, trauma, localized infections and eubanks. Blood Venipuncture / Unknown 09/13/2024 3:44 AM EDT 09/13/2024 4:27 AM EDT Milka Larson LAB BLOOD ORDERABLES Final Result [facility] [address] [place], [place] [id number] [phone] * (ABNORMAL) CBC with automated diff (09/13/2024 3:44 AM EDT) WBC 10.9(H) 4.8 - 10.8 K/ L 09/13/2024 4:36 AM EDT [facility] RBC 3.20(L) 3.50 - 5.20 M/ L 09/13/2024 4:36 AM EDT [facility] Hemoglobin 9.5(L) 11.7 - 15.8 GM/DL 09/13/2024 4:36 AM EDT [facility] Hematocrit 27.8(L) 35.0 - 47.0 % 09/13/2024 4:36 AM EDT [facility] MCV 87 81 - 101 fL 09/13/2024 4:36 AM EDT [facility] MCH 29.7 27.0 - 34.0 pg 09/13/2024 4:36 AM EDT [facility] MCHC 34.2 32.0 - 36.0 GM/DL 09/13/2024 4:36 AM EDT [facility] RDW 13.1 11.5 - 14.5 % 09/13/2024 4:36 AM EDT [facility] Platelets 173 150 - 400 K/CU MM 09/13/2024 4:36 AM EDT [facility] MPV 9.6 9.4 - 12.4 fL 09/13/2024 4:36 AM EDT [facility] Nucleated Red Blood Cell 0.0 0 - 0.2 % 09/13/2024 4:36 AM EDT [facility] % Neutros 80 37 - 80 % 09/13/2024 4:36 AM EDT [facility] % Lymphs 10 10 - 50 % 09/13/2024 4:36 AM EDT [facility] % Monos 9 5 - 13 % 09/13/2024 4:36 AM EDT [facility] % Eos 0 0 - 7 % 09/13/2024 4:36 AM EDT [facility] % Baso 0 0 - 3 % 09/13/2024 4:36 AM EDT [facility] NRBC Absolute <0.01 0 - 0.012 K/ul 09/13/2024 4:36 AM EDT [facility] # Neutros 8.71(H) 2.00 - 6.90 K/ L 09/13/2024 4:36 AM EDT [facility] # Lymphs 1.08 0.60 - 3.40 K/ L 09/13/2024 4:36 AM EDT [facility] # Monos 1.00(H) 0.00 - 0.90 K/ L 09/13/2024 4:36 AM EDT [facility] # Eos 0.00 0.00 - 0.70 K/ L 09/13/2024 4:36 AM EDT [facility] # Baso 0.01 0.00 - 0.20 K/ L 09/13/2024 4:36 AM EDT [facility] Immature Granulocytes-Re lative 0.60 % 09/13/2024 4:36 AM EDT [facility] # IG 0.07(H) 0.00 - 0.00 K/uL 09/13/2024 4:36 AM EDT [facility] Blood Venipuncture / Unknown 09/13/2024 3:44 AM EDT 09/13/2024 4:27 AM EDT Narrative [facility] - 09/13/2024 4:36 AM EDT When CBC w/ Auto Diff [...] Flag noted Atypical Lymph flag noted us Mike Manjarrez CASINO SHIFT MANAGER LAB BLOOD ORDERABLES F inal Result [facility] [address] [place] [address] * (ABNORMAL) Basic Metabolic Panel (09/13/2024 3:44 AM EDT) Sodium 137 136 - 145 meq/L 09/13/2024 5:14 AM EDT [facility] Potassium 3.1(L) 3.5 - 5.1 meq/L 09/13/2024 5:14 AM EDT [facility] Chloride 102 98 - 107 meq/L 09/13/2024 5:14 AM EDT [facility] CO2 30 21 - 32 meq/L 09/13/2024 5:14 AM EDT [facility] Anion Gap 8(L) 11 - 22 09/13/2024 5:14 AM EDT [facility] BUN 18 7 - 18 mg/dL 09/13/2024 5:14 AM EDT [facility] Creatinine 0.90 0.55 - 1.10 mg/dL 09/13/2024 5:14 AM EDT [facility] BUN/Creatinine 20 09/13/2024 5:14 AM EDT [facility] Glucose 111(H) 70 - 99 mg/dL 09/13/2024 5:14 AM EDT [facility] Calcium 8.1(L) 8.5 - 10.1 mg/dL 09/13/2024 5:14 AM EDT [facility] Osmolality Calc 276.4 mOsm/kg 5:14 AM EDT [facility] eGFR (mL/min/1.73m2) >60 >=60 mL/min/1.7 3m2 09/13/2024 5:14 AM EDT [facility] Comment:eGFR of <60 suggests chronic kidney disease if found over a 3 month period of time. eGFR <15 indicates renal failure. Blood Venipuncture / Unknown 09/13/2024 3:44 AM EDT 09/13/2024 4:27 AM EDT Mike Manjarrez CASINO SHIFT MANAGER LAB BLOOD ORDERABLES F inal Result Performing Organization Address City/[facility]/ZIP Co de Phone Number [facility] [address] [place] [address], [facility] [phone] * (ABNORMAL) Glucose, Nova Meter (09/13/2024 2:53 AM EDT) POC-GLUCOSE 107(H) 70 - 99 mg/dL 09/13/2024 2:54 AM EDT [facility] Comment: In the event of poor peripheral blood flow, venous or arterial blood should be used due to the potential of erroneous results. No lab per MD Apprentice Embalmer [phone] 09/13/2024 2:54 AM EDT [facility] Blood WHOLE BLOOD / Unknown 09/13/2024 2:53 AM EDT 09/13/2024 2:54 AM EDT Narrative [facility] - 09/13/2024 2:54 AM EDT Apprentice Embalmer ID is - [id number] Milka Larson TIE CARRIER POINT OF CARE TEST ORDERABL ES Final Result Performing Organization Address [facility]/ZIP Co de Phone Number [facility] [address] [place] [address], [facility] [phone] * XR chest AP portable (09/12/2024 9:22 AM EDT) Anatomical Region Laterality Modality Chest X-Ray 09/12/2024 9:34 AM EDT Impressions 09/12/2024 10:44 AM EDT New bilateral pulmonary opacities favor pneumonia. Images reviewed, interpreted, and dictated by Dr. He Sloan. Transcribed by Lucie Ni Narrative 09/12/2024 10:44 AM EDT PORTABLE CHEST HISTORY: Hypoxia, right lower lobe concerning for aspiration. COMPARISON: 22 hours prior. FINDINGS: The heart is normal in size. There is mediastinal widening attributed to tortuous aorta. There are increased markings in the bilateral lung bases suspicious for developing pneumonia. There is no significant effusion. There is no pneumothorax. Procedure Note He Sloan MD - 09/12/2024 PORTABLE CHEST HISTORY: Hypoxia, right lower lobe concerning for aspiration. COMPARISON: 22 hours prior. FINDINGS: The heart is normal in size. There is mediastinal widening attributed to tortuous aorta. There are increased markings in the bilateral lung bases suspicious for developing pneumonia. There is no significant effusion. There is no pneumothorax. IMPRESSION: New bilateral pulmonary opacities favor pneumonia. Images reviewed, interpreted, and dictated by Dr. He Sloan. Transcribed by Lucie Ni Milka Larson NP IM DIAGNOSTIC IMAGING ORDTrina BEAULIEU Final Result * (ABNORMAL) CBC with automated diff (09/12/2024 4:30 AM EDT) WBC 19.2(H) 4.8 - 10.8 K/ L 09/12/2024 5:14 AM EDT [facility] RBC 3.76 3.50 - 5.20 M/ L 09/12/2024 5:14 AM EDT [facility] Hemoglobin 11.2(L) 11.7 - 15.8 GM/DL 09/12/2024 5:14 AM EDT [facility] Hematocrit 33.4(L) 35.0 - 47.0 % 09/12/2024 5:14 AM EDT [facility] MCV 89 81 - 101 fL 09/12/2024 5:14 AM EDT [facility] MCH 29.8 27.0 - 34.0 pg 09/12/2024 5:14 AM EDT [facility] MCHC 33.5 32.0 - 36.0 GM/DL 09/12/2024 5:14 AM EDT [facility] RDW 13.0 11.5 - 14.5 % 09/12/2024 5:14 AM EDT [facility] Platelets 183 150 - 400 K/CU MM 09/12/2024 5:14 AM EDT [facility] MPV 9.3(L) 9.4 - 12.4 fL 09/12/2024 5:14 AM EDT [facility] Nucleated Red Blood Cell 0.0 0 - 0.2 % 09/12/2024 5:14 AM EDT [facility] % Neutros 88(H) 37 - 80 % 09/12/2024 5:14 AM EDT [facility] % Lymphs 5(L) 10 - 50 % 09/12/2024 5:14 AM EDT [facility] % Monos 6 5 - 13 % 09/12/2024 5:14 AM EDT [facility] % Eos 0 0 - 7 % 09/12/2024 5:14 AM EDT [facility] % Baso 0 0 - 3 % 09/12/2024 5:14 AM EDT [facility] NRBC Absolute <0.01 0 - 0.012 K/ul 09/12/2024 5:14 AM EDT [facility] # Neutros 16.79(H) 2.00 - 6.90 K/ L 09/12/2024 5:14 AM EDT [facility] # Lymphs 0.90 0.60 - 3.40 K/ L 09/12/2024 5:14 AM EDT [facility] # Monos 1.21(H) 0.00 - 0.90 K/ L 09/12/2024 5:14 AM EDT [facility] # Eos 0.00 0.00 - 0.70 K/ L 09/12/2024 5:14 AM EDT [facility] # Baso 0.05 0.00 - 0.20 K/ L 09/12/2024 5:14 AM EDT [facility] Immature Granulocytes-Re lative 1.10 % 09/12/2024 5:14 AM EDT [facility] # IG 0.22(H) 0.00 - 0.00 K/uL 09/12/2024 5:14 AM EDT [facility] Blood Venipuncture / Unknown 09/12/2024 4:30 AM EDT 09/12/2024 5:09 AM EDT Narrative [facility] - 09/12/2024 5:14 AM EDT When CBC w/ Auto Diff is ordered the lab will add a Manual Differential as a quality check at no additional charge if: Lymphocytes greater than seventy five percent with normal or increased WBC Monocytes greater than Fifteen percent Basophil greater than four percent Bands >10% or several immature myeloids are seen on scan Blast? Flag noted Atypical Lymph flag noted Mike Manjarrez APRN LAB BLOOD ORDERABLES F inal Result [facility] [address] [place] [address] * (ABNORMAL) Procalcitonin (09/12/2024 4:29 AM EDT) Procalcitonin 3.51(H) <=0.50 ng/mL 09/12/2024 10:26 AM EDT [facility] Comment: Sepsis comment <0.5 Antibiotics Discouraged >0.5 Antibiotics Encouraged *Assessing Sepsis Risk and Severity* >2.0 ng/mL High Risk for Progression to severe sepsis and/or septic shock 0.5-2.0 ng/mL Sepsis should be considered <0.5 ng/mL Low Risk for Progression to Severe and/or septic shock Lower Respiratory Tract Infection (LRT) <0.25 Antibiotics Discouraged >0.25 Antibiotics Encouraged *Procalcitonin results should be interpreted carefully in settings that are known to falsely elevate results such as renal failure, trauma, localized infections and eubanks. Blood Venipuncture / Unknown 09/12/2024 4:29 AM EDT 09/12/2024 9:13 AM EDT Milka Larson TIE CARRIER LAB BLOOD ORDERABLES Final Result [facility] [address] [phone] * (ABNORMAL) Basic Metabolic Panel (09/12/2024 4:29 AM EDT) Sodium 138 136 - 145 meq/L 09/12/2024 5:37 AM EDT [facility] Potassium 3.8 3.5 - 5.1 meq/L 09/12/2024 5:37 AM EDT [facility] Chloride 103 98 - 107 meq/L 09/12/2024 5:37 AM EDT [facility] CO2 26 21 - 32 meq/L 09/12/2024 5:37 AM EDT [facility] Anion Gap 13 11 - 22 09/12/2024 5:37 AM EDT [facility] BUN 20(H) 7 - 18 mg/dL 09/12/2024 5:37 AM EDT [facility] Creatinine 1.15(H) 0.55 - 1.10 mg/dL 09/12/2024 5:37 AM EDT [facility] BUN/Creatinine 17 09/12/2024 5:37 AM EDT [facility] Glucose 143(H) 70 - 99 mg/dL 09/12/2024 5:37 AM EDT [facility] Calcium 8.1(L) 8.5 - 10.1 mg/dL 09/12/2024 5:37 AM EDT [facility] Osmolality Calc 280.8 mOsm/kg 5:37 AM EDT [facility] eGFR (mL/min/1.73m2) 48(L) >=60 mL/min/1.7 3m2 09/12/2024 5:37 AM EDT [facility] Comment:eGFR of <60 suggests chronic kidney disease if found over a 3 month period of time. eGFR <15 indicates renal failure. Blood Venipuncture / Unknown 09/12/2024 4:29 AM EDT 09/12/2024 5:09 AM EDT Mike Manjarrez CASINO SHIFT MANAGER LAB BLOOD ORDERABLES F inal Result [facility] [address] [place] [address], [facility] [phone] * XR knee 1 or 2 views left (09/11/2024 10:59 AM EDT) Anatomical Region Laterality Modality Thigh, Knee, Leg X-Ray 09/11/2024 11:2 0 AM EDT Impressions 09/11/2024 11:20 AM EDT Normal-appearing knee arthroplasty. Narrative 09/11/2024 11:20 AM EDT Procedure: Left knee HISTORY: Arthroplasty FINDINGS: 2 views reveal a total knee replacement in normal anatomic alignment. No fractures are present. No hardware complications are identified. Procedure Note Demi Santos MD - 09/11/2024 Procedure: Left knee HISTORY: Arthroplasty FINDINGS: 2 views reveal a total knee replacement in normal anatomic alignment. No fractures are present. No hardware complications are identified. IMPRESSION: Normal-appearing knee arthroplasty. Jose F Yao MD IMG DIAGNOSTIC IMAGING ORDERAB LES Final Result * XR chest AP portable (09/11/2024 10:59 AM EDT) Anatomical Region Laterality Modality Chest X-Ray 09/11/2024 11:3 7 AM EDT Impressions 09/11/2024 11:37 AM EDT No acute process. Narrative 09/11/2024 11:37 AM EDT Portable chest HISTORY: Possible aspiration FINDINGS: Comparison date June 23, 2024. There is mild stable scar of the left lung base. Heart and pulmonary vessels appear within normal limits. Lung manzanares are clear of acute infiltrates or effusions. Procedure Note Demi Santos MD - 09/11/2024 Portable chest HISTORY: Possible aspiration FINDINGS: Comparison date June 23, 2024. There is mild stable scar of the left lung base. Heart and pulmonary vessels appear within normal limits. Lung manzanares are clear of acute infiltrates or effusions. IMPRESSION: No acute process. Lilia Hernandez CRNA IMG DIAGNOSTIC IMAGING TOÑA BEAULIEU Final Result * Tissue Exam (09/11/2024 9:29 AM EDT) AP RESULT See Note: [facility] Comment: [facility] [address] [place] [address] or [phone] Anish Cantu M.D., [facility] Director PATIENT NAME LABORATORY NO. 160IMANI SIMONS [id number] AGE SEX SSN CLIENT REF # [place] [id number] F [id number] ARTHUR REQUESTING Severo ATTENDING Severo [place] [id number] DATE COLLECTED DATE RECEIVED DATE REPORTED 09/11/2024 09/11/2024 09/15/2024 DIAGNOSIS: BONE FRAGMENTS, GROSS ONLY, LEFT KNEE: Changes consistent with moderate osteoarthritis RLL/sdl CLINICAL HISTORY: Unilateral primary osteoarthritis, left knee SPECIMENS RECEIVED: BONE FRAGMENTS, GROSS ONLY, LEFT KNEE Professional interpretation rendered by Anish Cantu M.D., F.C.A.P. at [facility] [employer], [address] [place] [address]. GROSS DESCRIPTION: Received in formalin labeled joint, left knee and consists of multiple fragments of bone measuring 9.2 x 7.5 x 2.7 cm. The intact tibial plateau measures 7.7 x 5.3 x 1.5 cm. The articular surfaces are monroe-yellow and glistening with focal areas of eburnation and granularity. A mild amount of osteophytes are present along the periphery. The resected surfaces of bone are monroe-yellow and trabeculated with no necrosis or lesions grossly identified. The specimen is gross only and no cassettes are submitted. MJM REVIEWED, DIAGNOSED AND ELECTRONICALLY SIGNED BY: Anish Cantu M.D., F.C.A.P. CPT CODES: [id number] Bone KNEE JOINT STRUCTURE / Unknown 09/11/2024 9:29 AM EDT us Jose F Yao MD PATHOLOGY/CYTOLOGY ORDERABLES Final Result [facility] [address] [place] [address] * Urinalysis, Reflex Microscopic and Culture If Indicated (09/11/2024 7:11 AM EDT) Color, UA Straw 09/11/2024 7:22 AM EDT [facility] Clarity, UA Clear 09/11/2024 7:22 AM EDT [facility] Specific Stites, UA <=1.005 1.002 - 1.030 09/11/2024 7:22 AM EDT [facility] pH, UA 7.0 5.0 - 9.0 09/11/2024 7:22 AM EDT [facility] Leukocytes, UA Negative Negative 09/11/2024 7:22 AM EDT [facility] Nitrite, UA Negative Negative 09/11/2024 7:22 AM EDT [facility] Protein, UA Negative Negative 09/11/2024 7:22 AM EDT [facility] Glucose, UA Negative Negative 09/11/2024 7:22 AM EDT [facility] Ketones, UA Negative Negative 09/11/2024 7:22 AM EDT [facility] Bilirubin, UA Negative Negative 09/11/2024 7:22 AM EDT [facility] Blood, UA Negative Negative 09/11/2024 7:22 AM EDT [facility] Urobilinogen, UA 0.2 mg/dL Normal 09/11/2024 7:22 AM EDT [facility] UA INDICATIONS Not indicated 09/11/2024 7:22 AM EDT [facility] Specimen Source Urine, Straight Catheter 09/11/2024 7:22 AM EDT [facility] Urine URINE SPECIMEN OBTAINED VIA STRAIGHT CATHETER / Unknown 09/11/2024 7:11 AM EDT 09/11/2024 7:14 AM EDT us Jose F Yao MD URINE ORDERABLES Final Result [facility] [address] [place] [address], [facility] [phone] documented in this encounter Visit Diagnoses Diagnosis Status post left knee replacement with ABUNDIO 09/11/24- Primary Primary osteoarthritis of left knee Status post left knee replacement with ABUNDIO 09/11/24 Arthritis Unspecified arthropathy, site unspecified Hyperlipidemia Other and unspecified hyperlipidemia Ocular migraine Variants of migraine, not elsewhere classified, without mention of intractable migraine without mention of status migrainosus Seasonal allergies Allergic rhinitis, cause unspecified Urinary incontinence Unspecified urinary incontinence Acute respiratory failure (HCC) Acute respiratory failure documented in this encounter Admitting Diagnoses Diagnosis Acute respiratory failure (HCC) Acute respiratory failure documented in this encounter Administered Medications Inactive Administered Medications - up to 3 most recent administrations Medication Order MAR Action Action Date Dose Rate Site acetaminophen (TYLENOL) tablet 1,000 mg 1,000 mg Once, oral, On Krys 09/11/24 at 0730, For 1 dose, Give preprocedure, Pre-op Given 09/11/2024 7:23 AM EDT 1,000 mg acetaminophen (TYLENOL) tablet 1,000 mg 1,000 mg Every 8 hours PRN, oral, mild pain (1-3), Starting on Krys 09/11/24 at 1228, 1st line analgesic, Phase II/On Unit Given 09/13/2024 9:15 AM EDT 1,000 mg albuterol 2.5 mg /3 mL (0.083 %) nebulizer solution 2.5 mg 2.5 mg Every 4 hours PRN, nebulization, wheezing, Starting on Krys 09/11/24 at 1034, * RESPIRATORY THERAPY TREATMENT *, What is the respiratory therapy Modality? Small volume Nebulization Given 09/11/2024 10:40 AM EDT 2.5 mg albuterol 2.5 mg /3 mL (0.083 %) nebulizer solution 2.5 mg 2.5 mg Every 4 hours PRN, nebulization, wheezing, shortness of breath, Starting on Krys 09/11/24 at 1234, RESPIRATORY THERAPY TREATMENT , What is the respiratory therapy Modality? Small volume Nebulization Given 09/13/2024 7:47 AM EDT 2.5 mg Given 09/12/2024 8:17 PM EDT 2.5 mg Given 09/12/2024 8:39 AM EDT 2.5 mg ampicillin-sulbactam (UNASYN) 3 g in sodium chloride 0.9 % (NS) MBP 100 mL IVPB 3 g Every 6 hours scheduled, intravenous, at 200 mL/hr, First dose on Sun09/12/24 at 1200, Please choose an indication: Pneumonia IVPB Started 09/13/2024 6:42 AM EDT 3 g 200 mL/hr IVPB Started 09/12/2024 11:08 PM EDT 3 g 200 mL/hr IVPB Started 09/12/2024 6:43 PM EDT 3 g 200 mL/hr aspirin EC tablet 81 mg 81 mg 2 times daily, oral, First dose on Sun09/12/24 at 0900, For 30 days, * DO NOT CRUSH THIS DOSAGE FORM * Given 09/13/2024 8:25 AM EDT 81 mg Given 09/12/2024 8:24 PM EDT 81 mg Given 09/12/2024 9:30 AM EDT 81 mg benzonatate (TESSALON) capsule 100 mg 100 mg Every 6 hours PRN, oral, cough, Starting on Sun09/13/24 at 0312, * DO NOT CRUSH THIS DOSAGE FORM * ceFAZolin in sterile water (ANCEF) 2 gram/20 mL syringe 2 g 2 g Every 8 hours interval, intravenous, Administer over 3 Minutes, First dose on Krys 09/11/24 at 1700, For 2 doses, PACU Cont. to Floor/ICU, Please choose an indication: Surgical Prophylaxis Given 09/12/2024 1:29 AM EDT 2 g Given 09/11/2024 5:34 PM EDT 2 g celecoxib (CeleBREX) capsule 200 mg 200 mg Once, oral, On Krys 09/11/24 at 0730, For 1 dose, Look-alike/Sound-alike medication, Pre-op Given 09/11/2024 7:23 AM EDT 200 mg dexAMETHasone (DECADRON) injection 8 mg 8 mg Once, intravenous, On Sun09/12/24 at 0900, For 1 dose, For IV Push administration give slowly over 5-7 minutes. Rapid administration of dexamethasone >10 mg may be associated with perineal irritation, consider administration via IVPB. Given 09/12/2024 9:27 AM EDT 8 mg famotidine (PEPCID) tablet 20 mg 20 mg Once, oral, On Sun09/11/24 at 0730, For 1 dose, Pharmacist to renally dose if CrCl is less than 50 mL/min or on CRRT., Pre-op Given 09/11/2024 7:23 AM EDT 20 m g ferrous sulfate EC tablet 325 mg 325 mg Daily, oral, First dose on Sun09/11/24 at 1600, * DO NOT CRUSH THIS DOSAGE FORM *, Phase II/On Unit Given 09/13/2024 8:28 AM EDT 325 mg Given 09/11/2024 4:15 PM EDT 325 mg hydrALAZINE (APRESOLINE) injection 5 mg 5 mg Every 6 hours PRN, intravenous, hypertension (sbp greater than 160), Starting on Sun09/11/24 at 1229, Hold if SBP < 100 mmHg, DBP < 50 mmHg, or patient is on pressor. Look-alike/Sound-alike medication hydroCHLOROthiazide (HYDRODIURIL) tablet 25 mg 25 mg Daily, oral, First dose on Sun09/11/24 at 1600 Given 09/13/2024 8:25 AM EDT 25 mg Given 09/12/2024 9:32 AM EDT 25 mg Given 09/11/2024 4:15 PM EDT 25 mg lisinopriL (ZESTRIL) tablet 20 mg 20 mg Daily, oral, First dose on Sun09/11/24 at 1600, Antihypertensive - Check BP - Check Pulse Given 09/13/2024 8:24 AM EDT 20 mg Given 09/11/2024 4:14 PM EDT 20 mg meloxicam (MOBIC) tablet 7.5 mg 7.5 mg Every 12 hours interval, oral, First dose on Sun09/12/24 at 0900, 1st line analgesic, Phase II/On Unit Given 09/13/2024 8:25 AM EDT 7.5 mg Given 09/12/2024 8:23 PM EDT 7.5 mg Given 09/12/2024 9:32 AM EDT 7.5 mg mupirocin (BACTROBAN) 2 % ointment 1 application. intraNASAL, Once, On Krys 09/11/24 at 0730, For 1 dose, Preprocedure to both nares preoperatively, Pre-op Given 09/11/2024 7:23 AM EDT 1 applicat ion. ondansetron (ZOFRAN) injection 4 mg 4 mg Every 8 hours PRN, intravenous, nausea, vomiting, Starting on Krys 09/11/24 at 1228, Give IV if patient is unable to take orally. 1st line If inadequate response within 60 minutes, proceed to next-line agent for same PRN reason or contact provider if no further options ordered. For IV push, give over 2 - 5 minutes., Phase II/On Unit Given 09/11/2024 3:13 PM EDT 4 mg ondansetron (ZOFRAN-ODT) disintegrating tablet 4 mg 4 mg Every 8 hours PRN, oral, nausea, vomiting, Starting on Krys 09/11/24 at 1228, 1st line. If inadequate response within 60 minutes, proceed to next-line agent for same PRN reason or contact provider if no further options ordered., Phase II/On Unit pantoprazole (PROTONIX) EC tablet 40 mg 40 mg Daily, oral, First dose on Krys 09/11/24 at 1600, * DO NOT CRUSH THIS DOSAGE FORM *, Phase II/On Unit Given 09/13/2024 8:25 AM EDT 40 mg Given 09/12/2024 9:32 AM EDT 40 mg Given 09/11/2024 4:14 PM EDT 40 mg piperacillin-tazobactam (ZOSYN) 3.375 g in sodium chloride 0.9 % (NS) MBP 100 mL IVPB 3.375 g Every 6 hours interval, intravenous, at 33.3 mL/hr, First dose on Krys 09/11/24 at 2200, Please choose an indication: Pneumonia IVPB Started 09/12/2024 9:28 AM EDT 3.375 g 33.3 mL/hr IVPB Started 09/12/2024 4:12 AM EDT 3.375 g 33.3 mL/hr IVPB Started 09/11/2024 9:00 PM EDT 3.375 g 33.3 mL/hr piperacillin-tazobactam (ZOSYN) 4.5 g in sodium chloride 0.9 % (NS) MBP 100 mL IVPB 4.5 g Once, intravenous, at 200 mL/hr, On Krys 09/11/24 at 1600, For 1 dose, Please choose an indication: Pneumonia IVPB Started 09/11/2024 4:15 PM EDT 4.5 g 200 mL/hr polyethylene glycol (GLYCOLAX) packet 17 g 17 g Daily, oral, First dose on Krys 09/11/24 at 1600, Bowel Regimen - for prevention of constipation., Phase II/On Unit Given 09/13/2024 8:25 AM EDT 17 g Given 09/12/2024 9:30 AM EDT 17 g Given 09/11/2024 4:13 PM EDT 17 g potassium chloride (KLOR-CON) ER tablet 10 mEq 10 mEq Daily, oral, First dose on Krys 09/11/24 at 1600, DO NOT CRUSH THIS DOSAGE FORM. Given 09/13/2024 8:26 AM EDT 10 m Eq Given 09/12/2024 9:32 AM EDT 10 mEq Given 09/11/2024 4:14 PM EDT 10 mEq potassium chloride (KLOR-CON) ER tablet 40 mEq 40 mEq Once, oral, On [facility] 09/13/24 at 0800, For 1 dose, DO NOT CRUSH THIS DOSAGE FORM. Given 09/13/2024 8:25 AM EDT 4 0 mEq pravastatin (PRAVACHOL) tablet 80 mg 80 mg Every Night, oral, First dose on Krys 09/11/24 at 2100 Given 09/12/2024 8:24 PM EDT 80 mg Given 09/11/2024 9:00 PM EDT 80 mg promethazine (PHENERGAN) 12.5 mg in sodium chloride 0.9 % (NS) 50 mL IVPB (Immediate Use Only) 12.5 mg Every 6 hours PRN, intravenous, at 150 mL/hr, nausea, vomiting, Starting on Krys 09/11/24 at 1228, 2nd line. Give IV if patient is unable to take orally. If inadequate response within 60 minutes, proceed to next-line agent for same PRN reason or contact provider if no further options ordered. , Phase II/On Unit IVPB Started 09/11/2024 4:59 PM EDT 12.5 mg 150 mL/hr promethazine (PHENERGAN) tablet 25 mg 25 mg Every 6 hours PRN, oral, nausea, vomiting, Starting on Krys 09/11/24 at 1228, 2nd line. If inadequate response within 60 minutes, proceed to next-line agent for same PRN reason or contact provider if no further options ordered., Phase II/On Unit sennosides (SENOKOT) tablet 17.2 mg 17.2 mg Every Night, oral, First dose on Krys 09/11/24 at 2100, Bowel Regimen - for prevention of constipation., Phase II/On Unit Given 09/12/2024 8:24 PM EDT 17.2 mg Given 09/11/2024 9:00 PM EDT 17.2 mg sertraline (ZOLOFT) tablet 25 mg 25 mg Daily, oral, First dose on Krys 09/11/24 at 1600 Given 09/13/2024 8:24 AM EDT 25 mg Given 09/12/2024 9:28 AM EDT 25 mg Given 09/11/2024 4:14 PM EDT 25 mg sodium chloride 0.9 % infusion 125 mL/hr Continuous, intravenous, Starting on Krys 09/11/24 at 1300, Phase II/On Unit New Bag 09/12/2024 7:17 AM EDT 125 mL/hr 125 mL/hr New Bag 09/11/2024 11:41 PM EDT 125 mL/hr 125 mL/hr New Bag 09/11/2024 3:26 PM EDT 125 mL/hr 125 mL/hr traMADoL (ULTRAM) tablet 50 mg 50 mg Every 6 hours PRN, oral, moderate pain (4-6), Starting on Krys 09/11/24 at 1228, 1st line analgesic, Phase II/On Unit Given 09/13/2024 12:31 AM EDT 50 mg trospium (SANCTURA) tablet 20 mg 20 mg 2 times daily, oral, First dose on Krys 09/11/24 at 2100, Autosub tolterodine 4mg daily Given 09/13/2024 8:25 AM EDT 20 mg Given 09/12/2024 8:24 PM EDT 20 mg Given 09/12/2024 9:32 AM EDT 20 mg documented in this encounter Active and Recently Administered Medications Times are shown in EDT. Scheduled Medication Order 09/11/2024 09/12/2024 09/13/2024 acetaminophen (TYLENOL) tablet 1,000 mg (COMPLETED) 1,000 mg Once, oral, On Krys 09/11/24 at 0730, For 1 dose, Give preprocedure, Pre-op 0723 (Given - Provider: José Luis Fiore RN) ampicillin-sulbactam (UNASYN) 3 g in sodium chloride 0.9 % (NS) MBP 100 mL IVPB 3 g Every 6 hours scheduled, intravenous, at 200 mL/hr, First dose on Sun09/12/24 at 1200, Please choose an indication: Pneumonia 1216 (IVPB Started - Provider: Sam Diamond RN)1249 (IVPB Stopped - Provider: Sam Diamond RN)1843 (IVPB Started - Provider: Sam Diamond RN)1913 (IVPB Stopped - Provider: Pushpa Naik RN)2308 (IVPB Started - Provider: Pushpa Naik RN)2354 (IVPB Stopped - Provider: Pushpa Naik RN) 0642 (IVPB Started - Provider: Pushpa Naik RN)0746 (IVPB Stopped - Provider: Norma Lee, [place]LA) aspirin EC tablet 81 mg 81 mg 2 times daily, oral, First dose on Sun09/12/24 at 0900, For 30 days, * DO NOT CRUSH THIS DOSAGE FORM * 0930 (Given - Provider: Sam Diamond RN)202 (Given - Provider: Pushpa Naik RN) 0825 (Given - Provider: Norma Lee RN) ceFAZolin in sterile water (ANCEF) 2 gram/20 mL syringe 2 g (COMPLETED) 2 g Once, intravenous, Administer over 3 Minutes, On Krys 09/11/24 at 0730, For 1 dose, Administer within 60 minutes of incision or procedure start., Pre-op, Please choose an indication: Surgical Prophylaxis 0849 (Given - Provider: Lilia Hernandez CRNA) ceFAZolin in sterile water (ANCEF) 2 gram/20 mL syringe 2 g (COMPLETED) 2 g Every 8 hours interval, intravenous, Administer over 3 Minutes, First dose on Krys 09/11/24 at 1700, For 2 doses, PACU Cont. to Floor/ICU, Please choose an indication: Surgical Prophylaxis 1734 (Given - Provider: Sam Diamond RN) 0129 (Given - Provider: Jay Huang RN) celecoxib (CeleBREX) capsule 200 mg (COMPLETED) 200 mg Once, oral, On Krys 09/11/24 at 0730, For 1 dose, Look-alike/Sound-alike medication, Pre-op 07 (Given - Provider: José Luis Fiore, RN) dexAMETHasone (DECADRON) injection 8 mg (COMPLETED) 8 mg Once, intravenous, On Sun09/12/24 at 0900, For 1 dose, For IV Push administration give slowly over 5-7 minutes. Rapid administration of dexamethasone >10 mg may be associated with perineal irritation, consider administration via IVPB. 926 (Given - Provider: Sam Diamond RN) famotidine (PEPCID) tablet 20 mg (COMPLETED) 20 mg Once, oral, On Krys 09/11/24 at 0730, For 1 dose, Pharmacist to renally dose if CrCl is less than 50 mL/min or on CRRT., Pre-op 722 (Given - Provider: José Luis Fiore, [place]) ferrous sulfate EC tablet 325 mg 325 mg Daily, oral, First dose on Sun09/11/24 at 1600, * DO NOT CRUSH THIS DOSAGE FORM *, Phase II/On Unit 1615 (Given - Provider: Sam Diamond RN) 0932 (Not Given - Provider: Sam Diamond RN - Reason: Patient/family refused) 0828 (Given - Provider: Norma Lee, [place]) hydroCHLOROthiazide (HYDRODIURIL) tablet 25 mg(Linked Group 1) 25 mg Daily, oral, First dose on Krys 09/11/24 at 1600 1615 (Given - Provider: Sam Diamond RN) 0932 (Given - Provider: Sam Diamond RN) 0825 (Given - Provider: Norma Lee, [place]) lisinopriL (ZESTRIL) tablet 20 mg(Linked Group 1) 20 mg Daily, oral, First dose on Krys 09/11/24 at 1600, Antihypertensive - Check BP - Check Pulse 1614 (Given - Provider: Sam Diamond RN) 0931 (Not Given - Provider: Sam Diamond RN - Reason: VS / Lab Parameters not met) 0824 (Given - Provider: Norma Lee, [place]) meloxicam (MOBIC) tablet 7.5 mg 7.5 mg Every 12 hours interval, oral, First dose on Sun09/12/24 at 0900, 1st line analgesic, Phase II/On Unit 0932 (Given - Provider: Sam Diamond RN)2022 (Given - Provider: Pushpa Naik RN) 08 (Given - Provider: Norma Lee, [place]) mupirocin (BACTROBAN) 2 % ointment 1 application. (COMPLETED) intraNASAL, Once, On Sun09/11/24 at 0730, For 1 dose, Preprocedure to both nares preoperatively, Pre-op 07 (Given - Provider: José Luis Fiore, [place]LA) pantoprazole (PROTONIX) EC tablet 40 mg 40 mg Daily, oral, First dose on Sun09/11/24 at 1600, * DO NOT CRUSH THIS DOSAGE FORM *, Phase II/On Unit 1614 (Given - Provider: Sam Diamond RN) 931 (Given - Provider: Sam Diamond RN) 824 (Given - Provider: Norma Lee, [place]) piperacillin-tazobactam (ZOSYN) 3.375 g in sodium chloride 0.9 % (NS) MBP 100 mL IVPB (CANCELED) 3.375 g Every 6 hours interval, intravenous, at 33.3 mL/hr, First dose on Sun09/11/24 at 2200, Please choose an indication: Pneumonia 2100 (IVPB Started - Provider: Jay Huang, [place]LA) 0012 (IVPB Stopped - Provider: Jay Huang RN)0412 (IVPB Started - Provider: Jay Huang RN)0720 (IVPB Stopped - Provider: Sam Diamond RN)0928 (IVPB Started - Provider: Sam Diamond RN)1154 (IVPB Stopped - Provider: Sam Diamond RN) piperacillin-tazobactam (ZOSYN) 4.5 g in sodium chloride 0.9 % (NS) MBP 100 mL IVPB (COMPLETED) 4.5 g Once, intravenous, at 200 mL/hr, On Krys 09/11/24 at 1600, For 1 dose, Please choose an indication: Pneumonia 1615 (IVPB Started - Provider: Sam Diamond RN)1655 (IVPB Stopped - Provider: Sam Diamond RN) polyethylene glycol (GLYCOLAX) packet 17 g 17 g Daily, oral, First dose on Krys 09/11/24 at 1600, Bowel Regimen - for prevention of constipation., Phase II/On Unit 161 (Given - Provider: Sam Diamond RN) 0930 (Given - Provider: Sam Diamond RN) 08 (Given - Provider: Norma Lee RN) potassium chloride (KLOR-CON) ER tablet 10 mEq 10 mEq Daily, oral, First dose on Krys 09/11/24 at 1600, DO NOT CRUSH THIS DOSAGE FORM. 161 (Given - Provider: Sam Diamond RN) 0932 (Given - Provider: Sam Diamond RN) 08 (Given - Provider: Norma Lee RN) potassium chloride (KLOR-CON) ER tablet 40 mEq (COMPLETED) 40 mEq Once, oral, On 09/13/24 at 0800, For 1 dose, DO NOT CRUSH THIS DOSAGE FORM. 08 (Given - Provider: Norma Lee RN) pravastatin (PRAVACHOL) tablet 80 mg 80 mg Every Night, oral, First dose on Krys 09/11/24 at 2100 2100 (Given - Provider: Jay Huang RN) 2023 (Given - Provider: Pushpa Naik RN) sennosides (SENOKOT) tablet 17.2 mg 17.2 mg Every Night, oral, First dose on Krys 09/11/24 at 2100, Bowel Regimen - for prevention of constipation., Phase II/On Unit 2099 (Given - Provider: Jay Huang RN) 2023 (Given - Provider: Pushpa Naik RN) sertraline (ZOLOFT) tablet 25 mg 25 mg Daily, oral, First dose on Krys 09/11/24 at 1600 161 (Given - Provider: Sam Diamond RN) 0928 (Given - Provider: Sam Diamond RN) 0824 (Given - Provider: Norma Lee RN) trospium (SANCTURA) tablet 20 mg 20 mg 2 times daily, oral, First dose on Krys 09/11/24 at 2100, Autosub tolterodine 4mg daily 2058 (Given - Provider: Jay Huang RN) 0932 (Given - Provider: Sam Diamond RN)2023 (Given - Provider: Pushpa Naik RN) 08 (Given - Provider: Norma Lee, [place]LA) Continuous Medication Order 09/11/2024 09/12/2024 09/13/2024 sodium chloride 0.9 % infusion (CANCELED) 125 mL/hr Continuous, intravenous, Starting on Krys 09/11/24 at 1300, Phase II/On Unit 1526 (New Bag - Provider: Sam Diamond RN)2341 (New Bag - Provider: Jay Huang RN) 0717 (New Bag - Provider: Jay Huang, [place]LA) PRN Medication Order 09/11/2024 09/12/2024 09/13/2024 acetaminophen (TYLENOL) tablet 1,000 mg 1,000 mg Every 8 hours PRN, oral, mild pain (1-3), Starting on Krys 09/11/24 at 1228, 1st line analgesic, Phase II/On Unit 0915 (Given - Provider: Norma Lee RN) albuterol 2.5 mg /3 mL (0.083 %) nebulizer solution 2.5 mg (CANCELED) 2.5 mg Every 4 hours PRN, nebulization, wheezing, Starting on Krys 09/11/24 at 1034, * RESPIRATORY THERAPY TREATMENT *, What is the respiratory therapy Modality? Small volume Nebulization 1040 (Given - Provider: Leana Cruz RN) albuterol 2.5 mg /3 mL (0.083 %) nebulizer solution 2.5 mg 2.5 mg Every 4 hours PRN, nebulization, wheezing, shortness of breath, Starting on Krys 09/11/24 at 1234, RESPIRATORY THERAPY TREATMENT , What is the respiratory therapy Modality? Small volume Nebulization 0839 (Given - Provider: Bozena Darnell, BRUCE)2017 (Given - Provider: Candace Doll, BRUCE) 0747 (Given - Provider: Bozena Darnell, BRUCE) benzonatate (TESSALON) capsule 100 mg 100 mg Every 6 hours PRN, oral, cough, Starting on 09/13/24 at 0312, * DO NOT CRUSH THIS DOSAGE FORM * hydrALAZINE (APRESOLINE) injection 5 mg 5 mg Every 6 hours PRN, intravenous, hypertension (sbp greater than 160), Starting on Krys 09/11/24 at 1229, Hold if SBP < 100 mmHg, DBP < 50 mmHg, or patient is on pressor. Look-alike/Sound-alike medication HYDROcodone-acetaminophe n (NORCO) 7.5-325 mg per tablet 1 tablet 1 tablet Every 6 hours PRN, oral, severe pain (7-10) use first line, moderate pain (4-6) use second line, Starting on Krys 09/11/24 at 1228, Recommended maximum dose of acetaminophen is 4000 mg from all sources in 24 hours HYDROmorphone (DILAUDID) injection 1 mg 1 mg Every 4 hours PRN, intravenous, severe pain (7-10), Starting on Krys 09/11/24 at 1228, 3rd line analgesic. Give only if inadequate response (less than 50% reduction in pain score) 60 minutes after administration of 2nd line agent. May give in addition to 1st + 2nd line analgesics (+ adjuvants if ordered), Phase II/On Unit hydrOXYzine (ATARAX) tablet 25 mg 25 mg Every 6 hours PRN, oral, itching, Starting on Krys 09/11/24 at 1228, Look-alike/Sound-alike medication, Phase II/On Unit naloxone (NARCAN) injection 0.2 mg 0.2 mg Every 2 min PRN, intravenous, opioid reversal, respiratory depression,, Starting on Krys 09/11/24 at 1228, Give for respiratory rate less than 10 breaths/min or if patient is difficult to arouse. Max dose = 10mg. Call provider., Phase II/On Unit ondansetron (ZOFRAN) injection 4 mg(Linked Group 2) 4 mg Every 8 hours PRN, intravenous, nausea, vomiting, Starting on Krys 09/11/24 at 1228, Give IV if patient is unable to take orally. 1st line If inadequate response within 60 minutes, proceed to next-line agent for same PRN reason or contact provider if no further options ordered. For IV push, give over 2 - 5 minutes., Phase II/On Unit 151 (Given - Provider: Corinna Yancey, RN) ondansetron (ZOFRAN-ODT) disintegrating tablet 4 mg(Linked Group 2) 4 mg Every 8 hours PRN, oral, nausea, vomiting, Starting on Krys 09/11/24 at 1228, 1st line. If inadequate response within 60 minutes, proceed to next-line agent for same PRN reason or contact provider if no further options ordered., Phase II/On Unit 151 (See Alternative - Provider: Corinna Yancey, RN) promethazine (PHENERGAN) 12.5 mg in sodium chloride 0.9 % (NS) 50 mL IVPB (Immediate Use Only)(Linked Group 3) 12.5 mg Every 6 hours PRN, intravenous, at 150 mL/hr, nausea, vomiting, Starting on Krys 09/11/24 at 1228, 2nd line. Give IV if patient is unable to take orally. If inadequate response within 60 minutes, proceed to next-line agent for same PRN reason or contact provider if no further options ordered. , Phase II/On Unit 165 (IVPB Started - Provider: Sam Diamond RN)172 (IVPB Stopped - Provider: Sam Diamond RN) promethazine (PHENERGAN) tablet 25 mg(Linked Group 3) 25 mg Every 6 hours PRN, oral, nausea, vomiting, Starting on Krys 09/11/24 at 1228, 2nd line. If inadequate response within 60 minutes, proceed to next-line agent for same PRN reason or contact provider if no further options ordered., Phase II/On Unit 165 (See Alternative - Provider: Sam Diamond RN)172 (See Alternative - Provider: Sam Diamond RN) [id number] e-ketorolac (R.E.C.K.) 2.46-0.005-0.0008-0.3 mg/mL- 50 mL syringe in NS FOR PERIARTICULAR USE (CANCELED) As needed, Starting on Krys 09/11/24 at 0940, Intra-op 0940 (Given - Provider: Jose F Yao MD) traMADoL (ULTRAM) tablet 50 mg 50 mg Every 6 hours PRN, oral, moderate pain (4-6), Starting on Krys 09/11/24 at 1228, 1st line analgesic, Phase II/On Unit 0031 (Given - Provider: Pushpa Naik RN) vancomycin (VANCOCIN) injection (CANCELED) As needed, Starting on Krys 09/11/24 at 0940, Intra-op 0940 (Given - Provider: Jose F Yao MD) Linked Groups Order Group 1: lisinopriL (ZESTRIL) tablet 20 mgJump to med 20 mg Daily, oral, First dose on Krys 09/11/24 at 1600, Antihypertensive - Check BP - Check Pulse And hydroCHLOROthiazide (HYDRODIURIL) tablet 25 mgJump to med 25 mg Daily, oral, First dose on Krys 09/11/24 at 1600 Group 2: ondansetron (ZOFRAN-ODT) disintegrating tablet 4 mgJump to med 4 mg Every 8 hours PRN, oral, nausea, vomiting, Starting on Krys 09/11/24 at 1228, 1st line. If inadequate response within 60 minutes, proceed to next-line agent for same PRN reason or contact provider if no further options ordered., Phase II/On Unit Or ondansetron (ZOFRAN) injection 4 mgJump to med 4 mg Every 8 hours PRN, intravenous, nausea, vomiting, Starting on Krys 09/11/24 at 1228, Give IV if patient is unable to take orally. 1st line If inadequate response within 60 minutes, proceed to next-line agent for same PRN reason or contact provider if no further options ordered. For IV push, give over 2 - 5 minutes., Phase II/On Unit Group 3: promethazine (PHENERGAN) tablet 25 mgJump to med 25 mg Every 6 hours PRN, oral, nausea, vomiting, Starting on Krys 09/11/24 at 1228, 2nd line. If inadequate response within 60 minutes, proceed to next-line agent for same PRN reason or contact provider if no further options ordered., Phase II/On Unit Or promethazine (PHENERGAN) 12.5 mg in sodium chloride 0.9 % (NS) 50 mL IVPB (Immediate Use Only)Jump to med 12.5 mg Every 6 hours PRN, intravenous, at 150 mL/hr, nausea, vomiting, Starting on Krys 09/11/24 at 1228, 2nd line. Give IV if patient is unable to take orally. If inadequate response within 60 minutes, proceed to next-line agent for same PRN reason or contact provider if no further options ordered. , Phase II/On Unit documented in this encounter Care Teams [facility] Relationship Specialty Start Date End Date Kyrie Li [address] [place] [id number] PCP - General 06/23/24 documented as of this encounter
--- OUTSIDE RECORDS SUMMARY | 2024-09-11 08:45 | XMS_ITS | Encounter Summary ---
Author Organization [employer] ([place], [place], [place], [place]) Address [address] [place] [address] Care Team Providers Care Certified Nurses' Aide Name Role Phone Kyrie Li Primary Care Provider [phone] Reason for Visit * Auth/Cert (Routine) Specialty Diagnoses / Procedures Referred By Contac t Referred To Contact Diagnoses Primary osteoarthritis of left knee Osteoarthritis of left knee Procedures CT ARTHRP KNE CONDYLE&PLATU MEDIAL&LAT COMPARTMENTS ARTHROPLASTY, KNEE, ROBOT-ASSISTED Jose F Yao MD [address] [place] [phone] Phone: tel: fax: Referral ID Status Reason Start Date Expiration Date Visits Re quested Visits Authorized [id number] 08/15/2024 1 1 Encounter Details Date Type Department Care Team (Late st Contact Info) Description 09/11/2024 8:45 AM EDT - 09/11/2024 11:10 AM EDT Surgery [facility] Operating Room [address] [place] [id number] Jose F Yao MD [address] [place] [id number] ARTHROPLASTY, KNEE, ROBOT-ASSISTED Social History Tobacco Use Types Packs/Day Years Used Date Smoking Tobacco: Never Smokeless Tobacco: Never Alcohol Use Standard Drinks/Week Comments Never 0 (1 standard drink = 0.6 oz pur e alcohol) Utilities Answer Date Recorded In the past 12 months, has t he electric, gas, oil, or water company threatened to shut off services in your [...] your living situation today? I have a [facility] place to live 09/11/2024 Think about [...] Do you speak a language other than Samoan at [facility]? No 09/11/2024 Do you want help with [...] Sign Reading Time Taken Comments Blood Pressure 97/53 09/11/2024 11:10 AM EDT Pulse 74 09/11/2024 11:10 AM EDT Temperature 36.2 C (97.2 F) 09/11/2024 11:10 AM EDT bear hugger on Respiratory Rate 27 09/11/2024 11:1 0 AM EDT Oxygen Saturation 94% 09/11/2024 11: 10 AM EDT Inhaled Oxygen Concentration - - Weight 70.9 kg (156 lb 6.4 oz) 09/11/2024 7:15 AM EDT Height 167.6 cm (5' 6 [...] Reading Date Result Priority He Sloan MD [phone] 09/12/2024 Narrative & Impression PORTABLE CHEST HISTORY: [...] PROCEDURE PERFORMED: Left total knee arthroplasty using LoggedIn robotic assistance ([employer] System using cementless technology with cruciate-retaining size [...] on the tibia and femur for the LoggedIn system along with the LoggedIn checkpoints. We then proceeded with systematic registration. This would align with our preoperative CT scan. We went through recording, barrow alignment, corrected alignment, and then gap balancing. We were able to adjust her components to get good balance in flexion and extension. We then brought in the LoggedIn robotic arm. We had removed both menisci and the anterior cruciate ligament. On this side, I elected to try to save the PCL first and if not convert to a PS knee. We used the LoggedIn robotic arm to make our tibial cut and then all of our femoral cuts. This allowed us to place our components in place. We aligned our tibial plate with the LoggedIn green guide and then pinned it. We [...] was planning on keeping her overnight regardless. /[id number] Discharge Medications: Your medication list START taking [...] ibuprofen 200 MG tablet Commonly known as: MOTRIN Where to Get Your Medications These medications were sent to [facility] [address] [phone] acetaminophen 500 MG tablet amoxicillin-clavulanate 500-125 mg [...] Discharge Follow UP: Contact information for follow-up [facility] [phone] Next Steps: Call Instructions: [facility] will call you to start plan of care. If you do not hear from them in 1-2 days, please call them. KYRIE LI Relationship: PCP - [address] [phone] Next Steps: Follow up in 1 week(s) [...] daily for 10 days. 20 capsule 09/12/2024 5 HYDROcodone-acet aminophen (NORCO) 5-325 mg per tablet Take 1 tablet by mouth every 6 (six) hours as needed for pain (for post surgical pain only) for up to 7 days. Max Daily Amount: 4 tablets 28 tablet 09/12/2024 lisinopriL (ZESTRIL) 30 MG tablet Take 1 [...] assisted out of facility via wheelchair to POV home with family * Mini Bell OTR/L - 09/13/2024 9:29 AM EDTSummary: OT note [...] ROBOT-ASSISTED; Surgeon: Jose F Yao MD; Location: [facility]; Service: Orthopedic Surgery; Laterality: Left; REPLACEMENT TOTAL KNEE Right General Visit type: Treatment Approved by: Nursing Patient disposition upon entry: Patient verified by name, Sitting in bedside chair, Feet elevated, Nursing aware/notified Co-treated by: PT Assisted by: headend technician Precautions Weightbearing status: Weight bearing as [...] patient's discharge summary. Electronically signed by HUGO Matamoros/Kassy - 09/13/2024 - 9:29 AM EDT * Marzena Cleveland, PT - 09/13/2024 9:14 AM EDT Images from the original note were not included. Inpatient Physical Therapy Treatment Patient Name: Imani Mcdonald Date of : 1945 Date of Treatment: 09/13/24 Start Time 0835 Stop Time 0853 Session Duration 18 minutes General Visit Type: Treatment Approved by: Nurse Green Patient Disposition Upon Entry: Patient in bedside chair, Call Light/Pull Cord in reach, All needs met and within reach, Nursing aware/notified, Feet elevated, Yellow non-slip socks donned Patient Verified By: Name Co-treated by: OT Assisted by: headend technician Precautions Weight-Bearing Status: Weight Bearing As [...] and CGA for safety. Patient's SpO2 ranged vujo68-32% on room air throughout the session. Per [...] Cotreated with: OT first session Assisted by: headend technician first session Precautions Weight-Bearing Status: Weight [...] on 2L during activity with RN and HOISTING PILE DRIVING ENGINEER notified BP 101/57 sitting EOB pre-ambulation, 117/56 [...] with activity first session with RN and HOISTING PILE DRIVING ENGINEER notified. Exercises completed secondsession and zero knee [...] patient's discharge summary. Electronically signed by Kaye Valdez PT - 09/12/24 - 11:06 AM EDT * Hilary Bryant OTR - 09/12/2024 10:52 AM EDT Images from the original note were not included. Inpatient Occupational Therapy Treatment Note Patient Name: Imani Mcdonald Date of : 1945 Date of Treatment: 09/12/24 Start Time: 48 Stop Time: 1011 Session Duration: 24 minutes This patient is [...] ROBOT-ASSISTED; Surgeon: Jose F Yao MD; Location: [facility]; Service: Orthopedic Surgery; Laterality: Left; REPLACEMENT TOTAL KNEE Right General Visit type: Treatment Approved by: Nursing Patient disposition upon entry: Patient verified by name, Patient verified by date of , Supinein bed, Son at bedside, All needs met and within reach, Call light/pull cord in reach, Bed alarm applied, Head of bed >30 degrees, Nursing aware/notified Co-treated by: PT Assisted by: Compliance Consultant Precautions Weightbearing status: Weight bearing as tolerated [...] 09/12/2024 - 10:52 AM EDT * Britta Karlene Finney - 09/12/2024 10:50 AM EDTSummary: Bedside Swallow results: IDDSI regular diet with thin liquids; meds as tolerated Images from the original note were not included. [facility] Speech Language Pathology: Clinical Swallow Evaluation Initial evaluation Therapy Diagnosis: No overt oral or pharyngeal dysphagia patterns Recommendations: IDDSI Regular Consistency and Thin liquids Patient Name: Imani Mcdonald Age: 79 y.o. Today: 09/12/2024 Time In: 10:30 Time Out: 10:50 (Chart Review, collaboration with RN and clinical reasoning/decision making time required for completion of evaluation = 10 minutes). Total time: 30 minutes CPT: 39259, no charge For patient safety the patients [...] ROBOT-ASSISTED; Surgeon: Jose F Yao MD; Location: [facility]; Service: Orthopedic Surgery; Laterality: Left; REPLACEMENT TOTAL [...] and evaluated at bedside by me in [facility]. Family is at bedside. She was on [...] up Imaging: Not indicated at this time [facility] Recommendation at Discharge: No further [facility] services warranted at this time. If this [...] Intake/Output: Intake/Output 09/11/24 0700 - 09/12/24 0659 [phone] Total Intake (ml) 1450 490.8 1988.5 3929.3 Output (ml) -- -- -- -- Net (ml) 1450 490.8 1988.5 3929.3 Last Weight 70.9 kg (156 lb [...] Value Units Date/Time XR chest AP portable [[id number]] Collected: 09/12/24 0934 Order Status: Completed Updated: 09/12/24936 Narrative: PORTABLE CHEST HISTORY: Hypoxia, right lower [...] Dr. He Sloan. Transcribed by Lucie Ni XR chest AP portable [[id number]] Collected: 09/11/24 1137 Order Status: Completed Updated: 09/11/24 1140 Narrative: Portable chest HISTORY: Possible aspiration FINDINGS: Comparison date June 23, 2024. There is mild stable scar of the left lung base. Heart and pulmonary vessels appear within normal limits. Lung manzanares are clear of acute infiltrates or effusions. Impression: No acute process. XR knee 1 or 2 views left [[id number]] Collected: 09/11/24 1120 Order Status: Completed Updated: [...] moderate risk and is being admitted to [facility] telemetry on an observation status. Anticipate discharge tomorrow * Jailyn Bone RN - 09/12/2024 8:33 AM EDT DME- has rolling walker Therapy- [facility] Family at home for postop care and to transport home. Patient/family provided with [facility] approved choice list and Patient [...] ROBOT-ASSISTED; Surgeon: Jose F Yao MD; Location: [facility]; Service: Orthopedic Surgery; Laterality: Left; REPLACEMENT TOTAL KNEE Right General Visit Type: Initial Evaluation Approved By: Nurse Sam Patient Disposition Upon Entry: Supine in bed, [...] SpO2 >90% on 2L HR 60s-70s on rn gastroenterology BP 109/64 beginning of session, 129/63 end [...] score=10 Raw score=10 t-Scale score=32.29 Standard error=3.42 [facility] 0-100%=76.75% MDC=4.72 A raw score of >= [...] as the patient's discharge summary. * Jena Luis OTR/Kassy - 09/11/2024 4:35 PM EDT Inpatient Occupational [...] ROBOT-ASSISTED; Surgeon: Jose F Yao MD; Location: [facility]; Service: Orthopedic Surgery; Laterality: Left; REPLACEMENT TOTAL [...] dressing:Maximal Assistance Toileting:KIMBER-Unable to assess Outcome Measures [facility] Daily Living Functional Assessment How much help [...] patient's discharge summary. Electronically signed by VERONICA Powers - 09/11/2024 - 4:35 PM EDT documented in this encounter H&P Notes * Mike Manjarrez APRN - 09/11/2024 12:32 PM EDT Images from the original note were not included. History & Physical - Date of Service: 09/11/2024 Name: Imani Mcdonald [facility] : 1945 Age: 79 y.o. @ATTENDING@ KYRIE DRU SUBJECTIVE: Chief Complaint / Reason for Visit: [...] and evaluated at bedside by me in [facility]. Family is at bedside. She was on [...] to Encounter Medication List (as reviewed in [facility]) Medications calcium carbonate-vitamin D3 (Calcium 600 + [...] Constitutional: General: Not in acute distress. Elderly niz-nhj-iudqemjev female Appearance: Normal appearance. Not toxic-appearing. HENT: [...] Value Units Date/Time XR chest AP portable [[id number]] Collected: 09/11/24 1137 Order Status: Completed Updated: 09/11/24 1140 Narrative: Portable chest HISTORY: Possible aspiration FINDINGS: Comparison date June 23, 2024. There is mild stable scar of the left lung base. Heart and pulmonary vessels appear within normal limits. Lung manzanares are clear of acute infiltrates or effusions. Impression: No acute process. XR knee 1 or 2 views left [[id number]] Collected: 09/11/24 1120 Order Status: Completed Updated: [...] moderate risk and is being admitted to [facility] telemetry on an observation status. ELOS: Anticipate [...] 11:08 AM EDT NAME: Imani Mcdonald CSN: [id number] : 1945 PCP: KYRIE LI REASON FOR [...] no fatigue, no mood swings. Scribe Attestation: Brenda Hamilton CMA acted as a scribe and transcribed [...] your prescription refills for excessive abuse or intermodal customer service use. If necessary, you will be referred to card painter. We will monitor your use of scheduled drugs through the [facility] program. In addition, we will follow the monitoring procedures required by the [facility]. The side effects of Schedule II controlled [...] knee arthroplasty and has been recommended a Call Britannia ABUNDIO implant to allow for increased accuracy [...] their surgical plans withmore accuracy. Scribe Attestation: Berta Hamilton RTR acted as a scribe and transcribed [...] Jose F Yao MD 09/04/2024 11:11 AM EDT Ann Fatima: Elenita STOREY / IRMA [...] ROBOT-ASSISTED; Surgeon: Jose F Yao MD; Location: [facility]; Service: Orthopedic Surgery; Laterality: Left; REPLACEMENT TOTAL [...] change Nutrition Risk Level: No Risk Hayley Hampton MS, RD, LD documented in this encounter Nursing [...] total knee arthroplasty using Abundio robotic assistance ([employer]n System using cementless technology with cruciate-retaining size [...] on the tibia and femur for the LoggedIn system along with the LoggedIn checkpoints. We then proceeded with systematic registration. This would align with our preoperative CT scan. We went through recording, barrow alignment, corrected alignment, and then gap balancing. We were able to adjust her components to get good balance in flexion and extension. We then brought in the LoggedIn robotic arm. We had removed both menisci and the anterior cruciate ligament. On this side, I elected to try to save the PCL first and if not convert to a PS knee. We used the LoggedIn robotic arm to make our tibial cut [...] was planning on keeping her overnight regardless. /[id number] Jose F Yao MD ASC/AQ / ASC / AQS /[id number] documented in this encounter Miscellaneous Notes * [...] per policy, and non-skid footwear provided. 09/13/2024 1110 by Norma Lee RN Outcome: [...] and initiate plans and interventions as needed 09/13/2024 1110 by Norma Lee RN Outcome: Adequate for Discharge 09/13/2024 08 by Norma Lee RN Outcome: Progressing Problem: Daily Care Goal: Daily care needs are met Description: Assess and monitor ability to perform self care and identify potential discharge needs. 09/13/2024 1110 by Norma Lee RN Outcome: [...] patients ability to cope with his/her illness. 09/13/20241109 by Norma Lee RN Outcome: Adequate for Discharge 09/13/2024 08 by Norma Lee RN Outcome: Progressing Goal: Collaborate with patient/family/caregiver to identify patient specific goals for this hospitalization 09/13/2024 111 by Norma Lee RN Outcome: [...] physical activity, distraction, and deep breathing exercises. 09/13/2024 1110 by Norma Lee RN Outcome: Adequate for Discharge 09/13/2024 0800 by Norma Lee RN Outcome: Progressing Goal: Verbalizes personal strengths Description: Spend time with the patient using empathy and active listening skills. 09/13/2024 1110 by Norma Lee RN Outcome: Adequate for Discharge 09/13/2024 08 by Norma Lee RN Outcome: Progressing Problem: Progressive Mobility Goal: BMAT Level 1 - With full mechanical lifting assistance: 09/13/2024 1110 by Norma [...] Patient will demonstrate appropriate skin care techniques 09/13/2024 1110 by Norma Lee RN Outcome: Adequate for Discharge 09/13/2024 08 by Norma Lee RN Outcome: Progressing Goal: LTG - Patient will be free from infection 09/13/2024 1110 by Norma Lee RN Outcome: Adequate for Discharge 09/13/2024 0800 by Norma Lee RN Outcome: Progressing Goal: STG - Patient demonstrates skin care/treatment/dressing change 09/13/2024 1110 by Norma Lee RN Outcome: Adequate for Discharge 09/13/2024 0800 by Norma Lee RN Outcome: Progressing Goal: STG - Patient will maintain good skin integrity 09/13/2024 1110 by Norma Lee RN Outcome: Adequate for Discharge 09/13/2024 08 by Norma Lee RN Outcome: Progressing Goal: STG - Patient exhibits signs of wound healing. 09/13/2024 1110 by Norma Lee RN Outcome: Adequate for Discharge 09/13/2024 08 by Norma Lee RN Outcome: Progressing Goal: STG - Patient demonstrates pressure reduction techniques 09/13/2024 1110 by Norma Lee RN Outcome: Adequate for Discharge 09/13/2024 08 by Norma Lee RN Outcome: Progressing Goal: STG - Patient demonstrates preventative skin care measures 09/13/2024 1110 by Norma Lee RN Outcome: Adequate for Discharge 09/13/2024 08 by Norma Lee RN Outcome: Progressing Problem: Knowledge Deficit Goal: Patient/family/caregiver demonstrates understanding of disease process, treatment plan, medications, and discharge instructions Description: Complete learning assessment and assess knowledge base. 09/13/2024 1110 by Norma Lee RN Outcome: [...] per policy, and non-skid footwear provided. 09/13/2024 1110 by Norma Lee RN Outcome: [...] of Care - Sam Diamond RN - 09/12/2024 10:21 AM EDT [...] Description 09/23/2024 10:00 AM EDT Office Visit [facility] Orthopedics - [address] [phone] Jose F Yao MD [address] [place] [phone] Scheduled Referrals Name Type Priority Associated Diagnoses [...] STAT 09/11/2024 10:59 AM EDT TISSUE EXAM [facility] AP Routine 09/11/2024 9:29 AM EDT Primary osteoarthritis of left knee CT ARTHRP KNE CONDYLE&PLATU MEDIAL&LAT COMPARTMENTS 09/11/2024 8:48 AM EDT Primary osteoarthritis of left knee Case Notes 0700 URINALYSIS, REFLEX MICROSCOPIC AND CULTURE IF INDICATED STAT 09/11/2024 7:11 AM EDT documented in this encounter Results * (ABNORMAL) Magnesium (09/13/2024 3:44 AM EDT) Magnesium 1.6(L) 1.8 - 2.4 mg/dL 09/13/2024 5:13 AM EDT [facility] Blood Venipuncture / Unknown 09/13/2024 3:44 AM EDT 09/13/2024 4:27 AM EDT us Marcella Quintanilla APRN LAB BLOOD ORDERABLES Final Re sult [facility] [address] [place] [address], [facility] [phone] * (ABNORMAL) Procalcitonin (09/13/2024 3:44 AM EDT) Pathologist [facility] Procalcitonin 2.38(H) <=0.50 ng/mL 09/13/2024 5:39 AM EDT [facility] Comment: Sepsis comment <0.5 Antibiotics Discouraged [...] 3:44 AM EDT 09/13/2024 4:27 AM EDT [facility] HOISTING PILE DRIVING ENGINEER LAB BLOOD ORDERABLES Final Result [facility] [address] [place] [address] * (ABNORMAL) CBC with automated diff (09/13/2024 3:44 AM EDT) Pathologist [facility] WBC 10.9(H) 4.8 - 10.8 K/ L 09/13/2024 4:36 AM EDT [facility] RBC 3.20(L) 3.50 - 5.20 M/ L 09/13/2024 4:36 AM EDT [facility] Hemoglobin 9.5(L) 11.7 - 15.8 GM/DL 09/13/2024 4:36 AM EDT [facility] Hematocrit 27.8(L) 35.0 - 47.0 % 09/13/2024 4:36 AM EDT [facility] MCV 87 81 - 101 fL 09/13/2024 4:36 AM EDT [facility] MCH 29.7 27.0 - 34.0 pg 09/13/2024 4:36 AM EDT [facility] MCHC 34.2 32.0 - 36.0 GM/DL 09/13/2024 4:36 AM EDT [facility] RDW 13.1 11.5 - 14.5 % 09/13/2024 4:36 AM EDT [facility] Platelets 173 150 - 400 K/CU MM 09/13/2024 4:36 AM EDT [facility] MPV 9.6 9.4 - 12.4 fL 09/13/2024 4:36 AM EDT [facility] Nucleated Red Blood Cell 0.0 0 - 0.2 % 09/13/2024 4:36 AM EDT [facility] % Neutros 80 37 - 80 % 09/13/2024 4:36 AM EDT [facility] % Lymphs 10 10 - 50 % 09/13/2024 4:36 AM EDT [facility] % Monos 9 5 - 13 % 09/13/2024 4:36 AM EDT [facility] % Eos 0 0 - 7 % 09/13/2024 4:36 AM EDT [facility] % Baso 0 0 - 3 % 09/13/2024 4:36 AM EDT [facility] NRBC Absolute <0.01 0 - 0.012 K/ul 09/13/2024 4:36 AM EDT [facility] # Neutros 8.71(H) 2.00 - 6.90 K/ L 09/13/2024 4:36 AM EDT [facility] # Lymphs 1.08 0.60 - 3.40 K/ L 09/13/2024 4:36 AM EDT [facility] # Monos 1.00(H) 0.00 - 0.90 K/ L 09/13/2024 4:36 AM EDT [facility] # Eos 0.00 0.00 - 0.70 K/ L 09/13/2024 4:36 AM EDT [facility] # Baso 0.01 0.00 - 0.20 K/ L 09/13/2024 4:36 AM EDT [facility] Immature Granulocytes-Re lative 0.60 % 09/13/2024 4:36 AM EDT [facility] # IG 0.07(H) 0.00 - 0.00 K/uL 09/13/2024 4:36 AM EDT [facility] Blood Venipuncture / Unknown 09/13/2024 3:44 AM EDT 09/13/2024 4:27 AM EDT Narrative [facility] - 09/13/2024 4:36 AM EDT When [...] Atypical Lymph flag noted us Mike Manjarrez METAL BUILDING ASSEMBLER LAB BLOOD ORDERABLES F inal Result [facility] [address] [place] [address] * (ABNORMAL) Basic Metabolic Panel (09/13/2024 3:44 AM EDT) Sodium 137 136 - 145 meq/L 09/13/2024 5:14 AM EDT [facility] Potassium 3.1(L) 3.5 - 5.1 meq/L 09/13/2024 5:14 AM EDT [facility] Chloride 102 98 - 107 meq/L 09/13/2024 5:14 AM EDT [facility] CO2 30 21 - 32 meq/L 09/13/2024 5:14 AM EDT [facility] Anion Gap 8(L) 11 - 22 09/13/2024 5:14 AM EDT [facility] BUN 18 7 - 18 mg/dL 09/13/2024 5:14 AM EDT [facility] Creatinine 0.90 0.55 - 1.10 mg/dL 09/13/2024 5:14 AM EDT [facility] BUN/Creatinine 20 09/13/2024 5:14 AM EDT [facility] Glucose 111(H) 70 - 99 mg/dL 09/13/2024 5:14 AM EDT [facility] Calcium 8.1(L) 8.5 - 10.1 mg/dL 09/13/2024 5:14 AM EDT [facility] Osmolality Calc 276.4 mOsm/kg 5:14 AM EDT [facility] eGFR (mL/min/1.73m2) >60 >=60 mL/min/1.7 3m2 09/13/2024 5:14 AM EDT [facility] Comment:eGFR of <60 suggests chronic kidney disease if found over a 3 month period of time. eGFR <15 indicates renal failure. Blood Venipuncture / Unknown 09/13/2024 3:44 AM EDT 09/13/2024 4:27 AM EDT us Mike Manjarrez METAL BUILDING ASSEMBLER LAB BLOOD ORDERABLES F inal Result [facility] [address] [place] [address] * (ABNORMAL) Glucose, Nova Meter (09/13/2024 2:53 AM EDT) POC-GLUCOSE 107(H) 70 - 99 mg/dL 09/13/2024 2:54 AM EDT [facility] Comment: In the event of poor peripheral blood flow, venous or arterial blood should be used due to the potential of erroneous results. No lab per MD [employer] Scm Consultant [phone] 09/13/2024 2:54 AM EDT [facility] Blood WHOLE BLOOD / Unknown 09/13/2024 2:53 AM EDT 09/13/2024 2:54 AM EDT Narrative [facility] - 09/13/2024 2:54 AM EDT [employer] Scm Consultant ID is - [id number] [facility] HOISTING PILE DRIVING ENGINEER POINT OF CARE TEST ORDERABL ES Final Result [facility] [address] [place], [place] [id number] [phone] * XR chest AP portable (09/12/2024 9:22 [...] Dr. He Sloan. Transcribed by Lucie Ni us Milka Larson NP IMG DIAGNOSTIC IMAGING ORDE RABLES Final Result * (ABNORMAL) CBC with automated diff (09/12/2024 4:30 AM EDT) WBC 19.2(H) 4.8 - 10.8 K/ L 09/12/2024 5:14 AM EDT [facility] RBC 3.76 3.50 - 5.20 M/ L 09/12/2024 5:14 AM EDT [facility] Hemoglobin 11.2(L) 11.7 - 15.8 GM/DL 09/12/2024 5:14 AM EDT [facility] Hematocrit 33.4(L) 35.0 - 47.0 % 09/12/2024 5:14 AM EDT [facility] MCV 89 81 - 101 fL 09/12/2024 5:14 AM EDT [facility] MCH 29.8 27.0 - 34.0 pg 09/12/2024 5:14 AM EDT [facility] MCHC 33.5 32.0 - 36.0 GM/DL 09/12/2024 5:14 AM EDT [facility] RDW 13.0 11.5 - 14.5 % 09/12/2024 5:14 AM EDT [facility] Platelets 183 150 - 400 K/CU MM 09/12/2024 5:14 AM EDT [facility] MPV 9.3(L) 9.4 - 12.4 fL 09/12/2024 5:14 AM EDT [facility] Nucleated Red Blood Cell 0.0 0 - 0.2 % 09/12/2024 5:14 AM EDT [facility] % Neutros 88(H) 37 - 80 % 09/12/2024 5:14 AM EDT [facility] [facility] % Lymphs 5(L) 10 - 50 % 09/12/2024 5:14 AM EDT [facility] % Monos 6 5 - 13 % 09/12/2024 5:14 AM EDT [facility] % Eos 0 0 - 7 % 09/12/2024 5:14 AM EDT [facility] % Baso 0 0 - 3 % 09/12/2024 5:14 AM EDT [facility] NRBC Absolute <0.01 0 - 0.012 K/ul 09/12/2024 5:14 AM EDT [facility] # Neutros 16.79(H) 2.00 - 6.90 K/ L 09/12/2024 5:14 AM EDT [facility] # Lymphs 0.90 0.60 - 3.40 K/ L 09/12/2024 5:14 AM EDT [facility] # Monos 1.21(H) 0.00 - 0.90 K/ L 09/12/2024 5:14 AM EDT [facility] # Eos 0.00 0.00 - 0.70 K/ L 09/12/2024 5:14 AM EDT [facility] # Baso 0.05 0.00 - 0.20 K/ L 09/12/2024 5:14 AM EDT [facility] Immature Granulocytes-Re lative 1.10 % 09/12/2024 5:14 AM EDT [facility] # IG 0.22(H) 0.00 - 0.00 K/uL 09/12/2024 5:14 AM EDT [facility] Blood Venipuncture / Unknown 09/12/2024 4:30 AM EDT 09/12/2024 5:09 AM EDT Narrative [facility] - 09/12/2024 5:14 AM EDT When [...] LAB BLOOD ORDERABLES F inal Result [facility] [address] [place] [address] * (ABNORMAL) Procalcitonin (09/12/2024 4:29 AM EDT) Procalcitonin 3.51(H) <=0.50 ng/mL 09/12/2024 10:26 AM EDT [facility] Comment: Sepsis comment <0.5 Antibiotics Discouraged [...] EDT 09/12/2024 9:13 AM EDT Milka Larson LAB BLOOD ORDERABLES Final Result [facility] [address] [place], [place] [id number], [facility] [phone] * (ABNORMAL) Basic Metabolic Panel (09/12/2024 4:29 AM EDT) Sodium 138 136 - 145 meq/L 09/12/2024 5:37 AM EDT [facility] Potassium 3.8 3.5 - 5.1 meq/L 09/12/2024 5:37 AM EDT [facility] Chloride 103 98 - 107 meq/L 09/12/2024 5:37 AM EDT [facility] CO2 26 21 - 32 meq/L 09/12/2024 5:37 AM EDT [facility] Anion Gap 13 11 - 22 09/12/2024 5:37 AM EDT [facility] BUN 20(H) 7 - 18 mg/dL 09/12/2024 5:37 AM EDT [facility] Creatinine 1.15(H) 0.55 - 1.10 mg/dL 09/12/2024 5:37 AM EDT [facility] BUN/Creatinine 17 09/12/2024 5:37 AM EDT [facility] Glucose 143(H) 70 - 99 mg/dL 09/12/2024 5:37 AM EDT [facility] Calcium 8.1(L) 8.5 - 10.1 mg/dL 09/12/2024 5:37 AM EDT [facility] Osmolality Calc 280.8 mOsm/kg 5:37 AM EDT [facility] eGFR (mL/min/1.73m2) 48(L) >=60 mL/min/1.7 3m2 09/12/2024 5:37 AM EDT [facility] Comment:eGFR of <60 suggests chronic kidney disease if found over a 3 month period of time. eGFR <15 indicates renal failure. Blood Venipuncture / Unknown 09/12/2024 4:29 AM EDT 09/12/2024 5:09 AM EDT Mike Manjarrez [employer] LAB BLOOD ORDERABLES F inal Result [facility] [address] [place] [address] * XR knee 1 or 2 views [...] process. Lilia Hernandez CRNA IMG DIAGNOSTIC IMAGING ORDE CHRISTOFER Final Result * Tissue Exam (09/11/2024 9:29 AM EDT) AP RESULT See Note: [facility] Comment: [facility] [address] [place] [address] or [phone] Anish Cantu M.D., Licensed Occupational Therapist PATIENT NAME LABORATORY NO. [id number] SIMONS [id number] AGE SEX SSN CLIENT REF # [place] [id number] 1945 F [id number] ARTHUR REQUESTING [employer] [address] DATE COLLECTED DATE RECEIVED DATE REPORTED 09/11/2024 09/11/2024 09/15/2024 DIAGNOSIS: BONE FRAGMENTS, GROSS ONLY, LEFT KNEE: Changes consistent with moderate osteoarthritis RLL/sdl CLINICAL HISTORY: Unilateral primary osteoarthritis, left knee SPECIMENS RECEIVED: BONE FRAGMENTS, GROSS ONLY, LEFT KNEE Professional interpretation rendered by Anish Cantu M.D., F.C.A.P. at [facility], [address] [place] [address], [place] [address]. GROSS DESCRIPTION: Received in formalin labeled joint, [...] BY: Anish Cantu M.D., F.C.A.P. CPT CODES: 93684 Bone KNEE JOINT STRUCTURE / Unknown 09/11/2024 9:29 AM EDT us Jose F Yao MD PATHOLOGY/CYTOLOGY ORDERABLES Final Result Performing Organization Address City/State/[facility] Co de Phone Number [facility] [address] [place] [address] * Urinalysis, Reflex Microscopic and Culture If Indicated (09/11/2024 7:11 AM EDT) Color, UA Straw 09/11/2024 7:22 AM EDT [facility] Clarity, UA Clear 09/11/2024 7:22 AM EDT [facility] Specific [place], UA <=1.005 1.002 - 1.030 09/11/2024 7:22 AM EDT [facility] pH, UA 7.0 5.0 - 9.0 09/11/2024 7:22 AM EDT [facility] Leukocytes, UA Negative Negative 09/11/2024 7:22 AM EDT [facility] Nitrite, UA Negative Negative 09/11/2024 7:22 AM EDT [facility] Protein, UA Negative Negative 09/11/2024 7:22 AM EDT [facility] Glucose, UA Negative Negative 09/11/2024 7:22 AM EDT [facility] Ketones, UA Negative Negative 09/11/2024 7:22 AM EDT [facility] Bilirubin, UA Negative Negative 09/11/2024 7:22 AM EDT [facility] Blood, UA Negative Negative 09/11/2024 7:22 AM EDT [facility] Urobilinogen, UA 0.2 mg/dL Normal 09/11/2024 7:22 AM EDT [facility] UA INDICATIONS Not indicated 09/11/2024 7:22 AM EDT [facility] Specimen Source Urine, Straight Catheter 09/11/2024 7:22 AM EDT [facility] Urine URINE SPECIMEN OBTAINED VIA STRAIGHT CATHETER / Unknown 09/11/2024 7:11 AM EDT 09/11/2024 7:14 AM EDT us Jose F Tex Yao MD URINE ORDERABLES Final Result [facility] [address] [place] [address] documented in this encounter Visit Diagnoses Diagnosis [...] cause unspecified Urinary incontinence Unspecified urinary incontinence Primary osteoarthritis of left knee documented in this encounter Admitting Diagnoses Diagnosis [...] DO NOT CRUSH THIS DOSAGE FORM * ferrous sulfate EC tablet 325 mg 325 [...] Given 09/12/2024 9:32 AM EDT 7.5 mg ondansetron (ZOFRAN) injection 4 mg 4 mg [...] Given 09/11/2024 4:14 PM EDT 40 mg polyethylene glycol (GLYCOLAX) packet 17 g 17 [...] Given 09/11/2024 4:14 PM EDT 10 mEq pravastatin (PRAVACHOL) tablet 80 mg 80 [...] no further options ordered., Phase II/On Unit fgeedrfwjdm-WFK-mnwLYAtpo-ketor olac (R.E.C.K.) 2.46-0.005-0.0008-0.3 mg/mL- 50 mL syringe in NS FOR PERIARTICULAR USE As needed, Starting on Krys 09/11/24 at 0940, Intra-op Given 09/11/2024 9:40 AM EDT 100 mLs sennosides (SENOKOT) tablet 17.2 mg 17.2 mg [...] Given 09/11/2024 4:14 PM EDT 25 mg traMADoL (ULTRAM) tablet 50 mg 50 mg [...] Given 09/12/2024 9:32 AM EDT 20 mg vancomycin (VANCOCIN) injection As needed, Starting on Krys 09/11/24 at 0940, Intra-op Given 09/11/2024 9:40 AM EDT 1,000 mg documented in this encounter Active and [...] * 0930 (Given - Provider: Sam Diamond RN)2024 (Given - Provider: Pushpa Naik RN) 0825 [...] 0730, For 1 dose, Look-alike/Sound-alike medication, Pre-op 0723 (Given - Provider: José Luis Fiore RN) dexAMETHasone (DECADRON) injection 8 mg (COMPLETED) 8 mg Once, intravenous, On Sun09/12/24 at 0900, For 1 dose, For IV Push administration give slowly over 5-7 minutes. Rapid administration of dexamethasone >10 mg may be associated with perineal irritation, consider administration via IVPB. 926 (Given - Provider: Sam Diamond RN) famotidine (PEPCID) tablet 20 mg (COMPLETED) 20 mg Once, oral, On Sun09/11/24 at 0730, For 1 dose, Pharmacist to renally dose if CrCl is less than 50 mL/min or on CRRT., Pre-op 722 (Given - Provider: José Luis Fiore RN) ferrous sulfate EC tablet 325 mg 325 mg Daily, oral, First dose on Sun09/11/24 at 1600, * DO NOT CRUSH THIS DOSAGE FORM *, Phase II/On Unit 161 (Given - Provider: Sam Diamond RN) 09 (Not Given - Provider: Sam Diamond RN - Reason: Patient/family refused) 827 (Given - Provider: Norma Lee RN) hydroCHLOROthiazide (HYDRODIURIL) tablet 25 mg(Linked Group 1) 25 mg Daily, oral, First dose on Sun09/11/24 at 1600 1615 (Given - Provider: Sam [...] RN)2022 (Given - Provider: Pushpa Naik RN) 0825 (Given - Provider: Norma Lee RN) mupirocin (BACTROBAN) 2 % ointment 1 application. (COMPLETED) intraNASAL, Once, On Krys 09/11/24 at 0730, For 1 dose, Preprocedure to both nares preoperatively, Pre-op 0723 (Given - Provider: José Luis Fiore RN) pantoprazole (PROTONIX) EC tablet 40 mg 40 mg Daily, oral, First dose on Krys 09/11/24 at 1600, * DO NOT CRUSH THIS DOSAGE FORM *, Phase II/On Unit 1614 (Given - Provider: Sam Diamond RN) 0932 (Given - Provider: Sam Diamond, RN) 0825 (Given - Provider: Norma Lee RN) piperacillin-tazobactam (ZOSYN) 3.375 g in sodium chloride 0.9 % (NS) MBP 100 mL IVPB (CANCELED) 3.375 g Every 6 hours interval, intravenous, at 33.3 mL/hr, First dose on Krys 09/11/24 at 2200, Please choose an indication: Pneumonia 2100 (IVPB Started - Provider: Jay Huang RN) 0012 (IVPB Stopped - Provider: Jay Huang RN)0412 (IVPB Started - Provider: Jay Huang RN)0720 (IVPB Stopped - Provider: Sam Diamond RN)0928 (IVPB Started - Provider: Sam Diamond RN)1154 (IVPB Stopped - Provider: Sam Diamond, RN) piperacillin-tazobactam (ZOSYN) 4.5 g in sodium [...] 161 (Given - Provider: Sam Diamond RN) 09 (Given - Provider: Sam Diamond RN) 0825 (Given - Provider: Norma Lee, NYLA) potassium chloride (KLOR-CON) ER tablet 10 mEq [...] for prevention of constipation., Phase II/On Unit 2100 (Given - Provider: Jay Huang RN) [...] RN)2023 (Given - Provider: Pushpa Naik RN) 0825 (Given - Provider: Norma Lee RN) Continuous Medication Order 09/11/2024 09/12/2024 09/13/2024 sodium chloride 0.9 % infusion (CANCELED) 125 mL/hr Continuous, intravenous, Starting on Krys 09/11/24 at 1300, Phase II/On Unit 1526 (New Bag - Provider: Sam Diamond RN)2341 (New Bag - Provider: Jay Huang, NYLA) 0717 (New Bag - Provider: Jay Huang, NYLA) PRN Medication Order 09/11/2024 09/12/2024 09/13/2024 acetaminophen (TYLENOL) tablet 1,000 mg 1,000 mg Every 8 hours PRN, oral, mild pain (1-3), Starting on Krys 09/11/24 at 1228, 1st line analgesic, Phase II/On Unit 0915 (Given - Provider: Norma Lee, NYLA) albuterol 2.5 mg /3 mL (0.083 %) [...] Nebulization 0839 (Given - Provider: Bozena Darnell, MEDICAL SERVICES ASSISTANT)2017 (Given - Provider: Candace Doll RRT) 0747 (Given - Provider: Bozena Darnell, BRUCE) [...] 2 - 5 minutes., Phase II/On Unit 1513 (Given - Provider: Corinna Yancey RN) ondansetron (ZOFRAN-ODT) disintegrating tablet 4 mg(Linked Group 2) 4 mg Every 8 hours PRN, oral, nausea, vomiting, Starting on Krys 09/11/24 at 1228, 1st line. If inadequate response within 60 minutes, proceed to next-line agent for same PRN reason or contact provider if no further options ordered., Phase II/On Unit 1513 (See Alternative - Provider: Corinna Yancey RN) promethazine (PHENERGAN) 12.5 mg in sodium [...] (See Alternative - Provider: Sam Diamond RN) aomkgfbwhdt-CFG-qglWBTut e-ketorolac (R.E.C.K.) 2.46-0.005-0.0008-0.3 mg/mL- 50 mL syringe in NS FOR PERIARTICULAR USE (CANCELED) As needed, Starting on Krys 09/11/24 at 0940, Intra-op 0940 (Given - Provider: Jose F Yao MD) traMADoL (ULTRAM) tablet 50 mg 50 mg Every 6 hours PRN, oral, moderate pain (4-6), Starting on Krys 09/11/24 at 1228, 1st line analgesic, Phase II/On Unit 003 (Given - Provider: Pushpa Naik RN) vancomycin [...] Unit documented in this encounter Care Teams Certified Nurses' Aide Relationship Specialty Start Date End Date Kyrie Li [address] [place] [phone] PCP - General 06/23/24 documented as of this encounter
--- OUTSIDE RECORDS SUMMARY | 2024-09-11 08:49 | XMS_ITS | Encounter Summary ---
Author Organization [employer] ([place], [place], [place], [place]) Address [address] [place] [address] Care Team Providers Care Field Auditor Name Role Phone Kyrie Li Primary Care Provider [phone] Reason for Visit * Auth/Cert (Routine) Specialty Diagnoses / Procedures Referred By Contannie t Referred To Contact Diagnoses Primary osteoarthritis of left knee Osteoarthritis of left knee Procedures IA ARTHRP KNE CONDYLE&PLATU MEDIAL&LAT COMPARTMENTS ARTHROPLASTY, KNEE, ROBOT-ASSISTED Jose F Yao MD [address] [place] [address] Phone: tel: fax: Referral ID Status Reason Start Date Expiration Date Visits Re quested Visits Authorized [id number] 08/15/2024 1 1 Encounter Details Date Type Department Care Team (Late st Contact Info) Description 09/11/2024 8:49 AM EDT Anesthesia Event [facility] Operating Room [address] [place] [phone] Lilia Hernandez CRNA [address] [place] [address] Anesthesia Record Procedure Summary Procedure Name Responsible Anesthesiologist Anesthesia Start Time Anesthesia Stop Time ARTHROPLASTY, KNEE, ROBOT-ASSISTED (Left: Knee) Lilia Hernandez CRNA 09/11/24 0849 09/11/24 1035 Events Date Time Event Comment 09/11/2024 0747 0849 An Start Patient identif ied and chart reviewed. 0849 An Start Data Anesthesia mac yahaira and monitors checked. 0906 an gibran now 0921 An Tourn Inflated 0923 an gibran now Pt coughing unc ontrollably, suctioned with yellow bile type liquid, cont to cough after suction. LMA placed for ventilation. Still coughing so ETT placed with yellow liquid coming up into tube. Delee suction ETT with minimal liquid. Dr Castillo notified and Kevin Yao made aware. Chest xray ordered for PACU 0925 An Intubation 0929 Pre-Induction Eval FDA anest hesia machine pre-use checkout completed. Patient status reassessed prior to start of anesthesia care. 0929 An Induction 0956 An Tourn Deflated 1032 an stop data 1033 Handoff to Receiving I compl eted my handoff to the receiving clinician during which we: 1. Identified the patient. 2. Identified the responsible provider. 3. Reviewed the pertinent medical history. 4. Discussed the surgical course. 5. Reviewed intra-op anesthesia management and issues during anesthesia. 6. Set expectations for post-procedure period. 7. Allowed opportunity for questions and acknowledgement of understanding. 1035 An Stop Meds Name Total ropivacaine PF (NAROPIN) injection 0.5 % 5 mL ropivacaine (NAROPIN) (PF) injection 0.2 % 20 mL dexAMETHasone (DECADRON) injection 4 mg/ mL 12 mg midazolam (VERSED) injection 2 mg/2 mL 1 mg ceFAZolin in sterile water (ANCEF) 2 gra m/20 mL syringe 2 g 2 g propofol (DIPRIVAN) infusion 10 mg/mL 42 mg propofol (DIPRIVAN) injection 10 mg/mL b olus 250 mg tranexamic acid (CYKLOKAPRON) injection 2,000 mg rocuronium (ZEMURON) 50 mg/5 mL injectio n 30 mg phenylephrine (NIKO-SYNEPHRINE) injection 400 mcg ePHEDrine sulfate injection (50 mg/mL) 2 0 mg sugammadex (BRIDION) injection 200 mg morphine PF injection 0.5 mg/mL 0.25 mg mepivacaine (PF) injection 20 mg/mL (2%) 2 mL lactated ringers (LR) infusion 1,400 mL * Agents Name O2 N2O Air SEVOFLURANE * Blood No blood administrations on file. Lines, Drains, and Airways Type Details Placement Removal Wound 09/11/24; 09; Inci nia; Knee; Left 09/11/24930 by Shira Hilton, RN Peripheral IV Placement Date: 08/18 09/10; Placement Time: 717; Size: 20 G; Orientation: Posterior, Right; Location: Hand; Site Prep: Alcohol; Inserted by: carmen waters; Insertion attempts: 1; Securement Method: Taped; Removal Date: 09/12/24; Removal Time: 2329; Removal Reason: Drainage 09/11/24717 by José Luis Fiore RN 09/12/242329 by Pushpa Naik RN documented in this encounter Social History Tobacco Use Types Packs/Day Years [...] your living situation today? I have a [facility] place to live 09/11/2024 Think about [...] speak a language other than Samoan at [facility]? No 09/11/2024 Do you want help [...] on file documented as of this encounter OR Notes * Anesthesia Postprocedure Evaluation - Lilia Hernandez CRNA - 09/11/2024 10:33 AM EDT Patient: Imani Mcdonald Procedure Summary Date: 09/11/24 Room / Location: [facility] Anesthesia Start: 848 Anesthesia Stop: Procedure: ARTHROPLASTY, KNEE, ROBOT-ASSISTED (Left: Knee) Diagnosis: Primary osteoarthritis of left knee (Osteoarthritis of left knee) Surgeons: Jose F Yao MD Responsible Provider: Lilia Hernandez CRNA Anesthesia Type: general, regional, spinal ASA Status: 2 Anesthesia Type: general, regional, spinal Vitals Value Taken Time BP 143/72 09/11/24 1040 Temp 97 09/11/24 1046 Pulse 79 09/11/24 1046 Resp 25 09/11/24 1046 SpO2 95 % 09/11/24 104 Vitals shown include unfiled device data. Ht 1.676 m (5' 6 ) Wt 70.9 kg (156 lb 6.4 oz) LMP (LMP Unknown) BMI 25.24 kg/m?? Anesthesia Post Evaluation Patient location during evaluation: PACU Patient participation: complete - patient participated Level of consciousness: awake Pain score: 0 Pain management: adequate Airway patency: patent Cardiovascular status: acceptable and stable Respiratory status: face mask, acceptable and spontaneous ventilation Hydration status: acceptable Color: [place] Activity: Moves 4 extremities Inotropes/Vasopressors: N/A No notable events documented. Lilia Hernandez CRNA 09/11/2024 10:46 AM EDT * Anesthesia Procedure Notes - Lilia Hernandez CRNA - 09/11/2024 9:16 AM EDT Associated Order(s): Spinal Spinal Authorized by: Lilia Hernandez CRNA Performed by: Lilia Hernandez CRNA Patient location during procedure: OR Start time: 09/11/2024 9:57 AM End time: 09/11/2024 10:05 AM Reason for block: primary anesthetic Preanesthetic Checklist Completed: patient identified, IV checked, site marked, risks and benefits discussed, surgical consent, monitors and equipment checked, pre-op evaluation and timeout performed Spinal Block Patient position: sitting Prep: Betadine Sterility prep: cap, gloves, gown, hand hygiene, mask and drape Sedation level: light sedation Patient monitoring: continuous pulse oximetry, ETCO2 and heart rate Approach: midline Location: L4-5 Injection technique: single-shot Needle Needle type: pencil-tip Needle gauge: 22 G Needle length: 9 cm Assessment Block outcome: block to be assessed in the OR Number of attempts: 1 Procedure assessment: patient tolerated procedure well with no immediate complications * Anesthesia Procedure Notes - August Castillo MD - 09/11/2024 8:24 AM EDT Associated Order(s): Peripheral Nerve Block Images from the original note were not included. Peripheral Nerve Block Authorized by: August Castillo MD Performed by: August Castillo MD Patient location during procedure: pre-op Start time: 09/11/2024 8:16 AM End time: 09/11/2024 8:22 AM Reason for block: at surgeon's request and post-op pain management Preanesthetic Checklist Completed: patient identified, IV checked, site marked, risks and benefits discussed, surgical consent, monitors and equipment checked, pre-op evaluation and timeout performed Peripheral Block Patient position: supine Prep: ChloraPrep Patient monitoring: heart rate, potline monitor and continuous pulse ox Block type: adductor canal Laterality: left Injection technique: single-shot Guidance: ultrasound guided Local infiltration: lidocaine Needle Needle type: short-bevel Needle gauge: 20 G Needle length: 10 cm Needle localization: ultrasound guidance Test dose: negative Medications Administered ropivacaine (NAROPIN) (PF) injection 0.2% - perineural 20 mL - 09/11/2024 8:16:00 AM midazolam (VERSED) injection 2 mg/2 mL - intravenous 1 mg - 09/11/2024 8:16:00 AM dexAMETHasone (DECADRON) injection 4 mg/mL - perineural 4 mg - 09/11/2024 8:16:00 AM ropivacaine PF (NAROPIN) injection 0.5 % - perineural 5 mL - 09/11/2024 8:16:00 AM Assessment Injection assessment: negative aspiration for heme, no paresthesia on injection, incremental injection and local visualized surrounding nerve on ultrasound Paresthesia pain: none Heart rate change: no Slow fractionated injection: yes Additional Notes As a supplement to adductor Canal a Superior Lateral Genicular was performed under Ultrasound . Site and laterality confirmed . Sterile prep with chlorhexidine .. 5cc 0.5 % Ropiv . No problem * Anesthesia Preprocedure Evaluation - August Castillo MD - 09/11/2024 7:45 AM EDT Anesthesia Pre Evaluation Ms. Imani Mcdonald is a 79 y.o. female being evaluated for the following: Date/Time: 09/11/24844 Procedure: ARTHROPLASTY, KNEE, ROBOT-ASSISTED (Left) Location: [facility] Surgeons: Jose F Yao MD Relevant Problems NEURO/PSYCH (+) Ocular migraine Other (+) Arthritis (+) Hyperlipidemia (+) Osteoarthritis of left knee (+) Seasonal allergies (+) Urinary incontinence Clinical information reviewed: NPO Status Date of last liquid: 09/10/24 Time of last liquid: 2358 Date of last solid: 09/10/24 Time of last solid: 2358 Physical Exam Airway Mallampati: III TM distance: >3 FB Neck ROM: full Cardiovascular - normal exam Rhythm: regular Rate: normal Dental - normal exam (+) upper dentures, lower dentures Pulmonary - normal exam Breath sounds clear to auscultation Abdominal - normal exam Abdomen: soft Bowel sounds: normal Anesthesia Plan ASA 2 Planned anesthetic: general, regional and spinal (. Patient identified and Surgical site confirmed .Surgeon requested an Adductor canal block for post operative pain control . The risk and procedure were explained to patient . They wish to proceed . Also explained that supplemental techniques ( local anesthetic Infiltration ) would be performed by the surgeon to provide analgesia . Any additional blocks ( IPACK, Genicular ) if needed were also explained and risks discussed. Spinal Anesthesia will be used unless there is contraindication. Thishas been requested by the surgeon . Risks of the spinal explained to the patient and include hypotension , infection ,parasthesia ,back pain , failure to work and need for more than one attempt . Thespinal will be supplemented with sedation or Ga as needed . ) Anesthesia Plan Factors- Education provided regarding risk of obstructive sleep apnea. Induction: intravenous Postoperative Plan- Postoperative administration of opioids is intended. Informed Consent- Anesthetic plan and risks discussed with patient. Blood Consent- Use of blood products discussed with patient who. Plan discussed with [employer]. documented in this encounter Plan of Treatment Upcoming Encounters Date Type Department Care Team (Late st Contact Info) Description 09/23/2024 10:00 AM EDT Office Visit [facility] - [address] [phone] Jose F Yao MD [address] [place] [phone] documented as of this encounter Procedures Procedure Name Priority Date/Time Associated Diagnosis Comments [facility] ANESTHESIA SPINAL BLOCK Routine 09/11/2024 9:57 AM EDT HC PERIPHERAL NERVE BLOCK SINGLE SHOT Routine 09/11/2024 8:16 AM EDT documented in this encounter Results * HC SPINAL BLOCK (09/11/2024 9:57 AM EDT) Lilia Patel CRNA - 09/11/2024 9:57 AM EDT Lilia Hernandez CRNA 09/11/2024 9:16 AM Spinal Authorized by: Lilia Hernandez CRNA Performed by: Lilia Hernandez CRNA Patient location during procedure: OR Start time: 09/11/2024 9:57 AM End time: 09/11/2024 10:05 AM Reason for block: primary anesthetic Preanesthetic Checklist Completed: patient identified, IV checked, site marked, risks and benefits discussed, surgical consent, monitors and equipment checked, pre-op evaluation and timeout performed Spinal Block Patient position: sitting Prep: Betadine Sterility prep: cap, gloves, gown, hand hygiene, mask and drape Sedation level: light sedation Patient monitoring: continuous pulse oximetry, ETCO2 and heart rate Approach: midline Location: L4-5 Injection technique: single-shot Needle Needle type: pencil-tip Needle gauge: 22 G Needle length: 9 cm Assessment Block outcome: block to be assessed in the OR Number of attempts: 1 Procedure assessment: patient tolerated procedure well with no immediate complications Lilia Hernandez CRNA ANESTHESIA ORDERABLES Final Result * HC PERIPHERAL NERVE BLOCK SINGLE SHOT (09/11/2024 8:16 AM EDT) August Tang MD - 09/11/2024 8:16 AM EDT August Castillo MD 09/11/2024 8:26 AM Peripheral Nerve Block Authorized by: uAgust Castillo MD Performed by: August Castillo MD Patient location during procedure: pre-op Start time: 09/11/2024 8:16 AM End time: 09/11/2024 8:22 AM Reason for block: at surgeon's request and post-op pain management Preanesthetic Checklist Completed: patient identified, IV checked, site marked, risks and benefits discussed, surgical consent, monitors and equipment checked, pre-op evaluation and timeout performed Peripheral Block Patient position: supine Prep: ChloraPrep Patient monitoring: heart rate, potline monitor and continuous pulse ox Block type: adductor canal Laterality: left Injection technique: single-shot Guidance: ultrasound guided Local infiltration: lidocaine Needle Needle type: short-bevel Needle gauge: 20 G Needle length: 10 cm Needle localization: ultrasound guidance Test dose: negative Medications Administered ropivacaine (NAROPIN) (PF) injection 0.2% - perineural 20 mL - 09/11/2024 8:16:00 AM midazolam (VERSED) injection 2 mg/2 mL - intravenous 1 mg - 09/11/2024 8:16:00 AM dexAMETHasone (DECADRON) injection 4 mg/mL - perineural 4 mg - 09/11/2024 8:16:00 AM ropivacaine PF (NAROPIN) injection 0.5 % - perineural 5 mL - 09/11/2024 8:16:00 AM Assessment Injection assessment: negative aspiration for heme, no paresthesia on injection, incremental injection and local visualized surrounding nerve on ultrasound Paresthesia pain: none Heart rate change: no Slow fractionated injection: yes Additional Notes As a supplement to adductor Canal a Superior Lateral Genicular was performed under Ultrasound . Site and laterality confirmed . Sterile prep with chlorhexidine .. 5cc 0.5 % Ropiv . No problem us August Castillo MD ANESTHESIA ORDERABLES Final Re sult documented in this encounter Visit Diagnoses Not on filedocumented in this encounter Administered Medications Inactive Administered Medications - up to 3 most recent administrations Medication Order MAR Action Action Date Dose Rate Site ceFAZolin in sterile water (ANCEF) 2 gram/20 mL syringe 2 g 2 g Once, intravenous, Administer over 3 Minutes, On Krys 09/11/24 at 0730, For 1 dose, Administer within 60 minutes of incision or procedure start., Pre-op, Please choose an indication: Surgical Prophylaxis Given 09/11/2024 8:49 AM EDT 2 g dexAMETHasone (DECADRON) injection perineural, Starting on Krys 09/11/24 at 0816, Anesthesia Intra-op Given 09/11/2024 9:10 AM EDT 8 mg Given 09/11/2024 8:16 AM EDT 4 mg ePHEDrine sulfate injection As needed, intravenous, Starting on Krys 09/11/24 at 0954, Anesthesia Intra-op Given 09/11/2024 9:57 AM EDT 10 mg Given 09/11/2024 9:54 AM EDT 10 mg lactated Ringer's infusion Continuous PRN, intravenous, Starting on Krys 09/11/24 at 0849, Anesthesia Intra-op New Bag 09/11/2024 9:49 AM EDT New Bag 09/11/2024 8:49 AM EDT mepivacaine PF (POLOCAINE) 2 % (20 mg/mL) injection As needed, perineural, Starting on Krys 09/11/24 at 0905, Anesthesia Intra-op Given 09/11/2024 9:05 AM EDT 2 mLs midazolam (VERSED) injection intravenous, Starting on Krys 09/11/24 at 0816, Anesthesia Intra-op Given 09/11/2024 8:16 AM EDT 1 mg morphine PF (DURAMORPH) 0.5 mg/mL injection As needed, intraspinal, Starting on Krys 09/11/24 at 0905, Anesthesia Intra-op Given 09/11/2024 9:05 AM EDT 0.25 mg phenylephrine (NIKO-SYNEPHRINE) injection As needed, intravenous, Starting on Krys 09/11/24 at 0944, Anesthesia Intra-op Given 09/11/2024 9:52 AM EDT 100 mcg Given 09/11/2024 9:49 AM EDT 100 mcg Given 09/11/2024 9:46 AM EDT 100 mcg propofol (DIPRIVAN) injection 10 mg/mL bolus As needed, intravenous, Starting on Krys 09/11/24 at 0910, Anesthesia Intra-op Given 09/11/2024 9:23 AM EDT 150 mg Given 09/11/2024 9:15 AM EDT 50 mg Given 09/11/2024 9:10 AM EDT 50 mg propofoL (DIPRIVAN) injection Continuous PRN, intravenous, Starting on Krys 09/11/24 at 0915, Anesthesia Intra-op New Bag 09/11/2024 9:15 AM EDT 75 mcg/kg/min 31.5 mL/hr rocuronium (ZEMURON) injection As needed, intravenous, Starting on Krys 09/11/24 at 0935, Anesthesia Intra-op Given 09/11/2024 9:35 AM EDT 30 mg ropivacaine (NAROPIN) (PF) injection 0.2% perineural, Starting on Krys 09/11/24 at 0816, Anesthesia Intra-op Given 09/11/2024 8:16 AM EDT 20 mLs ropivacaine PF (NAROPIN) 0.5 % (5 mg/mL) injection perineural, Starting on Krys 09/11/24 at 0816, Anesthesia Intra-op Given 09/11/2024 8:16 AM EDT 5 mLs sugammadex (BRIDION) injection As needed, intravenous, Starting on Krys 09/11/24 at 1007, Anesthesia Intra-op Given 09/11/2024 10:07 AM EDT 200 mg tranexamic acid (CYKLOKAPRON) injection As needed, intravenous, Starting on Krys 09/11/24 at 0910, Anesthesia Intra-op Given 09/11/2024 9:58 AM EDT 1,000 mg Given 09/11/2024 9:10 AM EDT 1,000 mg documented in this encounter Care Teams Field Auditor Relationship Specialty Start Date End Date Kyrie Li [address] [place] [phone] PCP - General 06/23/24 documented as of this encounter
--- OUTSIDE RECORDS SUMMARY | 2024-09-15 14:45 | XMS_ITS | Continuity of Care Document ---
Author Name [facility] Organization [facility] Care Team Providers Care Warehouse Forklift Operator Name Role Phone [facility] Unavailable Unavailable Social History Combined list of available smoking, tobacco, and other social history from Department of Defense and Veterans Affairs facilities. Social History Type Response Date Comment Sourc e This section is an empty social history section. [facility]
--- NOTE | 2024-09-15 14:46 | XR_ITS ---
FINAL REPORT CLINICAL HISTORY: dyspnea FINDINGS: 2 views of the chest were obtained . The heart is normal in size. The mediastinum is within normal limits. There are mild chronic changes. A small right pleural effusion is present. The lungs are otherwise clear. There is no pneumothorax. Osseous structures are unremarkable. IMPRESSION: Small right pleural effusion. Reviewed, Interpreted and Dictated by Bernard Cavanaugh MD Transcribed by Tiffanie Kaminski Authenticated and . [facility]
--- OUTSIDE RECORDS SUMMARY | 2024-09-15 14:48 | XMS_ITS | Encounter Summary ---
Author Organization [employer] ([place], [place], [place], [place]) Address [address] [place] [address] Care Team Providers Care Flight Director Name Role Phone Luis Daniel Li Primary Care Provider [phone] Encounter Details Date Type Department Care Team (Late st Contact Info) Description 07/17/2024 Surgery Prep [facility] - [address] [place] [address] Katelynn Jacinto PA-C [address] [place], [place] [phone] Primary osteoarthritis of left knee (Primary Dx) [...] 10:54 AM EDT NAME: Imani Mcdonald CSN: [id number] : 1945 PCP: LUIS DANIEL LI REASON [...] your prescription refills for excessive abuse or snf use. If necessary, you will be referred to chest painting leader. We will monitor your use of scheduled drugs through the [employer] program. In addition, we will follow the monitoring procedures required by the [facility]. The side effects of Schedule II [...] knee arthroplasty and has been recommended a [employer] NATASHA implant to allow for increased accuracy [...] any clinical treatments or patient care. Electronically SignedBerta RTR Claire Maxted, PA-C scribing for Jose F Yao MD I, Anup S. Chattha, MD, have read and agree with the documentation that has been completed regarding this visit. By signing this record, I attest that the documentation was completed in my physical presence and is an accurate record of the encounter. Electronically Signed, Jose F Yao MD 07/17/2024 10:55 AM EDT Ann Fatima: Elenita STOREY / [...] Description 09/23/2024 10:00 AM EDT Office Visit [facility] - [address] [phone] Jose F Yao MD [address] [place] [phone] documented as of this encounter Visit Diagnoses Diagnosis Primary osteoarthritis of left knee- Primary documented in this encounter Care Teams Flight Director Relationship Specialty Start Date End Date Luis Daniel Li [address] [place] [phone] PCP - General 06/23/24 documented as of this encounter
--- OUTSIDE RECORDS SUMMARY | 2024-09-15 14:49 | XMS_ITS | Data Portability ---
Author Organization [facility] Address [address] [place] [address] Assessment No assessment recorded. Plan of Treatment Reminders Order Date Submit Date Provider Last Modified By Organization Details Last Modified Time Details Appointments None recorded. Lab CBC w/ auto diff 2021 LEANDRO [facility], [address], [place], [address], 07:07:48 CMP, serum or plasma 2021 [email or web address] [facility], [address], [place], [address], 2 10:17:20 TSH, ultra-sens itive, serum 2021 jkiskaden [facility], [address], [place], [address], 2 10:16:59 HbA1c (hemoglobi n A1c), blood 2021 jPinsaden [facility], [address], [place], [address], 2 10:16:36 lipid panel, serum 2021 LEANDRO [facility], [address], [place], [address], 07:07:50 vitamin D, 25-hydroxy , total, serum 2021 [email or web address] [facility], [address], [address], [place], [address], 10:16:16 urinalysis , dipstick 2021 julia Not available 14:09:38 culture, urine 2021 LEANDRO [facility], [address], [address], [place], [address], 07:07:53 Referral None recorded. Procedures None recorded. Surgeries None recorded. Imaging None recorded. Medication Orders lansoprazo le 30 mg capsule,de layed release 2021 adjust, [address] [place] [address], [id number], 09:31:08 pravastati n 80 mg tablet 2021 adjust, [address] [place] [address], [id number], 09:31:09 lisinopril 20 mg-hydroch lorothiazi de 25 mg tablet 2021 [facility], [address] [place] [address], [id number], 09:31:08 tolterodin e ER 4 mg capsule,ex tended release 24 hr 2021 adjust, [address] [place] [address], [id number], 09:31:08 Patient TargetsNo targets recorded. Patient InstructionsNo instructions recorded. Reason for Referral None Reported. Results Created Date Observation Date Name Description Value Unit Range Abnormal Flag Note LastModifiedBy Organization Detail LastModifiedTime 02/09/20 02/09/2022 CBC WITH DIFFE RENTI AL/PL ATELE T WBC 6.3 x10e3 /uL 3.4-10 .8 Not Available [facility] ([facility]) [address] [place], [address], 02/10/2022 07:07:47 02/09/20 22 02/09/2022 CBC WITH DIFFE RENTI AL/PL ATELE T RBC 4.81 x10e6 /uL 3.77-5 .28 Not Available [facility] ([facility]) [address] [place], [address], 02/10/2022 07:07:47 02/09/2002/09/2022 CBC WITH DIFFE RENTI AL/PL ATELE T hemoglobin 14.1 g/dL 11.1-1 5.9 Not Available [facility] ([facility]) [address] [place], [address], 02/10/2022 07:07:47 02/09/2002/09/2022 CBC WITH DIFFE RENTI AL/PL ATELE T hematocrit 42.0 % 34.0-4 6.6 Not Available [facility] ([facility]) [address] [place], [address], 02/10/2022 07:07:47 02/09/2002/09/2022 CBC WITH DIFFE RENTI AL/PL ATELE T MCV 87 fL 79-97 Not Available [facility] ([facility]) [address] [place], [address], 02/10/2022 07:07:47 02/09/2002/09/2022 CBC WITH DIFFE RENTI AL/PL ATELE T MCH 29.3 pg 26.6-3 3.0 Not Available [facility] ([facility]) [address] [place], [address], 02/10/2022 07:07:47 02/09/2007 0202/09/2022 CBC WITH DIFFE RENTI AL/PL ATELE T MCHC 33.6 g/dL 31.5-3 5.7 Not Available [facility] ([facility]) [address] [facility], [place], [address], 02/10/2022 07:07:47 02/09/20 22 02/09/2022 CBC WITH DIFFE RENTI AL/PL ATELE T RDW 12.2 % 11.7-1 5.4 Not Available [facility] ([facility]) [address] [facility], [place], [address], 02/10/2022 07:07:47 02/09/20 22 02/09/2022 CBC WITH DIFFE RENTI AL/PL ATELE T platelets 269 x10e3 /uL 150-45 0 Not Available [facility] ([facility]) [address] [facility], [place], [address], 02/10/2022 07:07:47 02/09/20 22 02/09/2022 CBC WITH DIFFE RENTI AL/PL ATELE T neutrophils 54 % not estab. Not Available [facility] ([facility]) [address] [facility], [place], [address], 02/10/2022 07:07:47 02/09/20 22 02/09/2022 CBC WITH DIFFE RENTI AL/PL ATELE T lymphs 33 % not estab. Not Available [facility] ([facility]) [address] [facility], [place], [address], 02/10/2022 07:07:47 02/09/20 22 02/09/2022 CBC WITH DIFFE RENTI AL/PL ATELE T monocytes 11 % not estab. Not Available [facility] ([facility]) [address] [facility], [place], [address], 02/10/2022 07:07:47 02/09/20 22 02/09/2022 CBC WITH DIFFE RENTI AL/PL ATELE T eos 2 % not estab. Not Available [facility] ([facility]) [address] [place], [address], 02/10/2022 07:07:47 02/09/20 22 02/09/2022 CBC WITH DIFFE RENTI AL/PL ATELE T basos 0 % not estab. Not Available [facility] ([facility]) [address] [facility], [place], [address], 02/10/2022 07:07:47 02/09/20 22 02/09/2022 CBC WITH DIFFE RENTI AL/PL ATELE T immature cells HEAD START COORDINATOR Not Available [facility] ([facility]) [address] [place], [address], 02/10/2022 07:07:47 02/09/20 22 02/09/2022 CBC WITH DIFFE RENTI AL/PL ATELE T neutrophils (absolute) 3.4 x10e3 /uL 1.4-7. 0 Not Available [facility] ([facility]) [address] [place], [address], 02/10/2022 07:07:47 02/09/20 22 02/09/2022 CBC WITH DIFFE RENTI AL/PL ATELE T lymphs (absolute) 2.1 x10e3 /uL 0.7-3. 1 Not Available [facility] ([facility]) [address] [place], [address], 02/10/2022 07:07:47 02/09/20 22 02/09/2022 CBC WITH DIFFE RENTI AL/PL ATELE T monocytes(ab solute) 0.7 x10e3 /uL 0.1-0. 9 Not Available [facility] ([facility]) [address] [place], [address], 02/10/2022 07:07:47 02/09/20 22 02/09/2022 CBC WITH DIFFE RENTI AL/PL ATELE T eos (absolute) 0.1 x10e3 /uL 0.0-0. 4 Not Available [facility] ([facility]) [address] [place], [address], 02/10/2022 07:07:47 02/09/20 22 02/09/2022 CBC WITH DIFFE RENTI AL/PL ATELE T baso (absolute) 0.0 x10e3 /uL 0.0-0. 2 Not Available [facility] ([facility]) [address] [place], [address], 02/10/2022 07:07:47 02/09/20 22 02/09/2022 CBC WITH DIFFE RENTI AL/PL ATELE T immature granulocytes 0 % not estab. Not Available [facility] ([facility]) [address] [facility], [place], [address], 02/10/2022 07:07:47 02/09/20 22 02/09/2022 CBC WITH DIFFE RENTI AL/PL ATELE T immature grans (abs) 0.0 x10e3 /uL 0.0-0. 1 Not Available [facility] ([facility]) [address] [place], [address], 02/10/2022 07:07:47 02/09/20 22 02/09/2022 CBC WITH DIFFE RENTI AL/PL ATELE T NRBC HEAD START COORDINATOR Not Available [facility] ([facility]) [address] [place], [address], 02/10/2022 07:07:47 02/09/20 22 02/09/2022 CBC WITH DIFFE RENTI AL/PL ATELE T hematology comments: HEAD START COORDINATOR Not Available [facility] ([facility]) [address] [place], [address], 02/10/2022 07:07:47 02/09/20 22 02/09/2022 COMP. METAB OLIC PANEL (14) glucose 89 mg/dL 70-99 Not Available [facility] ([facility]) [address] [facility], [place], [address], 02/10/2022 07:07:49 02/09/20 22 02/09/2022 COMP. METAB OLIC PANEL (14) BUN 15 mg/dL 8-27 Not Available [facility] ([facility]) [address] [facility] [place], [address], 02/10/2022 07:07:49 02/09/20 22 02/09/2022 COMP. METAB OLIC PANEL (14) creatinine 0.94 mg/dL 0.57-1 .00 Not Available [facility] ([facility]) [address] [facility] [place], [address], 02/10/2022 07:07:49 02/09/20 22 02/09/2022 COMP. METAB OLIC PANEL (14) eGFR 62 mL/mi n/1.7 3 >59 Not Available [facility] ([facility]) [address] [facility] [place], [address], 02/10/2022 07:07:49 02/09/20 22 02/09/2022 COMP. METAB OLIC PANEL (14) BUN/creatini ne ratio 16 12-28 Not Available [facility] ([facility]) [address] [facility] [place], [address], 02/10/2022 07:07:49 02/09/20 22 02/09/2022 COMP. METAB OLIC PANEL (14) sodium 133 mmol/ L 134-14 4 below low normal Not Available [facility] ([facility]) [address] [facility] [place], [address], 02/10/2022 07:07:49 02/09/20 22 02/09/2022 COMP. METAB OLIC PANEL (14) potassium 3.4 mmol/ L 3.5-5. 2 below low normal Not Available [facility] ([facility]) [address] [facility] [place], [address], 02/10/2022 07:07:49 02/09/20 22 02/09/2022 COMP. METAB OLIC PANEL (14) chloride 95 mmol/ L 96-106 below low normal Not Available [facility] ([facility]) [address] [facility] [place], [address], 02/10/2022 07:07:49 02/09/20 22 02/09/2022 COMP. METAB OLIC PANEL (14) carbon dioxide, total 27 mmol/ L 20-29 Not Available [facility] ([facility]) [address] [facility] [place], [address], 02/10/2022 07:07:49 02/09/20 22 02/09/2022 COMP. METAB OLIC PANEL (14) calcium 9.2 mg/dL 8.7-10 .3 Not Available [facility] ([facility]) [address] [facility] [place], [address], 02/10/2022 07:07:49 02/09/20 22 02/09/2022 COMP. METAB OLIC PANEL (14) protein, total 6.7 g/dL 6.0-8. 5 Not Available [facility] ([facility]) [address] [facility], [place], [address], 02/10/2022 07:07:49 02/09/20 22 02/09/2022 COMP. METAB OLIC PANEL (14) albumin 4.3 g/dL 3.7-4. 7 Not Available [facility] ([facility]) [address] [facility] [place], [address], 02/10/2022 07:07:49 02/09/20 22 02/09/2022 COMP. METAB OLIC PANEL (14) globulin, total 2.4 g/dL 1.5-4. 5 Not Available [facility] ([facility]) [address] [facility] [place], [address], 02/10/2022 07:07:49 02/09/20 22 02/09/2022 COMP. METAB OLIC PANEL (14) A/G ratio 1.8 1.2-2. 2 Not Available [facility] ([facility]) [address] [place], [address], 02/10/2022 07:07:49 02/09/20 22 02/09/2022 COMP. METAB OLIC PANEL (14) bilirubin, total 0.9 mg/dL 0.0-1. 2 Not Available [facility] ([facility]) [address] [place], [address], 02/10/2022 07:07:49 02/09/20 22 02/09/2022 COMP. METAB OLIC PANEL (14) alkaline phosphatase 41 IU/L 44-121 below low normal Not Available [facility] ([facility]) [address] [place], [address], 02/10/2022 07:07:49 02/09/20 22 02/09/2022 COMP. METAB OLIC PANEL (14) AST (SGOT) 17 IU/L 0-40 Not Available [facility] ([facility]) [address] [place], [address], 02/10/2022 07:07:49 02/09/20 22 02/09/2022 COMP. METAB OLIC PANEL (14) ALT (SGPT) 17 IU/L 0-32 Not Available [facility] ([facility]) [address] [place], [address], 02/10/2022 07:07:49 02/09/20 22 02/09/2022 LIPID PANEL WITH LDL/H DL RATIO cholesterol, total 169 mg/dL 100-19 9 Not Available [facility] ([facility]) [address] [place], [address], 02/10/2022 07:07:50 02/09/20 22 02/09/2022 LIPID PANEL WITH LDL/H DL RATIO triglyceride s 133 mg/dL 0-149 Not Available [facility] ([facility]) [address] [place], [address], 02/10/2022 07:07:50 02/09/20 22 02/09/2022 LIPID PANEL WITH LDL/H DL RATIO HDL cholesterol 46 mg/dL >39 Not Available [facility]) [address] [facility], [place], [address], 02/10/2022 07:07:50 02/09/20 22 02/09/2022 LIPID PANEL WITH LDL/H DL RATIO VLDL cholesterol michelle 24 mg/dL 5-40 Not Available [facility] ([facility]) [address] [facility], [place], [address], 02/10/2022 07:07:50 02/09/20 22 02/09/2022 LIPID PANEL WITH LDL/H DL RATIO LDL chol calc ([facility]) 99 mg/dL 0-99 Not Available [facility] ([facility]) [address] [facility], [place], [address], 02/10/2022 07:07:50 02/09/20 22 02/09/2022 LIPID PANEL WITH LDL/H DL RATIO comment: HEAD START COORDINATOR Not Available [facility] ([facility]) [address] [facility], [place], [address], 02/10/2022 07:07:50 02/09/20 22 02/09/2022 LIPID PANEL WITH LDL/H DL RATIO LDL/HDL ratio 2.2 ratio 0.0-3. 2 LDL/H DL Ratio Men Women 1/2 Avg.R isk 1.0 1.5 Avg.R isk 3.6 3.2 2X Avg.R isk 6.2 5.0 3X Avg.R isk 8.0 6.1 Not Available [facility] ([facility]) [address] [facility], [place], [address], 02/10/2022 07:07:50 02/09/20 22 02/09/2022 HEMOG LOBIN A1C hemoglobin A1C 5.7 % 4.8-5. 6 above high normal Predi abete s: 5.7 - 6.4 Diabe eliana: >6.4 Glyce joyce contr ol for adult s with diabe eliana: <7.0 Not Available [facility] ([facility]) [address] [place], [address], 02/10/2022 07:07:51 02/09/20 22 02/09/2022 TSH TSH 0.314 uIU/m L 0.450- 4.500 below low normal Not Available [facility] ([facility]) [address] [facility], [place], [address], 02/10/2022 07:07:51 02/09/20 22 02/09/2022 VITAM IN [...] Endoc rine Socie ty went on to [facility] er defin e vitam in D insuf ficie ncy as a level betwe en 21 and 29 ng/mL (2). 1. IOM (Inst itute of Medic ine). 2009. Dieta ry refer ence cathy es for calci um and D. Sarah butler [place]: [facility] Press . 2. Marianna meng MF, Tu morales [place], Paloma off-F errar i ROBIN, et al. Evalu ation , treat ment, and preve ntion of vitam in D defic iency : an Endoc rine Socie ty clini michelle pract ice guide line. JCEM. 2010; 96(7) :1911 -30. Not Available [facility] ([facility]) [address] [place], [address], 02/10/2022 07:07:52 02/09/20 22 02/10/2022 URINE CULTU RE,CO MPREH ENSIV E urine culture,comp rehensive FINAL REPORT Not Available [facility] ([facility]) [address] [facility], [place], [address], 02/10/2022 07:07:53 02/09/20 22 02/10/2022 URINE CULTU RE,CO MPREH ENSIV E result 1 COMMEN T Mixed uroge nital je 25,00 0-50, 000 colon y formi ng units per mL Not Available [facility] ([facility]) [address] [facility], [place], [address], 02/10/2022 07:07:53 02/09/20 22 02/08/2022 urina lysis , dipst ick Leukocytes (reference range) modera te Not Available [address], [address], 02/08/2022 09:50:49 02/09/20 22 02/08/2022 urina lysis , dipst ick Nitrite (reference range:) negati ve Not Available [address], [address], 02/08/2022 09:50:49 02/09/20 22 02/08/2022 urina lysis , dipst ick Urobilinogen (reference range) 0.2 Not Available [address], [address], 02/08/2022 09:50:49 02/09/20 22 02/08/2022 urina lysis , dipst ick Protein (reference range) negati ve Not Available [address], [address], 02/08/2022 09:50:49 02/09/20 22 02/08/2022 urina lysis , dipst ick pH (reference range 5-8.5) 6.0 Not Available [address], [address], 02/08/2022 09:50:49 02/09/20 22 02/08/2022 urina lysis , dipst ick Blood (reference range:) non-He molyze d: Trace Not Available [address], [address], 02/08/2022 09:50:49 02/09/20 22 02/08/2022 urina lysis , dipst ick Specific [place] (reference range) 1.020 Not Available [address], [address], 02/08/2022 09:50:49 02/09/2002/08/2022 urina lysis , dipst ick Ketone (reference range) negati ve Not Available [address], [address], 02/08/2022 09:50:49 02/09/20 22 02/08/2022 urina lysis , dipst ick Bilirubin (reference range) negati ve Not Available [address], [address], 02/08/2022 09:50:49 02/09/20 22 02/08/2022 urina lysis , dipst ick Glucose (reference range) negati ve Not Available [address], [address], 02/08/2022 09:50:49 02/09/20 22 02/08/2022 urina lysis , dipst ick Color (reference range: yellow-brown ) Yellow Not Available [address], [address], 02/08/2022 09:50:49 Result Notes None recorded. Problems Name Problem SNOMED Code Status Onset Date Resolution Date Notes Provider Name and Address Organization Details Recorded Time Hyperlipidemia 70848749 Active 2021 Amna wang, [place] - [facility] [place] & [place] 2 07:38:53 Essential hypertension 87302867 Active 2021 Amna wang, [place] - [facility] [place] [facility] [place] 2 07:39:00 Gastroesophage al reflux disease 693275149 Active 2021 Amna wang, [place] - [facility] [place] 2 07:39:07 Osteoarthritis 682402390 Active 2021 Amna wang, [place] - [facility] [place] & [place] 2 07:39:29 Osteopenia 218138693 Active 2021 Amna wang, [place] - [facility] [place] & [place] 2 07:39:38 Anxiety 48270620 Active 2021 Amna wang, [place] - [facility] [place] & [place] 2 07:39:47 Depressive disorder 49209803 Active 2021 Amna wang, [place] - [facility] [place] & [place] 2 07:39:56 Problem Notes None recorded. Procedures Surgical History Date Name Laterality Status Provider Name and Address Organization Details Recorded Time 05/18/19 20 arthroplasty of knee completed Amna STOREY - [facility] [place] [facility] [place] 02/08/2022 07:42:58 05/18/19 13 Carpal tunnel surgery completed Amna STOREY - [facility] [place] & [place] 02/08/2022 07:42:16 Cataract Surgery completed Amna STOREY - [facility] [place] & [place] 02/08/2022 07:41:47 Tubal Ligation completed Amna STOREY - [facility] [place] & [place] 02/08/2022 07:41:59 Imaging Results None recorded. Procedure Notes None recorded. Medical Equipment None Reported. Allergies Allergen ID Allergen Name Allergen Category Reaction Reaction Severity Criticality Documentation Date Start Date Code Code System Note Provider Name and Address Organization Details Recorded Time 35410 lidocaine medicatio n Not available Not available Not available 02/08/2022 6387 RxNorm [facility] 2 07:38:29 60438 procaine hydrochlo ride medicatio n Not available Not available Not available 02/08/2022 66475 8 RxNorm [place] [facility] & [place] 2 07:38:38 Medications Name Sig Start Date [...] Updated DateTime 2 165.1 cm 26.6 kg/m2 80419.7 8 g 97.5 [degF] 98 % 98 % 75 /min 167 mm[Hg] 83 mm[Hg] Amna SOLIS [facility] & [place] 09:03:53 Social History Question Answer Notes LastModified by Organizat ion Details LastModified Time Tobacco Smoking Status Never Smoker Amna Bundy null, [facility] & [place] 02/08/2022 09:06:11 What Is Your Level Of [...] 13 6 completed MELITON GARCIA NP [address] [place], [address], [facility] & [place] 02/08/2022 09:12:29 pneumococcal polysaccharide PPV23 0 completed MELITON GARCIA NP [address] [place], [address], [facility] & [place] 02/08/2022 09:12:29 pneumococcal polysaccharide PPV23 5 completed MELITON GARCIA NP [address] [place] [address], [address] [place] [address], [place] - [facility] & [place] 02/08/2022 09:12:29 Td (adult) 4 completed MELITON GARCIA NP [address] [place] [address], [address] [place] [address], [place] - [facility] & [place] 02/08/2022 09:12:29 COVID-19, mRNA, LNP-S, PF, 100 mcg/0.5mL dose or 50 mcg/0.25mL dose 1 completed MELITON GARCIA NP [address] [place] [address], [address] [place] [address], [place] - [facility] & [place] 02/08/2022 09:12:29 Influenza, split virus, quadrivalent, preservative 0 completed MELITON GARCIA NP [address] [place] [address], [place] - [facility] & [place] 02/08/2022 09:12:29 Influenza, adjuvanted, trivalent, PF 9 completed MELITON GARCIA NP [address] [place] [address], [place] - [facility] & [place] 02/08/2022 09:12:29 COVID-19, mRNA, LNP-S, PF, 100 mcg/0.5mL dose or 50 mcg/0.25mL dose 1 completed MELITON GARCIA NP [address] [place] [address], [address] [place] [address], [place] - [facility] & [place] 02/08/2022 09:12:29 Influenza, high-dose, trivalent, PF 1 completed MELITON GARCIA NP [address] [place] [address], [place] - [facility] & [place] 02/08/2022 09:12:29 pneumococcal polysaccharide PPV23 2 completed MELITON GARCIA NP [address] [place] [address], [place] - [facility] & [place] 02/08/2022 13:02:58 Influenza, high-dose, quadrivalent, PF 2 completed EMLITON GARCIA NP [address] [place], [address], [facility] - [facility] & [place] 02/08/2022 13:02:58 Past Encounters Encounter ID Performer Location Encounter Start Date Encounter Closed Date Diagnosis/Indication Diagnosis SNOMED-CT Code Diagnosis ICD10 Code Diagnosis Note [id number] MELITON GARCIA NP [id number] [address] [address] 02/08/2022 08:43:35 02/08/2022 09:33:10 Adult health examination 016679543 Z00.00 declines any preventati ve screenings discussed preventati ve caredental and vision screenings healthy lifestyle including diet and exercise Acute cystitis 49175202 N30.00 asymptomat icsend for culture Essential hypertension 46262164 I10 educated on goal of less than 130/90advi sed low sodium diet, healthy lifestyle including exercise as ablecontin ue current medication regimenER if any symptoms such as chest pain, shortness of breath Gastroesop hageal reflux disease 820215357 K21.9 Avoid spicy foods, carbonated beverages, lying down 30 minutes to 1 hour after eatingEat smaller portion sizesTake medication s as prescribed Weight management Hyperlipidemia 67174391 E78.5 Patient with known hyperlipid emia. Patient continues on statin. Lifestyle modificati ons discussed including weight loss, aerobic exercise at least 30 min/day at least 5 days per week, and a diet rich in fruit and vegetables . Goal LDL: <100mg/dL, <70mg/dL. Will continue to follow lipid panel q6-12 months. Vitamin D deficiency 347 75350 E55.9 Overactive urinary bladder 888673226 N32.81 Administra tion of pneumococcal vaccine 15696945 Z23 Administra tion of influenza vaccine 04413535 Z23 Health Concerns Section Related Observation LastModified by Organization Detai ls LastModified Time None Recorded Concern Status LastModified by Organization Details LastModified Time None Recorded Advance Directives Directive None Recorded Payers Insurance Date Sequence Insurance Name Policy Number Policy Chiu Covered Member ID Chiu Member ID Guarantor Name 05/13/2022 1 [employer]-ID: [id number] [employer] [place] - [employer] [id number] Imani Mcdonald [id number] Imani Mcdonald Notes Date Note Type Note Provider Name and Address Organization Details Recorded Time 02/08/2022 text/html Vision screening : glasses, UTDDental screening: denturesAny falls, fractures surgeries: deniesSpecialist: [facility] SterisatuColonoscopy: declinesFamily hx of colon, prostate cancer?: deniesAnxiety/Depres nia screening: deniesMammogram: denies/declines Taking all medications as prescribed but didnt take her blood pressure medication this AMOveractive bladder controlled MELITON GARCIA NP [address] [place] [address], [id number] & [place] 02/08/2022 13:04:16 OBGyn Episode No OBEpisode recorded.
--- OUTSIDE RECORDS SUMMARY | 2024-09-15 14:49 | XMS_ITS | Encounter Summary ---
Author Organization [employer] ([place], [place], [place], [place]) Address [address] [place] [address] Care Team Providers Care Hemodialysis Rn Name Role Phone Kyrie Li Primary Care Provider [phone] Encounter Details Date Type Department Care Team (Late Contact Info) Description 07/21/2024 Orders Only [address] [phone] Jose F Yao MD [address] [place] [phone] Pre-op testing (Primary Dx) Social History Tobacco [...] Description 09/23/2024 10:00 AM EDT Office Visit [address] [phone] Jose F Yao MD [address] [place] [address] documented as of this encounter Visit Diagnoses Diagnosis Pre-op testing- Primary Unspecified pre-operative examination documented in this encounter Care Teams Hemodialysis Rn Relationship Specialty [place] [phone] PCP - General 06/23/24 documented as of this encounter
--- OUTSIDE RECORDS SUMMARY | 2024-09-15 14:49 | XMS_ITS | Encounter Summary ---
Author Organization [employer] ([place], [place], [place], [place]) Address [address] [place] [address] Care Team Providers Care Butter Wrapper Name Role Phone Guillermo Kyrie Primary Care Provider [phone] Encounter Details Date Type Department Care Team [...] Description 09/23/2024 10:00 AM EDT Office Visit [facility] - [address] [phone] Jose F Yao MD [address] [place] [address] documented as of this encounter Visit Diagnoses Not on filedocumented in this encounter Care Teams Butter Wrapper Relationship Specialty Start Date End Date Kyrie Li [address] [place] [phone] PCP - General 06/23/24 documented as of this encounter
--- OUTSIDE RECORDS SUMMARY | 2024-09-15 14:49 | XMS_ITS | Encounter Summary ---
Author Organization [employer] ([place], [place], [place], [place]) Address [address] [place] [address] Care Team Providers Care Policy And Planning Manager Name Role Phone Kyrie Li Primary Care Provider [phone] Encounter Details Date Type Department Care Team (Late Contact Info) Description 08/19/2024 Orders Only [address] [phone] Jose F Yao MD [address] [place] [phone] Pre-op exam (Primary Dx) Social History [...] Description 09/23/2024 10:00 AM EDT Office Visit [facility] - [address] [phone] Jose F Yao MD [address] [place] [phone] documented as of this encounter Visit Diagnoses Diagnosis Pre-op exam- Primary documented in this encounter Care Teams Policy And Planning Manager Relationship Specialty Start Date End Date Kyrie Li [address] [place] [phone] PCP - General 06/23/24 documented as of this encounter
--- OUTSIDE RECORDS SUMMARY | 2024-09-15 14:49 | XMS_ITS | Encounter Summary ---
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 If necessary, you will be referred to painter. We will monitor your use of [...] knee arthroplasty and has been recommended a [employer] NATASHA implant to allow for increased accuracy [...] Description 09/23/2024 10:00 AM EDT Office Visit [facility] - [address] [phone] Jose F Yao MD [address] [place] [phone] documented as of this encounter Visit Diagnoses Diagnosis Primary osteoarthritis of left knee- Primary documented in this encounter Care Teams Customs Collector Relationship Specialty Start Date [place] [phone] PCP - General 06/23/24 documented as of this encounter
--- OUTSIDE RECORDS SUMMARY | 2024-09-15 14:49 | XMS_ITS | Clinical Summary ---
Author Organization [email or web address] ([place], [place], [place], [place]) Address [address] [place] [address] Care Team Providers Care Forging Machine Operator Name Role Phone Kyrie Li Primary Care Provider [phone] Allergies Active Allergy Reactions Criticality Noted Date Comments Oxycodone Other (See Comments) 09/11/2024 Patient states, makes me aggressive and out of it. Medications tolterodine (Detrol LA) 4 MG 24 hr capsule Take 1 capsule (4 mg total) by mouth daily. Active lansoprazole (PREVACID) 30 MG capsule TAKE 1 CAPSULE 1 TIME EACH DAY Active pravastatin (PRAVACHOL) 80 MG tablet Take 1 tablet (80 mg total) by mouth daily. Active fexofenadine (Arlene Allergy) 180 MG tablet Take 1 tablet every day by oral route. Active fluticasone propionate (FLONASE) 50 mcg/actuation nasal spray Administer 1 spray into each nostril as needed for allergies. Active glucosamine storm 2KCl-chondroit 750-600 mg tab Take 1 tablet every day by oral route. Active vitamin E acid succinate (vitamin E succinate) 268 mg (400 unit) tab Take 1 tablet every day by oral route. Active calcium carbonate-chucky min D3 (Calcium 600 + D,3,) 600 mg-10 mcg (400 unit) tab one tablet everyday Active sertraline (ZOLOFT) 25 MG tablet Take 1 tablet (25 mg total) by mouth daily. 06/11/19 25 Active docusate sodium (Colace) 100 MG capsule Take 1 capsule (100 mg total) by mouth 2 (two) times daily for 10 days. 20 capsule 09/13/19 25 Active meloxicam (MOBIC) 15 MG tablet Take 1 tablet (15 mg total) by mouth daily for 30 doses. 30 tablet 09/13/19 25 Active acetaminophen (Tylenol Extra Strength) 500 MG tablet Take 2 tablets (1,000 mg total) by mouth every 8 (eight) hours for 10 days. 60 tablet 09/13/19 25 Active traMADoL (Ultram) 50 mg tablet Take 1 tablet (50 mg total) by mouth every 8 (eight) hours as needed for pain (for mild to moderate post operative pain) for up to 7 days. Max Daily Amount: 150 mg 21 tablet 09/13/19 Active HYDROcodone-ac etaminophen (NORCO) 5-325 mg per tablet Take 1 tablet by mouth every 6 (six) hours as needed for pain (for post surgical pain only) for up to 7 days. Max Daily Amount: 4 tablets 28 tablet 09/13/19 25 Active lisinopriL (ZESTRIL) 30 MG tablet Take 1 tablet (30 mg total) by mouth daily. Active potassium chloride (KLOR-CON) 10 MEQ tablet Take 1 tablet (10 mEq total) by mouth daily 1.5 TABS. 30 tablet 09/14/19 Active aspirin 81 MG EC tablet Take 1 tablet (81 mg total) by mouth 2 (two) times daily for 30 days. 60 tablet 09/14/19 25 Active amoxicillin-cl avulanate (AUGMENTIN) 500-125 mg per tabletIndicati ons:bacterial pneumonia Take 1 tablet by mouth 2 (two) times daily for 5 days. 10 tablet 09/14/19 25 Active lisinopriL-hyd roCHLOROthiazi de (ZESTORETIC, PRINZIDE) 20-25 mg per tablet TAKE 1 TABLET 1 TIME EACH DAY Discontinued potassium chloride (KLOR-CON) 10 MEQ tablet Take 1 tablet (10 mEq total) by mouth daily 1.5 TABS. Discontinued ibuprofen (MOTRIN) 200 MG tablet Take 3 tablets (600 mg total) by mouth daily. 06/28/2 025 Discontinued(St op Taking at Discharge) Active Problems Problem Noted Date Diagnosed Date Status post left knee replacement with NATASHA 09/1109/11/2024 Overview (09/11/2024): DOS 09/11/[address] Yao Acute respiratory failure 09/11/2024 Hyperlipidemia Ocular migraine Overview (09/11/2024): HISTORY OF Seasonal allergies Urinary incontinence Resolved Problems Problem Noted Date Diagnosed Date Resolved Date Osteoarthritis of left knee 05/27/2024 09/11/2024 Arthritis 09/11/2024 Encounters Date Type Department Care Team Description 09/11/2024 8:49 AM EDT Anesthesia Event [facility] Operating Room [address] [place] [address] Lilia Hernandez, JONES 09/11/2024 8:45 AM EDT - 09/11/2024 11:10 AM EDT Surgery [facility] Operating Room [address] [place] [address] Jose F Yao MD ARTHROPLASTY, KNEE, ROBOT-ASSISTED 09/11/2024 6:52 AM EDT - 09/13/2024 11:30 AM EDT Hospital Encounter [facility] 2 Critical Care Unit [address] [place] [address] Jose F Yao MD Caldwell, Kristinalin, Milka Calhoun, HIGH SCHOOL LEARNING SUPPORT TEACHER Zabrina Snyder, Status post left knee replacement with NATASHA 09/11/24 (Primary Dx); Primary osteoarthritis of left knee Discharge Disposition: Home or Self Care 09/11/2024 Travel 09/04/2024 Surgery Prep [facility] Orthopedics - [address] [place] [address] Katelynn Jacinto PA-C Primary osteoarthritis of left knee (Primary Dx) 08/19/2024 Orders Only [facility] Orthopedics [address] [address] Jose F Yao MD Pre-op exam (Primary Dx) 07/25/2024 11:18 AM EDT - 07/25/2024 11:59 PM EDT Hospital Encounter [facility] Preadmissions Testing [address] [place] [address] Discharge Disposition: Home or Self Care 07/25/2024 Travel 07/23/2024 Surgery Prep [facility] Orthopedics - [address] [place] [address] Katelynn Jacinto PA-C Primary osteoarthritis of left knee (Primary Dx) 07/21/2024 Orders Only [facility] Orthopedics - [address] [address] Jose F Yao MD Pre-op testing (Primary Dx) 07/18/2024 4:00 PM EDT Lab Patient Walk-In [facility] Lab [address] [place] [address] Jose F Yao MD Degenerative arthritis of left knee 07/18/2024 Travel 07/18/2024 Outside Orders [facility] Admitting [address] [place] [address] Jose F Yao MD Degenerative arthritis of left knee (Primary Dx) 07/17/2024 Surgery Prep [facility] Orthopedics - [address] [place] [address] Katelynn Jacinto PA-C Primary osteoarthritis of left knee (Primary Dx) 07/11/2024 Travel 07/07/2024 9:51 AM EDT - 07/07/2024 11:59 PM EDT Hospital Encounter [facility] CT Imaging [address] [place] [address] Jose F Yao MD Primary osteoarthritis of left knee Discharge Disposition: Home or Self Care 06/23/2024 11:30 AM EDT Lab Patient Walk-In [facility] Lab [address] [place] [address] Jose F Yao MD Pre-op testing 06/23/2024 9:57 AM EDT - 06/23/2024 11:59 PM EDT Hospital Encounter [facility] Diagnostic Imaging [address] [place] [address] Jose F Yao MD Pre-op testing Discharge Disposition: Home or Self Care 06/23/2024 9:56 AM EDT Hospital Encounter [facility] Respiratory Care [address] [place] [address] Jose F Yao MD Pre-op testing [...] your living situation today? I have a [facility] place to live 09/11/2024 Think about [...] Do you speak a language other than German at [facility]? No 09/11/2024 Do you want help with [...] Mass Index 27.36 09/11/2024 7:15 AM EDT Plan of Treatment Upcoming Encounters Date Type Department Care Team (Late st Contact Info) Description 09/23/2024 10:00 AM EDT Office Visit [facility] Orthopedics - [address] [phone] Jose F Yao MD [address] [place] [address] Health Maintenance Due Date Last Done Comments [...] 12/24/2018 Tobacco Cessation Counseling and Screening (12+) 09/11/2025 09/11/2024 Pneumococcal 50+ years Completed , 10/13/2015, 09/29/2014, Additional history exists Medical Devices Implanted Type Area Audiovisual Equipment Operator Device Identifier Shelf Expiration Date Model / Serial / Lot Patella Press Fit Tritanium 5552-L-299 - [id number] Implanted:Qt y: 1 on 09/11/2024 by Jose F Yao MD at [facility] TOTAL JOINT CONSTRUCT Left: Knee DONIS:[employer] [id number] 05/25/2029 5552-L-29 9 / / [id number] Comp Fem P/A Cr Beaded Sz4 L 5517-F-401 - [id number] Implanted:Qt y: 1 on 09/11/2024 by Jose F Yao MD at [facility] TOTAL JOINT CONSTRUCT Left: Knee [employer]IS:[employer] [id number] 05/31/2029 5517-F-40 1 / / [id number] Comp Triathlon Tib Tritanium 5536-B-400 - [id number] Implanted:Qt y: 1 on 09/11/2024 by Jose F Yao MD at [facility] TOTAL JOINT CONSTRUCT Left: Knee [employer]IS:[employer] [id number] 07/15/2029 5536-B-40 0 / / [id number] Insrt Tib Bearing #4 11mm X1 4881-L-169-E - [id number] Implanted:Qt y: 1 on 09/11/2024 by Jose F Yao MD at [facility] TOTAL JOINT CONSTRUCT Left: Knee [employer]IS:[employer] [id number] 04/07/2029 5531-G-41 1-E / / [id number] Rtka Right: Knee Explanted Type Area Audiovisual Equipment Operator Device Identifier Shelf Expiration Date Model / Serial / Lot Pin Bone [id number] Strl [id number] - [id number] Explanted:Qty : 1 on 09/11/2024 at [facility] IMPLANTS Left: Knee [employer]IS:[employer] [id number] 06/03/2029 700573 / / [id number] Pin Bone [id number] Strl [id number] - [id number] Explanted:Qty : 1 on 09/11/2024 at [facility] IMPLANTS Left: Knee [employer]IS:[employer] [id number] 05/27/2029 [id number] / / [id number] Femoral Tibia Kit kpt [id number] - [id number] Explanted:Qty : 1 on 09/11/2024 at [facility] IMPLANTS Left: Knee [employer]IS:[employer] [id number] 03/29/2029 [id number] / / [id number] Procedures Procedure Name Priority Date/Time Associated Diagnosis Comments MAGNESIUM Routine 09/13/2024 3:44 AM EDT PROCALCITONIN Routine 09/13/2024 3:44 AM EDT CBC W/ AUTO DIFF Routine 09/13/2024 3:44 AM EDT BASIC METABOLIC PANEL Routine 09/13/2024 3:44 AM EDT NOVA GLUCOSE POC Routine 09/13/2024 2:53 AM EDT XR CHEST AP PORTABLE STAT 09/12/2024 9:22 AM EDT CBC W/ AUTO DIFF Routine 09/12/2024 4:30 AM EDT PROCALCITONIN STAT 09/12/2024 4:29 AM EDT BASIC METABOLIC PANEL Routine 09/12/2024 4:29 AM EDT XR KNEE 1 OR 2 VIEWS LEFT STAT 09/11/2024 10:59 AM EDT XR CHEST AP PORTABLE Routine 09/11/2024 10:59 AM EDT [facility] ANESTHESIA SPINAL BLOCK Routine 09/11/2024 9:57 AM EDT TISSUE EXAM [facility] AP Routine 09/11/2024 9:29 AM EDT Primary osteoarthritis of left knee NE ARTHRP KNE CONDYLE&PLATU MEDIAL&LAT COMPARTMENTS 09/11/2024 8:48 AM EDT Primary osteoarthritis of left knee Case Notes 0700 HC PERIPHERAL NERVE BLOCK SINGLE SHOT Routine 09/11/2024 8:16 AM EDT URINALYSIS, REFLEX MICROSCOPIC AND CULTURE IF INDICATED STAT 09/11/2024 7:11 AM EDT URINALYSIS W/ MICROSCOPIC Routine 07/25/2024 11:41 AM [...] testing CBC W/ AUTO DIFF Routine 06/23/2024 10:05 AM EDT Pre-op testing MRSA SCREEN Routine 06/23/2024 10:05 AM EDT Pre-op testing from Last 3 Months Results * (ABNORMAL) CBC with automated diff (09/13/2024 3:44 AM EDT) Only the most recent of3 resultswithin the time period is included. WBC 10.9(H) 4.8 - 10.8 K/ L 09/13/2024 4:36 AM EDT [facility] RBC 3.20(L) 3.50 - 5.20 M/ L 09/13/2024 4:36 AM EDT [facility] Hemoglobin 9.5(L) 11.7 - 15.8 GM/DL 09/13/2024 4:36 AM EDT [facility] Hematocrit 27.8(L) 35.0 - 47.0 % 09/13/2024 4:36 AM EDT [facility] MCV 87 81 - 101 fL 09/13/2024 4:36 AM EDT [facility] MCH 29.7 27.0 - 34.0 pg 09/13/2024 4:36 AM EDT [facility] MCHC 34.2 32.0 - 36.0 GM/DL 09/13/2024 4:36 AM EDT [facility] RDW 13.1 11.5 - 14.5 % 09/13/2024 4:36 AM EDT [facility] Platelets 173 150 - 400 K/CU MM 09/13/2024 4:36 AM EDT [facility] MPV 9.6 9.4 - 12.4 fL 09/13/2024 4:36 AM EDT [facility] Nucleated Red Blood Cell 0.0 0 - 0.2 % 09/13/2024 4:36 AM EDT [facility] % Neutros 80 37 - 80 % 09/13/2024 4:36 AM EDT [facility] % Lymphs 10 10 - 50 % 09/13/2024 4:36 AM EDT [facility] % Monos 9 5 - 13 % 09/13/2024 4:36 AM EDT [facility] % Eos 0 0 - 7 % 09/13/2024 4:36 AM EDT [facility] % Baso 0 0 - 3 % 09/13/2024 4:36 AM EDT [facility] NRBC Absolute <0.01 0 - 0.012 K/ul 09/13/2024 4:36 AM EDT [facility] # Neutros 8.71(H) 2.00 - 6.90 K/ L 09/13/2024 4:36 AM EDT [facility] # Lymphs 1.08 0.60 - 3.40 K/ L 09/13/2024 4:36 AM EDT [facility] # Monos 1.00(H) 0.00 - 0.90 K/ L 09/13/2024 4:36 AM EDT [facility] # Eos 0.00 0.00 - 0.70 K/ L 09/13/2024 4:36 AM EDT [facility] # Baso 0.01 0.00 - 0.20 K/ L 09/13/2024 4:36 AM EDT [facility] Immature Granulocytes-Re lative 0.60 % 09/13/2024 4:36 AM EDT [facility] # IG 0.07(H) 0.00 - 0.00 K/uL 09/13/2024 4:36 AM EDT [facility] Blood Venipuncture / Unknown 09/13/2024 3:44 AM EDT 09/13/2024 4:27 AM EDT Narrative [facility] - 09/13/2024 4:36 AM EDT [...] Atypical Lymph flag noted us Mike Manjarrez APRN LAB BLOOD ORDERABLES F inal Result [facility] [address] [place] [address] * (ABNORMAL) Procalcitonin (09/13/2024 3:44 AM EDT) Only the most recent of2 resultswithin the time period is included. Procalcitonin 2.38(H) <=0.50 ng/mL 09/13/2024 5:39 AM EDT [facility] Comment: Sepsis comment <0.5 Antibiotics [...] EDT 09/13/2024 4:27 AM EDT Milka Larson HIGH SCHOOL LEARNING SUPPORT TEACHER LAB BLOOD ORDERABLES Final Result [facility] [address] [place] [address] * (ABNORMAL) Magnesium (09/13/2024 3:44 AM EDT) Magnesium 1.6(L) 1.8 - 2.4 mg/dL 09/13/2024 5:13 AM EDT [facility] Blood Venipuncture / Unknown 09/13/2024 3:44 AM EDT 09/13/2024 4:27 AM EDT Marcella Quintanilla APRN LAB BLOOD ORDERABLES Final Re sult [facility] [address] [place] [address], [facility] [phone] * (ABNORMAL) Basic Metabolic Panel (09/13/2024 3:44 AM EDT) Only the most recent of2 resultswithin the time period is included. Sodium 137 136 - 145 meq/L 09/13/2024 5:14 AM EDT [facility] Potassium 3.1(L) 3.5 - 5.1 meq/L 09/13/2024 5:14 AM EDT [facility] Chloride 102 98 - 107 meq/L 09/13/2024 5:14 AM EDT [facility] CO2 30 21 - 32 meq/L 09/13/2024 5:14 AM EDT [facility] Anion Gap 8(L) 11 - 22 09/13/2024 5:14 AM EDT [facility] BUN 18 7 - 18 mg/dL 09/13/2024 5:14 AM EDT [facility] Creatinine 0.90 0.55 - 1.10 mg/dL 09/13/2024 5:14 AM EDT [facility] BUN/Creatinine 20 09/13/2024 5:14 AM EDT [facility] Glucose 111(H) 70 - 99 mg/dL 09/13/2024 5:14 AM EDT [facility] Calcium 8.1(L) 8.5 - 10.1 mg/dL 09/13/2024 5:14 AM EDT [facility] Osmolality Calc 276.4 mOsm/kg 5:14 AM EDT [facility] eGFR (mL/min/1.73m2) >60 >=60 mL/min/1.7 3m2 09/13/2024 5:14 AM EDT [facility] Comment:eGFR of <60 suggests chronic kidney disease if found over a 3 month period of time. eGFR <15 indicates renal failure. Blood Venipuncture / Unknown 09/13/2024 3:44 AM EDT 09/13/2024 4:27 AM EDT Mike Manjarrez FLAME GOUGER LAB BLOOD ORDERABLES F inal Result Performing Organization Address City/[facility]/ZIP Co de Phone Number [facility] [address] [place] [address] * (ABNORMAL) Glucose, Nova Meter (09/13/2024 2:53 AM EDT) POC-GLUCOSE 107(H) 70 - 99 mg/dL 09/13/2024 2:54 AM EDT [facility] Comment: In the event of poor peripheral blood flow, venous or arterial blood should be used due to the potential of erroneous results. No lab per MD Occupational Work Experience Teacher [phone] 09/13/2024 2:54 AM EDT [facility] Blood WHOLE BLOOD / Unknown 09/13/2024 2:53 AM EDT 09/13/2024 2:54 AM EDT Narrative [facility] - 09/13/2024 2:54 AM EDT Occupational Work Experience Teacher ID is - [id number] Milka Larson HIGH SCHOOL LEARNING SUPPORT TEACHER POINT OF CARE TEST ORDERABL ES Final Result Performing Organization Address [facility] Co de Phone Number [facility] [address] [place] [address] * XR chest AP portable (09/12/2024 9:22 AM EDT) Only the most recent of2 resultswithin the time period is included. Anatomical Region Laterality Modality Chest X-Ray 09/12/2024 9:34 AM EDT Impressions 09/12/2024 10:44 AM EDT New bilateral pulmonary opacities favor pneumonia. Images reviewed, interpreted, and dictated by Dr. He Sloan. Transcribed by Lucie Clark 09/12/2024 10:44 AM EDT PORTABLE CHEST HISTORY: [...] Transcribed by Lucie Ni Milka Larson NP IMG DIAGNOSTIC IMAGING ORDE RABTAYLER Final Result * XR knee 1 or 2 views [...] DIAGNOSTIC IMAGING ORDERAB LES Final Result * HC SPINAL BLOCK (09/11/2024 9:57 AM EDT) Narrative Lilia Hernandez CRNA - 09/11/2024 9:57 AM EDT Lilia [...] well with no immediate complications Lilia Hernandez [facility] ANESTHESIA ORDERABLES Final Result * Tissue Exam (09/11/2024 9:29 AM EDT) AP RESULT See Note: [facility] Comment: [facility] [address] [place] [address] or [phone] Anish Cantu M.D., Property Claims Adjuster PATIENT NAME LABORATORY NO. [id number] [id number] AGE SEX SSN CLIENT REF # [place] [id number] 1945 F [id number] ARTHUR REQUESTING [place] [address] DATE COLLECTED DATE RECEIVED DATE REPORTED 09/11/2024 09/11/2024 09/15/2024 DIAGNOSIS: BONE FRAGMENTS, GROSS ONLY, LEFT KNEE: Changes consistent with moderate osteoarthritis RLL/sdl CLINICAL HISTORY: Unilateral primary osteoarthritis, left knee SPECIMENS RECEIVED: BONE FRAGMENTS, GROSS ONLY, LEFT KNEE Professional interpretation rendered by Anish Cantu M.D., F.C.A.P. at [employer], [address] [place] [address]. GROSS DESCRIPTION: Received in formalin labeled joint, [...] AND ELECTRONICALLY SIGNED BY: Anish Cantu M.D., [place] CPT CODES: 82094 Bone KNEE JOINT STRUCTURE / Unknown 09/11/2024 9:29 AM EDT us Jose F Yao MD PATHOLOGY/CYTOLOGY ORDERABLES Final Result [facility] [address] [place] [address] * HC PERIPHERAL NERVE BLOCK SINGLE SHOT (09/11/2024 8:16 AM EDT) Narrative August Castillo MD - 09/11/2024 8:16 AM EDT August Castillo MD 09/11/2024 8:26 AM Peripheral Nerve Block Authorized by: August Castillo [...] supine Prep: ChloraPrep Patient monitoring: heart rate, athletic monitor and continuous pulse ox Block type: [...] Castillo MD ANESTHESIA ORDERABLES Final Re sult * Urinalysis, Reflex Microscopic and Culture If Indicated (09/11/2024 7:11 AM EDT) Only the most recent of2 resultswithin the time period is included. Color, UA Straw 09/11/2024 7:22 AM EDT [facility] Clarity, UA Clear 09/11/2024 7:22 AM EDT [facility] Specific [place], UA <=1.005 1.002 - 1.030 09/11/2024 7:22 AM EDT [facility] pH, UA 7.0 5.0 - 9.0 09/11/2024 7:22 AM EDT [facility] Leukocytes, UA Negative Negative 09/11/2024 7:22 AM EDT [facility] Nitrite, UA Negative Negative 09/11/2024 7:22 AM EDT [facility] Protein, UA Negative Negative 09/11/2024 7:22 AM EDT [facility] Glucose, UA Negative Negative 09/11/2024 7:22 AM EDT [facility] Ketones, UA Negative Negative 09/11/2024 7:22 AM EDT [facility] Bilirubin, UA Negative Negative 09/11/2024 7:22 AM EDT [facility] Blood, UA Negative Negative 09/11/2024 7:22 AM EDT [facility] Urobilinogen, UA 0.2 mg/dL Normal 09/11/2024 7:22 AM EDT [facility] UA INDICATIONS Not indicated 09/11/2024 7:22 AM EDT [facility] Specimen Source Urine, Straight Catheter 09/11/2024 7:22 AM EDT [facility] Urine URINE SPECIMEN OBTAINED VIA STRAIGHT CATHETER / Unknown 09/11/2024 7:11 AM EDT 09/11/2024 7:14 AM EDT us Jose F Tex Yao MD URINE ORDERABLES Final Result [facility] [address] [place] [address] * (ABNORMAL) Urinalysis w/Microscopic (07/25/2024 11:41 AM EDT) Only the most recent of2 resultswithin the time period is included. Color, UA Light Yellow 07/25/2024 12:05 PM EDT [facility] Clarity, UA Clear 07/25/2024 12:05 PM EDT [facility] Specific [place], UA 1.015 1.002 - 1.030 07/25/2024 12:05 PM EDT [facility] pH, UA 6.0 5.0 - 9.0 07/25/2024 12:05 PM EDT [facility] Leukocytes, UA Negative Negative 07/25/2024 12:05 PM EDT [facility] Nitrite, UA Negative Negative 07/25/2024 12:05 PM EDT [facility] Protein, UA Negative Negative 07/25/2024 12:05 PM EDT [facility] Glucose, UA Negative Negative 07/25/2024 12:05 PM EDT [facility] Ketones, UA Negative Negative 07/25/2024 12:05 PM EDT [facility] Urobilinogen, UA 0.2 mg/dL Normal 07/25/2024 12:05 PM EDT [facility] Bilirubin, UA Negative Negative 07/25/2024 12:05 PM EDT [facility] Blood, UA Negative Negative 07/25/2024 12:05 PM EDT [facility] RBC, UA Occasional(A) None Seen, Rare /HPF 07/25/2024 12:05 PM EDT [facility] WBC, UA Occasional None Seen, Occasional , 0-5 /HPF 07/25/2024 12:05 PM EDT [facility] Bacteria, UA Trace(A) None Seen 07/25/2024 12:05 PM EDT [facility] Mucus Trace Trace 07/25/2024 12:05 PM EDT [facility] Epithelial Cells, UA 0-5(A) None Seen, Rare /HPF 07/25/2024 12:05 PM EDT [facility] Specimen Source Urine, Straight Catheter 07/25/2024 12:05 PM EDT [facility] Urine URINE SPECIMEN OBTAINED VIA STRAIGHT CATHETER / Unknown 07/25/2024 11:41 AM EDT 07/25/2024 11:46 AM EDT us Jose F Tex Yao MD URINE ORDERABLES Final Result [facility] [address] [place] [address] * (ABNORMAL) Urinalysis Microscopic Only (07/11/2024 10:00 AM EDT) WBC, UA 10-20(A) None Seen, Occasional , 0-5 /HPF 07/11/2024 10:47 AM EDT [facility] RBC, UA Occasiona l(A) None Seen, Rare /HPF 07/11/2024 10:47 AM EDT [facility] Bacteria, UA 2+(A) None Seen 07/11/2024 10:47 AM EDT [facility] SQUAMOUS EPITHELIAL 5-10(A) None Seen, Rare /HPF 07/11/2024 10:47 AM EDT [facility] Urine URINE SPECIMEN COLLECTION, CLEAN CATCH / Unknown 07/11/2024 10:00 AM EDT 07/11/2024 10:18 AM EDT us Jose F Yao MD URINE ORDERABLES Final Result [facility] [address] [phone] * (ABNORMAL) Urine Culture (07/11/2024 10:00 AM EDT) Result >100,000 CFU Escherichia coli(A) 07/13/2024 9:18 AM EDT [facility] Urine URINE SPECIMEN COLLECTION, CLEAN [...] + Sulfamethoxazole <=0.5/9.5: Susceptible us Jose F Yao MD MICROBIOLOGY - GENERAL ORDERAB LES Final Result [facility] [address] [phone] * CT lower extremity without IV contrast [...] Og's cyst, large in size. Procedure Note Afsaneh Osorio MD - 07/07/2024 CT SCAN LEFT [...] interpreted, and dictated by Mirela Osorio MD us Jose F Yao MD IMG CT ORDERABLES Final Result * ECG 12 lead (06/23/2024 10:25 AM EDT) VENTRICULAR RATE EKG/MIN 66 BPM GE MUSE ATRIAL RATE (MCT) 66 BPM GE MUSE NE Interval 166 ms GE MUSE QRS-INTERVAL (MSEC) 98 ms GE MUSE QT Interval 402 ms GE MUSE QTC Interval 421 ms GE MUSE P [place] 55 degrees GE MUSE R AXIS (MCT) 61 degrees GE MUSE T Wave [place] 57 degrees GE MUSE [place] Diagnosis Normal sinus rhythm with sinus arrhythmia Normal ECG Confirmed by Severo OHARA, ANISH ([id number]) on 06/23/2024 4:20:50 PM GE MUSE 06/23/2024 10:2 5 AM EDT 06/23/2024 4:20 PM EDT us Jose F S Maximilian BENJAMIN ECG ORDERABLES Final Result GE MUSE * [...] structures demonstrate no acute abnormalities. Procedure Note Afsaneh Osorio MD - 06/23/2024 TWO-VIEW CHEST 06/23/2024 [...] Transcribed by Macrina Mosqueda PA-C. Jose F Yao MD IMG DIAGNOSTIC IMAGING ORDERAB LES Final Result * MRSA Screen (06/23/2024 10:05 AM EDT) MRSA by PCR [facility] MRSA Not Detected by PCR MRSA Not Detected by PCR DEVICE ID9 06/23/2024 4:31 PM EDT [facility] Nasal BOTH ANTERIOR NARES / Unknown 06/23/2024 10:05 AM EDT 06/23/2024 10:26 AM EDT Jose F Yao MD MICROBIOLOGY - GENERAL ORDERAB LES Final Result Performing Organization Address City/State/[facility] Co de Phone Number [facility] [address] [place] [address] * (ABNORMAL) Comprehensive metabolic panel (06/23/2024 10:05 AM EDT) Sodium 134(L) 136 - 145 meq/L 06/23/2024 10:55 AM EDT [facility] Potassium 3.2(L) 3.5 - 5.1 meq/L 06/23/2024 10:55 AM EDT [facility] Chloride 98 98 - 107 meq/L 06/23/2024 10:55 AM EDT [facility] CO2 32 21 - 32 meq/L 06/23/2024 10:55 AM EDT [facility] Calcium 8.9 8.5 - 10.1 mg/dL 06/23/2024 10:55 AM EDT [facility] Glucose 85 70 - 99 mg/dL 06/23/2024 10:55 AM EDT [facility] BUN 15 7 - 18 mg/dL 06/23/2024 10:55 AM EDT [facility] Creatinine 0.75 0.55 - 1.10 mg/dL 06/23/2024 10:55 AM EDT [facility] BUN/Creatinine 20 06/23/2024 10:55 AM EDT [facility] Albumin 3.7 3.4 - 5.0 g/dL 06/23/2024 10:55 AM EDT [facility] Alkaline Phosphatase 63 46 - 116 U/L 06/23/2024 10:55 AM EDT [facility] ALT 26 12 - 78 U/L 06/23/2024 10:55 AM EDT [facility] AST 18 15 - 37 U/L 06/23/2024 10:55 AM EDT [facility] Total Bilirubin 0.6 0.2 - 1.0 mg/dL 06/23/2024 10:55 AM EDT [facility] Protein, Total 7.2 6.4 - 8.2 gm/dL 06/23/2024 10:55 AM EDT [facility] Anion Gap 7(L) 11 - 22 06/23/2024 10:55 AM EDT [facility] A/G Ratio 1.1 06/23/2024 10:55 AM EDT [facility] Globulin 3.5 g/dL 06/23/2024 10:55 AM EDT [facility] Osmolality Calc 268.3 mOsm/kg 10:55 AM EDT [facility] eGFR (mL/min/1.73m2) >60 >=60 mL/min/1.7 3m2 06/23/2024 10:55 AM EDT [facility] Comment:ESTIMATED GFR IS NOT ACCURATE CREATININE CLEARANCE IN PREDICTING GLOMERULAR FILTRATION RATE. ESTIMATED GFR IS NOT APPLICABLE FOR DIALYSIS PATIENTS. Blood Venipuncture / Unknown 06/23/2024 10:05 AM EDT 06/23/2024 10:26 AM EDT us Jose F Tex Yao MD LAB BLOOD ORDERABLES Final Res ult [facility] [address] [place] [id number], [facility] [phone] from Last 3 Months Insurance BLUE CROSS/BLUE SHIELD MEDICARE PART A ONLY Advance Directives For more information, please contact: [phone] * Full Code (Latest Code Status on File) Date Activated Date Inactivated Comments 09/11/2024 11:31 AM 09/13/2024 12:46 PM If no puls e: No intervention If has pulse: Use intubation, mechanical ventilation, defibrillation, ACLS medications, or cardioversion as indicated. Call [employer] * Full Code Date Activated Date Inactivated Comments 09/11/2024 11:28 AM 09/11/2024 11:31 AM * Full Code Date Activated Date Inactivated Comments 09/11/2024 6:05 AM 09/11/2024 11:28 AM Care Teams Forging Machine Operator Relationship Specialty Start [place] [address] PCP - General 06/23/24
--- OUTSIDE RECORDS SUMMARY | 2024-09-15 14:49 | XMS_ITS | Encounter Summary ---
Author Organization [employer] ([place], [place], [place], [place]) Address [address] [place] [address] Care Team Providers Care Research Electrician Name Role Phone Kyrie Li Primary Care Provider [phone] Encounter Details Date Type Department Care Team (Late Contact Info) Description 07/18/2024 Outside Orders [facility] Admitting [address] [place] [address] Jose F Yao MD [address] [place] [id number] Degenerative arthritis of left knee (Primary Dx) [...] EDT Office Visit [facility] - [address] [phone] Jose F Yao MD [address] [place] [phone] documented as of this encounter Results * (ABNORMAL) Urinalysis w/Microscopic (07/18/2024 1:45 PM EDT) Color, UA Straw 07/18/2024 2:13 PM EDT [facility] Clarity, UA Hazy 07/18/2024 2:13 PM EDT [facility] Specific [place], UA 1.015 1.002 - 1.030 07/18/2024 2:13 PM EDT [facility] pH, UA 6.5 5.0 - 9.0 07/18/2024 2:13 PM EDT [facility] Leukocytes, UA Trace(A) Negative 07/18/2024 2:13 PM EDT [facility] Nitrite, UA Positive(A) Negative 07/18/2024 2:13 PM EDT [facility] Protein, UA Negative Negative 07/18/2024 2:13 PM EDT [facility] Glucose, UA Negative Negative 07/18/2024 2:13 PM EDT [facility] Ketones, UA Negative Negative 07/18/2024 2:13 PM EDT [facility] Urobilinogen, UA 0.2 mg/dL Normal 07/18/2024 2:13 PM EDT [facility] Bilirubin, UA Negative Negative 07/18/2024 2:13 PM EDT [facility] Blood, UA Negative Negative 07/18/2024 2:13 PM EDT [facility] WBC, UA 5-10(A) None Seen, Occasional , 0-5 /HPF 07/18/2024 2:13 PM EDT [facility] Bacteria, UA 4+(A) None Seen 07/18/2024 2:13 PM EDT [facility] Epithelial Cells, UA 5-10(A) None Seen, Rare /HPF 07/18/2024 2:13 PM EDT [facility] Specimen Source Urine, Straight Catheter 07/18/2024 2:13 PM EDT [facility] Urine URINE SPECIMEN OBTAINED VIA STRAIGHT CATHETER / Unknown 07/18/2024 1:45 PM EDT 07/18/2024 1:56 PM EDT us Jose F Yao MD URINE ORDERABLES Final Result [facility] [address] [place] [address] documented in this encounter Visit Diagnoses Diagnosis Degenerative arthritis of left knee- Primary Osteoarthrosis, unspecified whether generalized or localized, lower leg documented in this encounter Care Teams Research Electrician Relationship Specialty Start Date End [place] [address] PCP - General 06/23/24 documented as of this encounter
--- OUTSIDE RECORDS SUMMARY | 2024-09-15 14:49 | XMS_ITS | Referral Summary ---
Author Organization [employer] ([place], [place], [place], [place]) Address [address] [place] [address] Care Team Providers Care Assurance Sourcing Manager Name Role Phone Kyrie Li Primary Care Provider [phone] Encounters Date Type Department Care Team Description 09/11/2024 6:52 AM EDT - 09/13/2024 11:30 AM EDT Hospital Encounter [facility] 2 Critical Care Unit [address] [place] [phone] Jose F Yao MD Caldwell, Kristinalin, Milka Calhoun, Zabrina Asher, Status post left knee replacement with NATASHA 09/11/24 (Primary Dx); Primary osteoarthritis of left knee Discharge Disposition: Home or Self Care 09/11/2024 8:49 AM EDT Anesthesia Event [facility] Operating Room [address] [place] [phone] Lilia Hernandez CRNA 09/11/2024 Travel 09/11/2024 8:45 AM EDT - 09/11/2024 11:10 AM EDT Surgery [facility] Operating Room [address] [place] [phone] Jose F Yao MD ARTHROPLASTY, KNEE, ROBOT-ASSISTED 09/04/2024 Surgery Prep [facility] Orthopedics - [address] [place] [address] Katelynn Jacinto PA-C Primary osteoarthritis of left knee (Primary Dx) 08/19/2024 Orders Only [facility] Orthopedics [address] [phone] Jose F Yao MD Pre-op exam (Primary Dx) 07/25/2024 Travel 07/25/2024 11:18 AM EDT - 07/25/2024 11:59 PM EDT Hospital Encounter [facility] Preadmissions Testing [address] [place] [address] Discharge Disposition: Home or Self Care 07/23/2024 Surgery Prep [facility] Orthopedics - [address] [place] [address] Katelynn Jacinto PA-C Primary osteoarthritis of left knee (Primary Dx) 07/21/2024 Orders Only [address] [phone] Jose F Yao MD Pre-op testing (Primary Dx) 07/18/2024 Travel 07/18/2024 4:00 PM EDT Lab Patient Walk-In [facility] Lab [address] [place] [address] Jose F Yao MD Degenerative arthritis of left knee 07/18/2024 Outside Orders [facility] Admitting [address] [place] [address] Jose F Yao MD Degenerative arthritis of left knee (Primary Dx) 07/17/2024 Surgery Prep [facility] Orthopedics - [address] [place] [address] Katelynn Jacinto PA-C Primary osteoarthritis of left knee (Primary Dx) 07/11/2024 Travel 07/07/2024 9:51 AM EDT - 07/07/2024 11:59 PM EDT Hospital Encounter [facility] CT Imaging [address] [place] [address] Jose F Yao MD Primary osteoarthritis of left knee Discharge Disposition: Home or Self Care 06/23/2024 Travel 06/23/2024 9:56 AM EDT Hospital Encounter [facility] Respiratory Care [address] [place] [phone] Jose F Yao MD Pre-op testing Discharge Disposition: Home or Self Care 06/23/2024 9:57 AM EDT - 06/23/2024 11:59 PM EDT Hospital Encounter [facility] Diagnostic Imaging [address] [place] [phone] Jose F Yao MD Pre-op testing Discharge Disposition: Home or Self Care 06/23/2024 11:30 AM EDT Lab Patient Walk-In [facility] Lab [address] [place] [phone] Jose F Yao MD Pre-op testing from Last 3 Months Allergies Active Allergy Reactions Criticality Noted Date [...] (25 mg total) by mouth daily. 06/11/19 Active docusate sodium (Colace) 100 MG capsule [...] Daily Amount: 150 mg 21 tablet 09/13/19 25 Active HYDROcodone-ac etaminophen (NORCO) 5-325 mg per [...] tablets (600 mg total) by mouth daily. 025 Discontinued(St op Taking at Discharge) Active Problems Problem Noted Date Diagnosed Date Status post left knee replacement with NATASHA 09/1109/11/2024 Overview (09/11/2024): DOS 09/11/[address] Yao Acute respiratory failure 09/11/2024 Hyperlipidemia Ocular migraine Overview (09/11/2024): HISTORY OF Seasonal allergies Urinary incontinence Resolved Problems Problem Noted Date Diagnosed Date Resolved Date Osteoarthritis of left knee 05/27/2024 09/11/2024 Arthritis 09/11/2024 Social History Tobacco Use Types Packs/Day Years [...] you? Never 09/11/2024 How often does anyone, yarizta tong family and friends, insult or talk down to you? Never 09/11/2024 How often does anyone, yaritza tong family and friends, threaten you with harm? Never 09/11/2024 How often does anyone, yaritza tong family and friends, scream or curse at you? Never 09/11/2024 Housing Stability Answer Date Recorded What is your living situation today? I have a [facility] place to live 09/11/2024 Think about [...] Do you speak a language other than [place] at [facility]? No 09/11/2024 Do you want help [...] Description 09/23/2024 10:00 AM EDT Office Visit [facility] Orthopedics - [address] [phone] Jose F Yao MD [address] [place] [id number] Medical Devices Implanted Type Area Hybrid Tester Device Identifier Shelf Expiration Date Model / Serial / Lot Patella Press Fit Tritanium 5552-L-299 - [id number] Implanted:Qt y: 1 on 09/11/2024 by Jose F Yao MD at [facility] TOTAL JOINT CONSTRUCT Left: Knee DONIS:[employer] [id number] 05/25/2029 5552-L-29 9 / / [id number] Comp Fem P/A Cr Beaded Sz4 L 5517-F-401 - [id number] Implanted:Qt y: 1 on 09/11/2024 by Jose F Yao MD at [facility] TOTAL JOINT CONSTRUCT Left: Knee DONIS:[employer] [id number] 05/31/2029 5517-F-40 1 / / [id number] Comp Triathlon Tib Tritanium 5536-B-400 - [id number] Implanted:Qt y: 1 on 09/11/2024 by Jose F Yao MD at [facility] TOTAL JOINT CONSTRUCT Left: Knee DONIS:[employer] [id number] 07/15/2029 5536-B-40 0 / / [id number] Insrt Tib Bearing #4 11mm X1 4650-H-777-E - [id number] Implanted:Qt y: 1 on 09/11/2024 by Jose F Yao MD at [facility] TOTAL JOINT CONSTRUCT Left: Knee [employer]IS:[employer] [id number] 04/07/2029 5531-G-41 1-E / / [id number] Rtka Right: Knee Explanted Type Area Hybrid Tester Device Identifier Shelf Expiration Date Model / Serial / Lot Pin Bone [id number] Strl [id number] - [id number] Explanted:Qty : 1 on 09/11/2024 at [facility] IMPLANTS Left: Knee [employer]IS:[employer] [id number] 06/03/2029 [id number] / / [id number] Pin Bone [id number] Strl [id number] - [id number] Explanted:Qty : 1 on 09/11/2024 at [facility] IMPLANTS Left: Knee [employer]IS:[employer] [id number] 05/27/2029 [id number] / / [id number] Femoral Tibia Kit Chkpt [id number] - [id number] Explanted:Qty : 1 on 09/11/2024 at [facility] IMPLANTS Left: Knee [employer]IS:[employer] [id number] 03/29/2029 [id number] / / [id number] Procedures Procedure Name Priority Date/Time Associated [...] AM EDT Primary osteoarthritis of left knee CA ARTHRP KNE CONDYLE&PLATU MEDIAL&LAT COMPARTMENTS 09/11/2024 8:48 [...] 10.8 K/ L 09/13/2024 4:36 AM EDT [facility] RBC 3.20(L) 3.50 - 5.20 M/ L 09/13/2024 4:36 AM EDT [facility] Hemoglobin 9.5(L) 11.7 - 15.8 GM/DL 09/13/2024 4:36 AM EDT [facility] Hematocrit 27.8(L) 35.0 - 47.0 % 09/13/2024 4:36 AM EDT [facility] MCV 87 81 - 101 fL 09/13/2024 4:36 AM EDT [facility] MCH 29.7 27.0 - 34.0 pg 09/13/2024 4:36 AM EDT [facility] MCHC 34.2 32.0 - 36.0 GM/DL 09/13/2024 4:36 AM EDT [facility] RDW 13.1 11.5 - 14.5 % 09/13/2024 4:36 AM EDT [facility] Platelets 173 150 - 400 K/CU MM 09/13/2024 4:36 AM EDT [facility] MPV 9.6 9.4 - 12.4 fL 09/13/2024 4:36 AM EDT [facility] Nucleated Red Blood Cell 0.0 0 - 0.2 % 09/13/2024 4:36 AM EDT [facility] % Neutros 80 37 - 80 % 09/13/2024 4:36 AM EDT [facility] % Lymphs 10 10 - 50 % 09/13/2024 4:36 AM EDT [facility] % Monos 9 5 - 13 % 09/13/2024 4:36 AM EDT [facility] % Eos 0 0 - 7 % 09/13/2024 4:36 AM EDT [facility] % Baso 0 0 - 3 % 09/13/2024 4:36 AM EDT [facility] NRBC Absolute <0.01 0 - 0.012 K/ul 09/13/2024 4:36 AM EDT [facility] # Neutros 8.71(H) 2.00 - 6.90 K/ L 09/13/2024 4:36 AM EDT [facility] # Lymphs 1.08 0.60 - 3.40 K/ L 09/13/2024 4:36 AM EDT [facility] # Monos 1.00(H) 0.00 - 0.90 K/ L 09/13/2024 4:36 AM EDT [facility] # Eos 0.00 0.00 - 0.70 K/ L 09/13/2024 4:36 AM EDT [facility] # Baso 0.01 0.00 - 0.20 K/ L 09/13/2024 4:36 AM EDT [facility] Immature Granulocytes-Re lative 0.60 % 09/13/2024 4:36 AM EDT [facility] # IG 0.07(H) 0.00 - 0.00 K/uL 09/13/2024 4:36 AM EDT [facility] Blood Venipuncture / Unknown 09/13/2024 3:44 AM EDT 09/13/2024 4:27 AM EDT Narrative [facility] - 09/13/2024 4:36 AM EDT [...] noted Atypical Lymph flag noted Mike Manjarrez PRE K TEACHER LAB BLOOD ORDERABLES F inal Result [facility] [address] [place] [address] * (ABNORMAL) Procalcitonin (09/13/2024 3:44 AM EDT) Only the most recent of2 resultswithin the time period is included. Procalcitonin 2.38(H) <=0.50 ng/mL 09/13/2024 5:39 AM EDT [facility] Comment: Sepsis comment <0.5 Antibiotics [...] EDT 09/13/2024 4:27 AM EDT Milka Larson HOME APPLIANCE WASHING MACHINE MECHANIC LAB BLOOD ORDERABLES Final Result Performing Organization Address City/[facility]/ZIP Co de Phone Number [facility] [address] [place] [address] * (ABNORMAL) Magnesium (09/13/2024 3:44 AM EDT) Magnesium 1.6(L) 1.8 - 2.4 mg/dL 09/13/2024 5:13 AM EDT [facility] Blood Venipuncture / Unknown 09/13/2024 3:44 AM EDT 09/13/2024 4:27 AM EDT Marcella Quintanilla APRN LAB BLOOD ORDERABLES Final Re sult [facility] [address] [place] [address] * (ABNORMAL) Basic Metabolic Panel (09/13/2024 3:44 AM EDT) Only the most recent of2 resultswithin the time period is included. Sodium 137 136 - 145 meq/L 09/13/2024 5:14 AM EDT [facility] Potassium 3.1(L) 3.5 - 5.1 meq/L 09/13/2024 5:14 AM EDT [facility] Chloride 102 98 - 107 meq/L 09/13/2024 5:14 AM EDT [facility] CO2 30 21 - 32 meq/L 09/13/2024 5:14 AM EDT [facility] Anion Gap 8(L) 11 - 22 09/13/2024 5:14 AM EDT [facility] BUN 18 7 - 18 mg/dL 09/13/2024 5:14 AM EDT [facility] Creatinine 0.90 0.55 - 1.10 mg/dL 09/13/2024 5:14 AM EDT [facility] BUN/Creatinine 20 09/13/2024 5:14 AM EDT [facility] Glucose 111(H) 70 - 99 mg/dL 09/13/2024 5:14 AM EDT [facility] Calcium 8.1(L) 8.5 - 10.1 mg/dL 09/13/2024 5:14 AM EDT [facility] Osmolality Calc 276.4 mOsm/kg 5:14 AM EDT [facility] eGFR (mL/min/1.73m2) >60 >=60 mL/min/1.7 3m2 09/13/2024 5:14 AM EDT [facility] Comment:eGFR of <60 suggests chronic kidney disease if found over a 3 month period of time. eGFR <15 indicates renal failure. Blood Venipuncture / Unknown 09/13/2024 3:44 AM EDT 09/13/2024 4:27 AM EDT us Mike Manjarrez PRE K TEACHER LAB BLOOD ORDERABLES F inal Result [facility] [address] [place] [address] * (ABNORMAL) Glucose, Nova Meter (09/13/2024 2:53 AM EDT) POC-GLUCOSE 107(H) 70 - 99 mg/dL 09/13/2024 2:54 AM EDT [facility] Comment: In the event of poor peripheral blood flow, venous or arterial blood should be used due to the potential of erroneous results. No lab per MD Bank Vault Clerk [phone] 09/13/2024 2:54 AM EDT [facility] Blood WHOLE BLOOD / Unknown 09/13/2024 2:53 AM EDT 09/13/2024 2:54 AM EDT Narrative [facility] - 09/13/2024 2:54 AM EDT Bank Vault Clerk ID is - [id number] us Milka Larson NP POINT OF CARE TEST ORDERABL ES Final Result [facility] [address] [place] [address], [facility] [phone] * XR chest AP portable (09/12/2024 9:22 [...] DIAGNOSTIC IMAGING ORDE RABLES Final Result * XR knee 1 or [...] tolerated procedure well with no immediate complications us Lilia Hernandez CRNA ANESTHESIA ORDERABLES Final Result * Tissue Exam (09/11/2024 9:29 AM EDT) AP RESULT See Note: [facility] Comment: [facility] [address] [place] [address] or [phone] Anish Cantu M.D., Pheresis Specialist PATIENT NAME LABORATORY NO. 160IMANI SIMONS [id number] AGE SEX SSN CLIENT REF # [facility]S Keenan 1945 F [id number] ARTHUR REQUESTING Severo ATTENDING Severo COPY TO. [address] [place] [id number] DATE COLLECTED DATE RECEIVED DATE REPORTED 09/11/2024 09/11/2024 09/15/2024 DIAGNOSIS: BONE FRAGMENTS, GROSS ONLY, LEFT KNEE: Changes consistent with moderate osteoarthritis RLL/sdl CLINICAL HISTORY: Unilateral primary osteoarthritis, left knee SPECIMENS RECEIVED: BONE FRAGMENTS, GROSS ONLY, LEFT KNEE Professional interpretation rendered by Anish Cantu M.D., Jayson.C.A.P. at [facility], [address] [place] [address]. GROSS DESCRIPTION: Received in formalin labeled joint, [...] BY: Anish Cantu M.D., F.C.A.P. CPT CODES: 08559 Bone KNEE JOINT STRUCTURE / Unknown 09/11/2024 9:29 AM EDT us Jose F Yao MD PATHOLOGY/CYTOLOGY ORDERABLES Final Result [facility] [address] [place] [address] * HC PERIPHERAL NERVE BLOCK SINGLE SHOT [...] supine Prep: ChloraPrep Patient monitoring: heart rate, cardiac cath technician and continuous pulse ox Block type: adductor [...] Color, UA Straw 09/11/2024 7:22 AM EDT [facility] Clarity, UA Clear 09/11/2024 7:22 AM EDT [facility] Specific [place], UA <=1.005 1.002 - 1.030 09/11/2024 7:22 AM EDT [facility] pH, UA 7.0 5.0 - 9.0 09/11/2024 7:22 AM EDT [facility] Leukocytes, UA Negative Negative 09/11/2024 7:22 AM EDT [facility] Nitrite, UA Negative Negative 09/11/2024 7:22 AM EDT [facility] Protein, UA Negative Negative 09/11/2024 7:22 AM EDT [facility] Glucose, UA Negative Negative 09/11/2024 7:22 AM EDT [facility] Ketones, UA Negative Negative 09/11/2024 7:22 AM EDT [facility] Bilirubin, UA Negative Negative 09/11/2024 7:22 AM EDT [facility] Blood, UA Negative Negative 09/11/2024 7:22 AM EDT [facility] Urobilinogen, UA 0.2 mg/dL Normal 09/11/2024 7:22 AM EDT [facility] UA INDICATIONS Not indicated 09/11/2024 7:22 AM EDT [facility] Specimen Source Urine, Straight Catheter 09/11/2024 7:22 AM EDT [facility] Urine URINE SPECIMEN OBTAINED VIA STRAIGHT CATHETER / Unknown 09/11/2024 7:11 AM EDT 09/11/2024 7:14 AM EDT us Jose F Tex Yao MD URINE ORDERABLES Final Result [facility] [address] [place], [place] [address] [phone] * (ABNORMAL) Urinalysis w/Microscopic (07/25/2024 11:41 AM EDT) Only the most recent of2 resultswithin the time period is included. Color, UA Light Yellow 07/25/2024 12:05 PM EDT [facility] Clarity, UA Clear 07/25/2024 12:05 PM EDT [facility] Specific [place], UA 1.015 1.002 - 1.030 07/25/2024 12:05 PM EDT [facility] pH, UA 6.0 5.0 - 9.0 07/25/2024 12:05 PM EDT [facility] Leukocytes, UA Negative Negative 07/25/2024 12:05 PM EDT [facility] Nitrite, UA Negative Negative 07/25/2024 12:05 PM EDT [facility] Protein, UA Negative Negative 07/25/2024 12:05 [facility] Glucose, UA Negative Negative 07/25/2024 12:05 PM EDT [facility] Ketones, UA Negative Negative 07/25/2024 12:05 PM [facility] Urobilinogen, UA 0.2 mg/dL Normal 07/25/2024 12:05 PM EDT [facility] Bilirubin, UA Negative Negative 07/25/2024 12:05 PM [facility] Blood, UA Negative Negative 07/25/2024 12:05 PM [facility] RBC, UA Occasional(A) None Seen, Rare /HPF 07/25/2024 12:05 PM [facility] WBC, UA Occasional None Seen, Occasional , 0-5 /HPF 07/25/2024 12:05 PM [facility] Bacteria, UA Trace(A) None Seen 07/25/2024 12:05 PM [facility] Mucus Trace Trace 07/25/2024 12:05 PM [facility] Epithelial Cells, UA 0-5(A) None Seen, Rare /HPF 07/25/2024 12:05 PM [facility] Specimen Source Urine, Straight Catheter 07/25/2024 12:05 PM [facility] Urine URINE SPECIMEN OBTAINED VIA STRAIGHT CATHETER / Unknown 07/25/2024 11:41 AM EDT 07/25/2024 11:46 AM EDT us Jose F Yao MD URINE ORDERABLES Final Result [facility] [address] [place] [address] * (ABNORMAL) Urinalysis Microscopic Only (07/11/2024 10:00 AM EDT) WBC, UA 10-20(A) None Seen, Occasional , 0-5 /HPF 07/11/2024 10:47 AM EDT [facility] RBC, UA Occasiona l(A) None Seen, Rare /HPF 07/11/2024 10:47 AM EDT [facility] Bacteria, UA 2+(A) None Seen 07/11/2024 10:47 AM EDT [facility] SQUAMOUS EPITHELIAL 5-10(A) None Seen, Rare /HPF 07/11/2024 10:47 AM EDT [facility] Urine URINE SPECIMEN COLLECTION, CLEAN CATCH / Unknown 07/11/2024 10:00 AM EDT 07/11/2024 10:18 AM EDT us Jose F Yao MD URINE ORDERABLES Final Result Performing Organization Address [facility]/ZIP Co de Phone Number [facility] [address] [place] [address] * (ABNORMAL) Urine Culture (07/11/2024 10:00 AM EDT) Result >100,000 CFU Escherichia coli(A) 07/13/2024 9:18 AM EDT [facility] Urine URINE SPECIMEN COLLECTION, [...] MICROBIOLOGY - GENERAL ORDERAB LES Final Result [facility] [address] [phone] * CT lower extremity without IV contrast [...] ATRIAL RATE (MCT) 66 BPM GE MUSE CA Interval 166 ms GE MUSE QRS-INTERVAL (MSEC) 98 ms GE MUSE QT Interval 402 ms GE MUSE QTC Interval 421 ms GE MUSE P [place] 55 degrees GE MUSE R AXIS (MCT) 61 degrees GE MUSE T Wave [place] 57 degrees GE MUSE [place] Diagnosis Normal sinus rhythm with sinus arrhythmia [...] by Macrina Mosqueda PA-C. us Jose F Tex Yao MD IMG DIAGNOSTIC IMAGING ORDERAB LES Final Result * MRSA Screen (06/23/2024 10:05 AM EDT) MRSA by PCR [facility] MRSA Not Detected by PCR MRSA Not Detected by PCR DEVICE ID9 06/23/2024 4:31 PM EDT [facility] Nasal BOTH ANTERIOR NARES / Unknown 06/23/2024 10:05 AM EDT 06/23/2024 10:26 AM EDT us Jose F Tex Yao MD MICROBIOLOGY - GENERAL ORDERAB LES Final Result [facility] [address] [phone] * (ABNORMAL) Comprehensive metabolic panel (06/23/2024 10:05 AM EDT) Sodium 134(L) 136 - 145 meq/L 06/23/2024 10:55 AM EDT [facility] Potassium 3.2(L) 3.5 - 5.1 meq/L 06/23/2024 10:55 AM EDT [facility] Chloride 98 98 - 107 meq/L 06/23/2024 10:55 AM EDT [facility] CO2 32 21 - 32 meq/L 06/23/2024 10:55 AM EDT [facility] Calcium 8.9 8.5 - 10.1 mg/dL 06/23/2024 10:55 AM EDT [facility] Glucose 85 70 - 99 mg/dL 06/23/2024 10:55 AM EDT [facility] BUN 15 7 - 18 mg/dL 06/23/2024 10:55 AM EDT [facility] Creatinine 0.75 0.55 - 1.10 mg/dL 06/23/2024 10:55 AM EDT [facility] BUN/Creatinine 20 06/23/2024 10:55 AM EDT [facility] Albumin 3.7 3.4 - 5.0 g/dL 06/23/2024 10:55 AM EDT [facility] Alkaline Phosphatase 63 46 - 116 U/L 06/23/2024 10:55 AM EDT [facility] ALT 26 12 - 78 U/L 06/23/2024 10:55 AM EDT [facility] AST 18 15 - 37 U/L 06/23/2024 10:55 AM EDT [facility] Total Bilirubin 0.6 0.2 - 1.0 mg/dL 06/23/2024 10:55 AM EDT [facility] Protein, Total 7.2 6.4 - 8.2 gm/dL 06/23/2024 10:55 AM EDT [facility] Anion Gap 7(L) 11 - 22 06/23/2024 10:55 AM EDT [facility] A/G Ratio 1.1 06/23/2024 10:55 AM EDT [facility] Globulin 3.5 g/dL 06/23/2024 10:55 AM EDT [facility] Osmolality Calc 268.3 mOsm/kg 10:55 AM EDT [facility] eGFR (mL/min/1.73m2) >60 >=60 mL/min/1.7 3m2 06/23/2024 10:55 AM EDT [facility] Comment:ESTIMATED GFR IS NOT ACCURATE CREATININE CLEARANCE IN PREDICTING GLOMERULAR FILTRATION RATE. ESTIMATED GFR IS NOT APPLICABLE FOR DIALYSIS PATIENTS. Blood Venipuncture / Unknown 06/23/2024 10:05 AM EDT 06/23/2024 10:26 AM EDT us Jose F S Austen [facility] BLOOD ORDERABLES Final Res ult [facility] [address] [place] [address] from Last 3 Months Insurance BLUE CROSS/BLUE [employer]IELD Member Subscriber Plan / Payer (Ef fective 2015-Present) Name:Imani Mcdonald Relation to Subscriber:Self Name:Imani Mcdonald Payer ID:Not on file Group ID:[id number] Type:Not on file Address: [facility] [id number] [place] [id number] MEDICARE PART A ONLY Advance Directives For more information, please contact: [phone] * Full Code (Latest Code Status on File) Date Activated Date Inactivated Comments 09/11/2024 11:31 AM 09/13/2024 12:46 PM If no puls e: No intervention If has pulse: Use intubation, mechanical ventilation, defibrillation, ACLS medications, or cardioversion as indicated. Call [facility] * Full Code Date Activated Date Inactivated Comments 09/11/2024 11:28 AM 09/11/2024 11:31 AM * Full Code Date Activated Date Inactivated Comments 09/11/2024 6:05 AM 09/11/2024 11:28 AM Care Teams Assurance Sourcing Manager Relationship Specialty Start Date End Date Kyrie Li [address] [place] [phone] PCP - General 06/23/24
--- OUTSIDE RECORDS SUMMARY | 2024-09-15 14:49 | XMS_ITS | Encounter Summary ---
Author Organization [facility] ([place], [place], [place], [place]) Address [address] [place] [address] Care Team Providers Care Risk Professional Name Role Phone Guillermo Kyrie Primary Care Provider [phone] Encounter Details Date Type Department Care Team [...] Description 09/23/2024 10:00 AM EDT Office Visit [facility] Orthopedics - [address] [phone] Jose F Yao MD [address] [place] [phone] documented as of this encounter Visit Diagnoses Not on filedocumented in this encounter Care Teams Risk Professional Relationship Specialty Start Date End Date Kyrie Li [address] [place] [phone] PCP - General 06/23/24 documented as of this encounter
--- OUTSIDE RECORDS SUMMARY | 2024-09-15 14:49 | XMS_ITS | Encounter Summary ---
Author Organization [employer] ([place], [place], [place], [place]) Address [address] [place] [address] Care Team Providers Care Student Accounts Manager Name Role Phone Luis Daniel Li Primary Care Provider [phone] Encounter Details Date Type Department Care Team (Late st Contact Info) Description 09/04/2024 Surgery Prep [facility] - [address] [place] [address] Katelynn Jacinto PA-C [address], [place] [id number] Primary osteoarthritis of left knee (Primary Dx) [...] H&P Notes * Katelynn Jacinto PA-C - 09/04/2024 11:08 AM EDT NAME: Imani Mcdonald CSN: [id number] : 1945 PCP: LUIS DANIEL LI REASON [...] fatigue, no mood swings. Scribe Attestation: Brenda Hamitlon CMA acted as a scribe and transcribed [...] your prescription refills for excessive abuse or senior care use. If necessary, you will be referred to paint factory worker. We will monitor your use of scheduled [...] knee arthroplasty and has been recommended a Genecure NATASHA implant to allow for increased accuracy [...] 11:47 AM EDT documented in this encounter Plan of Treatment Upcoming Encounters Date Type Department Care Team (Late st Contact Info) Description 09/23/2024 10:00 AM EDT Office Visit [facility] - [address] [phone] Jose F Yao MD [address] [place] [phone] documented as of this encounter Visit Diagnoses Diagnosis Primary osteoarthritis of left knee- Primary documented in this encounter Care Teams Student Accounts Manager Relationship Specialty Start Date [place] [id number] PCP - General 06/23/24 documented as of this encounter
--- OUTSIDE RECORDS SUMMARY | 2024-09-15 14:50 | XMS_ITS | Encounter Summary ---
Author Organization [employer] ([place], [place], [place], [place]) Address [address] [place] [address] Care Team Providers Care Green Building Architect Name Role Phone Kyrie Li Primary Care Provider [phone] Encounter Details Date Type Department Care Team (Latest Contact Info) Description 09/11/2024 Travel Social History Tobacco Use Types Packs/Day [...] Date Record ed How often does anyone, isajaved ran family and friends, physically hurt you? Never [...] living situation today? I have a [facility] place to live 09/11/2024 Think about the [...] Do you speak a language other than Moroccan at [facility]? No 09/11/2024 Do you want [...] [facility] - [address] [phone] Jose F Yao MD [address] [place] [phone] documented as of this encounter Visit Diagnoses Not on filedocumented in this encounter Care Teams Green Building Architect Relationship Specialty [place] [phone] PCP - General 06/23/24 documented as of this encounter
== END 2024-09-15 23:59 | disposition home or self-care (01) ==
LOC: RAD 14:45
PROVIDERS: PCP Family Medicine; Visit Provider Family Medicine
DX: J90 Pleural effusion, not elsewhere classified (principal); J69.0 Pneumonitis due to inhalation of food and vomit
CPT/HCPCS: 71046

== ENCOUNTER 2024-10-16 11:00 | Outpatient (RCR) | payer BC, SELFPAY | END 2024-10-16 23:59 | disposition home or self-care (01) | LOC: PT.CARL 11:00 | PROVIDERS: PCP Family Medicine; Visit Provider Orthopaedic Surgery | DX: Z47.89 Encounter for other orthopedic aftercare (principal); Z96.652 Presence of left artificial knee joint | CPT/HCPCS: 97110; 97161 ==

== ENCOUNTER 2024-10-27 13:00 | Outpatient (RCR) | payer BC, SELFPAY | END 2024-11-05 09:28 | disposition home or self-care (01) | LOC: PT.CARL 13:00 | PROVIDERS: PCP Family Medicine; Visit Provider Orthopaedic Surgery | DX: Z47.1 Aftercare following joint replacement surgery (principal); Z96.652 Presence of left artificial knee joint | CPT/HCPCS: 97110; 97530 ==

== ENCOUNTER 2025-02-27 18:08 | Emergency (ER) | payer BC, SELFPAY ==
--- OUTSIDE RECORDS SUMMARY | 2025-02-10 10:45 | XMS_ITS | Encounter Summary ---
Author Organization [employer] ([place], [place], [place], [place], [place]) Address [address] [place] [address] Care Team Providers Care Hose Turner Name Role Phone Kyrie Li Primary Care Provider [phone] Reason for Visit * Reason Comments Follow-up s/p LTKA DOS 09/11/24 Encounter Details Date Type Department Care Team (Late st Contact Info) Description 02/10/2025 10:45 AM EST Office Visit [facility] - [address] [phone] Alexis Martinez PA-C [address] [place] [phone] S/P TKR (total knee replacement), left (Primary Dx) Social History Tobacco Use Types [...] harm? Never 09/11/2024 How often does anyone, inclu ding family and friends, scream or curse at [...] Do you speak a language other than Greenlandic at [facility]? No 09/11/2024 Do you want help [...] Sign Reading Time Taken Comments Blood Pressure 189/112 02/10/2025 10:51 AM EST Pulse 76 02/10/2025 10:51 AM EST Temperature - - Respiratory Rate - - Oxygen Saturation - - Inhaled Oxygen Concentration - - Weight 68.9 kg (152 lb) 02/10/2025 10:50 AM EST Height 157.5 cm (5' 2 ) 02/10/2025 10:50 AM EST Body Mass Index 27.8 02/10/2025 10:50 AM EST documented in this encounter Progress Notes * Alexis Martinez PA-C - 02/10/2025 10:45 AM EST NAME: Imani Mcdonald CSN: [id number] : 1945 PCP: KYRIE LI REASON FOR VISIT Follow-up (s/p LTKA DOS 09/11/24/) Established patient follow-up s/p LTKA DOS 09/11/24. Is this Worker's Comp? No HPI History of Present Illness Imani Mcdonald is an 79 year old female who presents for a follow-up after left total knee arthroplasty. She underwent left total knee arthroplasty on September 11, 2024. Since the surgery, she has experiencedimprovement in symptoms but continues to have pain with weather changes. Currently, she rates her pain as 0/10. She also experiences stiffness in the knee but has no new injuries or complications. She mentions experiencing numbness on the skin, which she attributes to nerve irritation from the surgery. This numbness is similar to what she experienced on the right side years ago. No new numbness or tingling beyond what was expected post-surgery is reported. SCRIBE: She states it is doing better but rainy weather makes it a little sore, nothing she can't deal with according to the patient. She rates her pain today 0/10. He said it just feels stiff. She has no new injuries or concerns. CURRENT MEDICATIONS Current Outpatient Medications Medication Instructions [...] TAKE 1 CAPSULE 1 TIME EACH DAY lisinopriL (ZESTRIL) 30 mg, oral, Daily potassium chloride (KLOR-CON) 10 MEQ tablet 10 mEq, oral, Daily, 1.5 TABS pravastatin (PRAVACHOL) 80 mg, oral, Daily sertraline (ZOLOFT) 25 mg, Daily tolterodine (DETROL LA) 4 mg, oral, Daily vitamin E acid succinate (vitamin E succinate) 268 mg (400 unit) tab Take 1 tablet every day by oral route. ALLERGIES Allergies Allergen Reactions Lidocaine Other (See Comments) Oxycodone Other (See Comments) Patient states, makes me aggressive and out of it. Procaine (Bulk) Other (See Comments) PAST MEDICAL/SURGICAL HISTORY Past Medical History: Diagnosis Date Arthritis Hyperlipidemia Ocular migraine HISTORY OF Seasonal allergies Urinary incontinence Past Surgical History: Procedure Laterality Date CARPAL TUNNEL RELEASE Bilateral CATARACT EXTRACTION Bilateral CYSTECTOMY KNOT OFF OF NECK MAKOPLASTY,KNEE Left 09/11/2024 Procedure: ARTHROPLASTY, KNEE, ROBOT-ASSISTED; Surgeon: Jose F Yao MD; Location: [facility]; Service: Orthopedic Surgery; Laterality: Left; REPLACEMENT TOTAL KNEE Right SOCIAL HISTORY Social [...] no anxiety, no fatigue, no mood swings. OBJECTIVE Vitals: 02/10/25 1050 02/10/25 1051 BP: (!) 170/102 (!) 189/112 Pulse: 82 76 Weight: 68.9 kg (152 lb) Height: 1.575 m (5' 2 ) Body mass index is 27.8 kg/m??. Discussed with the patient that BP readings are elevated today. Patient denies history of hypertension. Advised patient to follow up with primary care provider for assessment. Physical Exam CONSTITUTIONAL: Normal appearance. HEAD EARS NOSE THROAT: Head normocephalic and atraumatic. SKIN: Skin is warm and dry, capillary refill takes less than 2 seconds, no bruising or erythema, nosigns of infection. VASCULAR: Negative Homans, calf soft. EXTREMITIES: No clubbing, cyanosis. NEUROLOGICAL: Mental status alert and oriented to person, place, and time, gait abnormal, nerve irritation on left and right knee. PSYCHIATRIC: Mood normal, behavior normal. MUSCULOSKELETAL: Left knee full extension, flexion to 130 degrees. Left Knee Exam Appearance: Swelling WNL postop, mild Warmth, WNL post-op,- deformity Palpation: non-tender to palpation ROM: 130 degrees of flexion, Full extension Strength: 4+/5 Neurovascular: NVI, -Homans Skin: skin intact without obvious drainage or erythema, incision well approximated with routine healing IMAGING/OUTSIDE REPORTS Imaging reviewed today in office from previous encounter Results ASSESSMENT Problem List Items Addressed This Visit Other S/P TKR (total knee replacement), left - Primary PLAN - Return in about 31 weeks (around 09/15/2025) for s/p LTKA DOS 09/11/24 with bilateral knee xray . Assessment & Plan Status post left total knee arthroplasty with post-surgical pain, stiffness, and cutaneous nerve injury Status post left total knee arthroplasty on September 11, 2024. Reports improvement in symptoms but experiences pain with weather changes. Current pain level is 0/10. Reports stiffness in the knee. No new injuries or complications. Examination shows full extension and flexion to 130 degrees. No signs of infection. Swelling expected to decrease over time. 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 - Ensure good range of motion at six-month gibran. - Advised to inform any surgeons about knee hardware for antibiotic prophylaxis. - Will schedule bilateral knee x-ray at one-year anniversary on September 11, 2025. Discussed antibotic for any sugerical procedures Scribe Attestation: Jayla Hamilton RTR acted as a scribe and transcribed components of the current encounter under the direction of the Attending Provider. I have not been involved in providing any clinical treatments or patient care. Electronically Signed, COREEN Naqvi Robert Coleman, PA-C attest that I have examined the above patient. I have dictated the exam, diagnosis, and plan to the scribe listed above to be transcribed into this document. I have supplemented the above documentation as warranted. I attest that I have reviewed the above documentation in its entirety and concur. Electronically Signed, Alexis Martinez PA-C 02/10/2025 11:10 AM EST [facility] CONSENT The following consent language was reviewed verbally with the patient in full: Chelo, I am using a tool to help me do my notes. It is recording our conversation and creates my notes automatically and I can focus on our discussion instead of typing in the room. Is that okay with you? The patient demonstrated understanding and verbally agreed to the above consent language. All questions were addressed, and the patient provided informed consent to proceed. [employer] documented in this encounter Plan of Treatment Upcoming Encounters Date Type Department Care Team (Late st Contact Info) Description 09/15/2025 10:30 AM EDT Office Visit [facility] - [address] [phone] Jose F Yao MD [address] [place] [phone] documented as of this encounter Visit Diagnoses Diagnosis S/P TKR (total knee replacement), left- Primary documented in this encounter Care Teams Hose Turner Relationship Specialty Start Date End Date Kyrie Li [address] [place] [phone] PCP - General 06/23/24 documented as of this encounter
--- NOTE | 2025-02-27 18:13 | ECG_ITS ---
APPROVED REPORT Exam: Resting ECG HR:65 bpm ECG Measurements Heart Rate 65 AXES RI 184 P 56 QRSd 101 QRS 67 QT 430 T 66 QTc 442 Conclusion SINUS RHYTHM NORMAL ECG UNCONFIRMED REPORT Electronically signed by : MALCOLM LARSEN, 03/02/2025 00:20:20
--- NOTE | 2025-02-27 18:13 | [facility].EDGENADL ---
Discharge Plan Disposition Chief Complaint: Chest Pain Prescriptions Prescriptions: No Action glucosamine-chondroitin 900 mg tablet 900 mg PO DAILY vitamin E (dl, acetate) 180 mg (400 unit) capsule 180 mg PO DAILY calcium carbonate [Calcium 600] 600 mg calcium (1,500 mg) tablet 600 mg PO DAILY codeine-guaifenesin 10-100 mg/5 mL liquid 10 ml PO Q4-6H PRN (Reason: cough) Qty: 120 2RF ondansetron 4 mg tablet,disintegrating 4 mg PO Q8H PRN (Reason: nausea and vomiting) Qty: 20 0RF amoxicillin-pot clavulanate [Augmentin] 500-125 mg tablet 1 tab PO TID Qty: 30 0RF fexofenadine [Arlene Allergy] 180 mg tablet 180 mg PO DAILY Qty: 90 0RF lansoprazole 30 mg capsule,delayed release(DR/EC) 30 mg PO DAILY 90 Days Qty: 90 0RF lisinopril 30 mg tablet 30 mg PO DAILY Qty: 30 0RF pravastatin 80 mg tablet 80 mg PO DAILY Qty: 90 0RF sertraline [Zoloft] 25 mg tablet 25 mg PO DAILY 90 Days Qty: 90 0RF tolterodine 4 mg capsule,extended release 24hr 4 mg PO DAILY 90 Days Qty: 90 0RF fluticasone propionate [Flonase Allergy Relief] 50 mcg/actuation spray,suspension 1 spray intranasal DAILYP PRN (Reason: Allergy Symptoms) Rx Instructions: administer into each nostril Referrals Follow up/Referrals: Kyrie Li MD [Primary Care Provider, Internal Medicine] - See instructions Stand Alone Forms Stand Alone Forms: Transfer Record - ED Print Language Print Language: Greek Discharge ED Provider: Hollie Holliday General Adult HPI General Chief complaint: Chest Pain Stated complaint: chest pain Time Seen by Provider: 02/27/25 18:13 History of Present Illness HPI narrative: Patient is an 79-year-old female with a past medical history of hypertension, high cholesterol not on blood thinners who presented to the emergency department with chest pain and back pain. Patient states that her symptoms started acutely this morning. Patient states that first she had a headache and her headache resolved and then she started developing chest pain and back pain. Patient states that she has had multiple episodes of vomiting no diarrhea. Patient has not had any fevers. Patient denies any shortness of breath. Patient has not been around anyone that has been sick. Patient states that she has had bilateral knee replacements but no prior abdominal surgeries. Patient still has her gallbladder. Related Data Home Medications ?Medication ?Instructions ?Recorded ?Confirmed antiarthritic combination no.2 900 900 mg PO DAILY 04/26/22 09/15/24 mg tablet (glucosamine-chondroitin) calcium carbonate (Calcium 600) 600 mg PO DAILY 04/26/22 09/15/24 vitamin E (dl, acetate) 180 mg 180 mg PO DAILY 04/26/22 09/15/24 (400 unit) capsule fluticasone propionate 50 1 spray intranasal DAILYP PRN 07/24/24 09/15/24 mcg/actuation nasal Allergy Symptoms spray,suspension (Flonase Allergy Relief) Previous Rx's ?Medication ?Instructions ?Recorded ondansetron 4 mg disintegrating 4 mg PO Q8H PRN nausea and 07/22/24 tablet vomiting #20 tabs codeine 10 mg-guaifenesin 100 mg/5 10 ml PO Q4-6H PRN cough #120 mL 09/15/24 mL oral liquid amoxicillin 500 mg-potassium 1 tab PO TID #30 tabs 09/16/24 clavulanate 125 mg tablet (Augmentin) fexofenadine 180 mg tablet 180 mg PO DAILY #90 tabs 12/12/24 (Arlene Allergy) lansoprazole 30 mg capsule,delayed 30 mg PO DAILY 90 days #90 caps 12/12/24 release lisinopril 30 mg tablet 30 mg PO DAILY #30 tabs 12/12/24 pravastatin 80 mg tablet 80 mg PO DAILY #90 tabs 12/12/24 sertraline 25 mg tablet (Zoloft) 25 mg PO DAILY 90 days #90 tabs 12/12/24 tolterodine 4 mg capsule,extended 4 mg PO DAILY 90 days #90 caps 12/12/24 release 24 hr Allergies Allergy/AdvReac Type Severity Reaction Status Date / Time sulfamethoxazole (From AdvReac Mild Vomiting Verified 09/15/24 16:00 Bactrim) trimethoprim (From Bactrim) AdvReac Mild Vomiting Verified 09/15/24 16:00 PFSH PFSH Disclaimer: The information contained in this section may have been updated after the patient was seen, as this information can be updated by other users. Medical History GERD (gastroesophageal reflux disease) Hyperglycemia Arthritis Hyperlipidemia Hypertension Surgical History History of knee replacement History of surgical removal of lesion H/O tubal ligation Family History Mother Coronary artery disease Heart attack Grandmother Diabetes Social History Smoking Status: Never smoker alcohol intake: never substance use type: denies use current occupational status: retired Travel in the last 8 weeks?: None household members: none housing: house Have you lived/traveled outside [place] in past 30 days?: No Contact w/someone who lives/traveled outside US past 30 days?: No Exposure to someone with infectious disease in past 14 days?: No Do you have a fever (greater than 100.4 F or 38 C)?: No Have you tested positive for COVID-19?: No Exposed to someone with COVID-19 in past 14 days?: No Do you have a sore throat?: No Do you have a cough?: No Do you have any weakness?: No Do you have any diarrhea?: No Are you experiencing any unusual bleeding?: No Do you have any muscle aches/pain?: No Do you have any abdominal pain?: No Are you experiencing loss of taste or smell?: No Other Medical History Have you received the Flu Vaccine for this season: No Have you received the Pneumonia Vaccine: Yes ROS Obtained: Yes All systems reviewed & no additional complaints except as documented and Yes Systems reviewed as appropriate & no additional complaints except as documented Physical Exam General General appearance: alert and in no apparent distress Head Head exam: atraumatic, normocephalic and normal inspection Eye Eye exam: Present normal appearance, PERRL and EOMI; Absent scleral icterus ENT ENT exam: Present normal exam and normal external ear exam Neck Neck exam: Present normal inspection and full ROM Chest Chest inspection: Present normal inspection and symmetric chest wall rise Respiratory Respiratory exam: Present normal lung sounds bilaterally; Absent respiratory distress or wheezes Cardiovascular Cardiovascular exam: Present regular rate, normal rhythm and normal heart sounds Abdominal Exam Abdominal exam: Present soft, distention and tenderness (epigastric abdominal tenderness, mild RUQ tenderness); Absent guarding or rebound Extremities Exam Extremities exam: Present normal inspection and full ROM Back Exam Back exam: Present normal inspection and full ROM Neurological Exam Neurological exam: Present alert and oriented X3 Psychiatric Psychiatric exam: Present normal affect and normal mood Skin Skin exam: Present warm and dry Medical Decision Making Medical Records Medical records reviewed: Yes I reviewed the patient's medical records. Screening: Per USPSTF and CDC recommendations, given the prevalence of disease in our region, it is our hospital?s policy to screen for HIV and viral Hepatitis for all patients aged 18 and over and those with ongoing risk factors. Wali Inquiry Pt receiving controlled substance: No Vital Signs: 02/27/25 18:15 02/27/25 18:30 02/27/25 19:00 Temperature 97.8 F Temperature Source Oral Pulse Rate 59 L 68 Pulse Rate [Radial] 66 Respiratory Rate 16 13 27 H Blood Pressure Blood Pressure [Right Arm] 184/90 H Blood Pressure Mean [Right Arm] 121 Blood Pressure Source [Right Arm] Automatic Cuff Blood Pressure Position [Right Arm] Supine 02 Sat by Pulse Oximetry 97 96 99 Oxygen Delivery Method Room Air 02/27/25 19:06 Temperature Temperature Source Pulse Rate 63 Pulse Rate [Radial] Respiratory Rate 22 Blood Pressure 163/71 H Blood Pressure [Right Arm] Blood Pressure Mean [Right Arm] Blood Pressure Source [Right Arm] Blood Pressure Position [Right Arm] 02 Sat by Pulse Oximetry 96 Oxygen Delivery Method Lab Data Lab results reviewed: Yes I reviewed the patient's lab results. Lab Results 02/27/25 18:16: WBC 9.5, RBC 4.86, Hgb 14.2, Hct 42.2, MCV 86.8, MCH 29.2, MCHC 33.6, RDW 13.0, Plt Count 226, MPV 9.8, Neut % (Auto) 73.2, Lymph % (Auto) 21.1, Mills % (Auto) 4.2, Eos % (Auto) 0.9, Baso % (Auto) 0.3, Neut # (Auto) 7.0, Lymph # (Auto) 2.0, Mills # (Auto) 0.4, Eos # (Auto) 0.1, Baso # (Auto) 0.0, PT 11.0, INR 0.99, Sodium 138, Potassium 3.6, Chloride 99, Carbon Dioxide 21 L, Anion Gap 21.6 H, BUN 12, Creatinine 1.10 H, Estimated Creat Clear 44, Estimated GFR 48 L, Est GFR ( Amer) 58 L, Glucose 126 H, Calcium 7.2 L, Total Bilirubin 8.6 H, AST 617 H*, ALT 143 H, Alkaline Phosphatase 372 H, Troponin I 0.03, Total Protein 9.7 H D, Albumin 4.5, Globulin 5.2 H, Albumin/Globulin Ratio 0.9 L, Lipase 88822 H 02/27/25 19:54: Lactate 2.0 02/27/25 20:31: Urine Color Yellow, Urine Appearance Clear, Urine pH 6.5, Ur Specific Macy <= 1.005, Urine Protein Negative, Urine Glucose (UA) Negative, Urine Ketones Trace, Urine Blood Negative, Urine Nitrate Negative, Urine Bilirubin Negative, Urine Urobilinogen 2.0, Ur Leukocyte Esterase Negative, Urine RBC None, Urine WBC None, Ur Squamous Epith Cells Occasional, Urine Bacteria None 02/27/25 21:34: Troponin I < 0.01 02/27/25 18:16 02/27/25 18:16 Orders (Tests/Meds): ED MEDICATIONS Generic Name Dose Route Start Last Admin Trade Name Freq PRN Reason Stop Dose Admin Sodium Chloride 10 ml 02/27/25 19:15 02/27/25 19:21 Sodium Chloride 0.9% 10ml Syr (Rad Only) IV 03/29/25 19:14 10 ml NEEDED PRN Administration Maintain IV Site Discontinued Medications Generic Name Dose Route Start Last Admin Trade Name Freq PRN Reason Stop Dose Admin Piperacillin Sod/Tazobactam 100 mls @ 200 mls/hr 02/27/25 19:15 02/27/25 22:14 Sod 4.5 gm/ Sodium Chloride IV 02/27/25 19:44 Infused ONCE ONE Infusion Sodium Chloride 1,000 mls @ 999 mls/hr 02/27/25 19:10 02/27/25 20:35 Sod Chlor 0.9% 1000ml Bag IV 02/27/25 20:10 999 mls/hr .Q1H1M ONE Administration Iopamidol 80 ml 02/27/25 19:15 02/27/25 19:20 Iopamidol-370 (76%);100ml Bottle IV 02/27/25 19:16 80 ml ONCE ONE Administration Morphine Sulfate 4 mg 02/27/25 18:26 02/27/25 19:03 Morphine 4mg/Ml Syringe IV 02/27/25 18:27 4 mg ONCE ONE Administration Ondansetron HCl 4 mg 02/27/25 18:26 02/27/25 19:03 Ondansetron 4mg/2ml Vial IV 02/27/25 18:27 4 mg ONCE ONE Administration Sodium Chloride 50 ml 02/27/25 19:15 02/27/25 19:20 0.9 % Sodium Chloride 50 Ml Vial IV 02/27/25 19:16 50 ml ONCE ONE Administration ORDERS Category Date Time Status CT abdomen pelvis w con Stat Cat Scan 02/27/25 18:[address] head/brain wo con Stat Cat Scan 02/27/25 18:24 Completed CTA Chest [CT angio chest - dissection] Stat Cat Scan 02/27/25 18:24 Completed CXR --portable [XR chest portable] Stat Exams 02/27/25 18:24 Completed POCUS Point of Care (ER Only) Stat Exams 02/27/25 19:10 Completed CBC w/Auto Diff [Complete Blood Count Auto Diff] Stat Lab 02/27/25 18:16 Completed CMP [Comprehensive Metabolic Panel] Stat Lab 02/27/25 18:16 Completed INR [Prothrombin Time INR] Stat Lab 02/27/25 18:16 Completed Lactic Acid Stat Lab 02/27/25 19:54 Completed Lipase Stat Lab 02/27/25 18:16 Completed Trop I [Troponin I] Stat Lab 02/27/25 18:16 Completed Troponin I Q3H Lab 02/27/25 21:34 Completed Troponin I Q3H Lab 02/28/25 00:30 Ordered UA [Urinalysis and Microscopic] Stat Lab 02/27/25 20:31 Completed Blood Culture Stat Micro 02/27/25 20:15 Received Urine Culture Stat Micro 02/27/25 20:31 Received Medical Decision Narrative: Patient is an 79-year-old female with no significant past medical history who presented to the emergency department with chest pain and back pain that started acutely today. On arrival, patient was hemodynamically stable with unremarkable vital signs, of note, patient was mildly hypertensive. Differential includes but not limited to: Pancreatitis, cholelithiasis, cholecystitis, intra-abdominal abscess, aortic dissection, ACS/[place], sepsis, urinary tract infection, amongst others. Patient's labs were reviewed and interpreted by myself: CBC showed no leukocytosis, hemoglobin was stable. INR was normal. CMP notable for elevated anion gap of 21, mildly elevated creatinine at 1.1 from baseline of 0.7. Patient had significantly elevated bilirubin and LFTs. Patient's bilirubin was 8.6. AST was 617, ALT 143, alk phos 372. Initial troponin 0.03. Patient's lipase was 12,889. UA showed no evidence of infection. Patient's EKG was reviewed and interpreted by myself and showed normal sinus rhythm without acute ST or T wave changes concerning for ischemia. The patient was hypertensive with chest and back pain, CTA of the chest was obtained to rule out dissection, patient was otherwise not hypoxic or tachycardic lower concern for pulmonary embolism. CT abdomen pelvis was obtained and CT head given history of prior headache earlier today. CT of the chest and the head showed no acute pathology. However CT of the abdomen showed inflammation and fluid around the pancreas concerning for acute pancreatitis as well as distended gallbladder with moderate thickening and fluid. Bedside ultrasound was also performed which showed a large gallbladder with thickened anterior gallbladder wall as well as Ronaldo cholecystic fluid starting for acute cholecystitis. Blood cultures were obtained and patient was started on IV Zosyn. His clinical picture shows acute pancreatitis, acute cholecystitis with concern for choledocholithiasis given patient's elevated bilirubin and LFTs. I discussed the case with GI here at our hospital who is unable to perform an ERCP until Sunday. General surgery felt the patient would likely require ERCP prior to Sunday therefore requested patient be transferred. I discussed the case with [facility] who accepted the patient to the [facility] emergency department for transfer. Critical Care Critical Care Time Critical Care Time: No
[2025-02-27 18:15] VITALS: BP 184/90; PULSE 66; RESP 16; TEMP 36.6; O2SAT 97; BMI 24.2
--- NOTE | 2025-02-27 18:24 | XR_ITS ---
PROCEDURE INFORMATION: Exam: XR Chest Exam date and time: 02/27/2025 7:23 PM Age: 79 years old Clinical indication: Other: Chest pain; Additional info: Chest pain and shortness of breath TECHNIQUE: Imaging protocol: Radiologic exam of the chest. Views: 1 view. COMPARISON: CT ANGIO CHEST 02/27/2025 7:18 PM FINDINGS: Lungs: Prominent interstitial markings of the lung bases with scattered opacities suggest mild pulmonary edema. Pleural spaces: Unremarkable. No pleural effusion. No pneumothorax. Heart/Mediastinum: Unremarkable. No cardiomegaly. Bones/joints: Unremarkable. IMPRESSION: Prominent interstitial markings of the lung bases with scattered opacities suggest mild pulmonary edema.
--- NOTE | 2025-02-27 18:24 | CT_ITS ---
PROCEDURE INFORMATION: Exam: CT Abdomen And Pelvis With Contrast Exam date and time: 02/27/2025 7:18 PM Age: 79 years old Clinical indication: Abdominal pain; Epigastric; Additional info: Epigastric abdominal pain TECHNIQUE: Imaging protocol: Computed tomography of the abdomen and pelvis with contrast. 3D rendering (Not supervised by radiologist): MIP and/or 3D reconstructed images were created by the technologist. Radiation optimization: All CT scans at this facility use at least one of these dose optimization techniques: automated exposure control; mA and/or kV adjustment per patient size (includes targeted exams where dose is matched to clinical indication); or iterative reconstruction. Contrast material: ISOVUE; Contrast volume: 80 ml; Contrast route: IV; COMPARISON: CT ANGIO ABDOMEN PELVIS 01/21/2023 8:17 PM FINDINGS: Liver: Normal. No mass. Gallbladder and biliary ducts: Moderate thickening and fluid surrounding the gallbladder measuring 9.2 mm in thickness without calcified choleliths. Pancreas: Peripancreatic inflammatory stranding and fluid is consistent with acute pancreatitis. Spleen: Normal. No splenomegaly. Adrenal glands: Normal. No mass. Kidneys and ureters: Normal. No hydronephrosis. Stomach and bowel: Unremarkable. No obstruction. No mucosal thickening. Appendix: No evidence of appendicitis. Intraperitoneal space: Unremarkable. No free air. No significant fluid collection. 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 Moderate calcific atherosclerotic disease of the origin of the SMA resulting in moderate stenosis. Lymph nodes: Unremarkable. No enlarged lymph nodes. Urinary bladder: Unremarkable as visualized. Reproductive: Unremarkable as visualized. Bones/joints: Moderate loss of intervertebral disc space with degenerative changes involving the lower thoracic and lumbar spine greatest at L5-S1. Soft tissues: Normal. IMPRESSION: 1. Peripancreatic inflammatory stranding and fluid is consistent with acute pancreatitis. No pseudocyst, abscess, vascular compromise or pancreatic necrosis. 2. Moderate thickening and fluid surrounding the gallbladder measuring 9.2 mm in thickness without calcified choleliths. Findings may represent acute coli cystitis versus reactive changes related to pancreatitis. Recommend further evaluation with right upper quadrant ultrasound to evaluate for noncalcified stones.
--- NOTE | 2025-02-27 18:24 | CT_ITS ---
PROCEDURE INFORMATION: Exam: CTA Chest Without And With Contrast Exam date and time: 02/27/2025 7:18 PM Age: 79 years old Clinical indication: Other: HTN; Chest pressure and other: Back pain; Additional info: HTN, chest and back pain TECHNIQUE: Imaging protocol: Computed tomographic angiography of the chest without and with contrast. Exam focused on the arteries. 3D rendering (Not supervised by radiologist): MIP and/or 3D reconstructed images were created by the technologist. Radiation optimization: All CT scans at this facility use at least one of these dose optimization techniques: automated exposure control; mA and/or kV adjustment per patient size (includes targeted exams where dose is matched to clinical indication); or iterative reconstruction. Contrast material: ISOVUE; Contrast volume: 80 ml; Contrast route: INTRAVENOUS (IV); COMPARISON: CT ANGIO CHEST 01/21/2023 8:17 PM FINDINGS: Pulmonary arteries: No CT angiography evidence of pulmonary embolism. Aorta: There is mild calcific atherosclerotic disease of the thoracic aorta without aneurysmal dilatation. Lungs: Prominent interstitial markings of the lung bases with scattered opacities suggest mild pulmonary edema. Pleural spaces: Unremarkable. No pneumothorax. No pleural effusion. Heart: Unremarkable. No cardiomegaly. No pericardial effusion. Coronary arteries: Moderate calcific atherosclerotic disease of the LAD is present. Lymph nodes: Unremarkable. No enlarged lymph nodes. Bones/joints: Unremarkable. No acute fracture. Soft tissues: Unremarkable. IMPRESSION: 1. Prominent interstitial markings of the lung bases with scattered opacities suggest mild pulmonary edema. 2. No CT angiography evidence of pulmonary embolism. 3. No evidence of aortic aneurysm or dissection.
--- NOTE | 2025-02-27 18:24 | CT_ITS ---
PROCEDURE INFORMATION: Exam: CT Head Without Contrast Exam date and time: 02/27/2025 7:16 PM Age: 79 years old Clinical indication: Other: Headache, HTN TECHNIQUE: Imaging protocol: Computed tomography of the head without contrast. Radiation optimization: All CT scans at this facility use at least one of these dose optimization techniques: automated exposure control; mA and/or kV adjustment per patient size (includes targeted exams where dose is matched to clinical indication); or iterative reconstruction. COMPARISON: CT ANGIO HEAD 01/21/2023 8:11 PM FINDINGS: Brain: There is moderate diffuse cerebral volume loss present. Multiple subcortical and deep hypoattenuating white matter foci are present, likely related to small vessel senescent changes and can also be seen with prior infectious / inflammatory insult, or prior traumatic events. No hyperattenuating foci are identified to suggest acute intracranial hemorrhage. Cerebral ventricles: No ventriculomegaly. Paranasal sinuses: Visualized sinuses are unremarkable. No fluid levels. Mastoid air cells: Visualized mastoid air cells are well aerated. Bones: Unremarkable. No acute fracture. Soft tissues: Unremarkable. IMPRESSION: 1. Multiple subcortical and deep hypoattenuating white matter foci are present, likely related to small vessel senescent changes and can also be seen with prior infectious / inflammatory insult, or prior traumatic events. 2. No hyperattenuating foci are identified to suggest acute intracranial hemorrhage.
--- NOTE | 2025-02-27 18:24 | PC.NURSE ---
first attempt at IV to left ac labs were obtained but unable to advance IV. Second attempt at IV to RAC was unsuccessful
[2025-02-27 18:30] VITALS: PULSE 59; RESP 13; O2SAT 96
[2025-02-27 18:31] LABS: Hematocrit 42.2 % (37.0-47.0); Hemoglobin 14.2 g/dL (12.2-16.2); Immature Granulocytes % 0.3 %; Mean Corpuscular HGB Conc 33.6 g/dL (31.8-35.4); Mean Corpuscular Hemoglobin 29.2 pg (27.0-31.2); Mean Corpuscular Volume 86.8 fl (81-99); Nucleated Red Blood Cells % 0 %; Platelet Count 226 K/mm3 (142-424); Red Blood Count 4.86 M/mm3 (4.20-5.40); Red Cell Distribution Width-SD 41.3 fL; White Blood Count 9.5 K/mm3 (4.8-10.8)
--- OUTSIDE RECORDS SUMMARY | 2025-02-27 18:32 | XMS_ITS | Clinical Summary ---
Author Organization [employer] ([place], [place], [place], [place], [place]) Address [address] [place] [address] Care Team Providers Care Environmental Services Tech Name Role Phone Kyrie Li Primary Care Provider [phone] Allergies Active Allergy Reactions Criticality Noted Date Comments Lidocaine Other (See Comments) 02/10/2025 Oxycodone Other (See Comments) 09/11/2024 Patient states, makes me aggressive and out of it. Procaine (Bulk) Other (See Comments) 02/10/2025 Medications tolterodine (Detrol LA) 4 MG 24 [...] tablet (25 mg total) by mouth daily. 5 Active lisinopriL (ZESTRIL) 30 MG tablet Take 1 tablet (30 mg total) by mouth daily. Active potassium chloride (KLOR-CON) 10 MEQ tablet Take 1 tablet (10 mEq total) by mouth daily 1.5 TABS. 30 tablet 5 Active Active Problems Problem Noted Date Diagnosed Date S/P TKR (total knee replacement), left 5 Other seasonal allergic rhinitis 09/12/2024 Status post left knee replacement with NATASHA 09/1109/11/2024 Overview (09/11/2024): DOS 09/11/[address] Yao Acute respiratory failure 09/11/2024 Presence of artificial knee joint, bilateral retirement (current) use of n on-steroidal anti-inflammatories (nsaid) 03/19/2024 Anxiety 02/07/2022 Depressive disorder 02/07/2022 Essential hypertension 02/07/2022 Gastroesophageal reflux disease 02/07/2022 Osteopenia 02/07/2022 Hyperlipidemia Ocular migraine Overview (09/11/2024): HISTORY OF Seasonal allergies Urinary incontinence Resolved Problems Problem Noted Date Diagnosed Date Resolved Date Osteoarthritis of left knee 05/27/2024 09/11/2024 Arthritis 09/11/2024 Encounters Date Type Department Care Team Description 02/10/2025 10:45 AM EST Office Visit [facility] Orthopedics - [address] [phone] Alexis Martinez PA-C S/P TKR (total knee replacement), left (Primary Dx) from Last 3 Months Family History Medical [...] the past 12 months, has t he [employer] gas, oil, or water company threatened to [...] Do you speak a language other than [facility]? No 09/11/2024 Do you want help [...] Pulse 76 02/10/2025 10:51 AM EST Temperature 36.7 C (98 F) 09/13/2024 7:13 AM EDT Respiratory Rate 30 09/13/2024 9:13 AM EDT Oxygen Saturation 93% 09/13/2024 9:13 AM EDT Inhaled Oxygen Concentration 21% 09/12/2024 8 :17 PM EDT Weight 68.9 kg (152 lb) 02/10/2025 10:50 AM EST Height 157.5 cm (5' 2 ) 02/10/2025 10:50 AM EST Body Mass Index 27.8 02/10/2025 10:50 AM EST Plan of Treatment Upcoming Encounters Date Type Department Care Team (Late st Contact Info) Description 09/15/2025 10:30 AM EDT Office Visit [facility] Orthopedics - [address] [phone] Jose F Yao MD [address] [place] [phone] Health Maintenance Due Date Last Done Comments DXA SCAN 1944 Shingles Vaccine (Zoster) (1 of 2) 1994 Respiratory Syncytial Virus (RSV) Adult or (1 - 1-dose 75+ series) 06/27/2019 DTAP/TDAP/TD VACCINES (2 - T d or Tdap) 09/27/2023 09/26/2013 Falls Risk Screening 03/19/2024 COVID-19 VACCINE (3 - 2024-2 6 season) 2024 12/23/2020, 11/25/2020 Influenza Vaccine (#1) 2024 2, 01/31/2021, 12/24/2018 Tobacco Cessation Counseling and Screening (12+) 02/10/2026 02/10/2025 Pneumococcal 50+ years Completed 2, 10/13/2015, 09/29/2014, Additional history exists Medical Devices Implanted Type Area Imaging Nurse Device Identifier Shelf Expiration Date Model / Serial / Lot Patella Press Fit Tritanium 5552-L-299 - [id number] Implanted:Qt y: 1 on 09/11/2024 by Jose F Yao MD at [facility] TOTAL JOINT CONSTRUCT Left: Knee DONIS:[employer] [id number] 05/25/2029 5552-L-29 9 / / [id number] Comp Fem P/A Cr Beaded Sz4 L 5517-F-401 - [id number] Implanted:Qt y: 1 on 09/11/2024 by Jose F Yao MD at [facility] TOTAL JOINT CONSTRUCT Left: Knee DONIS:[employer] [id number] 05/31/2029 5517-F-40 1 / / [id number] Comp Triathlon Tib Tritanium 5536-B-400 - [id number] Implanted:Qt y: 1 on 09/11/2024 by Jose F Yao MD at [facility] TOTAL JOINT CONSTRUCT Left: Knee DONIS:[employer] [id number] 07/15/2029 5536-B-40 0 / / [id number] Insrt Tib Bearing #4 11mm X1 5785-G-451-E - [id number] Implanted:Qt y: 1 on 09/11/2024 by Jose F Yao MD at [facility] TOTAL JOINT CONSTRUCT Left: Knee DONIS:[employer] [id number] 04/07/2029 5531-G-41 1-E / / [id number] Rtka Right: Knee Explanted Type Area Imaging Nurse Device Identifier Shelf Expiration Date Model / Serial / Lot Pin Bone [id number] Strl 145120 - [id number] Explanted:Qty : 1 on 09/11/2024 at [facility] IMPLANTS Left: Knee DONIS:[employer] [id number] 06/03/2029 [id number] / / [id number] Pin Bone [id number] Strl [id number] - [id number] Explanted:Qty : 1 on 09/11/2024 at [facility] IMPLANTS Left: Knee DONIS:[employer] [id number] 05/27/2029 [id number] / / [id number] Femoral Tibia Kit Chkpt [id number] - [id number] Explanted:Qty : 1 on 09/11/2024 at [facility] IMPLANTS Left: Knee DONIS:[employer] [id number] 03/29/2029 [id number] / / [id number] Insurance BLUE CROSS/BLUE SHIELD MEDICARE PART A ONLY Advance Directives For more information, please contact: [phone] * Full Code (Latest Code Status on File) Date Activated Date Inactivated Comments 09/11/2024 11:31 AM 09/13/2024 12:46 PM If no puls e: No intervention If has pulse: Use intubation, mechanical ventilation, defibrillation, ACLS medications, or cardioversion as indicated. Call RADIOISOTOPE TECHNOLOGIST * Full Code Date Activated Date Inactivated Comments 09/11/2024 11:28 AM 09/11/2024 11:31 AM * Full Code Date Activated Date Inactivated Comments 09/11/2024 6:05 AM 09/11/2024 11:28 AM Care Teams Environmental Services Tech Relationship Specialty Start [place] [phone] PCP - General 06/23/24
--- OUTSIDE RECORDS SUMMARY | 2025-02-27 18:32 | XMS_ITS | Referral Summary ---
Author Organization [employer] ([place], [place], [place], [place], [place]) Address [address] [place] [address] Care Team Providers Care Community Board Member Name Role Phone Kyrie Li Primary Care Provider [phone] Encounters Date Type Department Care Team Description 02/10/2025 10:45 AM EST Office Visit [facility] Orthopedics - [address] [phone] Alexis Martinez PA-C S/P TKR (total knee replacement), left (Primary Dx) from Last 3 Months Allergies Active Allergy [...] tablet (25 mg total) by mouth daily. Active lisinopriL (ZESTRIL) 30 MG tablet Take 1 tablet (30 mg total) by mouth daily. Active potassium chloride (KLOR-CON) 10 MEQ tablet Take 1 tablet (10 mEq total) by mouth daily 1.5 TABS. 30 tablet Active Active Problems Problem Noted Date Diagnosed Date S/P TKR (total knee replacement), left Other seasonal allergic rhinitis 09/12/2024 Status post left knee replacement with NATASHA 09/1109/11/2024 Overview (09/11/2024): DOS 09/11/[address] Yao Acute respiratory failure 09/11/2024 Presence of artificial knee joint, bilateral equipment operator intermodal yard (current) use of n on-steroidal anti-inflammatories (nsaid) [...] Date Record ed How often does anyone, inclu ding family and friends, physically hurt you? Never [...] Do you speak a language other than [place] at [place]? No 09/11/2024 Do you want help with [...] Description 09/15/2025 10:30 AM EDT Office Visit [facility] Orthoped[facility] - [address] [phone] Jose F Yao MD [address] [place] [phone] Medical Devices Implanted Type Area Card Punching Machine Operator Device Identifier Shelf Expiration Date Model / Serial / Lot Patella Press Fit Tritanium 5552-L-299 - [id number] Implanted:Qt y: 1 on 09/11/2024 by Jose F Yao MD at [facility] TOTAL JOINT CONSTRUCT Left: Knee [employer]IS:[employer] [id number] 05/25/2029 5552-L-29 9 / / [id number] Comp Fem P/A Cr Beaded Sz4 L 5517-F-401 - [id number] Implanted:Qt y: 1 on 09/11/2024 by Jose F Yao MD at [facility] TOTAL JOINT CONSTRUCT Left: Knee [employer]IS:[employer] [id number] 05/31/2029 5517-F-40 1 / / [id number] Comp Triathlon Tib Tritanium 5536-B-400 - [id number] Implanted:Qt y: 1 on 09/11/2024 by Jose F Yao MD at [facility] TOTAL JOINT CONSTRUCT Left: Knee [employer]IS:[employer] [id number] 07/15/2029 5536-B-40 0 / / [id number] Insrt Tib Bearing #4 11mm X1 3426-Y-850-E - [id number] Implanted:Qt y: 1 on 09/11/2024 by Jose F Yao MD at [facility] TOTAL JOINT CONSTRUCT Left: Knee [employer]IS:[employer] [id number] 04/07/2029 5531-G-41 1-E / / [id number] Rtka Right: Knee Explanted Type Area Card Punching Machine Operator Device Identifier Shelf Expiration Date Model / Serial / Lot Pin Bone [id number] Strl [id number] - [id number] Explanted:Qty : 1 on 09/11/2024 at [facility] IMPLANTS Left: Knee [employer]IS:[employer] [id number] 06/03/2029 624907 / / [id number] Pin Bone [id number] Strl 988924 - [id number] Explanted:Qty : 1 on 09/11/2024 at [facility] IMPLANTS Left: Knee [employer]IS:[employer] [id number] 05/27/2029 755697 / / [id number] Femoral Tibia Kit Chkpt [id number] - [id number] Explanted:Qty : 1 on 09/11/2024 at [facility] IMPLANTS Left: Knee [employer]IS:[employer] [id number] 03/29/2029 929178 / / [id number] Insurance BLUE CROSS/BLUE SHIELD MEDICARE PART A ONLY Advance Directives For more information, please contact: [phone] * Full Code (Latest Code Status on File) Date Activated Date Inactivated Comments 09/11/2024 11:31 AM 09/13/2024 12:46 PM If no puls e: No intervention If has pulse: Use intubation, mechanical ventilation, defibrillation, ACLS medications, or cardioversion as indicated. Call CLAIM PROCESSING SPECIALIST * Full Code Date Activated Date Inactivated Comments 09/11/2024 11:28 AM 09/11/2024 11:31 AM * Full Code Date Activated Date Inactivated Comments 09/11/2024 6:05 AM 09/11/2024 11:28 AM Care Teams Community Board Member Relationship Specialty Start Date End Date Kyrie Li [address] [place] [phone] PCP - General 06/23/24
[2025-02-27 18:34] LABS: Chloride 99 mmol/L (98-107); Potassium 3.6 mmoL/L (3.5-5.1); Sodium 138 mmol/L (136-145)
[2025-02-27 18:36] LABS: Blood Urea Nitrogen 12 mg/dl (7-17); Creatinine Clearance Estimated 44 mL/min (50-200); Creatinine,Serum 1.10 mg/dl (0.52-1.04); Estimated Glomerular Filt Rate 48 ml/min (>60); GFR (African American) 58 ML/MIN (>60)
[2025-02-27 18:37] LABS: Alanine Aminotransferase 143 U/L (12-78); Anion Gap 21.6 mEq/L (5-15); Aspartate Amino Transferase 617 U/L (14-36); Bilirubin,Total 8.6 mg/dl (0.2-1.3); Calcium 7.2 mg/dl (8.4-10.2); Carbon Dioxide 21 mmol/L (22.0-30.0); Glucose 126 mg/dl (74-100)
[2025-02-27 18:38] LABS: INR 0.99 (0.9-1.1); Prothrombin Time 11.0 seconds (10.1-12.5)
[2025-02-27 18:44] LABS: Alkaline Phosphatase 372 U/L (38-126)
[2025-02-27 18:46] LABS: Total Protein,Serum 9.7 g/dl (6.3-8.2)
[2025-02-27 18:53] LABS: Troponin I 0.03 ng/ml (0.00-0.034)
[2025-02-27 19:00] VITALS: PULSE 68; RESP 27; O2SAT 99
[2025-02-27] MEDS: MORPHINE 4MG/ML SYRINGE 4 MG IV ×2 (19:03→23:58)
[2025-02-27] MEDS: ONDANSETRON 4MG/2ML VIAL 4 MG IV ×2 (19:03→23:59)
[2025-02-27 19:06] VITALS: BP 163/71; PULSE 63; RESP 22; O2SAT 96
[2025-02-27 19:09] LABS: Albumin Level 4.5 g/dl (3.5-5.0); Albumin/Globulin Ratio 0.9 (1.1-1.8); Globulin 5.2 g/dL (1.3-3.2)
[2025-02-27 19:15] LABS: Lipase 12889 U/L (23-300)
[2025-02-27] MEDS: 0.9 % SODIUM CHLORIDE 50 ML VIAL IV (19:20)
[2025-02-27] MEDS: IOPAMIDOL-370 (76%);100ML BOTTLE 80 ML IV (19:20)
[2025-02-27] MEDS: SODIUM CHLORIDE 0.9% 10ML SYR (RAD ONLY) 10 ML IV (19:21)
[2025-02-27] MEDS: 0.9 % SODIUM CHLORIDE 1000ML 1,000 ML 999 ML IV (20:35)
[2025-02-27 20:38] LABS: Microscopic, Urine URINE MICROSCOPIC (MICROSCOPIC)
[2025-02-27] MEDS: PIPERACILLIN/TAZO 4.5 GM in 0.9 % SODIUM CHLORIDE 100 ML IV (20:38)
--- NOTE | 2025-02-27 20:39 | PC.NURSE ---
called [facility] for possible pt xfer
[2025-02-27 20:48] LABS: Bilirubin,Urine Negative (Negative); Color,Urine YELLOW (Yellow); Glucose,Urine (UA) Negative (Negative); Ketones,Urine TRACE (Negative); Leukocyte Esterase,Urine Negative (Negative); PH,Urine 6.5 (5.0-8.5); Protein,Urine Negative (Negative); Specific Gravity, Urine <= 1.005 (1.005-1.030); Urobilinogen,Urine 2.0 EU/dl (0.2)
[2025-02-27 21:03] LABS: Squamous Epithelial Cell,Urine Occasional #/hpf (0-5)
[2025-02-27 22:02] LABS: Troponin I < 0.01 ng/ml (0.00-0.034)
[2025-02-28 00:07] VITALS: BP 161/77; PULSE 74; RESP 20; TEMP 36.8; O2SAT 99
== END 2025-02-28 00:09 | disposition other institution (70) ==
PROVIDERS: Emergency Provider Student in an Organized Health Care Education/Training Program; PCP Family Medicine
DX: R07.9 Chest pain, unspecified (principal); R11.10 Vomiting, unspecified; R51.9 Headache, unspecified; M54.9 Dorsalgia, unspecified; R94.5 Abnormal results of liver function studies; E80.7 Disorder of bilirubin metabolism, unspecified; M19.90 Unspecified osteoarthritis, unspecified site; I10 Essential (primary) hypertension; E78.5 Hyperlipidemia, unspecified; Z96.653 Presence of artificial knee joint, bilateral; Z79.899 Other long term (current) drug therapy; Z88.2 Allergy status to sulfonamides
CPT/HCPCS: 36415; 70450; 71045; 71275; 74177; 80053; 81001; 83605; 83690; 84484; 85025; 85610; 87040; 87086; 93005; 96361; 96365; 96375; 96376; 99285; J2270; J2405; J2543; J7030; Q9967